=== PATIENT | male | born 1980 | race Caucasian/White ===

== ENCOUNTER 2019-05-03 21:11 | Emergency (ER) | END 2019-05-04 02:45 | disposition left against medical advice (07) | LOC: EDBD → ER 21:11 | DX: Z53.21 Procedure and treatment not carried out due to patient leaving prior to being seen by health care provider (principal) ==

== ENCOUNTER 2020-05-25 14:28 | Inpatient (IN) | payer SELFPAY ==
[2020-05-25] MEDS ORDERED: ACETAMINOPHEN 325 MG TABLET PO ONE (14:32)
[2020-05-25] MEDS ORDERED: VANCOMYCIN HCL INJ 1000 MG VIAL IV ONE ×2 (14:32→19:15)
[2020-05-25] MEDS ORDERED: CEFEPIME INJ 1 GM VIAL IM ONE (14:32)
[2020-05-25] MEDS ORDERED: FENTANYL CITRATE INJ/PF 100 MCG/2 ML AMPUL IV ONE (14:33)
[2020-05-25] MEDS ORDERED: NORMAL SALINE 1000 ML 1,000 ML IV ONE (14:33)
--- NOTE | 2020-05-25 14:39 | ER Document Report ---
ED General - General Stated Complaint: KNEE PAIN/POSSIBLE INFECTION Time Seen by Provider: 05/25/20 14:30 Notes: 3-year-old male, active user of heroin injection drug use up to a gram and a half a day presents with left knee pain for 2 days. Initially told EMS in front of his girlfriend that he poked his knee with a piece of wood but now is saying that he did inject drugs there admits about 2 days ago had progressive swelling inability to move his knee fever and chills. Lactic was 5 in the field heart rate 133 without a fever. Pain is severe worse when moving. EMS outlined the area and states that is actually gone up his thighs since they outlined it less than an hour ago - Related Data Allergies/Adverse Reactions: No Known Allergies Allergy (Unverified 05/03/19 22:03) Past Medical History - General Information source: Patient - Social History Smoking Status: Unknown if Ever Smoked Drug Abuse: Heroin Family History: None Review of Systems - Review of Systems Notes: REVIEW OF SYSTEMS GEN: Fever chills ENT: Denies sore throat, nasal discharge, ear pain EYES: Denies blurry vision, eye pain, discharge CV: Denies chest pain, palpitations, edema RESP: Denies cough, shortness of breath, wheezing GI: Denies abdominal pain, nausea, vomiting, diarrhea MSK: Pain SKIN: Denies rash, skin lesions LYMPH: Denies swollen glands/lymph nodes NEURO: Denies headache, focal weakness or numbness, dizziness PSYCH: Denies depression, suicidal or homicidal ideation PHYSICAL EXAMINATION General: No acute distress, well-nourished Head: Atraumatic, normocephalic ENT: Mouth normal, oropharynx moist, no exudates or tonsillar enlargement Eyes: Conjunctiva normal, pupils equal, lids normal Neck: No JVD, supple, no guarding CVS: Normal rate, regular rhythm, no murmurs Resp: No resp distress, equal and normal breath sounds bilaterally GI: Nondistended, soft, no tenderness to palpation, no rebound or guarding Ext: Brawny edema from the inner thigh all the way to the calf on the left crossing the knee joint with obvious knee effusion multiloculated abscess with pus draining, pain on axial loading and almost no range of motion of the left knee. Redness is gone outside of a sharpie jazmyn which was placed less than 1 hour ago by the EMS providers. ext Back: No CVA or midline TTP Skin: No rash, warm Lymphatic: No lymphadeopathy noted Neuro: Awake, alert. Face symmetric. GCS 15. Physical Exam - Vital signs Vitals: Temp 98.6 F 05/25/20 14:32 Course - Re-evaluation Re-evalutation: 05/25/20 14:54 Necrotizing fasciitis versus septic joint versus both Septic Immediate fluids antibiotics ordered. Personally started double IVs given ter rible access, using ultrasound. Discussed with Dr. Waldrop at [facility] [place] on arrival of the patient with my concern for necrotizing fasciitis and the need for urgent operative debridement Also discussed with Dr. Camacho will be here in about an hour and a half to see a different patient and agreed to evaluate this patient but states that is going to be a general surgery case and he can be called from intraoperative if there is any need to I&D the joint 05/25/20 15:45 3:[address] shows gas in the gluteus area. On exam when I rolled the patient he states has been injecting intramuscular in his buttocks. There is no tenderness in area of gas. I think this is probably spurious from injection rather than spreading necrotizing fasciitis. Do not see gas down low. He has been gotten his antibiotics. His lactic is elevated. Awaiting surgical consultation by Dr. Waldrop. 05/25/20 16:15 Dr. Waldrop was at the bedside. We discussed the reading of the CT which shows gas in the gluteus but on exam the patient does not have infection in that side and admits to shooting directly to the muscles of this is probably just air without infection. He does however have elevated white count hyponatremia and symptoms and signs concerning for neck fashion He has a DVT in that side as well in talking to radiology which could be chronic. I have added a CPK because there may be some medial compartment myositis. Clinically no compartment syndrome. Positive joint effusion. - Vital Signs Vital signs: Temp Pulse Resp BP Pulse Ox 98.6 F 32 H 142/81 H 97 05/25/20 14:32 05/25/20 16:01 05/25/20 16:01 05/25/20 16:01 - Laboratory Result Diagrams: 05/25/20 14:53 05/25/20 14:53 Laboratory results interpreted by me: 05/25/20 05/25/20 05/25/20 14:53 14:53 14:53 WBC 18.8 H RBC 5.69 H MCV 76 L MCH 25.8 L RDW 16.0 H Seg Neuts % (Manual) 88 H Lymphocytes % (Manual) 7 L Abs Neuts (Manual) 16.5 H VBG HCO3 Sodium 132.7 L Chloride 86 L Carbon Dioxide 36 H Glucose 183 H Lactic Acid 3.2 H Total Bilirubin 3.0 H Direct Bilirubin 2.2 H Alkaline Phosphatase 302 H 05/25/20 15:03 WBC RBC MCV MCH RDW Seg Neuts % (Manual) Lymphocytes % (Manual) Abs Neuts (Manual) VBG HCO3 32.4 H Sodium Chloride Carbon Dioxide Glucose Lactic Acid Total Bilirubin Direct Bilirubin Alkaline Phosphatase - Diagnostic Test Radiology reviewed: Image reviewed, Reports reviewed - EKG Interpretation by Me EKG shows normal: Sinus rhythm Rate: Tachycardia Rhythm: NSR When compared to previous EKG there are: Previous EKG unavailable - No ST or T wave changes Intervals normal Procedures - Additional Procedures IV insertion Notes: 05/25/20 15:16 Ultrasound-guided IV x2 1. Right deep brachial vein 20-gauge sterile prep dynamic ultrasound guidance good/good flush anchored in place 1. Left deep brachial vein 18-gauge sterile prep dynamic ultrasound guidance good/good flush anchored in place Critical Care Note - Critical Care Note Total time excluding time spent on procedures (mins): 40 Comments: The above patient is critically ill. Not including procedures, but including direct re-evaluations, speaking with patient and/or consultants, interpreting results, and documenting, I spent the total amount of minute listed listed above on critical care time Discharge - Discharge Clinical Impression: Necrotizing fasciitis DVT (deep venous thrombosis) Qualifiers: DVT location: lower extremity Affected thrombotic vein of extremity: femoral Chronicity: chronic Laterality: left Qualified Code(s): I82.512 - Chronic embolism and thrombosis of left femoral vein Condition: Critical Disposition: ADMITTED INPATIENT Admitting Provider: Surgicalist Unit Admitted: [facility]
[2020-05-25] MEDS ORDERED: CEFEPIME 2 GM/D5W RTU 2 GM/50 ML RTUPB IV ONE (15:00)
[2020-05-25] MEDS ORDERED: HYDROMORPHONE HCL INJ/PF 2 MG/ML AMPULE IV ONE ×2 (15:13→15:48)
[2020-05-25 15:26] LABS: HEMATOCRIT 43.3 % (37.9-51.0); HEMOGLOBIN 14.7 g/dL (13.5-17.0); MEAN CORPUSCULAR HEMOGLOBIN 25.8 pg (27.0-33.4); MEAN CORPUSCULAR HGB CONC 33.9 g/dL (32.0-36.0); MEAN CORPUSCULAR VOLUME 76 fl (80-97); PLATELET COUNT 252 10^3/uL (150-450); RED BLOOD COUNT 5.69 10^6/uL (4.35-5.55); WHITE BLOOD COUNT 18.8 10^3/uL (4.0-10.5)
[2020-05-25 15:29] LABS: VENOUS BLOOD BASE EXCESS 5.6 mmol/L; VENOUS BLOOD HCO3 32.4 mmol/L (20-32); VENOUS BLOOD PCO2 56.7 mmHg (35-63); VENOUS BLOOD PH 7.38 (7.30-7.42)
[2020-05-25 15:32] LABS: INTERNATIONAL RATION (INR) 1.13; PROTHROMBIN TIME 14.7 SEC (11.4-15.4)
[2020-05-25 15:44] LABS: ALBUMIN 3.7 g/dL (3.5-5.0); ALKALINE PHOSPHATASE 302 U/L (38-126); ANION GAP 11 (5-19); ASPARTATE AMINO TRANSFERASE 34 U/L (17-59); BILIRUBIN,DIRECT 2.2 mg/dL (0.0-0.4); BLOOD UREA NITROGEN 12 mg/dL (7-20); CALCIUM 9.9 mg/dL (8.4-10.2); CARBON DIOXIDE 36 mmol/L (22-30); CHLORIDE 86 mmol/L (98-107); GLUCOSE 183 mg/dL (75-110); POTASSIUM 3.8 mmol/L (3.6-5.0); TOTAL PROTEIN 7.6 g/dL (6.3-8.2)
[2020-05-25 15:57] LABS: ABSOLUTE LYMPHOCYTES# (MANUAL) 1.3 10^3/uL (0.5-4.7); ABSOLUTE MONOCYTES # (MANUAL) 0.9 10^3/uL (0.1-1.4); BASOPHILS % (MANUAL) 0 % (0-2); EOSINOPHILS % (MANUAL) 0 % (0-6); LYMPHOCYTES % (MANUAL) 7 % (13-45); MONOCYTES % (MANUAL) 5 % (3-13); SEGMENTED NEUTROPHILS % (MAN) 88 % (42-78); TOTAL CELLS COUNTED 100
[2020-05-25 15:59] LABS: ANISOCYTOSIS 1+; PLATELET COMMENT ADEQUATE
--- NOTE | 2020-05-25 16:00 | RADIOLOGY REPORT (SQ) ---
EXAM DESCRIPTION: KNEE LEFT 2 VIEWS IMAGES COMPLETED DATE/TIME: 05/25/2020 2:38 pm REASON FOR STUDY: septic knee. COMPARISON: None. NUMBER OF VIEWS: Two views TECHNIQUE: AP and lateral radiographic images acquired of the left knee. LIMITATIONS: None. FINDINGS: MINERALIZATION: Normal. BONES: No acute fracture or dislocation. No worrisome bone lesions. JOINT: Small joint effusion. SOFT TISSUES: No soft tissue swelling. No radio-opaque foreign body. OTHER: No other significant finding. IMPRESSION: Small knee joint effusion. No acute fracture or destructive bone lesion. TECHNICAL DOCUMENTATION: JOB ID: [id number] [email or web address]- All Rights Reserved Reading location - IP/workstation name: [id number]
--- NOTE | 2020-05-25 16:18 | RADIOLOGY REPORT (SQ) ---
EXAM DESCRIPTION: CT LEFT LOWER EXTREMITY WITH IMAGES COMPLETED DATE/TIME: 05/25/2020 2:48 pm REASON FOR STUDY: inecr TECHNIQUE: CT scan of the left leg including the knee from the hip through the knee joint performed without IV contrast. Images reviewed with soft tissue and bone windows. Reconstructed coronal and s agittal MPR images reviewed. All images stored on PACS. CONTRAST TYPE AND DOSE: 79 mL Omnipaque 350 RENAL FUNCTION: None required. The patient is less than 50 years old. LIMITATIONS: None. FINDINGS: Bones: There is no fracture, lytic or blastic bone lesion. Normal knee joint alignment. Normal femoroacetabular alignment. Mild degenerative change at the femoroacetabular joint. Soft tissues: Subcutaneous gas at the left outer hip within the subcutaneous fat. No foreign body. No definite skin laceration is identified. Subcutaneous edema involving the distal leg and knee. I nflammatory change surrounds the medial compartment muscles. No fluid within the medial compartment. Skin thickening overlying the knee. Small knee joint effusion. Prominent left inguinal lymph node s measuring up to 1.5 x 1.4 cm. No free fluid in the pelvis. Vasculature: There is DVT in the distal left femoral vein from the adductor hiatus to the popliteal v ein. Focal DVT is also noted in the proximal greater saphenous vein at the bifurcation with the femoral ve in, with short segment extending into the common femoral vein. Other: None. IMPRESSION: 1. Subcutaneous edema and skin thickening involving the distal upper leg and knee, consistent with ce llulitis and subcutaneous edema. No focal drainable abscess. 2. Inflammatory change involving the medial compartment muscles suggestive of myositis. 3. Small knee joint effusion. 4. Focal DVT in the proximal common femoral vein extending into the greater saphenous vein and in the distal femoral vein. 5. Subcutaneous gas overlying the left hip region with no surrounding inflammatory change or foreign body. This may represent an injection site. COMMENT: Findings discussed with Dr. tasneem segal 05/25/2020 at 1608 hours Eastern time. TECHNICAL DOCUMENTATION: JOB ID: [id number] 2010 [employer]- All Rights Reserved COMPARISON: None. Left knee radiograph two views, same date Reading location - IP/workstation name: [email or web address]
[2020-05-25] MEDS: RINGERS SOLUTION,LACTATED 1,000 ML IV PRN (16:21)
[2020-05-25] MEDS ORDERED: DIPH/PERTUSS(ACELL)/TETANUS VAC/PF 0.5 ML SYR (>=10YO) IM ONE (16:35)
[2020-05-25] MEDS ORDERED: PROPOFOL INJ 200 MG/20 ML VIAL IV ONE (16:42)
[2020-05-25] MEDS ORDERED: MIDAZOLAM 2 MG/2 ML INJ ONE (16:42)
[2020-05-25] MEDS ORDERED: LIDOCAINE 2% INJ-PF (20 MG/ML) 10 ML AMPUL ONE (16:42)
[2020-05-25] MEDS ORDERED: ONDANSETRON HCL INJ/PF 4 MG/2 ML SDV ONE (16:42)
[2020-05-25] MEDS ORDERED: FENTANYL CITRATE INJ/PF 100 MCG/2 ML AMPUL ONE (16:42)
[2020-05-25] MEDS ORDERED: LIDOCAINE 1% INJ-PF (10 MG/ML) 30 ML SDV ONE (16:57)
--- NOTE | 2020-05-25 17:12 | PDOC H&P ---
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 The patient states he has been trying to inject heroin into the left lower extremity saphenous vein for the past 4 to 5 days she has been experiencing the above symptoms which have become worse today and prompted him to come to the emergency room. Social History Smoking Status: Unknown if Ever Smoked Family History Family History: None Parental Family History Reviewed: No Children Family History Reviewed: No Sibling(s) Family History Reviewed.: No Medication/Allergy Home Medications: No Home Medications 05/25/20 Allergies/Adverse Reactions: No Known Allergies Allergy (Unverified 05/03/19 22:03) Physical Exam Vital Signs: Temp Pulse Resp BP Pulse Ox 98.6 F 32 H 142/81 H 97 05/25/20 14:32 05/25/20 16:01 05/25/20 16:01 05/25/20 16:01 Intake & Output 05/24/20 05/25/20 05/26/20 06:59 06:59 06:59 Intake Total 1000 Balance 1000 Weight 175 kg General appearance: PRESENT: disheveled, mild distress, thin Head exam: PRESENT: atraumatic, normocephalic Eye exam: PRESENT: EOMI Mouth exam: PRESENT: dry mucosa, neck supple Teeth exam: PRESENT: poor dentation Neck exam: PRESENT: full ROM Respiratory exam: PRESENT: clear to auscultation selam Cardiovascular exam: PRESENT: RRR GI/Abdominal exam: PRESENT: soft Rectal exam: PRESENT: deferred Extremities exam: PRESENT: full ROM, other - Decreased range of motion left lower extremity; left lower extremity = present diffuse erythema, edema, areas of cutaneous abscesses tenderness on palpation located mainly on the left knee and distal thigh as well as medial thigh; palpable dorsalis pedis and posterior tibialis pulses Neurological exam: PRESENT: other - Left lower extremity = maintained sensation, maintained range of motion left toes, markedly decreased range of motion left knee and hip Results Laboratory Results: 05/25/20 14:53 05/25/20 14:53 05/25/20 05/25/20 05/25/20 14:53 14:53 14:53 WBC 18.8 H RBC 5.69 H Hgb 14.7 Hct 43.3 MCV 76 L MCH 25.8 L MCHC 33.9 RDW 16.0 H Plt Count 252 Seg Neutrophils % Not Reportable VBG pH VBG pCO2 VBG HCO3 VBG Base Excess Sodium 132.7 L Potassium 3.8 Chloride 86 L Carbon Dioxide 36 H Anion Gap 11 BUN 12 Creatinine 0.77 Est GFR ( Amer) > 60 Glucose 183 H Lactic Acid 3.2 H Calcium 9.9 Total Bilirubin 3.0 H AST 34 Alkaline Phosphatase 302 H Total Protein 7.6 Albumin 3.7 05/25/20 15:03 WBC RBC Hgb Hct MCV MCH MCHC RDW Plt Count Seg Neutrophils % VBG pH 7.38 VBG pCO2 56.7 VBG HCO3 32.4 H VBG Base Excess 5.6 Sodium Potassium Chloride Carbon Dioxide Anion Gap BUN Creatinine Est GFR ( Amer) Glucose Lactic Acid Calcium Total Bilirubin AST Alkaline Phosphatase Total Protein Albumin Impressions: Knee X-Ray 05/25/20 14:34 IMPRESSION: Small knee joint effusion. No acute fracture or destructive bone lesion. Lower Extremity CT 05/25/20 14:39 IMPRESSION: 1. Subcutaneous edema and skin thickening involving the distal upper leg and knee, consistent with cellulitis and subcutaneous edema. No focal drainable abscess. 2. Inflammatory change involving the medial compartment muscles suggestive of myositis. 3. Small knee joint effusion. 4. Focal DVT in the proximal common femoral vein extending into the greater saphenous vein and in the distal femoral vein. 5. Subcutaneous gas overlying the left hip region with no surrounding inflammatory change or foreign body. This may represent an injection site. Assessment & Plan - Diagnosis (1) IV drug abuse Is this a current diagnosis for this admission?: Yes (2) DVT (deep venous thrombosis) Qualifiers: DVT location: lower extremity Affected thrombotic vein of extremity: femoral Chronicity: chronic Laterality: left Qualified Code(s): I82.512 - Chronic embolism and thrombosis of left femoral vein Is this a current diagnosis for this admission?: Yes (3) Necrotizing fasciitis Is this a current diagnosis for this admission?: Yes - Time Anticipated Discharge Disposition: Home with Home Health Anticipated Discharge Timeframe: When ready - Plan Summary Plan Summary: Assessment: History of IV drug abuse (heroin) Patient gives a history of attempted heroin injection in the left upper extremity during the past weeks Erythema, edema, pain, swelling, decreased range of motion of the left knee CT scan of the left lower extremity demonstrates diffuse cellulitis of the left knee without joint involvement, with involvement of the medial aspect of the thigh muscles Acute DVT of the left superficial and common femoral vein Plan: IV fluids N.p.o. IV antibiotics (vancomycin and Maxipime) Tetanus toxoid IM 1 dose Incision and debridement of the left lower extremity thigh and knee cellulitis/abscess area: Procedure, risks, benefits, complications, including the possibility of loss of tissue, bleeding, multiple procedures, loss of extremity have been discussed with the patient, he understands all the above, his questions were answered to his satisfaction, and he decides to proceed
[2020-05-25] MEDS ORDERED: ONDANSETRON HCL INJ/PF 4 MG/2 ML SDV IV PRN ×2 (18:04→19:02)
[2020-05-25] MEDS ORDERED: FENTANYL CITRATE INJ/PF 100 MCG/2 ML AMPUL IV PRN ×3 (18:04)
[2020-05-25] MEDS ORDERED: DIPHENHYDRAMINE HCL 50 MG/ML VIAL IV PRN (18:04)
[2020-05-25] MEDS ORDERED: MEPERIDINE HCL/PF INJ 25 MG/1 ML DISP.SYRIN IV PRN (18:04)
[2020-05-25] MEDS ORDERED: PROMETHAZINE HCL INJ 25 MG/1 ML VIAL IV PRN ×2 (18:04)
--- NOTE | 2020-05-25 18:47 | Operative Report ---
Operative Report DATE OF SURGERY: 05/25/20 PREOPERATIVE DIAGNOSIS: Left thigh myositis, left knee cellulitis POSTOPERATIVE DIAGNOSIS: Left knee anterior subcutaneous abscess OPERATION: Left thigh incision and drainage; left anterior knee incision and drainage SURGEON: EBER SHAH ANESTHESIA: Spinal TISSUE REMOVED OR ALTERED: Purulent fluid from left anterior knee subcutaneous tissue COMPLICATIONS: None ESTIMATED BLOOD LOSS: 20 mL INTRAOPERATIVE FINDINGS: Normal appearing left medial thigh muscle compartment; subcutaneous abscess left anterior knee PROCEDURE: The procedure was done in the operating room, the patient was placed in supine position following spinal anesthesia induced by anesthesiologist, the left lower extremity was prepped and draped in a sterile fashion. A stockinette was applied over the foot. Attention was given to the left thigh first and a longitudinal incision was made at the transition between the middle third and the lobar third of the thigh along the median line. This was done with Bovie, the subcutaneous fat was divided with Bovie, the incision was deepened down to the muscle fascia which was opened. Cultures for aerobic, anaerobic, and Gram stain were obtained. The underlying muscle was found to be viable with good bleeding from skin, fat, and the muscle fascia. This was controlled with Bovie. The area was irrigated with about 2 L of normal saline via jet lavage. The left anterior knee was then approached in a cruciate incision followed by subcutaneous insertion of a hemostat which caused drainage of a small amount of pus. This was sent for aerobic anaerobic culture and Gram stain. The skin flaps were elevated with Bovie and the area was then again irrigated with normal saline via jet lavage with about 2 L of normal saline. After this, hemostasis of both wounds was obtained with Bovie, each wound was packed with Kerlix roll soaked in 50% solution Betadine, followed by 4 x 4's, ABDs, Kerlix roll, and Bruce bandage. The patient tolerated the procedure well and transferred to the recovery room in satisfactory conditions.
[2020-05-25] MEDS ORDERED: NORMAL SALINE 1000 ML 1,000 ML IV PRN (19:13)
[2020-05-25] MEDS ORDERED: KETOROLAC TROMETHAMINE INJ/PF 30 MG/1 ML SDV IV PRN (20:07)
[2020-05-25] MEDS: FAMOTIDINE INJ/PF 20 MG/2 ML SDV IV SCH ×2 (20:57→21:30)
[2020-05-25] MEDS: DOCUSATE SODIUM 100 MG/10 ML UDC PO SCH (20:57)
--- NOTE | 2020-05-25 21:08 | PDOC CONSULTATION ---
Consultation Consult Date: 05/25/20 Attending physician:: EBER SHAH Provider Consulted: AIDE ARTIS Consult reason:: Heroin withdrawal, pain control History of Present Illness Admission Date/PCP: 05/25/20 15:25 History of Present Illness: AIDE KHAN is a 39 year old male with history of IV heroin abuse who was admitted by the surgical service for a left thigh cellulitis with possible myonecrosis and a left lower extremity DVT. Our service was consulted to help manage his pain as well as to prevent him on withdrawal. His last use was about an hour before he came to the ER. He says that he uses about 1.5 g of heroin a day, and has done so at that level for at least the last 3 years. He says his habit because some about $175 a day. He is not currently experiencing any withdrawal symptoms. He denies any other chronic medical conditions and takes n o medications at home. Past Medical History Medical History: Other - Patient denies Past Surgical History Past Surgical History: Reports: None Social History Information Source: Patient Smoking Status: Current Every Day Smoker Frequency of Alcohol Use: Occasional Hx Recreational Drug Use: Yes Drugs: Heroin - Advance Directive Resuscitation Status: Full Code Family History Family History: None, COPD, Hypertension Parental Family History Reviewed: Yes Children Family History Reviewed: NA Sibling(s) Family History Reviewed.: Yes Medication/Allergy Home Medications: No Home Medications 05/25/20 Allergies/Adverse Reactions: No Known Allergies Allergy (Unverified 05/03/19 22:03) Review of Systems All systems: reviewed and no additional remarkable complaints except as stated - All systems were reviewed and were negative except as noted in the HPI Physical Exam Vital Signs: Temp Pulse Resp BP Pulse Ox 97.9 F 110 H 20 122/52 L 94 05/25/20 19:51 05/25/20 19:51 05/25/20 19:51 05/25/20 19:51 05/25/20 19:51 Intake & Output 05/24/20 05/25/20 05/26/20 06:59 06:59 06:59 Intake Total 2700 Output Total 50 Balance 2650 Weight 175 kg General appearance: PRESENT: no acute distress, cooperative, disheveled. ABSENT: obese - Unless he is for some reason extraordinarily dense, this patient does not weigh 175 kg Head exam: PRESENT: atraumatic, normocephalic Eye exam: PRESENT: EOMI, PERRLA. ABSENT: conjunctival injection, nystagmus, scleral icterus Ear exam: PRESENT: normal external ear exam Mouth exam: PRESENT: moist, neck supple Throat exam: ABSENT: post pharyngeal erythema Neck exam: PRESENT: full ROM. ABSENT: carotid bruit, JVD, lymphadenopathy, meningismus, tenderness, thyromegaly Respiratory exam: PRESENT: clear to auscultation selam, symmetrical, unlabored. ABSENT: accessory muscle use, chest wall tenderness, crackles, prolonged expiratory phas, rhonchi, tachypnea, wheezes Cardiovascular exam: PRESENT: RRR, +S1, +S2 Pulses: PRESENT: normal carotid pulses Vascular exam: PRESENT: normal capillary refill GI/Abdominal exam: PRESENT: normal bowel sounds, soft. ABSENT: distended, guarding, rebound, tenderness Extremities exam: PRESENT: other - The left lower extremity is covered in a heavy Bruce bandage from the upper thigh down to the toes. ABSENT: clubbing, pedal edema Neurological exam: PRESENT: alert, awake, oriented to person, oriented to place, oriented to time, oriented to situation, CN II-XII grossly intact. ABSENT: motor sensory deficit Psychiatric exam: PRESENT: appropriate affect, normal mood Skin exam: PRESENT: dry, warm Results Laboratory Results: 05/25/20 14:53 05/25/20 14:53 05/25/20 05/25/20 05/25/20 14:53 14:53 14:53 WBC 18.8 H RBC 5.69 H Hgb 14.7 Hct 43.3 MCV 76 L MCH 25.8 L MCHC 33.9 RDW 16.0 H Plt Count 252 Seg Neutrophils % Not Reportable VBG pH VBG pCO2 VBG HCO3 VBG Base Excess Sodium 132.7 L Potassium 3.8 Chloride 86 L Carbon Dioxide 36 H Anion Gap 11 BUN 12 Creatinine 0.77 Est GFR ( Amer) > 60 Glucose 183 H Lactic Acid 3.2 H Calcium 9.9 Total Bilirubin 3.0 H AST 34 Alkaline Phosphatase 302 H Total Protein 7.6 Albumin 3.7 05/25/20 15:03 WBC RBC Hgb Hct MCV MCH MCHC RDW Plt Count Seg Neutrophils % VBG pH 7.38 VBG pCO2 56.7 VBG HCO3 32.4 H VBG Base Excess 5.6 Sodium Potassium Chloride Carbon Dioxide Anion Gap BUN Creatinine Est GFR ( Amer) Glucose Lactic Acid Calcium Total Bilirubin AST Alkaline Phosphatase Total Protein Albumin 05/25/20 14:53 Creatine Kinase 36 L Impressions: Knee X-Ray 05/25/20 14:34 IMPRESSION: Small knee joint effusion. No acute fracture or destructive bone lesion. Lower Extremity CT 05/25/20 14:39 IMPRESSION: 1. Subcutaneous edema and skin thickening involving the distal upper leg and knee, consistent with cellulitis and subcutaneous edema. No focal drainable abscess. 2. Inflammatory change involving the medial compartment muscles suggestive of myositis. 3. Small knee joint effusion. 4. Focal DVT in the proximal common femoral vein extending into the greater saphenous vein and in the distal femoral vein. 5. Subcutaneous gas overlying the left hip region with no surrounding inflammatory change or foreign body. This may represent an injection site. Assessment and Plan - Diagnosis (1) Cellulitis of left thigh Is this a current diagnosis for this admission?: Yes (2) Abscess of left thigh Is this a current diagnosis for this admission?: Yes (3) Heroin addiction Is this a current diagnosis for this admission?: Yes (4) DVT (deep venous thrombosis) Qualifiers: DVT location: lower extremity Affected thrombotic vein of extremity: femoral Chronicity: chronic Laterality: left Qualified Code(s): I82.512 - Chronic embolism and thrombosis of left femoral vein Is this a current diagnosis for this admission?: Yes (5) IV drug abuse Is this a current diagnosis for this admission?: Yes - Plan Summary Summary: He is already been to the OR with Dr. Shah, who is managing his cellulitis and abscess. There has been some discussion about reevaluating the wound to see if it needs further debridement tomorrow. Therefore, anticoagulation for his DVT is on hold. When he is anticoagulated, he will have to be started on warfarin and bridged with Lovenox because he has no insurance. For his heroin addiction, I have advised him that we will not be able to relieve every bit of discomfort, but we will try to make it tolerable. He has not had any withdrawal now. I will start him on some methadone while he is here. We will reassess him later to see if he needs any additional methadone to prevent withdrawal symptoms. I have also started some IV Toradol. When he gets out of the PACU, we will see if he needs any further medication for pain control. He has some orders down there that they can use in the PACU, and I did not want to start any additional medication at this time to avoid any potential complications until he gets to the floor. - Time Time Spent with patient: 35 or more minutes Anticipated Discharge Disposition: Home, Self Care Anticipated Discharge Timeframe: Unknown
[2020-05-25] MEDS ORDERED: CEFEPIME 1 GM/D5W RTU 2 GM/100 ML RTUPB IV ONE (21:41)
[2020-05-25] MEDS ORDERED: METHADONE HCL 10 MG TABLET PO SCH (22:00)
[2020-05-25] MEDS ORDERED: CEFEPIME 2 GM/D5W RTU 2 GM/50 ML RTUPB IV SCH (22:00)
[2020-05-25] MEDS: CEFEPIME IV SCH (22:56)
[2020-05-25] MEDS: [UNRECOGNIZED DRUG - OTHER] IV SCH (22:56)
[2020-05-26] MEDS ORDERED: OXYCODONE-ACETAMINOPHEN 5-325 MG TABLET PO PRN ×5 (03:46→18:55)
[2020-05-26] MEDS ORDERED: CEFEPIME HCL 1.5 GM in DEXTROSE 5%-WATER 50 ML IV SCH (06:00)
[2020-05-26] MEDS: [UNRECOGNIZED DRUG - OTHER] IV SCH (06:07)
[2020-05-26] MEDS: CEFEPIME IV SCH (06:07)
--- NOTE | 2020-05-26 09:05 | PDOC PROGRESS REPORT ---
Subjective Date:: 05/26/20 Subjective:: 39-year-old male with a history of IV drug abuse. He has a severe soft tissue i nfection of the left lower extremity. He continues to report pain in his left leg. He denies any chest pain, shortness of breath, headache, dizziness, orthostasis. Reason For Visit: NECROTIZING FASCIITIS Physical Exam Vital Signs: Temp Pulse Resp BP Pulse Ox 98.7 F 103 H 17 143/57 H 92 05/26/20 07:43 05/26/20 07:43 05/26/20 07:43 05/26/20 07:43 05/26/20 07:43 Intake & Output 05/25/20 05/26/20 05/27/20 06:59 06:59 06:59 Intake Total 2700 Output Total 400 Balance 2300 Weight 175 kg General appearance: PRESENT: no acute distress, disheveled Head exam: PRESENT: atraumatic, normocephalic Eye exam: PRESENT: EOMI, PERRLA. ABSENT: scleral icterus Mouth exam: PRESENT: moist, neck supple Neck exam: ABSENT: meningismus, tenderness, thyromegaly, tracheal deviation Respiratory exam: PRESENT: unlabored. ABSENT: tachypnea, wheezes Cardiovascular exam: ABSENT: tachycardia GI/Abdominal exam: PRESENT: soft. ABSENT: tenderness Rectal exam: PRESENT: deferred Extremities exam: PRESENT: other - Erythema and edema of the left leg extending from below the knee, up to the mid thigh. There are pustules present on the skin of the medial aspect of the left knee. There is necrotic skin and tissue present in and around the knee wound. Neurological exam: PRESENT: alert, awake, oriented to person, oriented to place, oriented to time, oriented to situation, CN II-XII grossly intact Psychiatric exam: PRESENT: anxious. ABSENT: agitated Focused psych exam: ABSENT: delusional Skin exam: PRESENT: erythema - Left knee, mottled - Left knee. ABSENT: cyanosis Results Laboratory Results: 05/25/20 14:53 05/25/20 14:53 05/25/20 05/25/20 05/25/20 14:53 14:53 14:53 WBC 18.8 H RBC 5.69 H Hgb 14.7 Hct 43.3 MCV 76 L MCH 25.8 L MCHC 33.9 RDW 16.0 H Plt Count 252 Seg Neutrophils % Not Reportable VBG pH VBG pCO2 VBG HCO3 VBG Base Excess Sodium 132.7 L Potassium 3.8 Chloride 86 L Carbon Dioxide 36 H Anion Gap 11 BUN 12 Creatinine 0.77 Est GFR ( Amer) > 60 Glucose 183 H Lactic Acid 3.2 H Calcium 9.9 Total Bilirubin 3.0 H AST 34 Alkaline Phosphatase 302 H Total Protein 7.6 Albumin 3.7 05/25/20 05/25/20 05/25/20 15:03 20:45 23:46 WBC RBC Hgb Hct MCV MCH MCHC RDW Plt Count Seg Neutrophils % VBG pH 7.38 VBG pCO2 56.7 VBG HCO3 32.4 H VBG Base Excess 5.6 Sodium Potassium Chloride Carbon Dioxide Anion Gap BUN Creatinine Est GFR ( Amer) Glucose Lactic Acid 1.7 1.8 Calcium Total Bilirubin AST Alkaline Phosphatase Total Protein Albumin 05/25/20 14:53 Blood Blood Culture (PCR) - Final Staphylococcus Aureus 05/25/20 14:53 Creatine Kinase 36 L Impressions: Knee X-Ray 05/25/20 14:34 IMPRESSION: Small knee joint effusion. No acute fracture or destructive bone lesion. Lower Extremity CT 05/25/20 14:39 IMPRESSION: 1. Subcutaneous edema and skin thickening involving the distal upper leg and knee, consistent with cellulitis and subcutaneous edema. No focal drainable abscess. 2. Inflammatory change involving the medial compartment muscles suggestive of myositis. 3. Small knee joint effusion. 4. Focal DVT in the proximal common femoral vein extending into the greater saphenous vein and in the distal femoral vein. 5. Subcutaneous gas overlying the left hip region with no surrounding inflammatory change or foreign body. This may represent an injection site. Assessment & Plan - Diagnosis (1) Necrotizing soft tissue infection Is this a current diagnosis for this admission?: Yes (2) IV drug abuse Is this a current diagnosis for this admission?: Yes - Time Anticipated Discharge Disposition: Home with Home Health Anticipated Discharge Timeframe: unknown - Plan Summary Plan Summary: 39-year-old male with a necrotizing soft tissue infection of the left knee. He continues to have necrotic tissue, evidence of purulence, erythema, and edema of the skin of the knee. The patient ate breakfast this morning. I have recommended n.p.o. now. He will require further debridement of his leg today. I believe the leg is still threatened. With aggressive surgical debridement, s alvage of the leg may be possible. If the infectious process remains out of control, he may lose his leg. I have discussed this at length with the patient. He agrees with the treatment plan. Risks/benefits discussed, informed consent obtained, and all questions answered.
[2020-05-26] MEDS: FAMOTIDINE INJ/PF 20 MG/2 ML SDV IV SCH ×2 (09:55→22:57)
[2020-05-26] MEDS: DOCUSATE SODIUM 100 MG/10 ML UDC PO SCH ×2 (09:55→17:59)
[2020-05-26] MEDS: CEFEPIME HCL 1.5 GM in DEXTROSE 5%-WATER 50 ML IV SCH ×2 (09:57→18:19)
[2020-05-26] MEDS ORDERED: CLONIDINE HCL 0.1 MG TABLET PO PRN (12:46)
--- NOTE | 2020-05-26 12:51 | PDOC PROGRESS REPORT ---
Subjective Date:: 05/26/20 Subjective:: The patient is a 39 year old male with a past medical history significant for IVDU and tobacco dependence with continuous use who is admitted to the surgicalist service for necrotizing soft tissue infection of the left knee. Hospitalist service was consulted for pain management and prevention of opiate withdrawal. Patient was seen on morning rounds. He is found resting in bed, comfortably, on room air. He was sleeping soundly but woke after calling his name a few times and gently shaking his shoulder. He is alert and oriented x4 but quickly falls back to sleep. Prior to falling back to sleep, he is agreeable to me utilizing the ultrasound machine to attempt to find IV access. Unfortunately, I was unable to find a good vein as he has had numerous IV and venipuncture attempts. The patient denied chest pain, dyspnea, abd pain, and nausea. Otherwise, he does not answer further questions and waves me away. Nursing reports that Dr. Jolly has been made aware of lost IV access. Plans to take patient to the OR again this afternoon. Reason For Visit: NECROTIZING FASCIITIS Physical Exam Vital Signs: Temp Pulse Resp BP Pulse Ox 98.7 F 103 H 17 143/57 H 92 05/26/20 10:00 05/26/20 07:43 05/26/20 07:43 05/26/20 07:43 05/26/20 07:43 Intake & Output 05/25/20 05/26/20 05/27/20 06:59 06:59 06:59 Intake Total 2700 Output Total 400 Balance 2300 Weight 175 kg General appearance: PRESENT: no acute distress, disheveled, well-developed, well-nourished Head exam: PRESENT: atraumatic, normocephalic Eye exam: PRESENT: conjunctiva pink, EOMI, PERRLA. ABSENT: scleral icterus Mouth exam: PRESENT: moist, tongue midline Teeth exam: PRESENT: poor dentation Respiratory exam: PRESENT: clear to auscultation selam, symmetrical, unlabored, other - room air. ABSENT: rales, rhonchi, wheezes Cardiovascular exam: PRESENT: RRR, +S1, +S2. ABSENT: diastolic murmur, rubs, systolic murmur Vascular exam: PRESENT: normal capillary refill Extremities exam: PRESENT: tenderness - Left knee. ABSENT: calf tenderness, clu bbing, full ROM - Left knee, pedal edema Neurological exam: PRESENT: alert, awake, oriented to person, oriented to place, oriented to time, oriented to situation, CN II-XII grossly intact, other - drowsy. ABSENT: motor sensory deficit Psychiatric exam: PRESENT: appropriate affect, normal mood. ABSENT: homicidal ideation, suicidal ideation Skin exam: PRESENT: dry, erythema, warm, other - NIRMAL wrap to Lt knee. Erythema and edema to medial thigh and circumfrincially around calf. Purulent drainage noted. Numerous track lowe to all extremities.. ABSENT: cyanosis, rash Results Laboratory Results: 05/25/20 14:53 05/25/20 14:53 05/25/20 05/25/20 05/25/20 14:53 14:53 14:53 WBC 18.8 H RBC 5.69 H Hgb 14.7 Hct 43.3 MCV 76 L MCH 25.8 L MCHC 33.9 RDW 16.0 H Plt Count 252 Seg Neutrophils % Not Reportable VBG pH VBG pCO2 VBG HCO3 VBG Base Excess Sodium 132.7 L Potassium 3.8 Chloride 86 L Carbon Dioxide 36 H Anion Gap 11 BUN 12 Creatinine 0.77 Est GFR ( Amer) > 60 Glucose 183 H Lactic Acid 3.2 H Calcium 9.9 Total Bilirubin 3.0 H AST 34 Alkaline Phosphatase 302 H Total Protein 7.6 Albumin 3.7 05/25/20 05/25/20 05/25/20 15:03 20:45 23:46 WBC RBC Hgb Hct MCV MCH MCHC RDW Plt Count Seg Neutrophils % VBG pH 7.38 VBG pCO2 56.7 VBG HCO3 32.4 H VBG Base Excess 5.6 Sodium Potassium Chloride Carbon Dioxide Anion Gap BUN Creatinine Est GFR ( Amer) Glucose Lactic Acid 1.7 1.8 Calcium Total Bilirubin AST Alkaline Phosphatase Total Protein Albumin 05/25/20 14:53 Blood Blood Culture (PCR) - Final Staphylococcus Aureus 05/25/20 14:53 Creatine Kinase 36 L Impressions: Knee X-Ray 05/25/20 14:34 IMPRESSION: Small knee joint effusion. No acute fracture or destructive bone lesion. Lower Extremity CT 05/25/20 14:39 IMPRESSION: 1. Subcutaneous edema and skin thickening involving the distal upper leg and knee, consistent with cellulitis and subcutaneous edema. No focal drainable abscess. 2. Inflammatory change involving the medial compartment muscles suggestive of myositis. 3. Small knee joint effusion. 4. Focal DVT in the proximal common femoral vein extending into the greater saphenous vein and in the distal femoral vein. 5. Subcutaneous gas overlying the left hip region with no surrounding inflammatory change or foreign body. This may represent an injection site. Assessment and Plan - Diagnosis (1) Bacteremia Is this a current diagnosis for this admission?: Yes Plan: Blood culture (1 set) positive for staph aureus; likely MRSA. Will repeat blood cultures in AM; ~24 after starting antibiotic therapy. Continue Cefepime q8h. Start Vancomycin. Although patient w/ acute necrotic soft tissue wound, he is high risk for endocarditis; will obtain echocardiogram. (2) Abscess of left thigh Is this a current diagnosis for this admission?: Yes Plan: Wound culture pending. Primary management per surgical service. Currently receiving cefepime. (3) Cellulitis of left thigh Is this a current diagnosis for this admission?: Yes Plan: As above. (4) Necrotizing soft tissue infection Is this a current diagnosis for this admission?: Yes Plan: As above. 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 Holding anticoagulation at this time secondary to further surgical procedures planned this afternoon. We will discuss with surgical service option for heparin drip. (6) Heroin addiction Is this a current diagnosis for this admission?: Yes Plan: Patient reportedly uses 1.5 g heroin daily x3 years. Currently receiving methadone 30 mg p.o. nightly. (7) IV drug abuse Is this a current diagnosis for this admission?: Yes (8) Hypertension Is this a current diagnosis for this admission?: Yes Plan: Blood pressures are noted to be elevated. Not on home antihypertensives. Provide adequate pain control. Monitor for opiate withdrawal symptoms. Oral clonidine as needed. - Time Time Spent with patient: 35 or more minutes Medications reviewed and adjusted accordingly: Yes Anticipated Discharge Disposition: Home, Self Care Anticipated Discharge Timeframe: 4-6 weeks
[2020-05-26] MEDS ORDERED: VANCOMYCIN HCL 0 MG in DEXTROSE 5%-WATER 250 ML IV NR (13:00)
[2020-05-26] MEDS ORDERED: HYDROMORPHONE HCL INJ/PF 2 MG/ML AMPULE ONE (14:23)
[2020-05-26] MEDS ORDERED: MIDAZOLAM 2 MG/2 ML INJ ONE (14:24)
[2020-05-26] MEDS ORDERED: PROPOFOL INJ 200 MG/20 ML VIAL IV ONE (14:24)
[2020-05-26] MEDS ORDERED: ONDANSETRON HCL INJ/PF 4 MG/2 ML SDV ONE (14:24)
[2020-05-26] MEDS ORDERED: FENTANYL CITRATE INJ/PF 100 MCG/2 ML AMPUL ONE (14:24)
[2020-05-26] MEDS ORDERED: BUPIVACAINE HCL 0.25 % INJ/PF (2.5 MG/1 ML) 30 ML VIAL ONE (14:29)
[2020-05-26] MEDS ORDERED: ONDANSETRON HCL INJ/PF 4 MG/2 ML SDV IV PRN (16:08)
[2020-05-26] MEDS ORDERED: FENTANYL CITRATE INJ/PF 100 MCG/2 ML AMPUL IV PRN ×3 (16:08)
[2020-05-26] MEDS ORDERED: DIPHENHYDRAMINE HCL 50 MG/ML VIAL IV PRN (16:08)
[2020-05-26] MEDS ORDERED: PROMETHAZINE HCL INJ 25 MG/1 ML VIAL IV PRN (16:08)
[2020-05-26] MEDS ORDERED: MEPERIDINE HCL/PF INJ 25 MG/1 ML DISP.SYRIN IV PRN (16:08)
[2020-05-26] MEDS ORDERED: MORPHINE SULFATE 10 MG/ML INJ IV PRN (16:08)
--- NOTE | 2020-05-26 16:53 | Operative Report ---
Nonrecallable Operative Report DATE OF SURGERY: 05/26/20 PREOPERATIVE DIAGNOSIS: Necrotizing soft tissue infection of the left lower extremity POSTOPERATIVE DIAGNOSIS: Same as above OPERATION: Sharp, excisional debridement of necrotizing soft tissue infection of the skin and fatty soft tissue of the left lower extremity, down to the fascia. Debridement area is 33 cm x 13 cm. SURGEON: NYDIA GRAVES ANESTHESIA: GA TISSUE REMOVED OR ALTERED: Sharp, excisional debridement of skin and fatty soft tissue of the left lower extremity (33 x 13 cm) COMPLICATIONS: Significant necrotizing soft tissue infection requiring wide debridement. ESTIMATED BLOOD LOSS: 50 cc PROCEDURE: Drains/implants: Kerlix soaked in Betadine. Procedure in detail: After informed consent was obtained, the patient was brought to the operating room and laid in the supine position. The area of the lower extremity was prepped and draped in a normal sterile fashion. There was purulent material emanating from the wound at the knee, as well as above the knee. Finger dissection was performed at the incisions. There was separation of the soft tissue from the fascia proximally, distally, laterally, and medially. This is highly suggestive of a necrotizing soft tissue infection. Secondary to this, sharp excisional debridement was undertaken. A large amount of skin and fatty soft tissue was removed from the anterior, medial, and lateral leg. All nonviable/necrotic/infected tissue was sharply and excisionally debrided. The total area measured 33 x 13 cm. Once this was completed, hemostasis was achieved using electrocautery. The wound was packed with a Kerlix soaked in Betadine. A dressing was placed, and the procedure was con cluded. All sponge, instrument, and needle counts were correct x2. Condition: Fair.
[2020-05-26] MEDS ORDERED: GLUCAGON,HUMAN RECOMB 1 MG INJ SUBCUT PRN (16:54)
[2020-05-26] MEDS ORDERED: DEXTROSE 40% GEL 15 GM TUBE PO PRN ×2 (16:54)
[2020-05-26] MEDS ORDERED: DEXTROSE 50%-WATER 25 GM/50 ML DISP.SYRIN IV PRN ×2 (16:54)
[2020-05-26] MEDS: VANCOMYCIN HCL 1,250 MG in DEXTROSE 5%-WATER 250 ML IV SCH (18:19)
[2020-05-26] MEDS: RINGERS SOLUTION,LACTATED 1,000 ML IV PRN (18:25)
[2020-05-26 19:08] LABS: HEMATOCRIT 35.3 % (37.9-51.0); MEAN CORPUSCULAR HEMOGLOBIN 25.7 pg (27.0-33.4); MEAN CORPUSCULAR HGB CONC 34.3 g/dL (32.0-36.0); MEAN CORPUSCULAR VOLUME 75 fl (80-97); PLATELET COUNT 193 10^3/uL (150-450); RED CELL DISTRIBUTION WIDTH 15.9 % (11.5-14.0); WHITE BLOOD COUNT 22.5 10^3/uL (4.0-10.5)
[2020-05-26 19:15] LABS: HEMOGLOBIN 12.1 g/dL (13.5-17.0)
[2020-05-26 19:22] LABS: ABSOLUTE LYMPHOCYTES# (MANUAL) 1.1 10^3/uL (0.5-4.7); ABSOLUTE MONOCYTES # (MANUAL) 1.6 10^3/uL (0.1-1.4); BAND NEUTROPHILS % (MANUAL) 4 % (3-5); BASOPHILS % (MANUAL) 0 % (0-2); EOSINOPHILS % (MANUAL) 0 % (0-6); LYMPHOCYTES % (MANUAL) 5 % (13-45); MONOCYTES % (MANUAL) 7 % (3-13); SEGMENTED NEUTROPHILS % (MAN) 84 % (42-78); TOTAL CELLS COUNTED 100
[2020-05-26 19:24] LABS: ANISOCYTOSIS SLIGHT; OVALOCYTES SLIGHT; PLATELET COMMENT ADEQUATE
[2020-05-26 19:29] LABS: ANION GAP 7 (5-19); BLOOD UREA NITROGEN 19 mg/dL (7-20); CALCIUM 8.7 mg/dL (8.4-10.2); CARBON DIOXIDE 30 mmol/L (22-30); CHLORIDE 94 mmol/L (98-107); CREATINE KINASE 23 U/L (55-170); GLUCOSE 218 mg/dL (75-110); POTASSIUM 3.6 mmol/L (3.6-5.0)
[2020-05-26] MEDS: METHADONE HCL 10 MG TABLET PO SCH (22:56)
[2020-05-27] MEDS: CEFEPIME HCL 1.5 GM in DEXTROSE 5%-WATER 50 ML IV SCH ×3 (02:46→17:23)
[2020-05-27] MEDS: VANCOMYCIN HCL 1,250 MG in DEXTROSE 5%-WATER 250 ML IV SCH ×3 (03:35→18:17)
[2020-05-27] MEDS ORDERED: MORPHINE SULFATE 10 MG/ML INJ ONE (09:31)
--- NOTE | 2020-05-27 09:31 | EKG REPORT ---
SEVERITY:- OTHERWISE NORMAL ECG - SINUS TACHYCARDIA : Confirmed by: Nghia Delgado MD 27-May-2020 09:30:28
[2020-05-27] MEDS: FAMOTIDINE INJ/PF 20 MG/2 ML SDV IV SCH ×2 (09:34→21:52)
[2020-05-27] MEDS: DOCUSATE SODIUM 100 MG/10 ML UDC PO SCH ×3 (09:36→17:25)
[2020-05-27] MEDS ORDERED: MORPHINE SULFATE 10 MG/ML INJ IV ONE (10:30)
[2020-05-27] MEDS: MORPHINE SULFATE 10 MG/ML INJ IV PRN ×2 (12:34→19:00)
--- NOTE | 2020-05-27 12:38 | PDOC PROGRESS REPORT ---
Subjective Date:: 05/27/20 Subjective:: The patient is a 39 year old male with a past medical history significant for IVDU and tobacco dependence with continuous use who is admitted to the surgicalist service for necrotizing soft tissue infection of the left knee. Hospitalist service was consulted for pain management and prevention of opiate withdrawal. Patient was seen on morning rounds with Dr. Brewer during dressing change/wound check. He is found resting in bed, comfortably, on supplemental oxygen by [place]. He is not on home O2. He reports continued Left knee pain; states he received morphine overnight (none documented). Discussed need to adjust methadone slowly and to provide prn analgesics. Discussed importance of communicating w/ staff regarding symptoms and not using illicit medications while in the hospital. Reviewed positive blood culture results and plan to eval for endocarditis. All questions answered. The patient denied chest pain, dyspnea, abd pain, and nausea. Good appetite. Discussed w/ nursing. Only one IV (obtained by surgery using US). Unable to draw labs; CBC this morning was obtained by finger stick. Reason For Visit: NECROTIZING FASCIITIS Physical Exam Vital Signs: Temp Pulse Resp BP Pulse Ox 98.2 F 112 H 18 119/57 L 93 05/27/20 08:40 05/27/20 08:19 05/27/20 08:19 05/27/20 08:19 05/27/20 08:19 Intake & Output 05/26/20 05/27/20 05/28/20 06:59 06:59 06:59 Intake Total 3700 1622 Output Total 400 1400 Balance 3300 222 Weight 175 kg 98.7 kg General appearance: PRESENT: no acute distress, cooperative, disheveled, well- developed, well-nourished - overweight Head exam: PRESENT: atraumatic, normocephalic Eye exam: PRESENT: conjunctiva pink, EOMI, PERRLA. ABSENT: scleral icterus Mouth exam: PRESENT: moist, tongue midline Teeth exam: PRESENT: poor dentation Respiratory exam: PRESENT: clear to auscultation selam, symmetrical, unlabored, other - supplemental oxygen by [place]. ABSENT: rales, rhonchi, wheezes Cardiovascular exam: PRESENT: RRR. ABSENT: diastolic murmur, rubs, systolic murmur Pulses: PRESENT: normal dorsalis pedis pul Vascular exam: PRESENT: normal capillary refill GI/Abdominal exam: PRESENT: normal bowel sounds, soft. ABSENT: distended, guarding, mass, organolmegaly, rebound, tenderness Rectal exam: PRESENT: deferred Extremities exam: PRESENT: tenderness - LLE, +2 edema - tight/nonpitting LLE begining mid thigh and extending distal to toes.. ABSENT: calf tenderness, clubbing, full ROM - left knee, pedal edema Neurological exam: PRESENT: alert, awake, oriented to person, oriented to place, oriented to time, oriented to situation, CN II-XII grossly intact. ABSENT: motor sensory deficit Psychiatric exam: PRESENT: anxious, appropriate affect, normal mood. ABSENT: homicidal ideation, suicidal ideation Skin exam: PRESENT: dry, warm, other - large post surgical wound to LLE w/ wet to dry dressing; see surgical progress notes for details. ABSENT: cyanosis, rash Results Laboratory Results: 05/27/20 06:17 05/27/20 06:17 05/26/20 05/26/20 05/26/20 18:57 18:57 20:15 WBC 22.5 H RBC 4.70 Hgb 12.1 L D Hct 35.3 L MCV 75 L MCH 25.7 L MCHC 34.3 RDW 15.9 H Plt Count 193 Seg Neutrophils % Not Reportable Sodium 131.2 L Potassium 3.6 Chloride 94 L Carbon Dioxide 30 Anion Gap 7 BUN 19 Creatinine 0.77 Est GFR ( Amer) > 60 Est GFR (Non-Af Amer) Glucose 218 H Lactic Acid 2.0 Calcium 8.7 05/27/20 05/27/20 06:17 06:17 WBC Cancelled RBC Cancelled Hgb Cancelled Hct Cancelled MCV Cancelled MCH Cancelled MCHC Cancelled RDW Cancelled Plt Count Cancelled Seg Neutrophils % Cancelled Sodium Cancelled Potassium Cancelled Chloride Cancelled Carbon Dioxide Cancelled Anion Gap Cancelled BUN Cancelled Creatinine Cancelled Est GFR ( Amer) Cancelled Est GFR (Non-Af Amer) Cancelled Glucose Cancelled Lactic Acid Calcium Cancelled 05/26/20 16:11 Leg - Left Gram Stain - Final 05/25/20 18:05 Knee - Left Gram Stain - Final 05/25/20 18:05 Knee - Left Wound Culture - Final Mrsa (Meth Resis Staph Aureus) No Anaerobic Organisms 05/25/20 18:05 Thigh - Left Gram Stain - Final 05/25/20 18:05 Thigh - Left Wound Culture - Final Mrsa (Meth Resis Staph Aureus) No Anaerobic Organisms 05/25/20 20:45 Blood Blood Culture (PCR) - Final Staphylococcus Aureus 05/25/20 14:53 Blood Blood Culture (PCR) - Final Staphylococcus Aureus 05/25/20 14:53 Blood Blood Culture - Final Mrsa (Meth Resis Staph Aureus) 05/25/20 05/26/20 14:53 18:57 Creatine Kinase 36 L 23 L Impressions: Knee X-Ray 05/25/20 14:34 IMPRESSION: Small knee joint effusion. No acute fracture or destructive bone lesion. Lower Extremity CT 05/25/20 14:39 IMPRESSION: 1. Subcutaneous edema and skin thickening involving the distal upper leg and knee, consistent with cellulitis and subcutaneous edema. No focal drainable abscess. 2. Inflammatory change involving the medial compartment muscles suggestive of myositis. 3. Small knee joint effusion. 4. Focal DVT in the proximal common femoral vein extending into the greater saphenous vein and in the distal femoral vein. 5. Subcutaneous gas overlying the left hip region with no surrounding inflammatory change or foreign body. This may represent an injection site. Assessment and Plan - Diagnosis (1) Bacteremia Is this a current diagnosis for this admission?: Yes Plan: Blood culture (1 set) positive for staph aureus; likely MRSA. Repeat blood cultures pending. Continue Cefepime q8h. Continue Vancomycin. Although patient w/ acute necrotic soft tissue wound, he is high risk for endocarditis; will obtain echocardiogram. Unfortunately, the patient has very poor peripheral veins; have been unable to obtain labs through venipuncture. Did require the IV start by surgeon with ultrasound guidance; now positional. We will ask radiology to place PICC. Discussed with patient that once his blood cultures are clear, the PICC line will need to be removed and PIV obtain x48 to 72 hours for additional cultures to demonstrate clearance of MRSA prior to placement of new PICC. Patient is agreeable. Low threshold for infectious disease consultation. (2) Abscess of left thigh Is this a current diagnosis for this admission?: Yes Plan: Wound culture shows MRSA. Primary management per surgical service. Currently receiving cefepime and vancomycin. (3) Cellulitis of left thigh Is this a current diagnosis for this admission?: Yes Plan: As above. (4) Necrotizing soft tissue infection Is this a current diagnosis for this admission?: Yes Plan: As above. 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 Discussed with Dr. Guerra. I have recommended heparin drip in anticipation of potential need for further surgical procedures.. Dr. Guerra stated that he would like to review his CT imaging prior to start. PT ordered. (6) Heroin addiction Is this a current diagnosis for this admission?: Yes Plan: Patient reportedly uses 1.5 g heroin daily x3 years. Currently receiving methadone 40 mg p.o. nightly. Discussed with the [facility]; they typically start at 10 mg daily and increase by 5 mg every other day, even for patients with high dose usage such as Mr. Hebert. Review of literature states that 40 mg is the max initial dosing and that there should be an observation period for 3 to 4 days prior to increase to ensure once steady state is reached patient does not experience respiratory depression. As he is also receiving as needed Percocet and morphine, will hold on any further dose adjustments at this time. Clonidine as needed. (7) IV drug abuse Is this a current diagnosis for this admission?: Yes Plan: As above. (8) Hypertension Is this a current diagnosis for this admission?: Yes Plan: Improved blood pressures today. Not on home antihypertensives. Provide adequate pain control. Monitor for opiate withdrawal symptoms. Oral clonidine as needed. - Time Time Spent with patient: 35 or more minutes Medications reviewed and adjusted accordingly: Yes Anticipated Discharge Disposition: Home, Self Care Anticipated Discharge Timeframe: 4-6 weeks
--- NOTE | 2020-05-27 13:59 | PDOC PROGRESS REPORT ---
Subjective Date:: 05/27/20 Reason For Visit: NECROTIZING FASCIITIS Patient following IV narcotics. No fever overnight. Patient growing MRSA Physical Exam Vital Signs: Temp Pulse Resp BP Pulse Ox 98.2 F 112 H 18 119/57 L 93 05/27/20 08:40 05/27/20 08:19 05/27/20 08:19 05/27/20 08:19 05/27/20 08:19 Intake & Output 05/26/20 05/27/20 05/28/20 06:59 06:59 06:59 Intake Total 3700 1622 250 Output Total 400 1400 Balance 3300 222 250 Weight 175 kg 98.7 kg General appearance: PRESENT: mild distress Musculoskeletal exam: PRESENT: other - Left lower extremity dressing removed. Persisting edema and erythema over the anterior proximal thigh; exposed operative field clean, without foul smell or pus. Cauterized areas without bleeding. Careful inspection of underlying flaps revealed no residual pus: Results Laboratory Results: 05/27/20 06:17 05/27/20 06:17 05/26/20 05/26/20 05/26/20 18:57 18:57 20:15 WBC 22.5 H RBC 4.70 Hgb 12.1 L D Hct 35.3 L MCV 75 L MCH 25.7 L MCHC 34.3 RDW 15.9 H Plt Count 193 Seg Neutrophils % Not Reportable Sodium 131.2 L Potassium 3.6 Chloride 94 L Carbon Dioxide 30 Anion Gap 7 BUN 19 Creatinine 0.77 Est GFR ( Amer) > 60 Est GFR (Non-Af Amer) Glucose 218 H Lactic Acid 2.0 Calcium 8.7 05/27/20 05/27/20 06:17 06:17 WBC Cancelled RBC Cancelled Hgb Cancelled Hct Cancelled MCV Cancelled MCH Cancelled MCHC Cancelled RDW Cancelled Plt Count Cancelled Seg Neutrophils % Cancelled Sodium Cancelled Potassium Cancelled Chloride Cancelled Carbon Dioxide Cancelled Anion Gap Cancelled BUN Cancelled Creatinine Cancelled Est GFR ( Amer) Cancelled Est GFR (Non-Af Amer) Cancelled Glucose Cancelled Lactic Acid Calcium Cancelled 05/26/20 16:11 Leg - Left Gram Stain - Final 05/25/20 18:05 Knee - Left Gram Stain - Final 05/25/20 18:05 Knee - Left Wound Culture - Final Mrsa (Meth Resis Staph Aureus) No Anaerobic Organisms 05/25/20 18:05 Thigh - Left Gram Stain - Final 05/25/20 18:05 Thigh - Left Wound Culture - Final Mrsa (Meth Resis Staph Aureus) No Anaerobic Organisms 05/25/20 20:45 Blood Blood Culture (PCR) - Final Staphylococcus Aureus 05/25/20 14:53 Blood Blood Culture (PCR) - Final Staphylococcus Aureus 05/25/20 14:53 Blood Blood Culture - Final Mrsa (Meth Resis Staph Aureus) 05/25/20 05/26/20 14:53 18:57 Creatine Kinase 36 L 23 L Impressions: Knee X-Ray 05/25/20 14:34 IMPRESSION: Small knee joint effusion. No acute fracture or destructive bone lesion. Lower Extremity CT 05/25/20 14:39 IMPRESSION: 1. Subcutaneous edema and skin thickening involving the distal upper leg and knee, consistent with cellulitis and subcutaneous edema. No focal drainable abscess. 2. Inflammatory change involving the medial compartment muscles suggestive of myositis. 3. Small knee joint effusion. 4. Focal DVT in the proximal common femoral vein extending into the greater saphenous vein and in the distal femoral vein. 5. Subcutaneous gas overlying the left hip region with no surrounding inflammatory change or foreign body. This may represent an injection site. Assessment & Plan - Diagnosis (1) Abscess of left thigh Is this a current diagnosis for this admission?: Yes Plan: Impression: Stable left leg after wide soft tissue debridement by Dr. Jolly 1 day ago; persisting erythema and edema proximal thigh anteriorly, and normalized edema below the knee. No indication for further debridement today. Patient has acute venous thrombosis in the left saphenofemoral junction, as well as the femoral vein at the hiatus sending to the popliteal vein. Recommendations: 1. Treat severe soft tissue infection with MRSA intravenous antibiotics as the hospitalist team is doing. No indication for further debridement today 2. Given condition of left lower extremity, and acute thrombus in the above areas, suggest heparin anticoagulation. That way if patient requires additional debridement, IV anticoagulation can be readily suspended. This was discussed with hospitalist service 3. Patient can have a diet today. Would suspend physical therapy left lower extremity until patient's edema better controlled. (2) DVT (deep venous thrombosis) Qualifiers: DVT location: lower extremity Affected thrombotic vein of extremity: femoral Chronicity: chronic Laterality: left Qualified Code(s): I82.512 - Chronic embolism and thrombosis of left femoral vein (3) IV drug abuse Is this a current diagnosis for this admission?: Yes (4) Necrotizing soft tissue infection Is this a current diagnosis for this admission?: Yes - Time Anticipated Discharge Disposition: Home, Self Care Anticipated Discharge Timeframe: within 72 hours
[2020-05-27] MEDS: OXYCODONE-ACETAMINOPHEN 5-325 MG TABLET PO PRN ×3 (14:11→22:16)
--- NOTE | 2020-05-27 14:24 | XCELERA REPORT ---
[address] [address] Transthoracic Echocardiogram Report Name: AIDE KHAN Age: 39 yrs Gender: Male : 1980 Patient Status: Inpatient Patient Location: [address] [place], [place] [address] Study Date: 05/27/2020 10:27 AM History: Bacteremia IVDU Height: 71 in Weight: 175 lb BSA: 2.0 m2 Procedure: A complete two-dimensional transthoracic echocardiogram was performed (2D, M-mode, spectral and color flow Doppler). The study was technically adequate with some images being suboptimal in quality. Reason For Study: bacteremia, IVDU Ordering Physician: MANDY CARBAJAL Performed By: Juliane Palacios Interpretation Summary No convincing evidence for infective endocarditis.Consider MITZI if cinically indicated. Left ventricular systolic function is normal. The Ejection Fraction estimate is 55-60% The right ventricle is normal in size and function. There is a trace amount of mitral regurgitation There is no aortic valve stenosis There is a trace or physiologic amount of tricuspid regurgitation There is no pericardial effusion. No convincing evidence for infective endocarditis.Consider MITZI if cinically indicated. MMode/2D Measurements & Calculations RVDd: 3.9 cm LVIDd: 4.6 cm FS: 40.9 % Ao root diam: 2.5 cm IVSd: 0.90 cm LVIDs: 2.7 cm EDV(Teich): 95.0 ml Ao root area: 4.7 cm2 LVPWd: 0.90 cm ESV(Teich): 26.7 ml LA dimension: 3.2 cm EF(Teich): 71.9 % LVOT diam: 1.8 cm LVOT area: 2.5 cm2 Doppler Measurements & Calculations MV E max taye: MV P1/2t max taye: Ao V2 max: LV V1 max P.7 cm/sec 87.0 cm/sec 177.6 cm/sec 5.8 mmHg MV A max taye: MV P1/2t: 93.7 msec Ao max PG: LV V1 max: 74.0 cm/sec MVA(P1/2t): 2.3 cm2 12.6 mmHg 120.8 cm/sec MV E/A: 1.2 MV dec slope: LEEANN(V,D): 1.7 cm2 271.9 cm/sec2 MV dec time: 0.31 sec PA V2 max: TR max taye: MV P1/2t-pr_phl: 154.4 cm/sec 302.7 cm/sec 93.7 msec PA max P.5 mmHgTR max P.6 mmHg Left Ventricle The left ventricle is normal in size. There is normal left ventricular wall thickness. Left ventricular systolic function is normal. The Ejection Fraction estimate is 55-60%. Doppler measurements suggest normal left ventricular diastolic function. No regional wall motion abnormalities noted. Right Ventricle The right ventricle is normal in size and function. Atria The right atrium is normal. The left atrial size is normal. The interatrial septum is intact with no evidence for an atrial septal defect. There is no Doppler evidence for an interatrial shunt. Mitral Valve The mitral valve is grossly normal. There is no vegetation seen on the mitral valve. There is no evidence of mitral valve prolapse. There is no mitral valve stenosis. There is a trace amount of mitral regurgitation. Aortic Valve The aortic valve is trileaflet. The aortic valve opens well. The aortic valve is normal in structure and function. There is no aortic valvular vegetation. There is no aortic valve stenosis. No aortic regurgitation is present. Tricuspid Valve The tricuspid valve is normal in structure and function. There is no tricuspid valve vegetation. There is no tricuspid valve prolapse. There is a trace or physiologic amount of tricuspid regurgitation. Tricuspid regurgitation jet envelope not well defined to measure RV systolic pressure accurately. Pulmonic Valve The pulmonic valve is not well visualized. There is no vegetation on the pulmonic valve. There is no pulmonic valvular stenosis. There is a trace amount of pulmonic regurgitation. Great Vessels The aortic root is normal size. The inferior vena cava appeared normal and decreased > 50% with respiration (RAP 5-10 mmHg). Effusions There is no pericardial effusion. : MANDY CARBAJAL Anil
[2020-05-27 15:04] LABS: HEMATOCRIT 32.1 % (37.9-51.0); HEMOGLOBIN 10.9 g/dL (13.5-17.0); MEAN CORPUSCULAR HEMOGLOBIN 25.9 pg (27.0-33.4); MEAN CORPUSCULAR HGB CONC 34.1 g/dL (32.0-36.0); MEAN CORPUSCULAR VOLUME 76 fl (80-97); PLATELET COUNT 210 10^3/uL (150-450); RED BLOOD COUNT 4.23 10^6/uL (4.35-5.55); RED CELL DISTRIBUTION WIDTH 16.1 % (11.5-14.0); WHITE BLOOD COUNT 19.5 10^3/uL (4.0-10.5)
--- NOTE | 2020-05-27 15:07 | RADIOLOGY REPORT (SQ) ---
EXAM DESCRIPTION: PICC INSERTION IMAGES COMPLETED DATE/TIME: 05/27/2020 1:39 pm REASON FOR STUDY: loss of PIV; unable to obtain labs; need for abx COMPARISON: None. FLUOROSCOPY TIME: 33 seconds 2 images saved to PACS. TECHNIQUE: Fluoroscopic and ultrasound guided PICC placement. LIMITATIONS: None. PROCEDURE: After written consent and assessment were obtained, the patient was brought into the fluo roscopy room and placed supine on the table. Ultrasound evaluation of potential access sites were per formed. After successfully identifying a patent left basilic vein, the left arm was prepped and drape d in a sterile fashion along with the ultrasound probe. The entry site was anesthetized with 1% lidoc luis antonio. A 21 gauge 7 cm needle was advanced through the skin and into the basilic vein under live ultra sound guidance. An ultrasound image was saved to PACS confirming access site. A .018 guide wire was then inserted through the needle and into the venous system. The needle was then removed and an 11 b lade scalpel was used to make a 1cm skin incision. A 5 fr peel-away sheath was advanced over the wir e and into the venous system. A measurement was then made using the existing wire and live fluoroscop ic guidance. The wire was then removed and trimmed. The PICC was advanced through the peel-away sheat h and into the venous system. The peel-away sheath was removed and the catheter was adhered to the pa tients arm with a stat lock. The catheter was then aspirated and flushed and a sterile bandage was pl aced over the access site. A fluoroscopic spot image was saved to PACS confirming the catheter tip w ithin the superior vena cava. IMPRESSION: SUCCESSFUL PLACEMENT OF A 5 FR DUAL LUMEN 47 CM PICC IN THE LEFT BASILIC VEIN. COMMENT: Patient medication list reviewed: Yes- Quality ID# 130:Eligible professional attests to doc umenting in the medical record they obtained, updated, or reviewed the patient's current medications. . Quality ID 145: Final reports for procedures using fluoroscopy that document radiation exposure khushboo tino, or exposure time and number of fluorographic images (if radiation exposure indices are not avail able) Quality ID #76: The patient was prepped and draped using maximum sterile barrier technique including cap, mask, sterile gown, sterile gloves, a large sterile sheet, hand hygiene, and 2% Chlorhexidine fo r cutaneous antisepsis. When ultrasound is used, sterile ultrasound techniques are followed requiring sterile gel and sterile probes. TECHNICAL DOCUMENTATION: JOB ID: [id number] 2010 [employer]- All Rights Reserved rev-11/12 Reading location - IP/workstation name: [email or web address]
[2020-05-27 15:09] LABS: APPEARANCE,URINE CLOUDY; BILIRUBIN,URINE NEGATIVE (NEGATIVE); COLOR,URINE AMBER; GLUCOSE, URINE NEGATIVE (NEGATIVE); KETONES,URINE NEGATIVE (NEGATIVE); LEUKOCYTE ESTERASE,URINE NEGATIVE (NEGATIVE); NITRITE,URINE NEGATIVE (NEGATIVE); PROTEIN,URINE NEGATIVE (NEGATIVE); UROBILINOGEN,URINE NEGATIVE mg/dL (<2.0)
[2020-05-27 15:10] LABS: PROTHROMBIN TIME 14.4 SEC (11.4-15.4)
[2020-05-27 15:12] LABS: PARTIAL THROMBOPLASTIN TIME 33.2 SEC (23.5-35.8)
[2020-05-27 15:26] LABS: ANION GAP 8 (5-19); BLOOD UREA NITROGEN 16 mg/dL (7-20); CARBON DIOXIDE 33 mmol/L (22-30); CHLORIDE 89 mmol/L (98-107); GLUCOSE 178 mg/dL (75-110)
[2020-05-27 15:32] LABS: ABSOLUTE LYMPHOCYTES# (MANUAL) 1.8 10^3/uL (0.5-4.7); ANISOCYTOSIS 1+; BAND NEUTROPHILS % (MANUAL) 2 % (3-5); BASOPHILS % (MANUAL) 0 % (0-2); EOSINOPHILS % (MANUAL) 1 % (0-6); LYMPHOCYTES % (MANUAL) 8 % (13-45); METAMYELOCYTES % (MANUAL) 1 % (0-1); MONOCYTES % (MANUAL) 5 % (3-13); SEGMENTED NEUTROPHILS % (MAN) 82 % (42-78); TOTAL CELLS COUNTED 100
[2020-05-27 15:33] LABS: HYPOCHROMASIA 1+; PLATELET COMMENT ADEQUATE
[2020-05-27 15:55] LABS: POTASSIUM 2.5 mmol/L (3.6-5.0)
[2020-05-27] MEDS ORDERED: POTASSIUM CHLORIDE 10 MEQ TABLET.ER PO ONE (16:24)
[2020-05-27] MEDS: POTASSI CL 20 MEQ/50 ML RIDER 20 MEQ/50 ML RTUPB IV SCH ×2 (17:23→19:01)
[2020-05-27] MEDS: NORMAL SALINE 1000 ML 1,000 ML IV PRN (17:34)
[2020-05-27 18:24] LABS: VANCOMYCIN,TROUGH 15.5 ug/mL (5.0-20.0)
[2020-05-27] MEDS: HEPARIN SOD (PORCINE) 1,000 UNIT/ML 10 ML VIAL IV ONE ×2 (19:46→20:17)
[2020-05-27] MEDS: HEPARIN SODIUM,PORCINE/D5W 25,000 UNIT/250 ML RTUINJ IV PRN (20:15)
[2020-05-27] MEDS ORDERED: HEPARIN SOD (PORCINE) 1,000 UNIT/ML 10 ML VIAL IV ONE (20:15)
[2020-05-27] MEDS: METHADONE HCL 10 MG TABLET PO SCH (21:52)
[2020-05-28] MEDS: CEFEPIME HCL 1.5 GM in DEXTROSE 5%-WATER 50 ML IV SCH ×3 (02:42→17:56)
[2020-05-28] MEDS: VANCOMYCIN HCL 1,250 MG in DEXTROSE 5%-WATER 250 ML IV SCH ×3 (03:43→17:55)
[2020-05-28] MEDS: MORPHINE SULFATE 10 MG/ML INJ IV PRN ×3 (03:53→18:36)
[2020-05-28 04:05] LABS: HEMATOCRIT 34.7 % (37.9-51.0); HEMOGLOBIN 11.6 g/dL (13.5-17.0); MEAN CORPUSCULAR HEMOGLOBIN 25.5 pg (27.0-33.4); MEAN CORPUSCULAR HGB CONC 33.4 g/dL (32.0-36.0); MEAN CORPUSCULAR VOLUME 76 fl (80-97); PLATELET COUNT 225 10^3/uL (150-450); RED BLOOD COUNT 4.55 10^6/uL (4.35-5.55); RED CELL DISTRIBUTION WIDTH 16.2 % (11.5-14.0); WHITE BLOOD COUNT 19.5 10^3/uL (4.0-10.5)
[2020-05-28 04:39] LABS: ABSOLUTE MONOCYTES # (MANUAL) 0.4 10^3/uL (0.1-1.4); BAND NEUTROPHILS % (MANUAL) 2 % (3-5); BASOPHILS % (MANUAL) 0 % (0-2); EOSINOPHILS % (MANUAL) 3 % (0-6); LYMPHOCYTES % (MANUAL) 5 % (13-45); MONOCYTES % (MANUAL) 2 % (3-13); SEGMENTED NEUTROPHILS % (MAN) 88 % (42-78); TOTAL CELLS COUNTED 100
[2020-05-28 04:41] LABS: ANISOCYTOSIS SLIGHT; HYPOCHROMASIA SLIGHT; TOXIC GRANULATION SLIGHT
[2020-05-28 04:42] LABS: PLATELET COMMENT ADEQUATE
[2020-05-28] MEDS: HEPARIN SOD (PORCINE) 1,000 UNIT/ML 10 ML VIAL IV PRN ×3 (06:20→20:00)
[2020-05-28] MEDS ORDERED: DIAZEPAM INJ 10 MG/2 ML DISP.SYRIN IV ONE (06:38)
--- NOTE | 2020-05-28 07:42 | PDOC PROGRESS REPORT ---
Subjective Date:: 05/28/20 Subjective:: c/o pain Reason For Visit: NECROTIZING FASCIITIS Physical Exam Vital Signs: Temp Pulse Resp BP Pulse Ox 98.6 F 88 19 117/56 L 98 05/28/20 02:17 05/28/20 02:17 05/28/20 02:17 05/28/20 02:17 05/28/20 02:17 Intake & Output 05/27/20 05/28/20 05/29/20 06:59 06:59 06:59 Intake Total 1622 1948 Output Total 1400 Balance 222 1948 Weight 98.7 kg 86.1 kg General appearance: PRESENT: mild distress Head exam: PRESENT: normocephalic Eye exam: PRESENT: EOMI Ear exam: PRESENT: normal external ear exam Mouth exam: PRESENT: moist Teeth exam: PRESENT: poor dentation Neck exam: PRESENT: full ROM Respiratory exam: PRESENT: clear to auscultation selam Cardiovascular exam: PRESENT: RRR Pulses: PRESENT: +1 pedal pulses bilateral Breast: PRESENT: Normal GI/Abdominal exam: PRESENT: soft Rectal exam: PRESENT: deferred Extremities exam: PRESENT: other - left leg wound dressing changed wound clean with multiple cautery broussard, but no evidence of undrained pus leg markedly swollen below knee, howver warm at foot distal pulses intact Neurological exam: PRESENT: alert Skin exam: PRESENT: warm Results Laboratory Results: 05/28/20 03:53 05/27/20 14:25 05/27/20 05/27/20 05/27/20 14:15 14:25 14:25 WBC 19.5 H RBC 4.23 L Hgb 10.9 L Hct 32.1 L MCV 76 L MCH 25.9 L MCHC 34.1 RDW 16.1 H Plt Count 210 Seg Neutrophils % Not Reportable Sodium 130.1 L Potassium 2.5 L* D Chloride 89 L Carbon Dioxide 33 H Anion Gap 8 BUN 16 Creatinine 0.87 Est GFR ( Amer) > 60 Glucose 178 H Calcium 8.0 L Urine Color IRASEMA Urine Appearance CLOUDY Urine pH 6.0 Ur Specific [place] 1.010 Urine Protein NEGATIVE Urine Glucose (UA) NEGATIVE Urine Ketones NEGATIVE Urine Blood NEGATIVE Urine Nitrite NEGATIVE Ur Leukocyte Esterase NEGATIVE Urine WBC (Auto) 2 Urine RBC (Auto) 0 05/28/20 03:53 WBC 19.5 H RBC 4.55 Hgb 11.6 L Hct 34.7 L MCV 76 L MCH 25.5 L MCHC 33.4 RDW 16.2 H Plt Count 225 Seg Neutrophils % Not Reportable Sodium Potassium Chloride Carbon Dioxide Anion Gap BUN Creatinine Est GFR ( Amer) Glucose Calcium Urine Color Urine Appearance Urine pH Ur Specific [place] Urine Protein Urine Glucose (UA) Urine Ketones Urine Blood Urine Nitrite Ur Leukocyte Esterase Urine WBC (Auto) Urine RBC (Auto) 05/25/20 20:45 Blood Blood Culture (PCR) - Final Staphylococcus Aureus 05/26/20 16:11 Leg - Left Gram Stain - Final 05/25/20 18:05 Knee - Left Gram Stain - Final 05/25/20 18:05 Knee - Left Wound Culture - Final Mrsa (Meth Resis Staph Aureus) No Anaerobic Organisms 05/25/20 18:05 Thigh - Left Gram Stain - Final 05/25/20 18:05 Thigh - Left Wound Culture - Final Mrsa (Meth Resis Staph Aureus) No Anaerobic Organisms 05/25/20 14:53 Blood Blood Culture (PCR) - Final Staphylococcus Aureus 05/25/20 14:53 Blood Blood Culture - Final Mrsa (Meth Resis Staph Aureus) 05/25/20 05/26/20 14:53 18:57 Creatine Kinase 36 L 23 L Impressions: Knee X-Ray 05/25/20 14:34 IMPRESSION: Small knee joint effusion. No acute fracture or destructive bone lesion. Lower Extremity CT 05/25/20 14:39 IMPRESSION: 1. Subcutaneous edema and skin thickening involving the distal upper leg and knee, consistent with cellulitis and subcutaneous edema. No focal drainable abscess. 2. Inflammatory change involving the medial compartment muscles suggestive of myositis. 3. Small knee joint effusion. 4. Focal DVT in the proximal common femoral vein extending into the greater saphenous vein and in the distal femoral vein. 5. Subcutaneous gas overlying the left hip region with no surrounding inflammatory change or foreign body. This may represent an injection site. PICC Line Insertion 05/27/20 00:00 IMPRESSION: SUCCESSFUL PLACEMENT OF A 5 FR DUAL LUMEN 47 CM PICC IN THE LEFT BASILIC VEIN. Assessment & Plan - Time Anticipated Discharge Disposition: Home, Self Care Anticipated Discharge Timeframe: unl - Plan Summary Plan Summary: will cont with daily wet to dry dressing changes pt has been started on heparin drip pt will work iwthpt today
[2020-05-28] MEDS: FAMOTIDINE INJ/PF 20 MG/2 ML SDV IV SCH ×2 (09:03→21:46)
[2020-05-28] MEDS: OXYCODONE-ACETAMINOPHEN 5-325 MG TABLET PO PRN ×3 (09:03→17:55)
[2020-05-28] MEDS: DOCUSATE SODIUM 100 MG/10 ML UDC PO SCH ×2 (09:03→18:36)
[2020-05-28] MEDS: HEPARIN SODIUM,PORCINE/D5W 25,000 UNIT/250 ML RTUINJ IV PRN ×4 (09:09→20:00)
[2020-05-28] MEDS: NORMAL SALINE 1000 ML 1,000 ML IV PRN (09:09)
[2020-05-28 09:38] LABS: ANION GAP 5 (5-19); BLOOD UREA NITROGEN 13 mg/dL (7-20); CALCIUM 8.2 mg/dL (8.4-10.2); CARBON DIOXIDE 35 mmol/L (22-30); CHLORIDE 95 mmol/L (98-107); GLUCOSE 188 mg/dL (75-110)
[2020-05-28 09:50] LABS: POTASSIUM 2.8 mmol/L (3.6-5.0)
[2020-05-28] MEDS ORDERED: CLONIDINE HCL 0.1 MG TABLET PO PRN (11:18)
[2020-05-28] MEDS: POTASSI CL 20 MEQ/50 ML RIDER 20 MEQ/50 ML RTUPB IV SCH ×2 (11:20→13:05)
[2020-05-28] MEDS ORDERED: POTASSIUM CHLORIDE 10 MEQ TABLET.ER PO ONE (11:30)
--- NOTE | 2020-05-28 13:30 | PDOC PROGRESS REPORT ---
Subjective Date:: 05/28/20 Subjective:: The patient is a 39 year old male with a past medical history significant for IVDU and tobacco dependence with continuous use who is admitted to the surgicalist service for necrotizing soft tissue infection of the left knee. Hospitalist service was consulted for pain management and prevention of opiate withdrawal. Patient was seen on morning rounds. He is found resting in bed, comfortably, on supplemental oxygen by [place]. He is not on home O2. He reports continued LLE pain; states that he has been trying to increase his mobility (nursing confirms range of motion exercises). Patient's primary complaints today are generalized anxiety, sensation of skin crawling, and occasional itching that he relates to opiate withdrawal. He is understanding though and I discussed that we are going to have to increase his methadone slowly in order to ensure that he does not have an accidental overdose as it does take several hours to days to reach peak steady states. We discussed option of clonidine; he states that he has used this with some success in the past and is agreeable to trial p.o. clonidine as needed mild opiate withdrawal symptoms. Reviewed ongoing concern regarding the patient's extremity; large wound with MRSA infection and extensive DVT. Reassurance was provided that we are doing all possible to salvage the leg and it is not futile at this time; he was warned that he does remain at risk but that we will do everything we can to prevent amputation from happening. Patient expresses understanding and appreciation for discussion; he is quite anxious and became tearful during the conversation. He did, again, states his intention to "stay clean." Following discharge, we will plan to make arrangements for the patient to continue with the [facility]. The patient denied chest pain, dyspnea, abd pain, and nausea. Good appetite. Discussed w/ nursing. Reason For Visit: NECROTIZING FASCIITIS Physical Exam Vital Signs: Temp Pulse Resp BP Pulse Ox 98.1 F 95 16 102/55 L 96 05/28/20 08:45 05/28/20 08:45 05/28/20 08:45 05/28/20 08:45 05/28/20 08:45 Intake & Output 05/27/20 05/28/20 05/29/20 06:59 06:59 06:59 Intake Total 1622 1948 1096 Output Total 1400 Balance 222 1948 1096 Weight 98.7 kg 86.1 kg General appearance: PRESENT: no acute distress, cooperative, disheveled, well- developed, well-nourished Head exam: PRESENT: atraumatic, normocephalic Eye exam: PRESENT: conjunctiva pink, EOMI, PERRLA. ABSENT: scleral icterus Mouth exam: PRESENT: moist, tongue midline Teeth exam: PRESENT: poor dentation Respiratory exam: PRESENT: clear to auscultation selam, symmetrical, unlabored, other - Supplemental oxygen by nasal cannula. ABSENT: rales, rhonchi, wheezes Cardiovascular exam: PRESENT: RRR. ABSENT: diastolic murmur, rubs, systolic murmur Pulses: PRESENT: +2 pedal pulses bilateral - Excellent capillary refill left lower extremity Vascular exam: PRESENT: normal capillary refill Extremities exam: PRESENT: pedal edema - +1 left foot, tenderness - Left lower extremity, +1 edema - Left lower extremity; Bruce wrap in place. ABSENT: calf tenderness, clubbing, full ROM - Left lower extremity Neurological exam: PRESENT: alert, awake, oriented to person, oriented to place, oriented to time, oriented to situation, CN II-XII grossly intact. ABSENT: motor sensory deficit Psychiatric exam: PRESENT: anxious, appropriate affect, normal mood. ABSENT: homicidal ideation, suicidal ideation Skin exam: PRESENT: dry, erythema - Slight decrease to the medial thigh today, warm, other. ABSENT: cyanosis, intact - arge post surgical wound to LLE w/ wet to dry dressing; see surgical progress notes for details., rash Results Laboratory Results: 05/28/20 03:53 05/28/20 08:40 05/27/20 05/27/20 05/27/20 14:15 14:25 14:25 WBC 19.5 H RBC 4.23 L Hgb 10.9 L Hct 32.1 L MCV 76 L MCH 25.9 L MCHC 34.1 RDW 16.1 H Plt Count 210 Seg Neutrophils % Not Reportable Sodium 130.1 L Potassium 2.5 L* D Chloride 89 L Carbon Dioxide 33 H Anion Gap 8 BUN 16 Creatinine 0.87 Est GFR ( Amer) > 60 Glucose 178 H Calcium 8.0 L Urine Color IRASEMA Urine Appearance CLOUDY Urine pH 6.0 Ur Specific [place] 1.010 Urine Protein NEGATIVE Urine Glucose (UA) NEGATIVE Urine Ketones NEGATIVE Urine Blood NEGATIVE Urine Nitrite NEGATIVE Ur Leukocyte Esterase NEGATIVE Urine WBC (Auto) 2 Urine RBC (Auto) 0 05/28/20 05/28/20 03:53 08:40 WBC 19.5 H RBC 4.55 Hgb 11.6 L Hct 34.7 L MCV 76 L MCH 25.5 L MCHC 33.4 RDW 16.2 H Plt Count 225 Seg Neutrophils % Not Reportable Sodium 134.9 L Potassium 2.8 L* Chloride 95 L Carbon Dioxide 35 H Anion Gap 5 BUN 13 Creatinine 0.90 Est GFR ( Amer) > 60 Glucose 188 H Calcium 8.2 L Urine Color Urine Appearance Urine pH Ur Specific [place] Urine Protein Urine Glucose (UA) Urine Ketones Urine Blood Urine Nitrite Ur Leukocyte Esterase Urine WBC (Auto) Urine RBC (Auto) 05/26/20 16:11 Leg - Left Gram Stain - Final 05/26/20 16:11 Leg - Left Wound Culture - Final Mrsa (Meth Resis Staph Aureus) No Anaerobic Organisms 05/25/20 20:45 Blood Blood Culture (PCR) - Final Staphylococcus Aureus 05/25/20 20:45 Blood Blood Culture - Final Mrsa (Meth Resis Staph Aureus) 05/25/20 05/26/20 14:53 18:57 Creatine Kinase 36 L 23 L Impressions: Knee X-Ray 05/25/20 14:34 IMPRESSION: Small knee joint effusion. No acute fracture or destructive bone lesion. Lower Extremity CT 05/25/20 14:39 IMPRESSION: 1. Subcutaneous edema and skin thickening involving the distal upper leg and knee, consistent with cellulitis and subcutaneous edema. No focal drainable abscess. 2. Inflammatory change involving the medial compartment muscles suggestive of myositis. 3. Small knee joint effusion. 4. Focal DVT in the proximal common femoral vein extending into the greater saphenous vein and in the distal femoral vein. 5. Subcutaneous gas overlying the left hip region with no surrounding inflammatory change or foreign body. This may represent an injection site. PICC Line Insertion 05/27/20 00:00 IMPRESSION: SUCCESSFUL PLACEMENT OF A 5 FR DUAL LUMEN 47 CM PICC IN THE LEFT BASILIC VEIN. Assessment and Plan - Diagnosis (1) Bacteremia Is this a current diagnosis for this admission?: Yes Plan: Blood culture (05/25/2020; both sets) MRSA Blood culture (05/26/2020; both sets) MRSA Blood culture (05/27/2020) pending; obtained 48 hours following start of vancomycin. Wound cultures positive for MRSA. Echocardiogram is fortunately negative for vegetation and as the patient has a clear alternate source for his bacteremia I do not feel that further work-up is indicated unless he develops a murmur or signs of embolic disease. Continue Cefepime q8h. Continue Vancomycin. Unfortunately, the patient has very poor peripheral veins; have been unable to obtain labs through venipuncture. Did require the IV start by surgeon with ultrasound guidance; however, only lasted ~20 hrs. W Now w/ PICC (placed while blood cultures were positive). Once his blood cultures are clear, the PICC line will need to be removed and PIV obtain x48 to 72 hours for additional cultures to demonstrate clearance of MRSA prior to placement of new PICC. Patient is agreeable. Low threshold for infectious disease consultation. (2) Abscess of left thigh Is this a current diagnosis for this admission?: Yes Plan: Impression: Stable left leg after wide soft tissue debridement by Dr. Jolly 1 day ago; persisting erythema and edema proximal thigh anteriorly, and normalized edema below the knee. No indication for further debridement today. Patient has acute venous thrombosis in the left saphenofemoral junction, as well as the femoral vein at the hiatus sending to the popliteal vein. Recommendations: 1. Treat severe soft tissue infection with MRSA intravenous antibiotics as the hospitalist team is doing. No indication for further debridement today 2. Given condition of left lower extremity, and acute thrombus in the above areas, suggest heparin anticoagulation. That way if patient requires additional debridement, IV anticoagulation can be readily suspended. This was discussed with hospitalist service 3. Patient can have a diet today. Would suspend physical therapy left lower extremity until patient's edema better controlled. (3) Cellulitis of left thigh Is this a current diagnosis for this admission?: Yes Plan: As above. (4) Necrotizing soft tissue infection Is this a current diagnosis for this admission?: Yes Plan: As above. 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 Heparin gtt PT ordered. (6) Heroin addiction Is this a current diagnosis for this admission?: Yes Plan: Patient reportedly uses 1.5 g heroin daily x3 years. Currently receiving methadone 40 mg p.o. nightly. Discussed with the [facility]; they typically start at 10 mg daily and increase by 5 mg every other day, even for patients with high dose usage such as Mr. Hebert. Review of literature states that 40 mg is the max initial dosing and that there should be an observation period for 3 to 4 days prior to increase to ensure once steady state is reached patient does not experience respiratory depression. As he is also receiving as needed Percocet and morphine, will hold on any further dose adjustments at this time. Clonidine as needed. (7) IV drug abuse Is this a current diagnosis for this admission?: Yes Plan: As above. (8) Hypertension Is this a current diagnosis for this admission?: Yes Plan: Improved blood pressures today. Not on home antihypertensives. Provide adequate pain control. Monitor for opiate withdrawal symptoms. Oral clonidine as needed. - Time Time Spent with patient: 35 or more minutes Medications reviewed and adjusted accordingly: Yes Anticipated Discharge Disposition: Home, Self Care Anticipated Discharge Timeframe: ~4 weeks
[2020-05-28] MEDS: METHADONE HCL 10 MG TABLET PO SCH (21:46)
[2020-05-29] MEDS: OXYCODONE-ACETAMINOPHEN 5-325 MG TABLET PO PRN ×4 (01:38→20:30)
[2020-05-29] MEDS: NORMAL SALINE 1000 ML 1,000 ML IV PRN ×2 (01:39→17:07)
[2020-05-29] MEDS: MORPHINE SULFATE 10 MG/ML INJ IV PRN ×5 (01:39→22:33)
[2020-05-29] MEDS: CEFEPIME HCL 1.5 GM in DEXTROSE 5%-WATER 50 ML IV SCH ×2 (01:41→09:07)
[2020-05-29] MEDS: VANCOMYCIN HCL 1,250 MG in DEXTROSE 5%-WATER 250 ML IV SCH ×3 (01:42→17:05)
[2020-05-29 02:40] LABS: APPEARANCE,URINE CLOUDY; BILIRUBIN,URINE NEGATIVE (NEGATIVE); COLOR,URINE YELLOW; GLUCOSE, URINE NEGATIVE (NEGATIVE); KETONES,URINE NEGATIVE (NEGATIVE); LEUKOCYTE ESTERASE,URINE NEGATIVE (NEGATIVE); NITRITE,URINE NEGATIVE (NEGATIVE); PROTEIN,URINE NEGATIVE (NEGATIVE); URINE SPECIFIC GRAVITY 1.009
[2020-05-29] MEDS: HEPARIN SODIUM,PORCINE/D5W 25,000 UNIT/250 ML RTUINJ IV PRN ×3 (04:57→22:36)
[2020-05-29 06:10] LABS: ANION GAP 7 (5-19); BLOOD UREA NITROGEN 10 mg/dL (7-20); CALCIUM 7.8 mg/dL (8.4-10.2); CARBON DIOXIDE 31 mmol/L (22-30); CHLORIDE 97 mmol/L (98-107); GLUCOSE 106 mg/dL (75-110)
[2020-05-29 06:30] LABS: POTASSIUM 2.9 mmol/L (3.6-5.0)
[2020-05-29] MEDS: FAMOTIDINE INJ/PF 20 MG/2 ML SDV IV SCH ×2 (09:06→22:33)
[2020-05-29] MEDS: DOCUSATE SODIUM 100 MG/10 ML UDC PO SCH ×2 (09:06→17:05)
[2020-05-29] MEDS ORDERED: KETOROLAC TROMETHAMINE INJ/PF 30 MG/1 ML SDV IV ONE (10:24)
[2020-05-29] MEDS: POTASSIUM CHLORIDE 20 MEQ/50 ML RTU IV SCH ×3 (11:17→20:31)
[2020-05-29 12:23] LABS: HEMATOCRIT 30.8 % (37.9-51.0); MEAN CORPUSCULAR HEMOGLOBIN 24.9 pg (27.0-33.4); MEAN CORPUSCULAR HGB CONC 32.4 g/dL (32.0-36.0); MEAN CORPUSCULAR VOLUME 77 fl (80-97); PLATELET COUNT 292 10^3/uL (150-450); RED BLOOD COUNT 4.02 10^6/uL (4.35-5.55); RED CELL DISTRIBUTION WIDTH 16.9 % (11.5-14.0); WHITE BLOOD COUNT 26.1 10^3/uL (4.0-10.5)
--- NOTE | 2020-05-29 12:40 | PDOC PROGRESS REPORT ---
Subjective Date:: 05/29/20 Reason For Visit: NECROTIZING FASCIITIS Physical Exam Vital Signs: Temp Pulse Resp BP Pulse Ox 98.4 F 94 17 132/64 H 97 05/29/20 08:36 05/29/20 08:36 05/29/20 08:36 05/29/20 08:36 05/29/20 08:36 Intake & Output 05/28/20 05/29/20 05/30/20 06:59 06:59 06:59 Intake Total 1947 4606 Output Total 800 Balance 1947 3806 Weight 86.1 kg 87.3 kg Results Laboratory Results: 05/29/20 05:05 05/29/20 05/29/20 05/29/20 02:17 05:05 05:05 Sodium 134.9 L Potassium 2.9 L* Chloride 97 L Carbon Dioxide 31 H Anion Gap 7 BUN 10 Creatinine 0.81 Est GFR ( Amer) > 60 Glucose 106 Calcium 7.8 L Magnesium 2.0 Urine Color YELLOW Urine Appearance CLOUDY Urine pH 5.0 Ur Specific [place] 1.009 Urine Protein NEGATIVE Urine Glucose (UA) NEGATIVE Urine Ketones NEGATIVE Urine Blood NEGATIVE Urine Nitrite NEGATIVE Ur Leukocyte Esterase NEGATIVE Urine WBC (Auto) 2 Urine RBC (Auto) 0 05/27/20 17:33 Blood Blood Culture (PCR) - Final Staphylococcus Aureus 05/27/20 14:25 Blood Blood Culture (PCR) - Final Staphylococcus Aureus 05/26/20 16:11 Leg - Left Gram Stain - Final 05/26/20 16:11 Leg - Left Wound Culture - Final Mrsa (Meth Resis Staph Aureus) No Anaerobic Organisms 05/25/20 20:45 Blood Blood Culture (PCR) - Final Staphylococcus Aureus 05/25/20 20:45 Blood Blood Culture - Final Mrsa (Meth Resis Staph Aureus) 05/25/20 05/26/20 14:53 18:57 Creatine Kinase 36 L 23 L Impressions: Knee X-Ray 05/25/20 14:34 IMPRESSION: Small knee joint effusion. No acute fracture or destructive bone lesion. Lower Extremity CT 05/25/20 14:39 IMPRESSION: 1. Subcutaneous edema and skin thickening involving the distal upper leg and knee, consistent with cellulitis and subcutaneous edema. No focal drainable abscess. 2. Inflammatory change involving the medial compartment muscles suggestive of myositis. 3. Small knee joint effusion. 4. Focal DVT in the proximal common femoral vein extending into the greater saphenous vein and in the distal femoral vein. 5. Subcutaneous gas overlying the left hip region with no surrounding inflammatory change or foreign body. This may represent an injection site. PICC Line Insertion 05/27/20 00:00 IMPRESSION: SUCCESSFUL PLACEMENT OF A 5 FR DUAL LUMEN 47 CM PICC IN THE LEFT BASILIC VEIN. Assessment & Plan - Diagnosis (1) Necrotizing soft tissue infection Is this a current diagnosis for this admission?: Yes (2) IV drug abuse Is this a current diagnosis for this admission?: Yes - Time Anticipated Discharge Disposition: Home with Home Health Anticipated Discharge Timeframe: unknown - Plan Summary Plan Summary: 39-year-old male status post debridement for necrotizing soft tissue infection of the left lower extremity. The debrided portion of the wound appears healthy. The fascia and muscle are without signs of purulence. There is however worsening mottling and purulence at the superior aspect of the wound. I have recommended reexploration of the wound tomorrow in the OR. The patient may require further debridement on the superior aspect. The patient is in agreement with this. Risks/benefits discussed, informed consent obtained, and all questions answered. Hold heparin 2 hours prior to OR. N.p.o. after midnight. Continue antibiotics.
[2020-05-29 12:46] LABS: ABSOLUTE LYMPHOCYTES# (MANUAL) 2.6 10^3/uL (0.5-4.7); BAND NEUTROPHILS % (MANUAL) 6 % (3-5); BASOPHILS % (MANUAL) 0 % (0-2); EOSINOPHILS % (MANUAL) 0 % (0-6); LYMPHOCYTES % (MANUAL) 10 % (13-45); METAMYELOCYTES % (MANUAL) 2 % (0-1); MONOCYTES % (MANUAL) 4 % (3-13); SEGMENTED NEUTROPHILS % (MAN) 78 % (42-78); TOTAL CELLS COUNTED 100
[2020-05-29 12:48] LABS: PLATELET CLUMPS PRESENT; PLATELET COMMENT ADEQUATE; RBC MORPHOLOGY COMMENT NORMO-CYTIC/CHROMIC
--- NOTE | 2020-05-29 13:42 | PDOC PROGRESS REPORT ---
Subjective Date:: 05/29/20 Subjective:: The patient is a 39 year old male with a past medical history significant for IVDU and tobacco dependence with continuous use who is admitted to the surgicalist service for necrotizing soft tissue infection of the left knee. Hospitalist service was consulted for pain management and prevention of opiate withdrawal. Patient was seen on morning rounds. He is found resting in bed, comfortably, on supplemental oxygen by [place]. He is not on home O2. He reports continued LLE pain; states it is no worse than yesterday, however, does continue to consistently be rated a 4 or a 5 on the pain scale. He was able to do some bedside exercises with physical therapy yesterday. He does have increased range of motion of his knee and ankle today with decreased edema. Discussed his echocardiogram results and plan for managing bacteremia. Discussed current pain management and opiate dependence management. The patient denied chest pain, dyspnea, abd pain, and nausea. Good appetite. No other questions or concerns at this time. No concerns per nursing. Reason For Visit: NECROTIZING FASCIITIS Physical Exam Vital Signs: Temp Pulse Resp BP Pulse Ox 98.4 F 94 17 132/64 H 97 05/29/20 08:36 05/29/20 08:36 05/29/20 08:36 05/29/20 08:36 05/29/20 08:36 Intake & Output 05/28/20 05/29/20 05/30/20 06:59 06:59 06:59 Intake Total 1948 4606 268 Output Total 800 Balance 1948 3806 268 Weight 86.1 kg 87.3 kg General appearance: PRESENT: no acute distress, cooperative, well-developed, well-nourished Head exam: PRESENT: atraumatic, normocephalic Eye exam: PRESENT: conjunctiva pink, EOMI, PERRLA. ABSENT: scleral icterus Mouth exam: PRESENT: moist, tongue midline Teeth exam: PRESENT: poor dentation Respiratory exam: PRESENT: clear to auscultation selam, symmetrical, unlabored, other - Supplemental oxygen by nasal cannula. ABSENT: rales, rhonchi, wheezes Cardiovascular exam: PRESENT: RRR. ABSENT: diastolic murmur, rubs, systolic murmur Pulses: PRESENT: normal dorsalis pedis pul Vascular exam: PRESENT: normal capillary refill Extremities exam: PRESENT: pedal edema - Swollen left foot, tenderness, +1 edema - Left lower extremity; Bruce wrap in place. ABSENT: calf tenderness, clubbing, full ROM Neurological exam: PRESENT: alert, awake, oriented to person, oriented to place, oriented to time, oriented to situation, CN II-XII grossly intact. ABSENT: motor sensory deficit Psychiatric exam: PRESENT: appropriate affect, normal mood. ABSENT: homicidal ideation, suicidal ideation Skin exam: PRESENT: dry, erythema - Anterior and medial proximal thigh., warm, other - large post surgical wound to LLE w/ wet to dry dressing; see surgical progress notes for details. ABSENT: cyanosis, intact, rash Results Laboratory Results: 05/29/20 11:10 05/29/20 05:05 05/29/20 05/29/20 05/29/20 02:17 05:05 05:05 WBC RBC Hgb Hct MCV MCH MCHC RDW Plt Count Seg Neutrophils % Sodium 134.9 L Potassium 2.9 L* Chloride 97 L Carbon Dioxide 31 H Anion Gap 7 BUN 10 Creatinine 0.81 Est GFR ( Amer) > 60 Glucose 106 Calcium 7.8 L Magnesium 2.0 Urine Color YELLOW Urine Appearance CLOUDY Urine pH 5.0 Ur Specific [place] 1.009 Urine Protein NEGATIVE Urine Glucose (UA) NEGATIVE Urine Ketones NEGATIVE Urine Blood NEGATIVE Urine Nitrite NEGATIVE Ur Leukocyte Esterase NEGATIVE Urine WBC (Auto) 2 Urine RBC (Auto) 0 05/29/20 11:10 WBC 26.1 H RBC 4.02 L Hgb 10.0 L Hct 30.8 L MCV 77 L MCH 24.9 L MCHC 32.4 RDW 16.9 H Plt Count 292 Seg Neutrophils % Not Reportable Sodium Potassium Chloride Carbon Dioxide Anion Gap BUN Creatinine Est GFR ( Amer) Glucose Calcium Magnesium Urine Color Urine Appearance Urine pH Ur Specific [place] Urine Protein Urine Glucose (UA) Urine Ketones Urine Blood Urine Nitrite Ur Leukocyte Esterase Urine WBC (Auto) Urine RBC (Auto) 05/27/20 14:25 Blood Blood Culture (PCR) - Final Staphylococcus Aureus 05/27/20 17:33 Blood Blood Culture (PCR) - Final Staphylococcus Aureus 05/26/20 16:11 Leg - Left Gram Stain - Final 05/26/20 16:11 Leg - Left Wound Culture - Final Mrsa (Meth Resis Staph Aureus) No Anaerobic Organisms 05/25/20 20:45 Blood Blood Culture (PCR) - Final Staphylococcus Aureus 05/25/20 20:45 Blood Blood Culture - Final Mrsa (Meth Resis Staph Aureus) 05/25/20 05/26/20 14:53 18:57 Creatine Kinase 36 L 23 L Impressions: Knee X-Ray 05/25/20 14:34 IMPRESSION: Small knee joint effusion. No acute fracture or destructive bone lesion. Lower Extremity CT 05/25/20 14:39 IMPRESSION: 1. Subcutaneous edema and skin thickening involving the distal upper leg and knee, consistent with cellulitis and subcutaneous edema. No focal drainable abscess. 2. Inflammatory change involving the medial compartment muscles suggestive of myositis. 3. Small knee joint effusion. 4. Focal DVT in the proximal common femoral vein extending into the greater saphenous vein and in the distal femoral vein. 5. Subcutaneous gas overlying the left hip region with no surrounding inflammatory change or foreign body. This may represent an injection site. PICC Line Insertion 05/27/20 00:00 IMPRESSION: SUCCESSFUL PLACEMENT OF A 5 FR DUAL LUMEN 47 CM PICC IN THE LEFT BASILIC VEIN. Assessment and Plan - Diagnosis (1) Bacteremia Is this a current diagnosis for this admission?: Yes Plan: Blood culture (05/25/2020; both sets) MRSA Blood culture (05/26/2020; both sets) MRSA Blood culture (05/27/2020) MRSA; obtained 48 hours following start of vancomycin. Blood culture (06-16) pending; obtained 4 days following start of vancomycin Wound cultures positive for MRSA. Echocardiogram is fortunately negative for vegetation and as the patient has a clear alternate source for his bacteremia I do not feel that further work-up is indicated unless he develops a murmur or signs of embolic disease. Continue Cefepime q8h. Continue Vancomycin. Unfortunately, the patient has very poor peripheral veins; have been unable to obtain labs through venipuncture. Did require the IV start by surgeon with ultrasound guidance; however, only lasted ~20 hrs. W Now w/ PICC (placed while blood cultures were positive). Once his blood cultures are clear, the PICC line will need to be removed and PIV obtain x48 to 72 hours for additional cultures to demonstrate clearance of MRSA prior to placement of new PICC. Patient is agreeable. We will consult infectious disease. (2) Abscess of left thigh Is this a current diagnosis for this admission?: Yes Plan: Impression: Stable left leg after wide soft tissue debridement by Dr. Jolly 1 day ago; persisting erythema and edema proximal thigh anteriorly, and normalized edema below the knee. No indication for further debridement today. Patient has acute venous thrombosis in the left saphenofemoral junction, as well as the femoral vein at the hiatus sending to the popliteal vein. Recommendations: 1. Treat severe soft tissue infection with MRSA intravenous antibiotics as the hospitalist team is doing. No indication for further debridement today 2. Given condition of left lower extremity, and acute thrombus in the above areas, suggest heparin anticoagulation. That way if patient requires additional debridement, IV anticoagulation can be readily suspended. This was discussed with hospitalist service 3. Patient can have a diet today. Would suspend physical therapy left lower extremity until patient's edema better controlled. (3) Cellulitis of left thigh Is this a current diagnosis for this admission?: Yes Plan: As above. (4) Necrotizing soft tissue infection Is this a current diagnosis for this admission?: Yes Plan: As above. 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 Heparin gtt PT ordered. (6) Heroin addiction Is this a current diagnosis for this admission?: Yes Plan: Patient reportedly uses 1.5 g heroin daily x3 years. Tolerated methadone 40 mg p.o. nightly x4 days. Continues to have some evidence of opiate withdrawal and uncontrolled pain. Increase methadone to 50 mg nightly. As he is also receiving as needed Percocet and morphine, will hold on any further dose adjustments at this time. Clonidine as needed. - Discussed with the [facility]; they typically start at 10 mg daily and increase by 5 mg every other day, even for patients with high dose usage such as Mr. Hebert. Review of literature states that 40 mg is the max initial dosing and that there should be an observation period for 3 to 4 days prior to increase to ensure once steady state is reached patient does not experience respiratory depression. (7) IV drug abuse Is this a current diagnosis for this admission?: Yes Plan: As above. (8) Hypertension Is this a current diagnosis for this admission?: Yes Plan: Improved blood pressures today. Not on home antihypertensives. Provide adequate pain control. Monitor for opiate withdrawal symptoms. Oral clonidine as needed. (9) Hypokalemia Is this a current diagnosis for this admission?: Yes Plan: Potassium 2.9, magnesium 2.0 Additional IV and oral replacement today. Follow-up chemistries. - Time Time Spent with patient: 35 or more minutes Medications reviewed and adjusted accordingly: Yes Anticipated Discharge Disposition: Home, Self Care Anticipated Discharge Timeframe: TBD
[2020-05-29] MEDS ORDERED: METHADONE HCL 10 MG TABLET PO SCH (22:00)
[2020-05-30] MEDS: VANCOMYCIN HCL 1,250 MG in DEXTROSE 5%-WATER 250 ML IV SCH ×3 (02:50→18:00)
[2020-05-30] MEDS: MORPHINE SULFATE 10 MG/ML INJ IV PRN ×4 (03:10→21:30)
[2020-05-30] MEDS: OXYCODONE-ACETAMINOPHEN 5-325 MG TABLET PO PRN ×3 (03:11→14:51)
[2020-05-30] MEDS: NORMAL SALINE 1000 ML 1,000 ML IV PRN (05:18)
[2020-05-30 06:05] LABS: HEMATOCRIT 28.3 % (37.9-51.0); HEMOGLOBIN 9.4 g/dL (13.5-17.0); MEAN CORPUSCULAR HEMOGLOBIN 25.4 pg (27.0-33.4); MEAN CORPUSCULAR HGB CONC 33.3 g/dL (32.0-36.0); MEAN CORPUSCULAR VOLUME 76 fl (80-97); PLATELET COUNT 300 10^3/uL (150-450); RED BLOOD COUNT 3.71 10^6/uL (4.35-5.55); RED CELL DISTRIBUTION WIDTH 16.9 % (11.5-14.0)
[2020-05-30 06:48] LABS: BLOOD UREA NITROGEN 9 mg/dL (7-20); CALCIUM 7.7 mg/dL (8.4-10.2); CARBON DIOXIDE 32 mmol/L (22-30); CHLORIDE 99 mmol/L (98-107); GLUCOSE 102 mg/dL (75-110)
[2020-05-30 06:50] LABS: POTASSIUM 2.8 mmol/L (3.6-5.0)
[2020-05-30 06:54] LABS: ANION GAP 3 (5-19)
[2020-05-30] MEDS ORDERED: LIDOCAINE 2% INJ (20 MG/ML) 20 ML MDV ONE (06:54)
[2020-05-30] MEDS ORDERED: KETAMINE HCL INJ 500 MG/10 ML VIAL ONE (06:55)
[2020-05-30] MEDS ORDERED: FENTANYL CITRATE INJ/PF 100 MCG/2 ML AMPUL ONE (06:55)
[2020-05-30] MEDS ORDERED: MIDAZOLAM 2 MG/2 ML INJ ONE (06:55)
[2020-05-30] MEDS ORDERED: DEXMEDETOMIDINE INJ 80 MCG/20 ML VIAL IV ONE (06:56)
[2020-05-30] MEDS ORDERED: PROPOFOL INJ 200 MG/20 ML VIAL IV ONE (06:56)
[2020-05-30] MEDS ORDERED: LIDOCAINE 1% INJ-PF (10 MG/ML) 30 ML SDV ONE (07:03)
[2020-05-30] MEDS ORDERED: BUPIVACAINE HCL 0.25 % INJ/PF (2.5 MG/1 ML) 30 ML VIAL ONE (07:03)
[2020-05-30 07:05] LABS: ABSOLUTE LYMPHOCYTES# (MANUAL) 1.3 10^3/uL (0.5-4.7); ABSOLUTE MONOCYTES # (MANUAL) 2.5 10^3/uL (0.1-1.4); BAND NEUTROPHILS % (MANUAL) 1 % (3-5); BASOPHILS % (MANUAL) 0 % (0-2); EOSINOPHILS % (MANUAL) 0 % (0-6); LYMPHOCYTES % (MANUAL) 5 % (13-45); METAMYELOCYTES % (MANUAL) 2 % (0-1); MONOCYTES % (MANUAL) 10 % (3-13); SEGMENTED NEUTROPHILS % (MAN) 82 % (42-78); TOTAL CELLS COUNTED 100
[2020-05-30 07:06] LABS: TOXIC GRANULATION 1+
[2020-05-30 07:07] LABS: ANISOCYTOSIS 1+; HYPOCHROMASIA SLIGHT; PLATELET COMMENT ADEQUATE; POLYCHROMASIA SLIGHT; SCHISTOCYTES SLIGHT
--- NOTE | 2020-05-30 07:22 | PDOC PROGRESS REPORT ---
Subjective Date:: 05/30/20 Reason For Visit: NECROTIZING FASCIITIS Physical Exam Vital Signs: Temp Pulse Resp BP Pulse Ox 99.7 F 100 16 116/56 L 92 05/30/20 03:40 05/30/20 03:40 05/30/20 03:40 05/30/20 03:40 05/30/20 03:40 Intake & Output 05/29/20 05/30/20 05/31/20 06:59 06:59 06:59 Intake Total 4606 4032 Output Total 800 1600 Balance 3806 2432 Weight 87.3 kg 90.7 kg Results Laboratory Results: 05/30/20 05:15 05/30/20 05:10 05/29/20 05/29/20 05/30/20 05:05 11:10 05:10 WBC 26.1 H 25.0 H RBC 4.02 L 3.71 L Hgb 10.0 L 9.4 L Hct 30.8 L 28.3 L MCV 77 L 76 L MCH 24.9 L 25.4 L MCHC 32.4 33.3 RDW 16.9 H 16.9 H Plt Count 292 300 Seg Neutrophils % Not Reportable Not Reportable Sodium Potassium Chloride Carbon Dioxide Anion Gap BUN Creatinine Est GFR ( Amer) Glucose Calcium Magnesium 2.0 05/30/20 05/30/20 05:10 05:15 WBC Cancelled RBC Cancelled Hgb Cancelled Hct Cancelled MCV Cancelled MCH Cancelled MCHC Cancelled RDW Cancelled Plt Count Cancelled Seg Neutrophils % Sodium 133.9 L Potassium 2.8 L* Chloride 99 Carbon Dioxide 32 H Anion Gap 3 L BUN 9 Creatinine 0.88 Est GFR ( Amer) > 60 Glucose 102 Calcium 7.7 L Magnesium 05/27/20 14:25 Blood Blood Culture (PCR) - Final Staphylococcus Aureus 05/27/20 17:33 Blood Blood Culture (PCR) - Final Staphylococcus Aureus 05/25/20 05/26/20 14:53 18:57 Creatine Kinase 36 L 23 L Impressions: Knee X-Ray 05/25/20 14:34 IMPRESSION: Small knee joint effusion. No acute fracture or destructive bone lesion. Lower Extremity CT 05/25/20 14:39 IMPRESSION: 1. Subcutaneous edema and skin thickening involving the distal upper leg and knee, consistent with cellulitis and subcutaneous edema. No focal drainable abscess. 2. Inflammatory change involving the medial compartment muscles suggestive of myositis. 3. Small knee joint effusion. 4. Focal DVT in the proximal common femoral vein extending into the greater saphenous vein and in the distal femoral vein. 5. Subcutaneous gas overlying the left hip region with no surrounding inflammatory change or foreign body. This may represent an injection site. PICC Line Insertion 05/27/20 00:00 IMPRESSION: SUCCESSFUL PLACEMENT OF A 5 FR DUAL LUMEN 47 CM PICC IN THE LEFT BASILIC VEIN. Assessment & Plan - Diagnosis (1) Necrotizing soft tissue infection Is this a current diagnosis for this admission?: Yes (2) IV drug abuse Is this a current diagnosis for this admission?: Yes - Time Anticipated Discharge Disposition: Home with Home Health Anticipated Discharge Timeframe: unknown - Plan Summary Plan Summary: 39-year-old male status post debridement for necrotizing soft tissue infection of the left lower extremity. The debrided portion of the wound appears healthy. The fascia and muscle are without signs of purulence. There is however worsening mottling and purulence at the superior aspect of the wound. I have recommended reexploration of the wound today in the OR. The patient may require further debridement on the superior aspect. The patient is in agreement with this. Risks/benefits discussed, informed consent obtained, and all questions answered.
--- NOTE | 2020-05-30 07:49 | Progress Note ---
Provider Note Provider Note: [facility] ID Telephone Advice Consultation Chart reviewed, patient not seen. This is a 39-year-old man with active IVDU who was admitted due to left leg pain, swelling, decreased ROM after trying to inject heroin. He was evaluated in the ED due to suspicion of left septic knee. He had leukocytosis of 18k. X ray showed a small knee effusion. He had a CT scan of the leg that demonstrated cellulitis, myositis, DVT of proximal common femoral, greater saphenous and distal femoral veins. There was subcutaneous gas in the left hip. Patient was evaluated by surgery on 05/25 and taken to the OR. He was found with ne crotizing fasciitis, he had I&D. The extent of the wound was 33 x 13 cm. Blood cultures on 05/25 and 05/27 positive for MRSA. Cultures on 05/29 in process. Wound culture isolated MRSA as well on 05/25 and 05/26. TTE on 05/27 was negative for endocarditis. He has been on vancomycin, currently receiving 3740 mg. Vancomycin trough 15.5. ID consulted for recommendations. Allergies: No Known Allergies (Unverified 05/03/19 22:03) Medications: No Home Medications 05/25/20 Vital Signs: Temp Pulse Resp BP Pulse Ox 99.7 F 100 16 116/56 L 92 05/30/20 03:40 05/30/20 03:40 05/30/20 03:40 05/30/20 03:40 05/30/20 03:40 Intake & Output 05/29/20 05/30/20 05/31/20 06:59 06:59 06:59 Intake Total 4606 4032 Output Total 800 1600 Balance 3806 2432 Weight 87.3 kg 90.7 kg Weight/Height Weight 90.7 kg Height 5 ft 11 in Laboratories: 05/30/20 05:15 05/30/20 05:10 MCV Cancelled 05/30/20 05:15 MCH Cancelled 05/30/20 05:15 MCHC Cancelled 05/30/20 05:15 RDW Cancelled 05/30/20 05:15 Seg Neutrophils % Not Reportable 05/30/20 05:10 VBG pH 7.38 (7.30-7.42) 05/25/20 15:03 VBG pCO2 56.7 mmHg (35-63) 05/25/20 15:03 VBG HCO3 32.4 mmol/L (20-32) H 05/25/20 15:03 VBG Base Excess 5.6 mmol/L 05/25/20 15:03 Chloride 99 mmol/L (98-107) 05/30/20 05:10 Carbon Dioxide 32 mmol/L (22-30) H 05/30/20 05:10 Anion Gap 3 (5-19) L 05/30/20 05:10 Est GFR ( Amer) > 60 (>60) 05/30/20 05:10 Est GFR (Non-Af Amer) Cancelled 05/27/20 06:17 Glucose 102 mg/dL (75-110) 05/30/20 05:10 Lactic Acid 2.0 mmol/L (0.7-2.1) 05/26/20 20:15 Calcium 7.7 mg/dL (8.4-10.2) L 05/30/20 05:10 Magnesium 2.0 mg/dL (1.6-2.3) 05/29/20 05:05 Total Bilirubin 3.0 mg/dL (0.2-1.3) H 05/25/20 14:53 AST 34 U/L (17-59) 05/25/20 14:53 Alkaline Phosphatase 302 U/L (38-126) H 05/25/20 14:53 Total Protein 7.6 g/dL (6.3-8.2) 05/25/20 14:53 Albumin 3.7 g/dL (3.5-5.0) 05/25/20 14:53 Urine Color YELLOW 05/29/20 02:17 Urine Appearance CLOUDY 05/29/20 02:17 Urine pH 5.0 (5.0-9.0) 05/29/20 02:17 Ur Specific [place] 1.009 05/29/20 02:17 Urine Protein NEGATIVE mg/dL (NEGATIVE) 05/29/20 02:17 Urine Glucose (UA) NEGATIVE mg/dL (NEGATIVE) 05/29/20 02:17 Urine Ketones NEGATIVE mg/dL (NEGATIVE) 05/29/20 02:17 Urine Blood NEGATIVE (NEGATIVE) 05/29/20 02:17 Urine Nitrite NEGATIVE (NEGATIVE) 05/29/20 02:17 Ur Leukocyte Esterase NEGATIVE (NEGATIVE) 05/29/20 02:17 Urine WBC (Auto) 2 /HPF 05/29/20 02:17 Urine RBC (Auto) 0 /HPF 05/29/20 02:17 05/27/20 14:25 Blood Blood Culture (PCR) - Final Staphylococcus Aureus 05/27/20 17:33 Blood Blood Culture (PCR) - Final Staphylococcus Aureus 05/25/20 05/26/20 14:53 18:57 Creatine Kinase 36 L 23 L Microbiology: Blood cultures: 05/25 MRSA 05/27 MRSA Wound Culture: 05/25 MRSA 05/26 MRSA Radiology: Knee X-Ray 05/25/20 14:34 IMPRESSION: Small knee joint effusion. No acute fracture or destructive bone lesion. Lower Extremity CT 05/25/20 14:39 IMPRESSION: 1. Subcutaneous edema and skin thickening involving the distal upper leg and knee, consistent with cellulitis and subcutaneous edema. No focal drainable abscess. 2. Inflammatory change involving the medial compartment muscles suggestive of myositis. 3. Small knee joint effusion. 4. Focal DVT in the proximal common femoral vein extending into the greater saphenous vein and in the distal femoral vein. 5. Subcutaneous gas overlying the left hip region with no surrounding inflammatory change or foreign body. This may represent an injection site. PICC Line Insertion 05/27/20 00:00 IMPRESSION: SUCCESSFUL PLACEMENT OF A 5 FR DUAL LUMEN 47 CM PICC IN THE LEFT BASILIC VEIN. Assessment and Recomemndations: Patient evaluated for MRSA bacteremia in the setting of left leg necrotizing fasciitis and active IVDU. He has been taken to surgery for debridement for source control. This is all MRSA. Blood cultures still positive on 05/27 probably due to the extent of the infection. A TTE was negative for valvular vegetations, but I consider this patient high risk for endocarditis. Will recommend a MITZI to rule this out. Surgery as needed for source control, continue vancomycin to keep a trough of 15-20. The benefit of clindamycin for toxin inhibition is for 72 hrs, already day 4. Duration of therapy will depend on MITZI but he will need at least 4 weeks of antibiotic therapy. He has a septic thrombosis on the left leg. If MITZI is positive, then he will need 6 weeks of therapy. While on vancomycin, he will need weekly labs to monitor GFR and vanc trough. If he requires >4g of vancomycin a day to keep a trough >15, he would then be safer on daptomycin 8mg/kg daily (monitoring CK which may be elevated at baseline due to myositis and fasciitis). Fanny Roque MD [facility] ID [phone]
[2020-05-30] MEDS ORDERED: HYDROMORPHONE HCL INJ/PF 2 MG/ML AMPULE ONE (07:58)
[2020-05-30] MEDS ORDERED: PROMETHAZINE HCL INJ 25 MG/1 ML VIAL IV PRN (08:23)
[2020-05-30] MEDS ORDERED: DIPHENHYDRAMINE HCL 50 MG/ML VIAL IV PRN (08:23)
[2020-05-30] MEDS ORDERED: ONDANSETRON HCL INJ/PF 4 MG/2 ML SDV IV PRN (08:23)
[2020-05-30] MEDS ORDERED: FENTANYL CITRATE INJ/PF 100 MCG/2 ML AMPUL IV PRN ×3 (08:23)
[2020-05-30] MEDS ORDERED: MEPERIDINE HCL/PF INJ 25 MG/1 ML DISP.SYRIN IV PRN (08:23)
[2020-05-30] MEDS ORDERED: MORPHINE SULFATE 10 MG/ML INJ IV PRN (08:23)
--- NOTE | 2020-05-30 08:26 | Operative Report ---
Nonrecallable Operative Report DATE OF SURGERY: 05/30/20 PREOPERATIVE DIAGNOSIS: Necrotizing soft tissue infection of the left lower extremity POSTOPERATIVE DIAGNOSIS: Same as above OPERATION: Sharp, excisional debridement of necrotizing soft tissue infection (skin and fatty tissue) of the left lower extremity (25 x 13 cm). SURGEON: NYDIA GRAVES ANESTHESIA: GA TISSUE REMOVED OR ALTERED: Skin and fatty soft tissue, necrotic (25 x 13 cm) COMPLICATIONS: Continued worsening of soft tissue infection, requiring further debridement. ESTIMATED BLOOD LOSS: 20 cc PROCEDURE: Drains/implants: Kerlix soaked in Betadine. Procedure in detail: After informed consent was obtained, the patient was brought to the operating room and laid in the supine position. The area of the left lower extremity was prepped and draped in a normal sterile fashion. The skin on the proximal aspect of the wound was mottled and necrotic in appearance. This skin was opened, revealing purulent material beneath. This necrotic/nonviable skin was excised, up to the level of the groin. The excised tissue measured 25 x 13 cm. The excision was taken down to the level of the fascia. The fascia was left intact. The wound was then cleaned. The wound was packed with 4 x 4 soaked Kerlix. A dressing was then placed, and the procedure was concluded. All sponge, instrument, and needle counts were correct x2. Condition: Fair.
[2020-05-30] MEDS: HEPARIN SODIUM,PORCINE/D5W 25,000 UNIT/250 ML RTUINJ IV PRN ×2 (09:11→13:20)
[2020-05-30] MEDS: FAMOTIDINE INJ/PF 20 MG/2 ML SDV IV SCH ×2 (10:06→21:31)
[2020-05-30] MEDS: DOCUSATE SODIUM 100 MG/10 ML UDC PO SCH ×2 (10:06→18:01)
[2020-05-30] MEDS: POTASSI CL 20 MEQ/50 ML RIDER 20 MEQ/50 ML RTUPB IV SCH ×2 (10:08→12:16)
--- NOTE | 2020-05-30 14:33 | PDOC PROGRESS REPORT ---
Subjective Date:: 05/30/20 Subjective:: The patient is a 39 year old male with a past medical history significant for IVDU and tobacco dependence with continuous use who is admitted to the surgicalist service for necrotizing soft tissue infection of the left knee. Hospitalist service was consulted for pain management and prevention of opiate withdrawal. Patient was seen on morning rounds following additional operative I&D today. He is found resting in bed, comfortably, on supplemental oxygen by MA. He is not on home O2. He was sleeping, but woke easily. He reports continued LLE pain; worse than yesterday. Requests to have pain medication increased. Denies all other symptoms; specifically chest pain, dyspnea, abd pain, and nausea. Good appetite. No other questions or concerns at this time. Nursing reports low grade temperature this morning. Reason For Visit: NECROTIZING FASCIITIS Physical Exam Vital Signs: Temp Pulse Resp BP Pulse Ox 99.5 F 102 H 22 H 130/63 H 93 05/30/20 13:00 05/30/20 13:00 05/30/20 13:00 05/30/20 13:00 05/30/20 13:00 Intake & Output 05/29/20 05/30/20 05/31/20 06:59 06:59 06:59 Intake Total 4606 4525 904 Output Total 800 1600 10 Balance 3806 2925 894 Weight 87.3 kg 90.7 kg General appearance: PRESENT: no acute distress, cooperative, well-developed, well-nourished Head exam: PRESENT: atraumatic, normocephalic Eye exam: PRESENT: conjunctiva pink, EOMI, PERRLA. ABSENT: scleral icterus Mouth exam: PRESENT: moist, tongue midline Teeth exam: PRESENT: poor dentation Respiratory exam: PRESENT: clear to auscultation selam, symmetrical, unlabored, other - Supplemental oxygen by nasal cannula. ABSENT: rales, rhonchi, wheezes Cardiovascular exam: PRESENT: RRR. ABSENT: diastolic murmur, rubs, systolic murmur Pulses: PRESENT: normal dorsalis pedis pul Vascular exam: PRESENT: normal capillary refill Extremities exam: PRESENT: tenderness - LLE. ABSENT: calf tenderness, clubbing, full ROM, pedal edema Neurological exam: PRESENT: alert, awake, oriented to person, oriented to place, oriented to time, oriented to situation, CN II-XII grossly intact. ABSENT: motor sensory deficit Psychiatric exam: PRESENT: anxious, appropriate affect, normal mood. ABSENT: homicidal ideation, suicidal ideation Skin exam: PRESENT: dry, warm. ABSENT: cyanosis, intact - large post surgical wound to anterior and medial proximal thigh extending from groin to distal of the knee - wet to dry dressing w/ murtaza wrap in place, rash Results Laboratory Results: 05/30/20 05:15 05/30/20 05:10 05/30/20 05/30/20 05/30/20 05:10 05:10 05:15 WBC 25.0 H Cancelled RBC 3.71 L Cancelled Hgb 9.4 L Cancelled Hct 28.3 L Cancelled MCV 76 L Cancelled MCH 25.4 L Cancelled MCHC 33.3 Cancelled RDW 16.9 H Cancelled Plt Count 300 Cancelled Seg Neutrophils % Not Reportable Sodium 133.9 L Potassium 2.8 L* Chloride 99 Carbon Dioxide 32 H Anion Gap 3 L BUN 9 Creatinine 0.88 Est GFR ( Amer) > 60 Glucose 102 Calcium 7.7 L 05/27/20 14:25 Blood Blood Culture (PCR) - Final Staphylococcus Aureus 05/27/20 14:25 Blood Blood Culture - Final Mrsa (Meth Resis Staph Aureus) 05/27/20 17:33 Blood Blood Culture (PCR) - Final Staphylococcus Aureus 05/27/20 17:33 Blood Blood Culture - Final Mrsa (Meth Resis Staph Aureus) 05/25/20 05/26/20 14:53 18:57 Creatine Kinase 36 L 23 L Impressions: Knee X-Ray 05/25/20 14:34 IMPRESSION: Small knee joint effusion. No acute fracture or destructive bone lesion. Lower Extremity CT 05/25/20 14:39 IMPRESSION: 1. Subcutaneous edema and skin thickening involving the distal upper leg and knee, consistent with cellulitis and subcutaneous edema. No focal drainable abscess. 2. Inflammatory change involving the medial compartment muscles suggestive of myositis. 3. Small knee joint effusion. 4. Focal DVT in the proximal common femoral vein extending into the greater saphenous vein and in the distal femoral vein. 5. Subcutaneous gas overlying the left hip region with no surrounding inflammatory change or foreign body. This may represent an injection site. PICC Line Insertion 05/27/20 00:00 IMPRESSION: SUCCESSFUL PLACEMENT OF A 5 FR DUAL LUMEN 47 CM PICC IN THE LEFT BASILIC VEIN. Assessment and Plan - Diagnosis (1) Bacteremia Is this a current diagnosis for this admission?: Yes Plan: Blood culture (05/25/2020; both sets) MRSA Blood culture (05/26/2020; both sets) MRSA Blood culture (05/27/2020) MRSA; obtained 48 hours following start of vancomycin. Blood culture (05/29) negative at 24 hours; obtained 4 days following start of vancomycin Wound cultures positive for MRSA. Echocardiogram is negative for vegetation MITZI once patient's surgical condition has stabilized. Cefepime x3 days Continue Vancomycin; minimum 4 weeks from clear blood cultures. May need 6 weeks pending MITZI results. Infectious disease; have reviewed recommendations. (2) Abscess of left thigh Is this a current diagnosis for this admission?: Yes Plan: Plan per surgery. (3) Cellulitis of left thigh Is this a current diagnosis for this admission?: Yes Plan: As above. (4) Necrotizing soft tissue infection Is this a current diagnosis for this admission?: Yes Plan: As above. 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 Heparin gtt PT ordered. (6) Heroin addiction Is this a current diagnosis for this admission?: Yes Plan: Patient reportedly uses 1.5 g heroin daily x3 years. Continue methadone to 50 mg nightly. As he is also receiving as needed Percocet and morphine, will hold on any further dose adjustments at this time. Clonidine as needed. - Discussed with the [facility]; they typically start at 10 mg daily and increase by 5 mg every other day, even for patients with high dose usage such as Mr. Hebert. Review of literature states that 40 mg is the max initial dosing and that there should be an observation period for 3 to 4 days prior to increase to ensure once steady state is reached patient does not experience respiratory depression. (7) IV drug abuse Is this a current diagnosis for this admission?: Yes Plan: As above. (8) Hypertension Is this a current diagnosis for this admission?: Yes Plan: Improved blood pressures today. Not on home antihypertensives. Provide adequate pain control. Monitor for opiate withdrawal symptoms. Oral clonidine as needed. (9) Hypokalemia Is this a current diagnosis for this admission?: Yes Plan: Potassium 2.9-> 2.8 Magnesium 2.0 Additional IV and oral replacement today. Follow-up chemistries. - Time Time Spent with patient: 25-34 minutes Medications reviewed and adjusted accordingly: Yes Anticipated Discharge Disposition: Home, Self Care Anticipated Discharge Timeframe: TBD
[2020-05-30] MEDS ORDERED: NALOXONE HCL INJ/PF 0.4 MG/1 ML SDV IV PRN (14:49)
[2020-05-30] MEDS ORDERED: POTASSIUM CHLORIDE 10 MEQ TABLET.ER PO ONE (15:00)
[2020-05-30] MEDS ORDERED: POTASSI CL 20 MEQ/50 ML RIDER 20 MEQ/50 ML RTUPB IV ONE (15:00)
[2020-05-30] MEDS: METHADONE HCL 10 MG TABLET PO SCH (21:30)
[2020-05-31] MEDS: OXYCODONE-ACETAMINOPHEN 5-325 MG TABLET PO PRN ×5 (00:13→18:00)
[2020-05-31] MEDS: VANCOMYCIN HCL 1,250 MG in DEXTROSE 5%-WATER 250 ML IV SCH (01:45)
[2020-05-31] MEDS: MORPHINE SULFATE 10 MG/ML INJ IV PRN ×4 (01:45→20:00)
[2020-05-31] MEDS: HEPARIN SODIUM,PORCINE/D5W 25,000 UNIT/250 ML RTUINJ IV PRN ×3 (01:51→15:22)
[2020-05-31] MEDS: METHADONE HCL 10 MG TABLET PO SCH ×3 (06:01→21:58)
[2020-05-31 06:15] LABS: ANION GAP 7 (5-19); BLOOD UREA NITROGEN 10 mg/dL (7-20); CALCIUM 8.1 mg/dL (8.4-10.2); CARBON DIOXIDE 24 mmol/L (22-30); CHLORIDE 104 mmol/L (98-107); GLUCOSE 143 mg/dL (75-110); POTASSIUM 4.6 mmol/L (3.6-5.0)
[2020-05-31 07:23] LABS: APPEARANCE,URINE SLIGHTLY-CLOUDY; BILIRUBIN,URINE NEGATIVE (NEGATIVE); COLOR,URINE YELLOW; GLUCOSE, URINE NEGATIVE (NEGATIVE); KETONES,URINE NEGATIVE (NEGATIVE); LEUKOCYTE ESTERASE,URINE NEGATIVE (NEGATIVE); NITRITE,URINE NEGATIVE (NEGATIVE); PROTEIN,URINE NEGATIVE (NEGATIVE); URINE SPECIFIC GRAVITY 1.005
[2020-05-31 08:13] LABS: HEMATOCRIT 27.6 % (37.9-51.0); HEMOGLOBIN 9.1 g/dL (13.5-17.0); MEAN CORPUSCULAR HEMOGLOBIN 25.3 pg (27.0-33.4); MEAN CORPUSCULAR HGB CONC 32.9 g/dL (32.0-36.0); MEAN CORPUSCULAR VOLUME 77 fl (80-97); PLATELET COUNT 361 10^3/uL (150-450); RED BLOOD COUNT 3.58 10^6/uL (4.35-5.55); RED CELL DISTRIBUTION WIDTH 16.9 % (11.5-14.0); WHITE BLOOD COUNT 26.3 10^3/uL (4.0-10.5)
[2020-05-31 08:49] LABS: ABSOLUTE LYMPHOCYTES# (MANUAL) 5.8 10^3/uL (0.5-4.7); ABSOLUTE MONOCYTES # (MANUAL) 0.8 10^3/uL (0.1-1.4); BAND NEUTROPHILS % (MANUAL) 3 % (3-5); BASOPHILS % (MANUAL) 0 % (0-2); EOSINOPHILS % (MANUAL) 0 % (0-6); LYMPHOCYTES % (MANUAL) 18 % (13-45); MONOCYTES % (MANUAL) 3 % (3-13); SEGMENTED NEUTROPHILS % (MAN) 72 % (42-78); TOTAL CELLS COUNTED 100
[2020-05-31 08:50] LABS: ANISOCYTOSIS 1+; PLATELET CLUMPS PRESENT; PLATELET COMMENT ADEQUATE
[2020-05-31 08:51] LABS: HYPOCHROMASIA 1+; POLYCHROMASIA SLIGHT
[2020-05-31 08:52] LABS: OVALOCYTES SLIGHT; POIKILOCYTOSIS SLIGHT; TARGET CELLS SLIGHT
[2020-05-31] MEDS: DOCUSATE SODIUM 100 MG/10 ML UDC PO SCH ×2 (09:49→17:58)
[2020-05-31] MEDS: FAMOTIDINE INJ/PF 20 MG/2 ML SDV IV SCH ×2 (09:49→21:59)
[2020-05-31] MEDS: VANCOMYCIN HCL 1,000 MG in DEXTROSE 5%-WATER 250 ML IV SCH ×3 (13:25→23:43)
--- NOTE | 2020-05-31 15:39 | PDOC PROGRESS REPORT ---
Subjective Date:: 05/31/20 Subjective:: The patient is a 39 year old male with a past medical history significant for IVDU and tobacco dependence with continuous use who is admitted to the surgicalist service for necrotizing soft tissue infection of the left knee. Hospitalist service was consulted for pain management and prevention of opiate withdrawal. Patient was seen on morning rounds. He is found resting in bed on supplemental oxygen by OR. He is not on home O2. He has just has his dressing changed and was increased pain; reports pain was improved overnight with new medication regiment. Denies chest pain, dyspnea, orthopnea, cough,abd pain, and nausea. Good appetite. No other questions or concerns at this time. No concerns per nursing; reports that the patient appears comfortable when observed discretely. Reason For Visit: NECROTIZING FASCIITIS Physical Exam Vital Signs: Temp Pulse Resp BP Pulse Ox 99.5 F 93 22 H 122/66 94 05/31/20 11:15 05/31/20 11:15 05/31/20 11:15 05/31/20 11:15 05/31/20 11:15 Intake & Output 05/30/20 05/31/20 06/01/20 06:59 06:59 06:59 Intake Total 4525 3424 325 Output Total 1600 790 Balance 2925 2634 325 Weight 90.7 kg 90.8 kg 90.8 kg General appearance: PRESENT: no acute distress, well-developed, well-nourished - Overweight Head exam: PRESENT: atraumatic, normocephalic Eye exam: PRESENT: conjunctiva pink, EOMI, PERRLA. ABSENT: scleral icterus Mouth exam: PRESENT: moist, tongue midline Teeth exam: PRESENT: poor dentation Respiratory exam: PRESENT: clear to auscultation selam, symmetrical, unlabored, other - Supplemental oxygen by nasal cannula. ABSENT: rales, rhonchi, wheezes Cardiovascular exam: PRESENT: RRR. ABSENT: diastolic murmur, rubs, systolic murmur Pulses: PRESENT: normal dorsalis pedis pul Vascular exam: PRESENT: normal capillary refill Extremities exam: PRESENT: tenderness. ABSENT: calf tenderness, clubbing, full ROM, pedal edema, +1 edema Musculoskeletal exam: ABSENT: ambulatory Neurological exam: PRESENT: alert, awake, oriented to person, oriented to place, oriented to time, oriented to situation, CN II-XII grossly intact. ABSENT: motor sensory deficit Psychiatric exam: PRESENT: appropriate affect, normal mood. ABSENT: homicidal ideation, suicidal ideation Skin exam: PRESENT: dry, warm, other - large post surgical wound to anterior and medial proximal thigh extending from groin to distal of the knee - wet to dry dressing w/ murtaza wrap in place. ABSENT: cyanosis, intact, rash Results Laboratory Results: 05/31/20 07:45 05/31/20 05:38 05/31/20 05/31/20 05/31/20 05:38 07:05 07:45 WBC 26.3 H RBC 3.58 L Hgb 9.1 L Hct 27.6 L MCV 77 L MCH 25.3 L MCHC 32.9 RDW 16.9 H Plt Count 361 Seg Neutrophils % Not Reportable Sodium 135.4 L Potassium 4.6 Chloride 104 Carbon Dioxide 24 Anion Gap 7 BUN 10 Creatinine 0.88 Est GFR ( Amer) > 60 Glucose 143 H Calcium 8.1 L Urine Color YELLOW Urine Appearance SLIGHTLY-CLOUDY Urine pH 6.0 Ur Specific [place] 1.005 Urine Protein NEGATIVE Urine Glucose (UA) NEGATIVE Urine Ketones NEGATIVE Urine Blood NEGATIVE Urine Nitrite NEGATIVE Ur Leukocyte Esterase NEGATIVE Urine WBC (Auto) 0 Urine RBC (Auto) 0 05/25/20 05/26/20 14:53 18:57 Creatine Kinase 36 L 23 L Impressions: Knee X-Ray 05/25/20 14:34 IMPRESSION: Small knee joint effusion. No acute fracture or destructive bone lesion. Lower Extremity CT 05/25/20 14:39 IMPRESSION: 1. Subcutaneous edema and skin thickening involving the distal upper leg and knee, consistent with cellulitis and subcutaneous edema. No focal drainable abscess. 2. Inflammatory change involving the medial compartment muscles suggestive of myositis. 3. Small knee joint effusion. 4. Focal DVT in the proximal common femoral vein extending into the greater saphenous vein and in the distal femoral vein. 5. Subcutaneous gas overlying the left hip region with no surrounding inflammatory change or foreign body. This may represent an injection site. PICC Line Insertion 05/27/20 00:00 IMPRESSION: SUCCESSFUL PLACEMENT OF A 5 FR DUAL LUMEN 47 CM PICC IN THE LEFT BASILIC VEIN. Assessment and Plan - Diagnosis (1) Bacteremia Is this a current diagnosis for this admission?: Yes Plan: Blood culture (05/25/2020; both sets) MRSA Blood culture (05/26/2020; both sets) MRSA Blood culture (05/27/2020) MRSA; obtained 48 hours following start of vancomycin. Blood culture (05/29) negative at 48 hours; obtained 4 days following start of vancomycin Wound cultures positive for MRSA. Echocardiogram is negative for vegetation MITZI once patient's surgical condition has stabilized. Cefepime x3 days Continue Vancomycin; minimum 4 weeks from clear blood cultures. May need 6 weeks pending MITZI results. Infectious disease; have reviewed recommendations. (2) Abscess of left thigh Is this a current diagnosis for this admission?: Yes Plan: Plan per surgery. (3) Cellulitis of left thigh Is this a current diagnosis for this admission?: Yes Plan: As above. (4) Necrotizing soft tissue infection Is this a current diagnosis for this admission?: Yes Plan: As above. 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 Heparin gtt PT ordered. (6) Heroin addiction Is this a current diagnosis for this admission?: Yes Plan: Patient reportedly uses 1.5 g heroin daily x3 years. Continue methadone to 50 mg nightly. As he is also receiving as needed Percocet and morphine, will hold on any further dose adjustments at this time. Clonidine as needed. - Discussed with the [facility]; they typically start at 10 mg daily and increase by 5 mg every other day, even for patients with high dose usage such as Mr. Hebert. Review of literature states that 40 mg is the max initial dosing and that there should be an observation period for 3 to 4 days prior to increase to ensure once steady state is reached patient does not experience respiratory depression. (7) IV drug abuse Is this a current diagnosis for this admission?: Yes Plan: As above. (8) Hypertension Is this a current diagnosis for this admission?: Yes Plan: Improved blood pressures today. Not on home antihypertensives. Provide adequate pain control. Monitor for opiate withdrawal symptoms. Oral clonidine as needed. (9) Hypokalemia Is this a current diagnosis for this admission?: Yes Plan: Replete. Potassium 2.9-> 2.8-> 4.6 Magnesium 2.0 Follow-up chemistries. - Time Time Spent with patient: 35 or more minutes Medications reviewed and adjusted accordingly: Yes Anticipated Discharge Disposition: Home, Self Care Anticipated Discharge Timeframe: TBD
--- NOTE | 2020-05-31 18:11 | PDOC PROGRESS REPORT ---
Subjective Date:: 05/31/20 Subjective:: Pains along the operative site on the left leg Reason For Visit: NECROTIZING FASCIITIS Physical Exam Vital Signs: Temp Pulse Resp BP Pulse Ox 98.6 F 90 22 H 122/60 89 L 05/31/20 15:12 05/31/20 15:12 05/31/20 15:12 05/31/20 15:12 05/31/20 15:12 Intake & Output 05/30/20 05/31/20 06/01/20 06:59 06:59 06:59 Intake Total 4525 3424 575 Output Total 1600 790 Balance 2925 3444 575 Weight 90.7 kg 90.8 kg 90.8 kg Exam: Dressing was removed with the nurses. The wound and muscle look viable. No further necrotic tissue noted other than the superficial areas around the knee. No evidence of abscess. Results Laboratory Results: 05/31/20 07:45 05/31/20 05:38 05/31/20 05/31/20 05/31/20 05:38 07:05 07:45 WBC 26.3 H RBC 3.58 L Hgb 9.1 L Hct 27.6 L MCV 77 L MCH 25.3 L MCHC 32.9 RDW 16.9 H Plt Count 361 Seg Neutrophils % Not Reportable Sodium 135.4 L Potassium 4.6 Chloride 104 Carbon Dioxide 24 Anion Gap 7 BUN 10 Creatinine 0.88 Est GFR ( Amer) > 60 Glucose 143 H Calcium 8.1 L Urine Color YELLOW Urine Appearance SLIGHTLY-CLOUDY Urine pH 6.0 Ur Specific Chambers 1.005 Urine Protein NEGATIVE Urine Glucose (UA) NEGATIVE Urine Ketones NEGATIVE Urine Blood NEGATIVE Urine Nitrite NEGATIVE Ur Leukocyte Esterase NEGATIVE Urine WBC (Auto) 0 Urine RBC (Auto) 0 05/25/20 05/26/20 14:53 18:57 Creatine Kinase 36 L 23 L Impressions: Knee X-Ray 05/25/20 14:34 IMPRESSION: Small knee joint effusion. No acute fracture or destructive bone lesion. Lower Extremity CT 05/25/20 14:39 IMPRESSION: 1. Subcutaneous edema and skin thickening involving the distal upper leg and knee, consistent with cellulitis and subcutaneous edema. No focal drainable abscess. 2. Inflammatory change involving the medial compartment muscles suggestive of myositis. 3. Small knee joint effusion. 4. Focal DVT in the proximal common femoral vein extending into the greater saphenous vein and in the distal femoral vein. 5. Subcutaneous gas overlying the left hip region with no surrounding inflammatory change or foreign body. This may represent an injection site. PICC Line Insertion 05/27/20 00:00 IMPRESSION: SUCCESSFUL PLACEMENT OF A 5 FR DUAL LUMEN 47 CM PICC IN THE LEFT BASILIC VEIN. Assessment & Plan - Diagnosis (1) IV drug abuse Is this a current diagnosis for this admission?: Yes (2) Necrotizing soft tissue infection Is this a current diagnosis for this admission?: Yes - Time Anticipated Discharge Disposition: Home with Home Health Anticipated Discharge Timeframe: 1 week Critical Time spent with patient: 15-24 minutes - Inpatient Certification Medical Necessity: Need for Pain Control, Need for IV Antibiotics - Plan Summary Plan Summary: 39-year-old male who injected himself through the saphenous vein and developed necrotizing soft tissue necrosis. Postop day 1 post debridement of skin and s ubcu from below the knee to the left groin. Dressings were removed today and the skin edges and muscle appeared to be viable. No obvious abscess noted. Wound was redressed over a layer of Xeroform gauze and applied wet-to-dry dressings. His white count still elevated. Plans: Continue IV antibiotics Continue continue wet-to-dry dressings over the next 48 hours. Will likely need split-thickness skin graft.
[2020-06-01] MEDS: MORPHINE SULFATE 10 MG/ML INJ IV PRN ×2 (00:22→04:29)
[2020-06-01] MEDS: HEPARIN SODIUM,PORCINE/D5W 25,000 UNIT/250 ML RTUINJ IV PRN ×3 (02:32→19:11)
[2020-06-01] MEDS: VANCOMYCIN HCL 1,000 MG in DEXTROSE 5%-WATER 250 ML IV SCH ×3 (06:07→18:32)
[2020-06-01] MEDS: METHADONE HCL 10 MG TABLET PO SCH ×3 (06:07→21:39)
[2020-06-01 07:37] LABS: HEMOGLOBIN 8.8 g/dL (13.5-17.0); MEAN CORPUSCULAR HEMOGLOBIN 25.7 pg (27.0-33.4); MEAN CORPUSCULAR HGB CONC 33.8 g/dL (32.0-36.0); MEAN CORPUSCULAR VOLUME 76 fl (80-97); PLATELET COUNT 391 10^3/uL (150-450); RED BLOOD COUNT 3.42 10^6/uL (4.35-5.55); RED CELL DISTRIBUTION WIDTH 16.9 % (11.5-14.0)
[2020-06-01] MEDS: HEPARIN SOD (PORCINE) 1,000 UNIT/ML 10 ML VIAL IV PRN ×2 (07:55→19:10)
[2020-06-01 08:19] LABS: WHITE BLOOD COUNT 30.4 10^3/uL (4.0-10.5)
[2020-06-01 08:21] LABS: ABSOLUTE LYMPHOCYTES# (MANUAL) 2.4 10^3/uL (0.5-4.7); ABSOLUTE MONOCYTES # (MANUAL) 0.3 10^3/uL (0.1-1.4); BAND NEUTROPHILS % (MANUAL) 3 % (3-5); BASOPHILS % (MANUAL) 1 % (0-2); EOSINOPHILS % (MANUAL) 1 % (0-6); LYMPHOCYTES % (MANUAL) 8 % (13-45); MONOCYTES % (MANUAL) 1 % (3-13); SEGMENTED NEUTROPHILS % (MAN) 86 % (42-78); TOTAL CELLS COUNTED 100
[2020-06-01 08:22] LABS: ANISOCYTOSIS 1+; HYPOCHROMASIA SLIGHT; PLATELET COMMENT ADEQUATE; PLATELET LARGE PRESENT; POLYCHROMASIA SLIGHT
[2020-06-01] MEDS ORDERED: MORPHINE SULFATE 10 MG/ML INJ IV PRN (08:34)
[2020-06-01] MEDS: FAMOTIDINE INJ/PF 20 MG/2 ML SDV IV SCH ×2 (09:29→21:40)
[2020-06-01] MEDS: DOCUSATE SODIUM 100 MG/10 ML UDC PO SCH ×2 (09:30→17:24)
[2020-06-01] MEDS ORDERED: ALBUTEROL SULFATE 0.083% NEB 2.5 MG/3 ML AMPUL NEB PRN (10:04)
[2020-06-01] MEDS ORDERED: HYDROMORPHONE HCL INJ/PF 2 MG/ML AMPULE ONE (10:10)
[2020-06-01] MEDS ORDERED: HYDROMORPHONE HCL INJ/PF 2 MG/ML AMPULE IV PRN (10:57)
--- NOTE | 2020-06-01 10:58 | RADIOLOGY REPORT (SQ) ---
EXAM DESCRIPTION: CHEST SINGLE VIEW IMAGES COMPLETED DATE/TIME: 06/01/2020 10:31 am REASON FOR STUDY: hypoxia COMPARISON: None. EXAM PARAMETERS: NUMBER OF VIEWS: One view. TECHNIQUE: Single frontal radiographic view of the chest acquired. RADIATION DOSE: NA LIMITATIONS: Positioning. FINDINGS: LUNGS AND PLEURA: Bilateral segmental airspace disease with relative sparing of the right lower lobe. Small bilateral effusions. MEDIASTINUM AND HILAR STRUCTURES: No masses. Contour normal. HEART AND VASCULAR STRUCTURES: Heart normal in size. Normal vasculature. BONES: No acute findings. HARDWARE: None in the chest. OTHER: Left-sided PICC line overlying SVC. IMPRESSION: Bilateral pneumonia. TECHNICAL DOCUMENTATION: JOB ID: [id number] [employer]- All Rights Reserved Reading location - IP/workstation name: [email or web address]
[2020-06-01] MEDS ORDERED: HYDROMORPHONE HCL INJ/PF 2 MG/ML AMPULE IV ONE (11:00)
--- NOTE | 2020-06-01 12:27 | PDOC PROGRESS REPORT ---
Subjective Date:: 06/01/20 Subjective:: Planes of pain in the left leg refuses dressing changes this morning Reason For Visit: NECROTIZING FASCIITIS Physical Exam Vital Signs: Temp Pulse Resp BP Pulse Ox 99.3 F 94 20 118/51 L 91 L 06/01/20 00:42 06/01/20 00:42 06/01/20 00:42 06/01/20 00:42 06/01/20 00:42 Intake & Output 05/31/20 06/01/20 06/02/20 06:59 06:59 06:59 Intake Total 3424 2035 Output Total 790 900 Balance 2634 1135 Weight 90.8 kg 90.8 kg General appearance: PRESENT: mild distress Head exam: PRESENT: normocephalic Eye exam: PRESENT: EOMI Ear exam: PRESENT: normal external ear exam Mouth exam: PRESENT: moist Teeth exam: PRESENT: poor dentation Neck exam: PRESENT: full ROM Respiratory exam: PRESENT: clear to auscultation selam Cardiovascular exam: PRESENT: RRR Pulses: PRESENT: normal radial pulses, normal femoral pulses, +2 pedal pulses bilateral Vascular exam: PRESENT: normal capillary refill Breast: PRESENT: Normal GI/Abdominal exam: PRESENT: soft Rectal exam: PRESENT: deferred Extremities exam: PRESENT: other - Left lower extremity dressings is intact. He has an Bruce wrap from his ankle to his groin. There is some bleeding noted around the upper portion of the dressing however it is not draining. Neurological exam: PRESENT: alert, awake, oriented to person, oriented to place Psychiatric exam: PRESENT: anxious Skin exam: PRESENT: dry Results Laboratory Results: 06/01/20 06:40 05/31/20 05:38 06/01/20 06:40 WBC 30.4 H* RBC 3.42 L Hgb 8.8 L Hct 26.0 L MCV 76 L MCH 25.7 L MCHC 33.8 RDW 16.9 H Plt Count 391 Seg Neutrophils % Not Reportable 05/25/20 05/26/20 14:53 18:57 Creatine Kinase 36 L 23 L Impressions: Knee X-Ray 05/25/20 14:34 IMPRESSION: Small knee joint effusion. No acute fracture or destructive bone lesion. Lower Extremity CT 05/25/20 14:39 IMPRESSION: 1. Subcutaneous edema and skin thickening involving the distal upper leg and knee, consistent with cellulitis and subcutaneous edema. No focal drainable abscess. 2. Inflammatory change involving the medial compartment muscles suggestive of myositis. 3. Small knee joint effusion. 4. Focal DVT in the proximal common femoral vein extending into the greater sa phenous vein and in the distal femoral vein. 5. Subcutaneous gas overlying the left hip region with no surrounding inflammatory change or foreign body. This may represent an injection site. PICC Line Insertion 05/27/20 00:00 IMPRESSION: SUCCESSFUL PLACEMENT OF A 5 FR DUAL LUMEN 47 CM PICC IN THE LEFT BASILIC VEIN. Chest X-Ray 06/01/20 00:00 IMPRESSION: Bilateral pneumonia. Assessment & Plan - Diagnosis (1) Abscess of left thigh Is this a current diagnosis for this admission?: Yes (2) Necrotizing fasciitis Is this a current diagnosis for this admission?: Yes - Time Anticipated Discharge Disposition: Home, Self Care Anticipated Discharge Timeframe: unk - Plan Summary Plan Summary: Necrotizing infection left lower extremity. Status post recent excisional debridement. Patient underwent a dressing change by the nurses this morning and refuses one at this time there is some blood staining at the upper portion of the Bruce wrap which extends from his ankle to his groin the Telfa pad underneath the Bruce wrap is saturated with blood. The nurses stated that there is no evidence of any new purulence however there is some mild bleeding from the upper portion of the incision. The patient again refuses dressing changes this morning. We will try again later on in the afternoon.
[2020-06-01] MEDS: OXYCODONE-ACETAMINOPHEN 5-325 MG TABLET PO SCH ×3 (13:03→21:39)
[2020-06-01 13:22] LABS: ANION GAP 6 (5-19); BLOOD UREA NITROGEN 6 mg/dL (7-20); CALCIUM 7.7 mg/dL (8.4-10.2); CARBON DIOXIDE 31 mmol/L (22-30); CHLORIDE 92 mmol/L (98-107); GLUCOSE 210 mg/dL (75-110); POTASSIUM 3.1 mmol/L (3.6-5.0)
[2020-06-01] MEDS: LEVOFLOXACIN 750 MG/D5W RTU 750 MG/150 ML RTUPB IV SCH (15:07)
--- NOTE | 2020-06-01 16:18 | PDOC PROGRESS REPORT ---
Subjective Date:: 06/01/20 Subjective:: The patient is a 39 year old male with a past medical history significant for IVDU and tobacco dependence with continuous use who is admitted to the surgicalist service for necrotizing soft tissue infection of the left knee. Hospitalist service was consulted for pain management and prevention of opiate withdrawal. Patient was seen on morning rounds. He is found resting in bed on supplemental oxygen by NC at 4.5 lpm. He is not on home O2. He is noted to be tachypnic. Reports pleurtic chest pain (especially to his posterior chest wall) w/ deep inspiration and cough. Now has a productive cough. States that his pain is uncontrolled, begins crying and states, "I just can't do this anymore." Patient is advised that additional adjustments to his pain medications have been made (patient, unfortunately, did not receive oral analgesic medications overnight). Denies fever, palpitations, abd pain, nausea and vomiting. Tmax 100.4/24 hrs No other questions or concerns at this time. Discussed plan of care w/ nursing. Reason For Visit: NECROTIZING FASCIITIS Physical Exam Vital Signs: Temp Pulse Resp BP Pulse Ox 100.4 F 94 18 127/65 H 94 06/01/20 10:00 06/01/20 10:06 06/01/20 10:06 06/01/20 08:53 06/01/20 10:06 Intake & Output 05/31/20 06/01/20 06/02/20 06:59 06:59 06:59 Intake Total 3424 2035 620 Output Total 790 900 300 Balance 2634 1135 320 Weight 90.8 kg 90.8 kg General appearance: PRESENT: no acute distress, cooperative - Pleasant/appreciated, well-developed, well-nourished - overweight, other - D iaphoretic, acutely ill-appearing Head exam: PRESENT: atraumatic, normocephalic Eye exam: PRESENT: conjunctiva pink, EOMI, PERRLA. ABSENT: scleral icterus Mouth exam: PRESENT: moist, tongue midline Respiratory exam: PRESENT: chest wall tenderness, rhonchi - Throughout, symmetrical, tachypnea, other - Supplemental oxygen by nasal cannula. ABSENT: rales, wheezes Cardiovascular exam: PRESENT: RRR, tachycardia. ABSENT: diastolic murmur, rubs, systolic murmur Pulses: PRESENT: normal dorsalis pedis pul Vascular exam: PRESENT: normal capillary refill GI/Abdominal exam: PRESENT: normal bowel sounds, soft. ABSENT: distended, guarding, mass, organolmegaly, rebound, tenderness Rectal exam: PRESENT: deferred Extremities exam: PRESENT: full ROM, tenderness - Left lower extremity, +1 edema - LLE. ABSENT: calf tenderness, clubbing, pedal edema Neurological exam: PRESENT: alert, awake, oriented to person, oriented to place, oriented to time, oriented to situation, CN II-XII grossly intact. ABSENT: motor sensory deficit Psychiatric exam: PRESENT: appropriate affect, normal mood. ABSENT: homicidal ideation, suicidal ideation Skin exam: PRESENT: dry, warm, other - Large post surgical wound to anterior and medial proximal thigh extending from groin to distal of the knee - wet to dry dressing w/ murtaza wrap in place; fresh bleeding noted bandage at area of proximal thigh. ABSENT: cyanosis, intact, rash Results Laboratory Results: 06/01/20 06:40 06/01/20 12:41 06/01/20 06/01/20 06/01/20 06:40 12:41 12:41 WBC 30.4 H* RBC 3.42 L Hgb 8.8 L Hct 26.0 L MCV 76 L MCH 25.7 L MCHC 33.8 RDW 16.9 H Plt Count 391 Seg Neutrophils % Not Reportable Sodium 128.7 L Potassium 3.1 L Chloride 92 L Carbon Dioxide 31 H Anion Gap 6 BUN 6 L Creatinine 0.78 Est GFR ( Amer) > 60 Glucose 210 H Lactic Acid 0.8 Calcium 7.7 L Blood Type Antibody Screen 06/01/20 14:23 WBC RBC Hgb Hct MCV MCH MCHC RDW Plt Count Seg Neutrophils % Sodium Potassium Chloride Carbon Dioxide Anion Gap BUN Creatinine Est GFR ( Amer) Glucose Lactic Acid Calcium Blood Type O POSITIVE Antibody Screen NEGATIVE 05/25/20 05/26/20 14:53 18:57 Creatine Kinase 36 L 23 L Impressions: Knee X-Ray 05/25/20 14:34 IMPRESSION: Small knee joint effusion. No acute fracture or destructive bone lesion. Lower Extremity CT 05/25/20 14:39 IMPRESSION: 1. Subcutaneous edema and skin thickening involving the distal upper leg and knee, consistent with cellulitis and subcutaneous edema. No focal drainable abscess. 2. Inflammatory change involving the medial compartment muscles suggestive of myositis. 3. Small knee joint effusion. 4. Focal DVT in the proximal common femoral vein extending into the greater saphenous vein and in the distal femoral vein. 5. Subcutaneous gas overlying the left hip region with no surrounding inflammatory change or foreign body. This may represent an injection site. PICC Line Insertion 05/27/20 00:00 IMPRESSION: SUCCESSFUL PLACEMENT OF A 5 FR DUAL LUMEN 47 CM PICC IN THE LEFT BASILIC VEIN. Chest X-Ray 06/01/20 00:00 IMPRESSION: Bilateral pneumonia. Assessment and Plan - Diagnosis (1) Bacteremia Is this a current diagnosis for this admission?: Yes Plan: Blood culture (05/25/2020; both sets) MRSA Blood culture (05/26/2020; both sets) MRSA Blood culture (05/27/2020) MRSA; obtained 48 hours following start of vancomycin. Blood culture (05/29/2020) negative at 72 hours; obtained 4 days following start of vancomycin Blood culture (06/01/2020) pending Wound cultures positive for MRSA. Echocardiogram is negative for vegetation MITZI once patient's surgical condition has stabilized. Continue Vancomycin; minimum 4 weeks from clear blood cultures. May need 6 wee ks pending MITZI results. Continue Cefepime and start Levaquin due to development of pneumonia; HAP vs Septic emboli. CTA chest pending. Infectious disease; have reviewed recommendations. (2) Multifocal pneumonia Is this a current diagnosis for this admission?: Yes Plan: Patient's fever and WBCs are again trending up. Increased oxygen needs; now on 4.5 L/min. Patient is not home O2 dependent. Scattered rhonchi on exam and pleuritic chest pain reported. CXR shows multifocal pneumonia. MRSA vs HAP vs Septic emboli. CTA chest pending. COVID negative x2. Repeat blood culture pending. Sputum culture ordered. Patient is provided supplemental oxygen as needed maintain saturations greater than 89%. Patient continues on Vancomycin and Cefepime. Start Levaquin. Deescalate pending CTA and Culture results. Scheduled and as needed nebulizer treatments. He is placed on Robitussin as needed. Pulmonary toilet is encouraged with incentive spirometer, flutter valve, early ambulation. (3) Acute pain of extremity Is this a current diagnosis for this admission?: Yes Plan: r/t necrotizing soft tissue infection with multiple surgical debridements superimposed on acute DVT to the same extremity. The patient likely has low pain tolerance/high opiate tolerance related to his longstanding, significant, heroin use. He is currently receiving: Methadone 30 mg TID scheduled Oxycodone 15 mg q4 scheduled with Dilaudid 1mg q4 prn. Narcan once prn; notify provider if required. (4) Abscess of left thigh Is this a current diagnosis for this admission?: Yes Plan: Plan per surgery. (5) Cellulitis of left thigh Is this a current diagnosis for this admission?: Yes Plan: As above. (6) Necrotizing soft tissue infection Is this a current diagnosis for this admission?: Yes Plan: As above. (7) DVT (deep venous thrombosis) Qualifiers: DVT location: lower extremity Affected thrombotic vein of extremity: femoral Chronicity: chronic Laterality: left Qualified Code(s): I82.512 - Chronic embolism and thrombosis of left femoral vein Is this a current diagnosis for this admission?: Yes Plan: CT lower extremity shows focal DVT to the proximal common femoral vein extending into the greater saphenous vein and in the distal femoral vein. Heparin gtt PT ordered. (8) Heroin addiction Is this a current diagnosis for this admission?: Yes Plan: Patient reportedly uses 1.5 g heroin daily x3 years. Continue scheduled methadone TID Clonidine as needed. Remaining management as above. - Discussed with the [facility]; they typically start at 10 mg daily and increase by 5 mg every other day, even for patients with high dose usage such as Mr. Hebert. Review of literature states that 40 mg is the max initial dosing and that there should be an observation period for 3 to 4 days prior to increase to ensure once steady state is reached patient does not experience respiratory depression. (9) IV drug abuse Is this a current diagnosis for this admission?: Yes Plan: As above. (10) Hypertension Is this a current diagnosis for this admission?: Yes Plan: Improved blood pressures today. Not on home antihypertensives. Provide adequate pain control. Monitor for opiate withdrawal symptoms. Oral clonidine as needed. (11) Hypokalemia Is this a current diagnosis for this admission?: Yes Plan: Potassium 2.9-> 2.8-> 4.6-> 3.1 Magnesium 2.0 Oral replacement. Follow-up chemistries. - Time Time Spent with patient: 35 or more minutes Medications reviewed and adjusted accordingly: Yes Anticipated Discharge Disposition: Home, Self Care Anticipated Discharge Timeframe: TBD
[2020-06-01] MEDS: ASCORBIC ACID 500 MG TABLET PO SCH (17:25)
--- NOTE | 2020-06-01 17:46 | RADIOLOGY REPORT (SQ) ---
EXAM DESCRIPTION: CTA CHEST IMAGES COMPLETED DATE/TIME: 06/01/2020 5:01 pm REASON FOR STUDY: bacteremia, hypoxia COMPARISON: None. TECHNIQUE: CT scan of the chest performed using helical scanning technique with dynamic intravenous contrast injection. Images reviewed with lung, soft tissue and bone windows. Reconstructed coronal and sagittal MPR images reviewed. Additional 3 dimensional post-processing performed to develop Maximal Intensity Projection images (TN P). All images stored on PACS. All CT scanners at this facility use dose modulation, iterative reconstruction, and/or weight based d osing when appropriate to reduce radiation dose to as low as reasonably achievable (ALARA). [facility]: Dose Right [facility]: CareDose [facility]: Dose Right [facility]: Teradose 4D [facility]: [place] CONTRAST TYPE AND DOSE: contrast/concentration: Isovue 350.00 mmol/ml; Total Contrast Delivered: 65. 0 ml; Total Saline Delivered: 80.0 ml RENAL FUNCTION: GFR > 60. RADIATION DOSE: CT Rad equipment meets quality standard of care and radiation dose reduction techniq ues were employed. CTDIvol: 9.9 - 17.9 mGy. DLP: 643 mGy-cm. . LIMITATIONS: None. FINDINGS: LUNGS AND PLEURA: Small bilateral pleural effusions. Extensive bilateral airspace disease with cavitation noted in the right upper lobe. Several coalescing nodules. Patent central airways. AORTA AND GREAT VESSELS: No aneurysm. No dissection. HEART: No pericardial effusion. PULMONARY ARTERIES: No emboli visualized in the main pulmonary arteries or the segmental branches. HILAR AND MEDIASTINAL STRUCTURES: 2.5 cm right hilar node. HARDWARE: None in the chest. UPPER ABDOMEN: No significant findings. Limited exam. THYROID AND OTHER SOFT TISSUES: No masses. No adenopathy. BONES: No acute or significant finding. 3D MIPS: Confirm above findings. OTHER: Left-sided central line tip SVC. IMPRESSION: Extensive bilateral pneumonia with coalescing nodules and solitary cavitary lesion in th e right upper lobe suspicious for septic emboli. No intravascular pulmonary emboli. COMMENT: Quality ID # [id number]: Final reports with documentation of one or more dose reduction techniques (e.g., Automated exposure control, adjustment of the mA and/or kV according to patient size, use of iterative reconstruction technique) TECHNICAL DOCUMENTATION: JOB ID: [id number] [employer]- All Rights Reserved Reading location - IP/workstation name: [email or web address]
[2020-06-01 18:24] LABS: ALBUMIN 2.3 g/dL (3.5-5.0); ALKALINE PHOSPHATASE 509 U/L (38-126); ASPARTATE AMINO TRANSFERASE 20 U/L (17-59); BILIRUBIN,DIRECT 0.4 mg/dL (0.0-0.4); BILIRUBIN,TOTAL 0.9 mg/dL (0.2-1.3); BLOOD UREA NITROGEN 7 mg/dL (7-20); CALCIUM 7.7 mg/dL (8.4-10.2); CARBON DIOXIDE 31 mmol/L (22-30); GLUCOSE 80 mg/dL (75-110); POTASSIUM 3.6 mmol/L (3.6-5.0); TOTAL PROTEIN 6.2 g/dL (6.3-8.2)
[2020-06-01 18:29] LABS: CHLORIDE 94 mmol/L (98-107)
[2020-06-01 18:30] LABS: VANCOMYCIN,TROUGH 21.7 ug/mL (5.0-20.0)
[2020-06-01 18:34] LABS: ANION GAP 5 (5-19)
--- NOTE | 2020-06-01 18:50 | EKG REPORT ---
SEVERITY:- BORDERLINE ECG - SINUS RHYTHM BORDERLINE T ABNORMALITIES, DIFFUSE LEADS : Confirmed by: Nghia Delgado MD 01-Jun-2020 18:50:30
[2020-06-01] MEDS: HYDROMORPHONE HCL INJ/PF 2 MG/ML AMPULE IV PRN ×2 (19:19→23:24)
[2020-06-01] MEDS: GUAIFENESIN 600 MG TABLET.SA PO SCH (21:40)
[2020-06-01] MEDS: CEFEPIME HCL 2 GM in DEXTROSE 5%-WATER 50 ML IV SCH (21:40)
[2020-06-01] MEDS ORDERED: CEFEPIME 2 GM/D5W RTU 2 GM/50 ML RTUPB IV SCH (22:00)
[2020-06-02] MEDS: VANCOMYCIN HCL 1,000 MG in DEXTROSE 5%-WATER 250 ML IV SCH ×3 (00:23→13:13)
[2020-06-02] MEDS: OXYCODONE-ACETAMINOPHEN 5-325 MG TABLET PO SCH ×6 (02:06→22:31)
[2020-06-02] MEDS: HYDROMORPHONE HCL INJ/PF 2 MG/ML AMPULE IV PRN ×5 (04:14→20:37)
--- NOTE | 2020-06-02 05:20 | PDOC PROGRESS REPORT ---
Subjective Date:: 06/02/20 Subjective:: c/o pain Reason For Visit: NECROTIZING FASCIITIS Physical Exam Vital Signs: Temp Pulse Resp BP Pulse Ox 99.1 F 86 16 100/54 L 92 06/01/20 23:17 06/01/20 23:17 06/01/20 23:17 06/01/20 23:17 06/01/20 23:17 Intake & Output 05/31/20 06/01/20 06/02/20 06:59 06:59 06:59 Intake Total 3424 2035 4257 Output Total 028 814 1227 Balance 2634 1135 1317 Weight 90.8 kg 90.8 kg General appearance: PRESENT: mild distress Head exam: PRESENT: normocephalic Eye exam: PRESENT: EOMI Mouth exam: PRESENT: moist Teeth exam: PRESENT: poor dentation Neck exam: PRESENT: full ROM Respiratory exam: PRESENT: clear to auscultation selam Cardiovascular exam: PRESENT: RRR Pulses: PRESENT: +2 pedal pulses bilateral Breast: PRESENT: Normal GI/Abdominal exam: PRESENT: soft Rectal exam: PRESENT: deferred Extremities exam: PRESENT: full ROM, other - left leg wound clean, no areas of further purulence Musculoskeletal exam: PRESENT: full ROM Neurological exam: PRESENT: alert, awake, oriented to person, oriented to place Psychiatric exam: PRESENT: appropriate affect Skin exam: PRESENT: dry Results Laboratory Results: 06/01/20 06:40 06/01/20 17:49 06/01/20 06/01/20 06/01/20 06:40 12:41 12:41 WBC 30.4 H* RBC 3.42 L Hgb 8.8 L Hct 26.0 L MCV 76 L MCH 25.7 L MCHC 33.8 RDW 16.9 H Plt Count 391 Seg Neutrophils % Not Reportable Sodium 128.7 L Potassium 3.1 L Chloride 92 L Carbon Dioxide 31 H Anion Gap 6 BUN 6 L Creatinine 0.78 Est GFR ( Amer) > 60 Glucose 210 H Lactic Acid 0.8 Calcium 7.7 L Total Bilirubin AST Alkaline Phosphatase Total Protein Albumin Blood Type Antibody Screen 06/01/20 06/01/20 14:23 17:49 WBC RBC Hgb Hct MCV MCH MCHC RDW Plt Count Seg Neutrophils % Sodium 129.5 L Potassium 3.6 Chloride 94 L Carbon Dioxide 31 H Anion Gap 5 BUN 7 Creatinine 0.80 Est GFR ( Amer) > 60 Glucose 80 Lactic Acid Calcium 7.7 L Total Bilirubin 0.9 AST 20 Alkaline Phosphatase 509 H Total Protein 6.2 L Albumin 2.3 L Blood Type O POSITIVE Antibody Screen NEGATIVE 05/25/20 05/26/20 14:53 18:57 Creatine Kinase 36 L 23 L Impressions: Knee X-Ray 05/25/20 14:34 IMPRESSION: Small knee joint effusion. No acute fracture or destructive bone lesion. Lower Extremity CT 05/25/20 14:39 IMPRESSION: 1. Subcutaneous edema and skin thickening involving the distal upper leg and knee, consistent with cellulitis and subcutaneous edema. No focal drainable abscess. 2. Inflammatory change involving the medial compartment muscles suggestive of myositis. 3. Small knee joint effusion. 4. Focal DVT in the proximal common femoral vein extending into the greater saphenous vein and in the distal femoral vein. 5. Subcutaneous gas overlying the left hip region with no surrounding inflammatory change or foreign body. This may represent an injection site. PICC Line Insertion 05/27/20 00:00 IMPRESSION: SUCCESSFUL PLACEMENT OF A 5 FR DUAL LUMEN 47 CM PICC IN THE LEFT BASILIC VEIN. Chest X-Ray 06/01/20 00:00 IMPRESSION: Bilateral pneumonia. Chest/Abdomen CTA 06/01/20 00:00 IMPRESSION: Extensive bilateral pneumonia with coalescing nodules and solitary cavitary lesion in the right upper lobe suspicious for septic emboli. No intravascular pulmonary emboli. Assessment & Plan - Diagnosis (1) Abscess of left thigh Is this a current diagnosis for this admission?: Yes (2) Necrotizing fasciitis Is this a current diagnosis for this admission?: Yes - Time Anticipated Discharge Disposition: Home, Self Care Anticipated Discharge Timeframe: unk - Plan Summary Plan Summary: s/p severe necrotizng infection left lower ext now undergoing dressing changes wound clean no need for further debridement at this time will cont with wet to dry dressing changes.
[2020-06-02] MEDS: METHADONE HCL 10 MG TABLET PO SCH ×3 (05:24→22:32)
[2020-06-02] MEDS: HEPARIN SODIUM,PORCINE/D5W 25,000 UNIT/250 ML RTUINJ IV PRN ×2 (05:26→20:37)
[2020-06-02 07:19] LABS: HEMATOCRIT 21.4 % (37.9-51.0); MEAN CORPUSCULAR HEMOGLOBIN 25.5 pg (27.0-33.4); MEAN CORPUSCULAR HGB CONC 33.3 g/dL (32.0-36.0); MEAN CORPUSCULAR VOLUME 77 fl (80-97); PLATELET COUNT 395 10^3/uL (150-450); RED BLOOD COUNT 2.79 10^6/uL (4.35-5.55); RED CELL DISTRIBUTION WIDTH 16.6 % (11.5-14.0); WHITE BLOOD COUNT 25.8 10^3/uL (4.0-10.5)
[2020-06-02 07:23] LABS: ALBUMIN 2.2 g/dL (3.5-5.0); ALKALINE PHOSPHATASE 408 U/L (38-126); ANION GAP 6 (5-19); ASPARTATE AMINO TRANSFERASE 18 U/L (17-59); BILIRUBIN,DIRECT 0.4 mg/dL (0.0-0.4); BILIRUBIN,TOTAL 0.7 mg/dL (0.2-1.3); BLOOD UREA NITROGEN 9 mg/dL (7-20); CALCIUM 7.8 mg/dL (8.4-10.2); CARBON DIOXIDE 30 mmol/L (22-30); CHLORIDE 96 mmol/L (98-107); GLUCOSE 125 mg/dL (75-110); POTASSIUM 3.4 mmol/L (3.6-5.0)
[2020-06-02] MEDS ORDERED: POTASSIUM CHLORIDE 10 MEQ TABLET.ER PO ONE ×2 (07:46→09:57)
[2020-06-02 07:47] LABS: ABSOLUTE LYMPHOCYTES# (MANUAL) 2.6 10^3/uL (0.5-4.7); BAND NEUTROPHILS % (MANUAL) 2 % (3-5); BASOPHILS % (MANUAL) 0 % (0-2); EOSINOPHILS % (MANUAL) 0 % (0-6); LYMPHOCYTES % (MANUAL) 9 % (13-45); MONOCYTES % (MANUAL) 4 % (3-13); SEGMENTED NEUTROPHILS % (MAN) 84 % (42-78); TOTAL CELLS COUNTED 100
[2020-06-02 07:48] LABS: ANISOCYTOSIS 1+; HYPOCHROMASIA SLIGHT; PLATELET COMMENT ADEQUATE
[2020-06-02 08:10] LABS: HEMOGLOBIN 7.1 g/dL (13.5-17.0)
[2020-06-02] MEDS: GUAIFENESIN 600 MG TABLET.SA PO SCH ×2 (09:13→22:33)
[2020-06-02] MEDS: CHOLECALCIFEROL (D3) 1,000 UNIT (25 MCG) TABLET PO SCH (09:13)
[2020-06-02] MEDS: FAMOTIDINE INJ/PF 20 MG/2 ML SDV IV SCH ×2 (09:13→22:32)
[2020-06-02] MEDS: ZINC SULFATE 220 MG CAPSULE PO SCH (09:13)
[2020-06-02] MEDS: CEFEPIME HCL 2 GM in DEXTROSE 5%-WATER 50 ML IV SCH ×2 (09:14→22:32)
[2020-06-02] MEDS: ASCORBIC ACID 500 MG TABLET PO SCH ×2 (09:14→18:10)
[2020-06-02] MEDS: DOCUSATE SODIUM 100 MG/10 ML UDC PO SCH ×2 (09:14→17:51)
[2020-06-02] MEDS: LEVOFLOXACIN 750 MG/D5W RTU 750 MG/150 ML RTUPB IV SCH (11:47)
[2020-06-02] MEDS ORDERED: NORMAL SALINE 250 ML IV PRN ×2 (12:38)
[2020-06-02] MEDS ORDERED: FUROSEMIDE INJ/PF 20 MG/2 ML SDV IV PRN (12:38)
--- NOTE | 2020-06-02 13:33 | PDOC PROGRESS REPORT ---
Subjective Date:: 06/02/20 Subjective:: The patient is a 39 year old male with a past medical history significant for IVDU and tobacco dependence with continuous use who is admitted to the surgicalist service for necrotizing soft tissue infection of the left knee. Hospitalist service was consulted for pain management and prevention of opiate withdrawal. Patient was seen on morning rounds. He is found resting in bed on supplemental oxygen by NC at 3 lpm. He is not on home O2. He reports continued pain, though admits he is feeling better today; expresses appreciation for his new nurses for "giving me my meds without judging me." He states that his back pain is slightly improved, though he does continue to feel short of breath and continues to have a productive cough. He is encouraged to continue wound care/dressing changes despite his pain to prevent worsening infection. Denies fever, palpitations, abd pain, nausea and vomiting. Tmax 100.4/48 hrs No other questions or concerns at this time. Discussed plan of care w/ nursing. Reason For Visit: NECROTIZING FASCIITIS Physical Exam Vital Signs: Temp Pulse Resp BP Pulse Ox 98.6 F 90 19 103/56 L 90 L 06/02/20 11:11 06/02/20 11:11 06/02/20 11:11 06/02/20 11:11 06/02/20 11:11 Intake & Output 06/01/20 06/02/20 06/03/20 06:59 06:59 06:59 Intake Total 2035 2834 606 Output Total 900 1900 350 Balance 1135 934 256 Weight 90.8 kg 92.9 kg General appearance: PRESENT: no acute distress, cooperative, well-developed, well-nourished - overweight Head exam: PRESENT: atraumatic, normocephalic Eye exam: PRESENT: conjunctiva pink, EOMI, PERRLA. ABSENT: scleral icterus Mouth exam: PRESENT: moist, tongue midline Teeth exam: PRESENT: poor dentation Respiratory exam: PRESENT: rhonchi - bilateral, symmetrical, unlabored, other - supplemental oxygen via NC. ABSENT: rales, wheezes Cardiovascular exam: PRESENT: RRR, +S1, +S2. ABSENT: diastolic murmur, rubs, systolic murmur Pulses: PRESENT: normal dorsalis pedis pul Vascular exam: PRESENT: normal capillary refill GI/Abdominal exam: PRESENT: normal bowel sounds, soft. ABSENT: distended, guarding, mass, organolmegaly, rebound, tenderness Rectal exam: PRESENT: deferred Extremities exam: PRESENT: tenderness - LLE, +1 edema - LLE. ABSENT: calf tenderness, clubbing, full ROM, pedal edema Neurological exam: PRESENT: alert, awake, oriented to person, oriented to place, oriented to time, oriented to situation, CN II-XII grossly intact, other - drow sy. ABSENT: motor sensory deficit Psychiatric exam: PRESENT: appropriate affect, normal mood. ABSENT: homicidal ideation, suicidal ideation Skin exam: PRESENT: dry, warm, other - Large post surgical wound to anterior and medial proximal thigh extending from groin to distal of the knee - wet to dry dressing w/ murtaza wrap in place. ABSENT: cyanosis, intact, rash Results Laboratory Results: 06/02/20 06:35 06/02/20 06:35 06/01/20 06/01/20 06/01/20 12:41 12:41 14:23 WBC RBC Hgb Hct MCV MCH MCHC RDW Plt Count Seg Neutrophils % Sodium 128.7 L Potassium 3.1 L Chloride 92 L Carbon Dioxide 31 H Anion Gap 6 BUN 6 L Creatinine 0.78 Est GFR ( Amer) > 60 Glucose 210 H Lactic Acid 0.8 Calcium 7.7 L Total Bilirubin AST Alkaline Phosphatase Total Protein Albumin Blood Type O POSITIVE Antibody Screen NEGATIVE 06/01/20 06/02/20 06/02/20 17:49 06:35 06:35 WBC 25.8 H RBC 2.79 L Hgb 7.1 L Hct 21.4 L MCV 77 L MCH 25.5 L MCHC 33.3 RDW 16.6 H Plt Count 395 Seg Neutrophils % Not Reportable Sodium 129.5 L 132.0 L Potassium 3.6 3.4 L Chloride 94 L 96 L Carbon Dioxide 31 H 30 Anion Gap 5 6 BUN 7 9 Creatinine 0.80 0.83 Est GFR ( Amer) > 60 > 60 Glucose 80 125 H Lactic Acid Calcium 7.7 L 7.8 L Total Bilirubin 0.9 0.7 AST 20 18 Alkaline Phosphatase 509 H 408 H Total Protein 6.2 L 6.0 L Albumin 2.3 L 2.2 L Blood Type Antibody Screen 05/25/20 05/26/20 14:53 18:57 Creatine Kinase 36 L 23 L Impressions: Knee X-Ray 05/25/20 14:34 IMPRESSION: Small knee joint effusion. No acute fracture or destructive bone lesion. Lower Extremity CT 05/25/20 14:39 IMPRESSION: 1. Subcutaneous edema and skin thickening involving the distal upper leg and knee, consistent with cellulitis and subcutaneous edema. No focal drainable abscess. 2. Inflammatory change involving the medial compartment muscles suggestive of myositis. 3. Small knee joint effusion. 4. Focal DVT in the proximal common femoral vein extending into the greater saphenous vein and in the distal femoral vein. 5. Subcutaneous gas overlying the left hip region with no surrounding inflammatory change or foreign body. This may represent an injection site. PICC Line Insertion 05/27/20 00:00 IMPRESSION: SUCCESSFUL PLACEMENT OF A 5 FR DUAL LUMEN 47 CM PICC IN THE LEFT BASILIC VEIN. Chest X-Ray 06/01/20 00:00 IMPRESSION: Bilateral pneumonia. Chest/Abdomen CTA 06/01/20 00:00 IMPRESSION: Extensive bilateral pneumonia with coalescing nodules and solitary cavitary lesion in the right upper lobe suspicious for septic emboli. No intravascular pulmonary emboli. Assessment and Plan - Diagnosis (1) Bacteremia Is this a current diagnosis for this admission?: Yes Plan: Blood culture (05/25/2020; both sets) MRSA Blood culture (05/26/2020; both sets) MRSA Blood culture (05/27/2020) MRSA; obtained 48 hours following start of vancomycin. Blood culture (05/29/2020) negative at days; obtained 4 days following start of vancomycin Blood culture (06/01/2020) pending Wound cultures positive for MRSA. Echocardiogram is negative for vegetation MITZI pending. Continue Vancomycin; minimum 4 weeks from clear blood cultures. May need 6 weeks pending MITZI results. Continue Cefepime and start Levaquin due to development of pneumonia; HAP vs Septic emboli. CTA chest pending. Infectious disease; have reviewed recommendations. (2) Multifocal pneumonia Is this a current diagnosis for this admission?: Yes Plan: Pneumonia with septic emboli; high suspicion for endocarditis. CXR shows multifocal pneumonia. CTA revealed bilateral pneumonia with a RUL cavitary lesion with evidence of septic emboli. COVID negative x2. Repeat blood culture pending. Sputum culture ordered. Nursing reminded please collect a sputum sample as soon as possible. Patient is provided supplemental oxygen as needed maintain saturations greater than 89%. Patient continues on Vancomycin and Cefepime. Start Levaquin. Deescalate most recent blood and sputum culture results. Scheduled and as needed nebulizer treatments. He is placed on Robitussin as needed. Pulmonary toilet is encouraged with incentive spirometer, flutter valve, early ambulation. (3) Acute pain of extremity Is this a current diagnosis for this admission?: Yes Plan: Improved pain control today. R/t necrotizing soft tissue infection with multiple surgical debridements superimposed on acute DVT to the same extremity. The patient likely has low pain tolerance/high opiate tolerance related to his longstanding, significant, heroin use. He is currently receiving: Methadone 30 mg TID scheduled Oxycodone 15 mg q4 scheduled with Dilaudid 0.5 mg q4 prn. Narcan once prn; notify provider if required. (4) Abscess of left thigh Is this a current diagnosis for this admission?: Yes Plan: Plan per surgery. (5) Cellulitis of left thigh Is this a current diagnosis for this admission?: Yes Plan: As above. (6) Necrotizing soft tissue infection Is this a current diagnosis for this admission?: Yes Plan: As above. (7) DVT (deep venous thrombosis) Qualifiers: DVT location: lower extremity Affected thrombotic vein of extremity: femoral Chronicity: chronic Laterality: left Qualified Code(s): I82.512 - Chronic embolism and thrombosis of left femoral vein Is this a current diagnosis for this admission?: Yes Plan: CT lower extremity shows focal DVT to the proximal common femoral vein extending into the greater saphenous vein and in the distal femoral vein. Heparin gtt PT ordered. (8) Heroin addiction Is this a current diagnosis for this admission?: Yes Plan: Patient reportedly uses 1.5 g heroin daily x3 years. Patient again states his intent to go to the [facility] following discharge. Continue scheduled methadone TID Clonidine as needed. Remaining management as above. - Discussed with the [facility]; they typically start at 10 mg daily and increase by 5 mg every other day, even for patients with high dose usage such as Mr. Hebert. Review of literature states that 40 mg is the max initial dosing and that there should be an observation period for 3 to 4 days prior to increase to ensure once steady state is reached patient does not experience respiratory depression. (9) IV drug abuse Is this a current diagnosis for this admission?: Yes Plan: As above. (10) Hypertension Is this a current diagnosis for this admission?: Yes Plan: Improved blood pressures today. Not on home antihypertensives. Provide adequate pain control. Monitor for opiate withdrawal symptoms. Oral clonidine as needed. (11) Hypokalemia Is this a current diagnosis for this admission?: Yes Plan: Oral replacement. Follow-up chemistries. (12) Acute blood loss anemia Is this a current diagnosis for this admission?: Yes Plan: Hgb 14-> 11.6-> 7.1 Initially r/t hemodilution after receiving IV fluids for sepsis resuscitation. Now with acute blood loss anemia following multiple surgical procedures with ongoing active bleeding from his wound. Transfuse 2 units PRBC today. Follow-up CBC. - Time Time Spent with patient: 35 or more minutes Medications reviewed and adjusted accordingly: Yes Anticipated Discharge Disposition: Home, Self Care Anticipated Discharge Timeframe: TBD
[2020-06-02] MEDS: VANCOMYCIN HCL 1,250 MG in DEXTROSE 5%-WATER 250 ML IV SCH ×2 (15:06→22:33)
[2020-06-03] MEDS: HYDROMORPHONE HCL INJ/PF 2 MG/ML AMPULE IV PRN ×5 (00:43→22:02)
[2020-06-03] MEDS: OXYCODONE-ACETAMINOPHEN 5-325 MG TABLET PO SCH ×6 (02:35→21:53)
[2020-06-03] MEDS: VANCOMYCIN HCL 1,250 MG in DEXTROSE 5%-WATER 250 ML IV SCH ×3 (06:00→21:54)
[2020-06-03] MEDS: METHADONE HCL 10 MG TABLET PO SCH ×3 (06:01→21:53)
[2020-06-03 06:36] LABS: BLOOD UREA NITROGEN 8 mg/dL (7-20); CALCIUM 8.4 mg/dL (8.4-10.2); GLUCOSE 123 mg/dL (75-110); POTASSIUM 3.8 mmol/L (3.6-5.0)
[2020-06-03 06:42] LABS: CARBON DIOXIDE 33 mmol/L (22-30); CHLORIDE 100 mmol/L (98-107)
[2020-06-03 06:52] LABS: HEMATOCRIT 27.3 % (37.9-51.0); MEAN CORPUSCULAR HGB CONC 33.6 g/dL (32.0-36.0); MEAN CORPUSCULAR VOLUME 77 fl (80-97); PLATELET COUNT 437 10^3/uL (150-450); RED BLOOD COUNT 3.54 10^6/uL (4.35-5.55); RED CELL DISTRIBUTION WIDTH 16.6 % (11.5-14.0); WHITE BLOOD COUNT 22.1 10^3/uL (4.0-10.5)
[2020-06-03 06:53] LABS: ANION GAP 4 (5-19)
[2020-06-03 07:37] LABS: HEMOGLOBIN 9.2 g/dL (13.5-17.0)
[2020-06-03] MEDS: HEPARIN SOD (PORCINE) 1,000 UNIT/ML 10 ML VIAL IV PRN ×2 (08:21→17:05)
[2020-06-03 08:34] LABS: APPEARANCE,URINE CLEAR; BILIRUBIN,URINE NEGATIVE (NEGATIVE); COLOR,URINE YELLOW; GLUCOSE, URINE NEGATIVE (NEGATIVE); KETONES,URINE NEGATIVE (NEGATIVE); LEUKOCYTE ESTERASE,URINE NEGATIVE (NEGATIVE); NITRITE,URINE NEGATIVE (NEGATIVE); PROTEIN,URINE NEGATIVE (NEGATIVE); URINE SPECIFIC GRAVITY 1.005
--- NOTE | 2020-06-03 09:41 | PDOC PROGRESS REPORT ---
Subjective Date:: 06/03/20 Reason For Visit: NECROTIZING FASCIITIS Receiving intravenous heparin, intravenous antibiotics. Patient got up in time with physical therapy. Physical Exam Vital Signs: Temp Pulse Resp BP Pulse Ox 98.1 F 78 18 106/61 96 06/03/20 07:51 06/03/20 07:51 06/03/20 07:51 06/03/20 07:51 06/03/20 07:51 Intake & Output 06/02/20 06/03/20 06/04/20 06:59 06:59 06:59 Intake Total 2834 2341 250 Output Total 1900 1725 Balance 934 616 250 Weight 92.9 kg 90.6 kg General appearance: PRESENT: other - Continues on nonnarcotic pain medication. Musculoskeletal exam: PRESENT: other - Left leg moved. Edema diminished compared to last week. Open wound explored in its entirety. Visible granulation tissue. Cautery sites around the knee and leg dry. Bleeding, foul smell. Minimal serous drainage. Dressings reapplied. Limited range of motion of knee; better range of motion left Results Laboratory Results: 06/03/20 06:05 06/03/20 06:05 06/01/20 06/03/20 06/03/20 14:23 06:05 06:05 WBC 22.1 H RBC 3.54 L Hgb 9.2 L D Hct 27.3 L MCV 77 L MCH 26.0 L MCHC 33.6 RDW 16.6 H Plt Count 437 Sodium 137.0 Potassium 3.8 Chloride 100 Carbon Dioxide 33 H Anion Gap 4 L BUN 8 Creatinine 0.89 Est GFR ( Amer) > 60 Glucose 123 H Calcium 8.4 Urine Color Urine Appearance Urine pH Ur Specific [place] Urine Protein Urine Glucose (UA) Urine Ketones Urine Blood Urine Nitrite Ur Leukocyte Esterase Urine WBC (Auto) Urine RBC (Auto) Blood Type O POSITIVE Antibody Screen NEGATIVE 06/03/20 07:55 WBC RBC Hgb Hct MCV MCH MCHC RDW Plt Count Sodium Potassium Chloride Carbon Dioxide Anion Gap BUN Creatinine Est GFR ( Amer) Glucose Calcium Urine Color YELLOW Urine Appearance CLEAR Urine pH 7.0 Ur Specific [place] 1.005 Urine Protein NEGATIVE Urine Glucose (UA) NEGATIVE Urine Ketones NEGATIVE Urine Blood NEGATIVE Urine Nitrite NEGATIVE Ur Leukocyte Esterase NEGATIVE Urine WBC (Auto) 0 Urine RBC (Auto) 0 Blood Type Antibody Screen 05/29/20 08:10 Blood Blood Culture - Final NO GROWTH IN 5 DAYS 05/29/20 08:30 Blood Blood Culture - Final NO GROWTH IN 5 DAYS 05/25/20 05/26/20 14:53 18:57 Creatine Kinase 36 L 23 L Impressions: Knee X-Ray 05/25/20 14:34 IMPRESSION: Small knee joint effusion. No acute fracture or destructive bone lesion. Lower Extremity CT 05/25/20 14:39 IMPRESSION: 1. Subcutaneous edema and skin thickening involving the distal upper leg and k nee, consistent with cellulitis and subcutaneous edema. No focal drainable abscess. 2. Inflammatory change involving the medial compartment muscles suggestive of myositis. 3. Small knee joint effusion. 4. Focal DVT in the proximal common femoral vein extending into the greater saphenous vein and in the distal femoral vein. 5. Subcutaneous gas overlying the left hip region with no surrounding infl ammatory change or foreign body. This may represent an injection site. PICC Line Insertion 05/27/20 00:00 IMPRESSION: SUCCESSFUL PLACEMENT OF A 5 FR DUAL LUMEN 47 CM PICC IN THE LEFT BASILIC VEIN. Chest X-Ray 06/01/20 00:00 IMPRESSION: Bilateral pneumonia. Chest/Abdomen CTA 06/01/20 00:00 IMPRESSION: Extensive bilateral pneumonia with coalescing nodules and solitary cavitary lesion in the right upper lobe suspicious for septic emboli. No intravascular pulmonary emboli. Assessment & Plan - Diagnosis (1) Abscess of left thigh Is this a current diagnosis for this admission?: Yes Plan: Impression: Table left lower extremity wound status post wide debridement for deep soft tissue infection, with exposed muscle, and fascia. Negligible granulation tissue. Recommendations: 1. Continue local wound care, IV antibiotics, IV heparin 2. We will ensure physical therapy works with patient; we will also obtain nutritional therapy consultation. 3. Once bed granulating, patient may be a candidate for skin grafting, likely weeks away. (2) DVT (deep venous thrombosis) Qualifiers: DVT location: lower extremity Affected thrombotic vein of extremity: femoral Chronicity: chronic Laterality: left Qualified Code(s): I82.512 - Chronic embolism and thrombosis of left femoral vein Is this a current diagnosis for this admission?: Yes (3) IV drug abuse Is this a current diagnosis for this admission?: Yes (4) Necrotizing soft tissue infection Is this a current diagnosis for this admission?: Yes (5) Pulmonary emboli Is this a current diagnosis for this admission?: Yes - Time Anticipated Discharge Disposition: Long-Term Facility Anticipated Discharge Timeframe: Determined
[2020-06-03] MEDS: CEFEPIME HCL 2 GM in DEXTROSE 5%-WATER 50 ML IV SCH ×2 (09:47→22:42)
[2020-06-03] MEDS: CHOLECALCIFEROL (D3) 1,000 UNIT (25 MCG) TABLET PO SCH (09:49)
[2020-06-03] MEDS: GUAIFENESIN 600 MG TABLET.SA PO SCH ×2 (09:49→21:53)
[2020-06-03] MEDS: FAMOTIDINE INJ/PF 20 MG/2 ML SDV IV SCH ×2 (09:49→21:53)
[2020-06-03] MEDS: DOCUSATE SODIUM 100 MG/10 ML UDC PO SCH ×2 (09:50→17:08)
[2020-06-03] MEDS: ASCORBIC ACID 500 MG TABLET PO SCH ×2 (09:50→17:06)
[2020-06-03] MEDS: ZINC SULFATE 220 MG CAPSULE PO SCH (09:50)
[2020-06-03] MEDS: LEVOFLOXACIN 750 MG/D5W RTU 750 MG/150 ML RTUPB IV SCH (11:58)
[2020-06-03] MEDS: HEPARIN SODIUM,PORCINE/D5W 25,000 UNIT/250 ML RTUINJ IV PRN (12:05)
[2020-06-03 13:24] LABS: PATH REVIEW PATHOLOGIST REVIEWED
--- NOTE | 2020-06-03 15:26 | PDOC PROGRESS REPORT ---
Subjective Date:: 06/03/20 Subjective:: No adverse events overnight. No new complaints. Patient stable and is current level of oxygen support. Pain control is adequate. He is able to rest comfortably. Reason For Visit: NECROTIZING FASCIITIS Physical Exam Vital Signs: Temp Pulse Resp BP Pulse Ox 97.9 F 94 18 103/64 98 06/03/20 11:20 06/03/20 14:00 06/03/20 11:20 06/03/20 11:20 06/03/20 11:20 Intake & Output 06/02/20 06/03/20 06/04/20 06:59 06:59 06:59 Intake Total 2834 2341 1219 Output Total 1900 1725 600 Balance 934 616 619 Weight 92.9 kg 90.6 kg General appearance: PRESENT: no acute distress, cooperative, well-developed, well-nourished - overweight Respiratory exam: PRESENT: rhonchi - bilateral, symmetrical, unlabored, other - supplemental oxygen via NC. ABSENT: rales, wheezes Cardiovascular exam: PRESENT: RRR, +S1, +S2. ABSENT: diastolic murmur, rubs, systolic murmur Pulses: PRESENT: normal dorsalis pedis pul Vascular exam: PRESENT: normal capillary refill GI/Abdominal exam: PRESENT: normal bowel sounds, soft. ABSENT: distended, guarding, mass, organolmegaly, rebound, tenderness Extremities exam: PRESENT: tenderness - LLE, +1 edema - LLE. ABSENT: calf tenderness, clubbing, full ROM, pedal edema Neurological exam: PRESENT: alert, awake, oriented to person, oriented to place, oriented to time, oriented to situation Psychiatric exam: PRESENT: appropriate affect, normal mood. Skin exam: PRESENT: dry, warm, other - Large post surgical wound to anterior and medial proximal thigh extending from groin to distal of the knee - wet to dry dressing w/ murtaza wrap in place. Results Laboratory Results: 06/03/20 06:05 06/03/20 06:05 06/01/20 06/03/20 06/03/20 14:23 06:05 06:05 WBC 22.1 H RBC 3.54 L Hgb 9.2 L D Hct 27.3 L MCV 77 L MCH 26.0 L MCHC 33.6 RDW 16.6 H Plt Count 437 Sodium 137.0 Potassium 3.8 Chloride 100 Carbon Dioxide 33 H Anion Gap 4 L BUN 8 Creatinine 0.89 Est GFR ( Amer) > 60 Glucose 123 H Calcium 8.4 Urine Color Urine Appearance Urine pH Ur Specific [place] Urine Protein Urine Glucose (UA) Urine Ketones Urine Blood Urine Nitrite Ur Leukocyte Esterase Urine WBC (Auto) Urine RBC (Auto) Blood Type O POSITIVE Antibody Screen NEGATIVE 06/03/20 07:55 WBC RBC Hgb Hct MCV MCH MCHC RDW Plt Count Sodium Potassium Chloride Carbon Dioxide Anion Gap BUN Creatinine Est GFR ( Amer) Glucose Calcium Urine Color YELLOW Urine Appearance CLEAR Urine pH 7.0 Ur Specific [place] 1.005 Urine Protein NEGATIVE Urine Glucose (UA) NEGATIVE Urine Ketones NEGATIVE Urine Blood NEGATIVE Urine Nitrite NEGATIVE Ur Leukocyte Esterase NEGATIVE Urine WBC (Auto) 0 Urine RBC (Auto) 0 Blood Type Antibody Screen 05/29/20 08:10 Blood Blood Culture - Final NO GROWTH IN 5 DAYS 05/29/20 08:30 Blood Blood Culture - Final NO GROWTH IN 5 DAYS 05/25/20 05/26/20 14:53 18:57 Creatine Kinase 36 L 23 L Impressions: Knee X-Ray 05/25/20 14:34 IMPRESSION: Small knee joint effusion. No acute fracture or destructive bone lesion. Lower Extremity CT 05/25/20 14:39 IMPRESSION: 1. Subcutaneous edema and skin thickening involving the distal upper leg and knee, consistent with cellulitis and subcutaneous edema. No focal drainable abscess. 2. Inflammatory change involving the medial compartment muscles suggestive of myositis. 3. Small knee joint effusion. 4. Focal DVT in the proximal common femoral vein extending into the greater saphenous vein and in the distal femoral vein. 5. Subcutaneous gas overlying the left hip region with no surrounding inflammatory change or foreign body. This may represent an injection site. PICC Line Insertion 05/27/20 00:00 IMPRESSION: SUCCESSFUL PLACEMENT OF A 5 FR DUAL LUMEN 47 CM PICC IN THE LEFT BASILIC VEIN. Chest X-Ray 06/01/20 00:00 IMPRESSION: Bilateral pneumonia. Chest/Abdomen CTA 06/01/20 00:00 IMPRESSION: Extensive bilateral pneumonia with coalescing nodules and solitary cavitary lesion in the right upper lobe suspicious for septic emboli. No intravascular pulmonary emboli. Assessment and Plan - Diagnosis (1) Cellulitis of left thigh Is this a current diagnosis for this admission?: Yes (2) Abscess of left thigh Is this a current diagnosis for this admission?: Yes (3) Heroin addiction Is this a current diagnosis for this admission?: Yes (4) DVT (deep venous thrombosis) Qualifiers: DVT location: lower extremity Affected thrombotic vein of extremity: femoral Chronicity: chronic Laterality: left Qualified Code(s): I82.512 - Chronic embolism and thrombosis of left femoral vein Is this a current diagnosis for this admission?: Yes (5) IV drug abuse Is this a current diagnosis for this admission?: Yes (6) Bacteremia Is this a current diagnosis for this admission?: Yes (7) Multifocal pneumonia Is this a current diagnosis for this admission?: Yes (8) Necrotizing soft tissue infection Is this a current diagnosis for this admission?: Yes - Plan Summary Summary: He has MRSA bacteremia sensitive to vancomycin. MITZI is pending. Surgery continues to reevaluate the wound, hopefully no more debridements will be nece ssary but we will continue to monitor any new developments in this regard. No withdrawal symptoms, pain is adequately controlled. Currently stable on 5 L per nasal cannula, currently receiving treatment for a pneumonia, possibly due to a septic embolus. Continue heparin drip for left lower extremity DVT. Once we are sure he is not going to have any more surgical procedures we can work on transitioning him to an oral anticoagulant. - Time Time Spent with patient: 15-24 minutes Anticipated Discharge Disposition: Unknown Anticipated Discharge Timeframe: Unknown
[2020-06-03 16:13] LABS: VANCOMYCIN,TROUGH 14.7 ug/mL (5.0-20.0)
[2020-06-04] MEDS: OXYCODONE-ACETAMINOPHEN 5-325 MG TABLET PO SCH ×6 (01:26→22:08)
[2020-06-04] MEDS: HYDROMORPHONE HCL INJ/PF 2 MG/ML AMPULE IV PRN ×5 (03:19→22:40)
[2020-06-04] MEDS: HEPARIN SODIUM,PORCINE/D5W 25,000 UNIT/250 ML RTUINJ IV PRN ×2 (03:39→18:29)
[2020-06-04] MEDS: VANCOMYCIN HCL 1,250 MG in DEXTROSE 5%-WATER 250 ML IV SCH ×3 (05:24→22:09)
[2020-06-04] MEDS: METHADONE HCL 10 MG TABLET PO SCH ×3 (05:24→22:08)
[2020-06-04] MEDS: HEPARIN SOD (PORCINE) 1,000 UNIT/ML 10 ML VIAL IV PRN (08:20)
[2020-06-04] MEDS: DOCUSATE SODIUM 100 MG/10 ML UDC PO SCH ×2 (09:30→17:01)
[2020-06-04] MEDS: CEFEPIME HCL 2 GM in DEXTROSE 5%-WATER 50 ML IV SCH ×2 (09:36→22:10)
[2020-06-04] MEDS: ASCORBIC ACID 500 MG TABLET PO SCH ×2 (09:44→18:21)
[2020-06-04] MEDS: ZINC SULFATE 220 MG CAPSULE PO SCH (09:44)
[2020-06-04] MEDS: CHOLECALCIFEROL (D3) 1,000 UNIT (25 MCG) TABLET PO SCH (09:44)
[2020-06-04] MEDS: GUAIFENESIN 600 MG TABLET.SA PO SCH ×2 (09:44→22:08)
[2020-06-04] MEDS: FAMOTIDINE INJ/PF 20 MG/2 ML SDV IV SCH ×2 (09:45→22:09)
[2020-06-04] MEDS: LEVOFLOXACIN 750 MG/D5W RTU 750 MG/150 ML RTUPB IV SCH (11:29)
[2020-06-04] MEDS ORDERED: PROPOFOL INJ 200 MG/20 ML VIAL IV ONE (11:58)
[2020-06-04] MEDS ORDERED: MIDAZOLAM 2 MG/2 ML INJ ONE (11:58)
--- NOTE | 2020-06-04 17:11 | PDOC PROGRESS REPORT ---
Subjective Date:: 06/04/20 Subjective:: No adverse events overnight. No new complaints. Patient stable and is current level of oxygen support. Pain control is adequate. He is able to rest comfortably. MITZI is scheduled for today. Reason For Visit: NECROTIZING FASCIITIS Physical Exam Vital Signs: Temp Pulse Resp BP Pulse Ox 98.9 F 86 20 105/63 96 06/04/20 14:53 06/04/20 14:53 06/04/20 14:53 06/04/20 14:53 06/04/20 14:53 Intake & Output 06/03/20 06/04/20 06/05/20 06:59 06:59 06:59 Intake Total 2341 3261 579 Output Total 1725 3425 Balance 616 -164 579 Weight 90.6 kg 90.6 kg 90.6 kg General appearance: PRESENT: no acute distress, cooperative, well-developed, well-nourished - overweight Respiratory exam: PRESENT: rhonchi - bilateral, symmetrical, unlabored, other - supplemental oxygen via NC. ABSENT: rales, wheezes Cardiovascular exam: PRESENT: RRR, +S1, +S2. ABSENT: diastolic murmur, rubs, systolic murmur Pulses: PRESENT: normal dorsalis pedis pul Vascular exam: PRESENT: normal capillary refill GI/Abdominal exam: PRESENT: normal bowel sounds, soft. ABSENT: distended, guarding, mass, organolmegaly, rebound, tenderness Extremities exam: PRESENT: tenderness - LLE, +1 edema - LLE. ABSENT: calf tenderness, clubbing, full ROM, pedal edema Neurological exam: PRESENT: alert, awake, oriented to person, oriented to place, oriented to time, oriented to situation Psychiatric exam: PRESENT: appropriate affect, normal mood. Skin exam: PRESENT: dry, warm, other - Large post surgical wound to anterior and medial proximal thigh extending from groin to distal of the knee - wet to dry dressing w/ murtaza wrap in place. Results Laboratory Results: 06/03/20 06:05 06/03/20 06:05 05/25/20 05/26/20 14:53 18:57 Creatine Kinase 36 L 23 L Impressions: Knee X-Ray 05/25/20 14:34 IMPRESSION: Small knee joint effusion. No acute fracture or destructive bone lesion. Lower Extremity CT 11/28/20 14:39 IMPRESSION: 1. Subcutaneous edema and skin thickening involving the distal upper leg and knee, consistent with cellulitis and subcutaneous edema. No focal drainable abscess. 2. Inflammatory change involving the medial compartment muscles suggestive of myositis. 3. Small knee joint effusion. 4. Focal DVT in the proximal common femoral vein extending into the greater saphenous vein and in the distal femoral vein. 5. Subcutaneous gas overlying the left hip region with no surrounding inflammatory change or foreign body. This may represent an injection site. PICC Line Insertion 05/27/20 00:00 IMPRESSION: SUCCESSFUL PLACEMENT OF A 5 FR DUAL LUMEN 47 CM PICC IN THE LEFT BASILIC VEIN. Chest X-Ray 06/01/20 00:00 IMPRESSION: Bilateral pneumonia. Chest/Abdomen CTA 06/01/20 00:00 IMPRESSION: Extensive bilateral pneumonia with coalescing nodules and solitary cavitary lesion in the right upper lobe suspicious for septic emboli. No intravascular pulmonary emboli. Assessment and Plan - Diagnosis (1) Cellulitis of left thigh Is this a current diagnosis for this admission?: Yes (2) Abscess of left thigh Is this a current diagnosis for this admission?: Yes (3) Heroin addiction Is this a current diagnosis for this admission?: Yes (4) DVT (deep venous thrombosis) Qualifiers: DVT location: lower extremity Affected thrombotic vein of extremity: femoral Chronicity: chronic Laterality: left Qualified Code(s): I82.512 - Chronic embolism and thrombosis of left femoral vein Is this a current diagnosis for this admission?: Yes (5) IV drug abuse Is this a current diagnosis for this admission?: Yes (6) Bacteremia Is this a current diagnosis for this admission?: Yes (7) Multifocal pneumonia Is this a current diagnosis for this admission?: Yes (8) Necrotizing soft tissue infection Is this a current diagnosis for this admission?: Yes - Plan Summary Summary: He has MRSA bacteremia sensitive to vancomycin. MITZI has been done, official read is pending. Surgery continues to reevaluate the wound, hopefully no more debridements will be necessary but we will continue to monitor any new developments in this regard. No withdrawal symptoms, pain is adequately controlled. Currently stable on 5 L per nasal cannula, currently receiving treatment for a pneumonia, possibly due to a septic embolus. Continue heparin drip for left lower extremity DVT. Once we are sure he is not going to have any more surgical procedures we can work on transitioning him to an oral antic oagulant. Hopefully this can be done tomorrow. - Time Time Spent with patient: 15-24 minutes Anticipated Discharge Disposition: Unknown Anticipated Discharge Timeframe: Unknown
--- NOTE | 2020-06-04 17:31 | XCELERA REPORT ---
Study ID: [id number] [address] [address] Transesophageal Echocardiogram Report Name: AIDE KHAN Age: 39 yrs Gender: Male : 1980 Patient Status: Inpatient Patient Location: [address] [place] [address] Study Date: 06/04/2020 02:02 PM History: IVDU Bacteremia Reason For Study: mrsa bacteremia, pna w/ septic emboli Ordering Physician: MANDY CARBAJAL Performed By: Padmini Jo Interpretation Summary Unable to change transducer angle due to probe malfunction( probe recalibrated during study-did not resolve the issues. Only limited views obtained. In available views no evidence of IE ( vegetation).. Can consider reepeating study if clinically indicated once probe malfunction has been resolved( with vendor). Left ventricular systolic function is normal. Ejection Fraction = >55%. The right ventricle is normal in size and function. There is trace mitral regurgitation. No hemodynamically significant valvular aortic stenosis. There is trace tricuspid regurgitation. There is no pericardial effusion. Unable to change transducer angle due to probe malfunction( probe recalibrated during study-did not resolve the issue). Only limited views obtained. In available views no evidence of IE ( vegetation).. Procedure A complete two-dimensional transesophageal echocardiogram was performed (2D, spectral and color flow Doppler). Informed consent for Transesophageal Echocardiogram, and use of a contrast agent as needed, was obtained prior to the procedure. The patient was brought to the OR4 in a fasting state. An intravenous line was placed. A topical anesthetic agent was used for oropharangeal anesthesia. A bite block was inserted. IV conscious sedation was administered using per Anesthesia team. The patient's vital signs, including blood pressure, heart rate, pulse oximetry and cardiac rhythm were monitored thoughout the procedure. The transesophageal probe was passed without difficulty. The usual views were obtained; basal, mid-esophageal, transgastric and aortic views. The patient tolerated the procedure well without evidence of orophangeal or esophageal trauma. Subsequent to all the images being obtained the probe was removed with out trauma. Left Ventricle The left ventricle is normal in size. There is no thrombus. There is normal left ventricular wall thickness. Left ventricular systolic function is normal. Ejection Fraction = >55%. The left ventricular wall motion is normal. Right Ventricle The right ventricle is normal in size and function. Atria The interatrial septum is intact with no evidence for an atrial septal defect. The left atrial size is normal. Right atrial size is normal. Mitral Valve The mitral valve is grossly normal. There is no vegetation seen on the mitral valve. There is no mitral valve stenosis. There is trace mitral regurgitation. Tricuspid Valve The tricuspid valve is not well visualized, but is grossly normal. There is no tricuspid valve vegetation. There is no tricuspid stenosis. There is trace tricuspid regurgitation. Aortic Valve The aortic valve is trileaflet. The aortic valve is normal in structure and function. The aortic valve opens well. There is no aortic valvular vegetation. No hemodynamically significant valvular aortic stenosis. No aortic regurgitation is present. Pulmonic Valve The pulmonic valve is not well visualized. Pericardium There is no pericardial effusion. Small left pleural effusion. : MANDY CARBAJAL Anil
--- NOTE | 2020-06-04 23:37 | PDOC PROGRESS REPORT ---
Subjective Date:: 06/04/20 Subjective:: Still complaining of some pains along the left leg operative site Reason For Visit: NECROTIZING FASCIITIS Physical Exam Vital Signs: Temp Pulse Resp BP Pulse Ox 99.1 F 93 19 103/52 L 92 06/04/20 17:17 06/04/20 19:00 06/04/20 17:17 06/04/20 17:17 06/04/20 17:17 Intake & Output 06/03/20 06/04/20 06/05/20 06:59 06:59 06:59 Intake Total 2341 3261 1317 Output Total 1725 3425 275 Balance 616 -164 1042 Weight 90.6 kg 90.6 kg 90.6 kg Exam: Temp is 99.1. Blood pressure and heart rate are stable. Dressings were removed and the wound looks clean with starting granulation tissue around the knee area. There is mild swelling along the left calf area with minimal tenderness along the greater saphenous site. Gypsum Roofer apparently talked with the patient about increasing protein intake to improve wound healing. Had MITZI today and no apparent valvular vegetations His white count is slightly down to around 22,000 Results Laboratory Results: 06/03/20 06:05 06/03/20 06:05 05/25/20 05/26/20 14:53 18:57 Creatine Kinase 36 L 23 L Impressions: Knee X-Ray 05/25/20 14:34 IMPRESSION: Small knee joint effusion. No acute fracture or destructive bone lesion. Lower Extremity CT 05/25/20 14:39 IMPRESSION: 1. Subcutaneous edema and skin thickening involving the distal upper leg and knee, consistent with cellulitis and subcutaneous edema. No focal drainable abscess. 2. Inflammatory change involving the medial compartment muscles suggestive of myositis. 3. Small knee joint effusion. 4. Focal DVT in the proximal common femoral vein extending into the greater saphenous vein and in the distal femoral vein. 5. Subcutaneous gas overlying the left hip region with no surrounding inflammatory change or foreign body. This may represent an injection site. PICC Line Insertion 05/27/20 00:00 IMPRESSION: SUCCESSFUL PLACEMENT OF A 5 FR DUAL LUMEN 47 CM PICC IN THE LEFT BASILIC VEIN. Chest X-Ray 06/01/20 00:00 IMPRESSION: Bilateral pneumonia. Chest/Abdomen CTA 06/01/20 00:00 IMPRESSION: Extensive bilateral pneumonia with coalescing nodules and solitary cavitary lesion in the right upper lobe suspicious for septic emboli. No intravascular pulmonary emboli. Assessment & Plan - Diagnosis (1) IV drug abuse Is this a current diagnosis for this admission?: Yes (2) Necrotizing soft tissue infection Is this a current diagnosis for this admission?: Yes - Time Anticipated Discharge Disposition: Home with Home Health Anticipated Discharge Timeframe: 1 week - Inpatient Certification Medical Necessity: Need for IV Antibiotics, Need for Surgery - Plan Summary Plan Summary: 47-year-old male post debridement of left lower leg for necrotizing soft tissue infection. Postop day #5. He has septic emboli likely causing the white count elevation rather than from the leg wound. No evidence of abscess from the leg wound and the wound itself looks clean with starting granulation tissue around the knee area MITZI today showed no definite evidence of valvular vegetation Recommendations: Improve nutrition. Gypsum Roofer was consulted and talk with the patient about adding protein to his diet for better wound healing Continue wet-to-dry dressings every 12 hours. We will eventually need a split-thickness skin graft when there is better granulation tissue. Continue IV antibiotics
[2020-06-05] MEDS: OXYCODONE-ACETAMINOPHEN 5-325 MG TABLET PO SCH ×6 (02:33→22:12)
[2020-06-05] MEDS: HYDROMORPHONE HCL INJ/PF 2 MG/ML AMPULE IV PRN ×5 (02:37→20:39)
[2020-06-05] MEDS: VANCOMYCIN HCL 1,250 MG in DEXTROSE 5%-WATER 250 ML IV SCH ×4 (05:49→22:11)
[2020-06-05] MEDS: METHADONE HCL 10 MG TABLET PO SCH ×3 (05:53→22:12)
[2020-06-05] MEDS: HEPARIN SODIUM,PORCINE/D5W 25,000 UNIT/250 ML RTUINJ IV PRN (06:01)
--- NOTE | 2020-06-05 08:28 | PDOC PROGRESS REPORT ---
Subjective Date:: 06/05/20 Subjective:: C/O LEFT LEG PAIN Reason For Visit: NECROTIZING FASCIITIS Physical Exam Vital Signs: Temp Pulse Resp BP Pulse Ox 98.5 F 80 19 104/49 L 94 06/04/20 23:04 06/05/20 02:00 06/04/20 23:04 06/04/20 23:04 06/04/20 23:04 Intake & Output 06/04/20 06/05/20 06/06/20 06:59 06:59 06:59 Intake Total 3261 1817 Output Total 3425 775 Balance -164 1042 Weight 90.6 kg 93.4 kg General appearance: PRESENT: mild distress Head exam: PRESENT: normocephalic Eye exam: PRESENT: EOMI Ear exam: PRESENT: normal external ear exam Mouth exam: PRESENT: moist Teeth exam: PRESENT: poor dentation Neck exam: PRESENT: full ROM Respiratory exam: PRESENT: clear to auscultation selam Cardiovascular exam: PRESENT: RRR Pulses: PRESENT: normal radial pulses, normal femoral pulses Vascular exam: PRESENT: normal capillary refill Breast: PRESENT: Normal GI/Abdominal exam: PRESENT: soft Rectal exam: PRESENT: deferred Extremities exam: PRESENT: other - LEFT LEG WOUND CLEAN, PALE, NO UNDRAINED HONG Musculoskeletal exam: PRESENT: full ROM Neurological exam: PRESENT: alert, awake, oriented to person, oriented to place Psychiatric exam: PRESENT: appropriate affect Skin exam: PRESENT: dry Results Laboratory Results: 06/03/20 06:05 06/03/20 06:05 05/25/20 05/26/20 14:53 18:57 Creatine Kinase 36 L 23 L Impressions: Knee X-Ray 05/25/20 14:34 IMPRESSION: Small knee joint effusion. No acute fracture or destructive bone lesion. Lower Extremity CT 05/25/20 14:39 IMPRESSION: 1. Subcutaneous edema and skin thickening involving the distal upper leg and knee, consistent with cellulitis and subcutaneous edema. No focal drainable abscess. 2. Inflammatory change involving the medial compartment muscles suggestive of myositis. 3. Small knee joint effusion. 4. Focal DVT in the proximal common femoral vein extending into the greater saphenous vein and in the distal femoral vein. 5. Subcutaneous gas overlying the left hip region with no surrounding inflammatory change or foreign body. This may represent an injection site. PICC Line Insertion 05/27/20 00:00 IMPRESSION: SUCCESSFUL PLACEMENT OF A 5 FR DUAL LUMEN 47 CM PICC IN THE LEFT BASILIC VEIN. Chest X-Ray 06/01/20 00:00 IMPRESSION: Bilateral pneumonia. Chest/Abdomen CTA 06/01/20 00:00 IMPRESSION: Extensive bilateral pneumonia with coalescing nodules and solitary cavitary lesion in the right upper lobe suspicious for septic emboli. No intr avascular pulmonary emboli. Assessment & Plan - Diagnosis (1) Abscess of left thigh Is this a current diagnosis for this admission?: Yes (2) Necrotizing fasciitis Is this a current diagnosis for this admission?: Yes - Time Anticipated Discharge Disposition: Home, Self Care Anticipated Discharge Timeframe: UNK - Plan Summary Plan Summary: NECROTIZING FASCITIS LEFT LEG S/O WIDE DEBRIDMENT NOW ITH 30-40 %SKIN LOSS ON MEDIAL/ANTERIOR ASPECT ABOVE AND BELOW KNEE, INCLUDIIG KNEE PLAN CONT IV ABX CONT DRESSING CHANGES WILL NEED PT TO KEEP KNEE MOBILE WILL NEED STSG
[2020-06-05] MEDS: GUAIFENESIN 600 MG TABLET.SA PO SCH ×2 (09:03→22:12)
[2020-06-05] MEDS: CHOLECALCIFEROL (D3) 1,000 UNIT (25 MCG) TABLET PO SCH (09:03)
[2020-06-05] MEDS: FAMOTIDINE INJ/PF 20 MG/2 ML SDV IV SCH ×2 (09:03→22:12)
[2020-06-05] MEDS: ASCORBIC ACID 500 MG TABLET PO SCH ×2 (09:03→17:07)
[2020-06-05] MEDS: ZINC SULFATE 220 MG CAPSULE PO SCH (09:03)
[2020-06-05] MEDS: DOCUSATE SODIUM 100 MG/10 ML UDC PO SCH ×2 (09:04→17:05)
[2020-06-05] MEDS: CEFEPIME HCL 2 GM in DEXTROSE 5%-WATER 50 ML IV SCH ×2 (09:07→22:11)
[2020-06-05 10:28] LABS: APPEARANCE,URINE CLEAR; BILIRUBIN,URINE NEGATIVE (NEGATIVE); COLOR,URINE LIGHT YELLOW; GLUCOSE, URINE NEGATIVE (NEGATIVE); KETONES,URINE NEGATIVE (NEGATIVE); LEUKOCYTE ESTERASE,URINE NEGATIVE (NEGATIVE); NITRITE,URINE NEGATIVE (NEGATIVE); PROTEIN,URINE NEGATIVE (NEGATIVE); URINE SPECIFIC GRAVITY 1.003; UROBILINOGEN,URINE NEGATIVE mg/dL (<2.0)
[2020-06-05 10:29] LABS: ADD MANUAL MICROSCOPIC YES
[2020-06-05] MEDS: LEVOFLOXACIN 750 MG/D5W RTU 750 MG/150 ML RTUPB IV SCH (12:42)
[2020-06-05 14:30] LABS: HEMATOCRIT 24.4 % (37.9-51.0); HEMOGLOBIN 8.3 g/dL (13.5-17.0); MEAN CORPUSCULAR HEMOGLOBIN 26.8 pg (27.0-33.4); MEAN CORPUSCULAR HGB CONC 34.2 g/dL (32.0-36.0); MEAN CORPUSCULAR VOLUME 78 fl (80-97); PLATELET COUNT 549 10^3/uL (150-450); RED BLOOD COUNT 3.11 10^6/uL (4.35-5.55); RED CELL DISTRIBUTION WIDTH 16.3 % (11.5-14.0); WHITE BLOOD COUNT 13.3 10^3/uL (4.0-10.5)
[2020-06-05 14:58] LABS: VANCOMYCIN,TROUGH 19.3 ug/mL (5.0-20.0)
[2020-06-05 15:55] LABS: INTERNATIONAL RATION (INR) 1.28; PROTHROMBIN TIME 16.2 SEC (11.4-15.4)
--- NOTE | 2020-06-05 16:55 | PDOC PROGRESS REPORT ---
Subjective Date:: 06/05/20 Subjective:: No adverse events overnight. No new complaints. Patient stable on 3 L, oxygen requirement is coming down. Pain control is adequate. He had his cast were caught vaping in the room last night. MITZI was negative for vegetation. Reason For Visit: NECROTIZING FASCIITIS Physical Exam Vital Signs: Temp Pulse Resp BP Pulse Ox 98.5 F 79 18 121/69 96 06/05/20 08:40 06/05/20 14:00 06/05/20 07:40 06/05/20 07:40 06/05/20 07:40 Intake & Output 06/04/20 06/05/20 06/06/20 06:59 06:59 06:59 Intake Total 3261 1817 1147 Output Total 3425 775 675 Balance -164 1042 472 Weight 90.6 kg 93.4 kg General appearance: PRESENT: no acute distress, cooperative, well-developed, well-nourished - overweight Respiratory exam: PRESENT: rhonchi - bilateral, symmetrical, unlabored, other - supplemental oxygen via NC. ABSENT: rales, wheezes Cardiovascular exam: PRESENT: RRR, +S1, +S2. ABSENT: diastolic murmur, rubs, systolic murmur Pulses: PRESENT: normal dorsalis pedis pul Vascular exam: PRESENT: normal capillary refill GI/Abdominal exam: PRESENT: normal bowel sounds, soft. ABSENT: distended, guarding, mass, organolmegaly, rebound, tenderness Extremities exam: PRESENT: tenderness - LLE, +1 edema - LLE. ABSENT: calf tenderness, clubbing, full ROM, pedal edema Neurological exam: PRESENT: alert, awake, oriented to person, oriented to place, oriented to time, oriented to situation Psychiatric exam: PRESENT: appropriate affect, normal mood. Skin exam: PRESENT: dry, warm, other - Large post surgical wound to anterior and medial proximal thigh extending from groin to distal of the knee - wet to dry dressing w/ murtaza wrap in place. Results Laboratory Results: 06/05/20 14:00 06/03/20 06:05 06/05/20 06/05/20 09:28 14:00 WBC 13.3 H RBC 3.11 L Hgb 8.3 L Hct 24.4 L MCV 78 L MCH 26.8 L MCHC 34.2 RDW 16.3 H Plt Count 549 H Urine Color LIGHT YELLOW Urine Appearance CLEAR Urine pH 6.0 Ur Specific [place] 1.003 Urine Protein NEGATIVE Urine Glucose (UA) NEGATIVE Urine Ketones NEGATIVE Urine Blood NEGATIVE Urine Nitrite NEGATIVE Ur Leukocyte Esterase NEGATIVE Ur Squamous Epith Cells FEW 05/25/20 05/26/20 14:53 18:57 Creatine Kinase 36 L 23 L Impressions: Knee X-Ray 05/25/20 14:34 IMPRESSION: Small knee joint effusion. No acute fracture or destructive bone lesion. Lower Extremity CT 05/25/20 14:39 IMPRESSION: 1. Subcutaneous edema and skin thickening involving the distal upper leg and knee, consistent with cellulitis and subcutaneous edema. No focal drainable abscess. 2. Inflammatory change involving the medial compartment muscles suggestive of myositis. 3. Small knee joint effusion. 4. Focal DVT in the proximal common femoral vein extending into the greater saphenous vein and in the distal femoral vein. 5. Subcutaneous gas overlying the left hip region with no surrounding inflammatory change or foreign body. This may represent an injection site. PICC Line Insertion 05/27/20 00:00 IMPRESSION: SUCCESSFUL PLACEMENT OF A 5 FR DUAL LUMEN 47 CM PICC IN THE LEFT BASILIC VEIN. Chest X-Ray 06/01/20 00:00 IMPRESSION: Bilateral pneumonia. Chest/Abdomen CTA 06/01/20 00:00 IMPRESSION: Extensive bilateral pneumonia with coalescing nodules and solitary cavitary lesion in the right upper lobe suspicious for septic emboli. No intravascular pulmonary emboli. Assessment and Plan - Diagnosis (1) Cellulitis of left thigh Is this a current diagnosis for this admission?: Yes (2) Abscess of left thigh Is this a current diagnosis for this admission?: Yes (3) Heroin addiction Is this a current diagnosis for this admission?: Yes (4) DVT (deep venous thrombosis) Qualifiers: DVT location: lower extremity Affected thrombotic vein of extremity: femoral Chronicity: chronic Laterality: left Qualified Code(s): I82.512 - Chronic embolism and thrombosis of left femoral vein Is this a current diagnosis for this admission?: Yes (5) IV drug abuse Is this a current diagnosis for this admission?: Yes (6) Bacteremia Is this a current diagnosis for this admission?: Yes (7) Multifocal pneumonia Is this a current diagnosis for this admission?: Yes (8) Necrotizing soft tissue infection Is this a current diagnosis for this admission?: Yes - Plan Summary Summary: He has MRSA bacteremia sensitive to vancomycin. MITZI was negative for valvular vegetation. It looks at this point as if he is not going to need any further debridements. He is going to eventually need a split thickness skin graft. We stopped his heparin drip today we will plan to start Coumadin with Lovenox bridging. One of the blood cultures turn positive, I am hoping that is a contaminant. - Time Time Spent with patient: 15-24 minutes Anticipated Discharge Disposition: Unknown Anticipated Discharge Timeframe: Unknown
[2020-06-05] MEDS: WARFARIN SODIUM 5 MG TABLET PO SCH (22:12)
[2020-06-05] MEDS: ENOXAPARIN SODIUM INJ 100 MG/1 ML DISP.SYRIN SUBCUT SCH (22:13)
[2020-06-06] MEDS: OXYCODONE-ACETAMINOPHEN 5-325 MG TABLET PO SCH ×6 (02:32→21:35)
[2020-06-06] MEDS: HYDROMORPHONE HCL INJ/PF 2 MG/ML AMPULE IV PRN ×5 (02:32→22:58)
[2020-06-06] MEDS: METHADONE HCL 10 MG TABLET PO SCH ×3 (05:27→21:37)
[2020-06-06] MEDS: VANCOMYCIN HCL 1,250 MG in DEXTROSE 5%-WATER 250 ML IV SCH ×3 (05:28→21:39)
[2020-06-06] MEDS: DOCUSATE SODIUM 100 MG/10 ML UDC PO SCH ×2 (09:05→17:33)
[2020-06-06] MEDS: GUAIFENESIN 600 MG TABLET.SA PO SCH ×2 (09:07→21:38)
[2020-06-06] MEDS: CHOLECALCIFEROL (D3) 1,000 UNIT (25 MCG) TABLET PO SCH (09:07)
[2020-06-06] MEDS: CEFEPIME HCL 2 GM in DEXTROSE 5%-WATER 50 ML IV SCH ×2 (09:07→21:39)
[2020-06-06] MEDS: ASCORBIC ACID 500 MG TABLET PO SCH ×2 (09:07→17:37)
[2020-06-06] MEDS: ZINC SULFATE 220 MG CAPSULE PO SCH (09:08)
[2020-06-06] MEDS: ENOXAPARIN SODIUM INJ 100 MG/1 ML DISP.SYRIN SUBCUT SCH ×2 (09:09→21:39)
[2020-06-06] MEDS: FAMOTIDINE INJ/PF 20 MG/2 ML SDV IV SCH ×2 (09:13→21:39)
[2020-06-06 11:30] LABS: INTERNATIONAL RATION (INR) 1.32; PROTHROMBIN TIME 16.6 SEC (11.4-15.4)
[2020-06-06] MEDS: LEVOFLOXACIN 750 MG/D5W RTU 750 MG/150 ML RTUPB IV SCH (12:29)
--- NOTE | 2020-06-06 16:58 | PDOC PROGRESS REPORT ---
Subjective Date:: 06/06/20 Subjective:: No adverse events overnight. No new complaints. Patient on 3-4 L, oxygen requi rement is stable. With the oxygen on his saturations are in the upper 90s. Pain is adequately controlled. Reason For Visit: NECROTIZING FASCIITIS Physical Exam Vital Signs: Temp Pulse Resp BP Pulse Ox 97.4 F 77 20 98/59 L 98 06/06/20 12:23 06/06/20 14:00 06/06/20 12:23 06/06/20 12:23 06/06/20 12:23 Intake & Output 06/05/20 06/06/20 06/07/20 06:59 06:59 06:59 Intake Total 1817 2091 1163 Output Total 775 2350 1250 Balance 1042 -259 -87 Weight 93.4 kg 90.6 kg General appearance: PRESENT: no acute distress, cooperative, well-developed, well-nourished - overweight Respiratory exam: PRESENT: rhonchi - bilateral, symmetrical, unlabored, other - supplemental oxygen via NC. ABSENT: rales, wheezes Cardiovascular exam: PRESENT: RRR, +S1, +S2. ABSENT: diastolic murmur, rubs, systolic murmur Pulses: PRESENT: normal dorsalis pedis pul Vascular exam: PRESENT: normal capillary refill GI/Abdominal exam: PRESENT: normal bowel sounds, soft. ABSENT: distended, guarding, mass, organolmegaly, rebound, tenderness Extremities exam: PRESENT: tenderness - LLE, +1 edema - LLE. ABSENT: calf ten derness, clubbing, full ROM, pedal edema Neurological exam: PRESENT: alert, awake, oriented to person, oriented to place, oriented to time, oriented to situation Psychiatric exam: PRESENT: appropriate affect, normal mood. Skin exam: PRESENT: dry, warm, other - Large post surgical wound to anterior and medial proximal thigh extending from groin to distal of the knee - wet to dry dressing w/ murtaza wrap in place. Results Laboratory Results: 06/05/20 14:00 06/03/20 06:05 06/01/20 14:23 Blood Blood Culture - Final NO GROWTH IN 5 DAYS 06/01/20 17:49 Blood Blood Culture - Final Enterococcus Avium 05/25/20 05/26/20 14:53 18:57 Creatine Kinase 36 L 23 L Impressions: Knee X-Ray 05/25/20 14:34 IMPRESSION: Small knee joint effusion. No acute fracture or destructive bone lesion. Lower Extremity CT 05/25/20 14:39 IMPRESSION: 1. Subcutaneous edema and skin thickening involving the distal upper leg and knee, consistent with cellulitis and subcutaneous edema. No focal drainable abscess. 2. Inflammatory change involving the medial compartment muscles suggestive of myositis. 3. Small knee joint effusion. 4. Focal DVT in the proximal common femoral vein extending into the greater saphenous vein and in the distal femoral vein. 5. Subcutaneous gas overlying the left hip region with no surrounding inflammatory change or foreign body. This may represent an injection site. PICC Line Insertion 05/27/20 00:00 IMPRESSION: SUCCESSFUL PLACEMENT OF A 5 FR DUAL LUMEN 47 CM PICC IN THE LEFT BASILIC VEIN. Chest X-Ray 06/01/20 00:00 IMPRESSION: Bilateral pneumonia. Chest/Abdomen CTA 06/01/20 00:00 IMPRESSION: Extensive bilateral pneumonia with coalescing nodules and solitary cavitary lesion in the right upper lobe suspicious for septic emboli. No intravascular pulmonary emboli. Assessment and Plan - Diagnosis (1) Cellulitis of left thigh Is this a current diagnosis for this admission?: Yes (2) Abscess of left thigh Is this a current diagnosis for this admission?: Yes (3) Heroin addiction Is this a current diagnosis for this admission?: Yes (4) DVT (deep venous thrombosis) Qualifiers: DVT location: lower extremity Affected thrombotic vein of extremity: femoral Chronicity: chronic Laterality: left Qualified Code(s): I82.512 - Chronic embolism and thrombosis of left femoral vein Is this a current diagnosis for this admission?: Yes (5) IV drug abuse Is this a current diagnosis for this admission?: Yes (6) Bacteremia Is this a current diagnosis for this admission?: Yes (7) Multifocal pneumonia Is this a current diagnosis for this admission?: Yes (8) Necrotizing soft tissue infection Is this a current diagnosis for this admission?: Yes - Plan Summary Summary: He has MRSA bacteremia sensitive to vancomycin. MITZI was negative for valvular vegetation. We have put him on Lovenox, taken him off heparin drip, and started Coumadin. He will likely need a split-thickness skin graft at some point. One of his blood cultures turned positive with a strain of Enterococcus. I am a little suspicious that perhaps he is obtaining drugs to inject whenever his girlfriend comes to see him in, this is possibly how he got this organism show up in his blood. It is pansensitive and should respond to vancomycin. We are de-escalating his pain medication. - Time Time Spent with patient: 15-24 minutes Anticipated Discharge Disposition: Unknown Anticipated Discharge Timeframe: Unknown
--- NOTE | 2020-06-06 19:14 | PDOC PROGRESS REPORT ---
Subjective Date:: 06/06/20 Subjective:: Pains along the left leg operative site Reason For Visit: NECROTIZING FASCIITIS Physical Exam Vital Signs: Temp Pulse Resp BP Pulse Ox 97.4 F 77 20 98/59 L 98 06/06/20 12:23 06/06/20 14:00 06/06/20 12:23 06/06/20 12:23 06/06/20 12:23 Intake & Output 06/05/20 06/06/20 06/07/20 06:59 06:59 06:59 Intake Total 1817 2091 1163 Output Total 775 2350 1250 Balance 1042 -259 -87 Weight 93.4 kg 90.6 kg Exam: Dressing was changed. The wound looks better with more granulation tissue but not enough to sustain as split-thickness skin graft. He is eating better Results Laboratory Results: 06/05/20 14:00 06/03/20 06:05 06/01/20 14:23 Blood Blood Culture - Final NO GROWTH IN 5 DAYS 06/01/20 17:49 Blood Blood Culture - Final Enterococcus Avium 05/25/20 05/26/20 14:53 18:57 Creatine Kinase 36 L 23 L Impressions: Knee X-Ray 05/25/20 14:34 IMPRESSION: Small knee joint effusion. No acute fracture or destructive bone lesion. Lower Extremity CT 05/25/20 14:39 IMPRESSION: 1. Subcutaneous edema and skin thickening involving the distal upper leg and knee, consistent with cellulitis and subcutaneous edema. No focal drainable abscess. 2. Inflammatory change involving the medial compartment muscles suggestive of myositis. 3. Small knee joint effusion. 4. Focal DVT in the proximal common femoral vein extending into the greater saphenous vein and in the distal femoral vein. 5. Subcutaneous gas overlying the left hip region with no surrounding i nflammatory change or foreign body. This may represent an injection site. PICC Line Insertion 05/27/20 00:00 IMPRESSION: SUCCESSFUL PLACEMENT OF A 5 FR DUAL LUMEN 47 CM PICC IN THE LEFT BASILIC VEIN. Chest X-Ray 06/01/20 00:00 IMPRESSION: Bilateral pneumonia. Chest/Abdomen CTA 06/01/20 00:00 IMPRESSION: Extensive bilateral pneumonia with coalescing nodules and solitary cavitary lesion in the right upper lobe suspicious for septic emboli. No intravascular pulmonary emboli. Assessment & Plan - Diagnosis (1) IV drug abuse Is this a current diagnosis for this admission?: Yes (2) Necrotizing soft tissue infection Is this a current diagnosis for this admission?: Yes - Time Anticipated Discharge Disposition: Home with Home Health Anticipated Discharge Timeframe: 1 to 2 wee - Inpatient Certification Medical Necessity: Need for IV Antibiotics, Risk of Complication if Not Cared For in Hospital - Plan Summary Plan Summary: 39-year-old male 7 days post debridement of necrotizing skin and soft tissue and some fascia on the left leg. His white count is trending down. He is eating better and they are starting to have some granulation tissue along the left leg operative site but not enough to be able to accept a skin graft. Recommendations: Continue with wet-to-dry dressings to left leg wound. Continue IV antibiotics Continue improve nutritional status. We will need split-thickness skin graft of the left leg next week.
[2020-06-06] MEDS ORDERED: METHADONE HCL 10 MG TABLET ONE (21:23)
[2020-06-06] MEDS: WARFARIN SODIUM 5 MG TABLET PO SCH (21:38)
[2020-06-07] MEDS: OXYCODONE-ACETAMINOPHEN 5-325 MG TABLET PO SCH ×6 (02:55→21:22)
[2020-06-07] MEDS: METHADONE HCL 10 MG TABLET PO SCH ×3 (05:12→21:21)
[2020-06-07] MEDS: VANCOMYCIN HCL 1,250 MG in DEXTROSE 5%-WATER 250 ML IV SCH ×3 (05:13→21:21)
[2020-06-07] MEDS: HYDROMORPHONE HCL INJ/PF 2 MG/ML AMPULE IV PRN ×4 (06:25→20:19)
[2020-06-07 07:31] LABS: HEMATOCRIT 24.2 % (37.9-51.0); MEAN CORPUSCULAR HGB CONC 32.8 g/dL (32.0-36.0); MEAN CORPUSCULAR VOLUME 79 fl (80-97); PLATELET COUNT 584 10^3/uL (150-450); RED BLOOD COUNT 3.04 10^6/uL (4.35-5.55); RED CELL DISTRIBUTION WIDTH 16.3 % (11.5-14.0); WHITE BLOOD COUNT 10.7 10^3/uL (4.0-10.5)
[2020-06-07 07:33] LABS: PROTHROMBIN TIME 18.3 SEC (11.4-15.4)
[2020-06-07 07:40] LABS: HEMOGLOBIN 7.9 g/dL (13.5-17.0)
[2020-06-07] MEDS: DOCUSATE SODIUM 100 MG/10 ML UDC PO SCH ×2 (09:31→17:32)
[2020-06-07] MEDS: ENOXAPARIN SODIUM INJ 100 MG/1 ML DISP.SYRIN SUBCUT SCH ×2 (09:31→21:21)
[2020-06-07] MEDS: ASCORBIC ACID 500 MG TABLET PO SCH ×2 (09:32→17:34)
[2020-06-07] MEDS: CHOLECALCIFEROL (D3) 1,000 UNIT (25 MCG) TABLET PO SCH (09:32)
[2020-06-07] MEDS: ZINC SULFATE 220 MG CAPSULE PO SCH (09:32)
[2020-06-07] MEDS: GUAIFENESIN 600 MG TABLET.SA PO SCH ×2 (09:32→21:22)
[2020-06-07] MEDS: FAMOTIDINE INJ/PF 20 MG/2 ML SDV IV SCH ×2 (09:33→21:21)
[2020-06-07] MEDS: CEFEPIME HCL 2 GM in DEXTROSE 5%-WATER 50 ML IV SCH ×2 (09:34→21:20)
[2020-06-07 09:45] LABS: ABSOLUTE RETICS # 0.058 10^6/uL (0.028-0.122); RETICULOCYTE COUNT (AUTO) 1.93 % (0.66-2.85)
[2020-06-07 10:21] LABS: IRON(TIBC) 14.1 ug/dL (49-181)
[2020-06-07 11:38] LABS: FOLATE 6.76 ng/mL (>2.76)
[2020-06-07] MEDS: LEVOFLOXACIN 750 MG/D5W RTU 750 MG/150 ML RTUPB IV SCH (13:18)
[2020-06-07 15:07] LABS: VANCOMYCIN,TROUGH 18.9 ug/mL (5.0-20.0)
--- NOTE | 2020-06-07 16:18 | PDOC PROGRESS REPORT ---
Subjective Date:: 06/07/20 Subjective:: No adverse events overnight. Pain is well controlled. Oxygen has been weaned t o room air. He was downgraded to telemetry today. Reason For Visit: NECROTIZING FASCIITIS Physical Exam Vital Signs: Temp Pulse Resp BP Pulse Ox 98.6 F 88 18 110/58 L 96 06/07/20 15:12 06/07/20 15:12 06/07/20 15:12 06/07/20 15:12 06/07/20 15:12 Intake & Output 06/06/20 06/07/20 06/08/20 06:59 06:59 06:59 Intake Total 2091 2143 970 Output Total 2350 1950 Balance -259 193 970 Weight 90.6 kg 82.8 kg General appearance: PRESENT: no acute distress, cooperative, well-developed, well-nourished - overweight Respiratory exam: PRESENT: Clear to auscultation bilaterally, symmetrical, unlabored. ABSENT: rales, wheezes Cardiovascular exam: PRESENT: RRR, +S1, +S2. ABSENT: diastolic murmur, rubs, systolic murmur Pulses: PRESENT: normal dorsalis pedis pul Vascular exam: PRESENT: normal capillary refill GI/Abdominal exam: PRESENT: normal bowel sounds, soft. ABSENT: distended, guarding, mass, organolmegaly, rebound, tenderness Extremities exam: PRESENT: tenderness - LLE. ABSENT: calf tenderness, clubbing, full ROM, pedal edema Neurological exam: PRESENT: alert, awake, oriented to person, oriented to place, oriented to time, oriented to situation Psychiatric exam: PRESENT: appropriate affect, normal mood. Skin exam: PRESENT: dry, warm, other - Large post surgical wound to anterior and medial proximal thigh extending from groin to distal of the knee - wet to dry dressing w/ murtaza wrap in place. Results Laboratory Results: 06/07/20 05:50 06/03/20 06:05 06/07/20 06/07/20 06/07/20 05:10 05:50 05:50 WBC Cancelled 10.7 H RBC Cancelled 3.04 L Hgb Cancelled 7.9 L Hct Cancelled 24.2 L MCV Cancelled 79 L MCH Cancelled 26.0 L MCHC Cancelled 32.8 RDW Cancelled 16.3 H Plt Count Cancelled 584 H Retic Count (auto) 1.93 Iron TIBC % Saturation Ferritin Vitamin B12 Folate 06/07/20 05:50 WBC RBC Hgb Hct MCV MCH MCHC RDW Plt Count Retic Count (auto) Iron 14.1 L TIBC 253 % Saturation 6 Ferritin 153.00 Vitamin B12 553.0 Folate 6.76 06/01/20 14:23 Blood Blood Culture - Final NO GROWTH IN 5 DAYS 05/25/20 05/26/20 14:53 18:57 Creatine Kinase 36 L 23 L Impressions: Knee X-Ray 05/25/20 14:34 IMPRESSION: Small knee joint effusion. No acute fracture or destructive bone lesion. Lower Extremity CT 05/25/20 14:39 IMPRESSION: 1. Subcutaneous edema and skin thickening involving the distal upper leg and knee, consistent with cellulitis and subcutaneous edema. No focal drainable abscess. 2. Inflammatory change involving the medial compartment muscles suggestive of myositis. 3. Small knee joint effusion. 4. Focal DVT in the proximal common femoral vein extending into the greater saphenous vein and in the distal femoral vein. 5. Subcutaneous gas overlying the left hip region with no surrounding in flammatory change or foreign body. This may represent an injection site. PICC Line Insertion 05/27/20 00:00 IMPRESSION: SUCCESSFUL PLACEMENT OF A 5 FR DUAL LUMEN 47 CM PICC IN THE LEFT BASILIC VEIN. Chest X-Ray 06/01/20 00:00 IMPRESSION: Bilateral pneumonia. Chest/Abdomen CTA 06/01/20 00:00 IMPRESSION: Extensive bilateral pneumonia with coalescing nodules and solitary cavitary lesion in the right upper lobe suspicious for septic emboli. No intravascular pulmonary emboli. Assessment and Plan - Diagnosis (1) Cellulitis of left thigh Is this a current diagnosis for this admission?: Yes (2) Abscess of left thigh Is this a current diagnosis for this admission?: Yes (3) Heroin addiction Is this a current diagnosis for this admission?: Yes (4) DVT (deep venous thrombosis) Qualifiers: DVT location: lower extremity Affected thrombotic vein of extremity: femoral Chronicity: chronic Laterality: left Qualified Code(s): I82.512 - Chronic embolism and thrombosis of left femoral vein Is this a current diagnosis for this admission?: Yes (5) IV drug abuse Is this a current diagnosis for this admission?: Yes (6) Bacteremia Is this a current diagnosis for this admission?: Yes (7) Multifocal pneumonia Is this a current diagnosis for this admission?: Yes (8) Necrotizing soft tissue infection Is this a current diagnosis for this admission?: Yes - Plan Summary Summary: He has MRSA bacteremia sensitive to vancomycin. MITZI was negative for valvular vegetation. We have put him on Lovenox, taken him off heparin drip, and started Coumadin. He will likely need a split-thickness skin graft at some point. One of his blood cultures turned positive with a strain of Enterococcus. I am a little suspicious that perhaps he is obtaining drugs to inject whenever his girlfriend comes to see him in, this is possibly how he got this organism show up in his blood. Plan to repeat blood cultures tomorrow. It is pansensitive and should respond to vancomycin. We are de-escalating his pain medication. - Time Time Spent with patient: 15-24 minutes Anticipated Discharge Disposition: Unknown Anticipated Discharge Timeframe: Unknown
[2020-06-07] MEDS: FERROUS SULFATE 325 MG TABLET PO SCH (17:35)
[2020-06-07 19:35] LABS: APPEARANCE,URINE SLIGHTLY-CLOUDY; BILIRUBIN,URINE NEGATIVE (NEGATIVE); COLOR,URINE YELLOW; GLUCOSE, URINE NEGATIVE (NEGATIVE); KETONES,URINE NEGATIVE (NEGATIVE); LEUKOCYTE ESTERASE,URINE NEGATIVE (NEGATIVE); NITRITE,URINE NEGATIVE (NEGATIVE); PROTEIN,URINE NEGATIVE (NEGATIVE); URINE SPECIFIC GRAVITY 1.016; UROBILINOGEN,URINE NEGATIVE mg/dL (<2.0)
--- NOTE | 2020-06-07 21:05 | PDOC PROGRESS REPORT ---
Subjective Date:: 06/07/20 Subjective:: Still with pains along the left leg operative site. He is eating better Reason For Visit: NECROTIZING FASCIITIS Physical Exam Vital Signs: Temp Pulse Resp BP Pulse Ox 98.6 F 88 18 110/58 L 96 06/07/20 20:30 06/07/20 15:12 06/07/20 15:12 06/07/20 15:12 06/07/20 15:12 Intake & Output 06/06/20 06/07/20 06/08/20 06:59 06:59 06:59 Intake Total 2091 2143 1450 Output Total 2350 1950 400 Balance -013 791 2309 Weight 90.6 kg 82.8 kg Exam: Dressings removed from the left leg wound and there appears to have more granulation tissue but not ready as a bed for skin graft Results Laboratory Results: 06/07/20 05:50 06/03/20 06:05 06/07/20 06/07/20 06/07/20 05:10 05:50 05:50 WBC Cancelled 10.7 H RBC Cancelled 3.04 L Hgb Cancelled 7.9 L Hct Cancelled 24.2 L MCV Cancelled 79 L MCH Cancelled 26.0 L MCHC Cancelled 32.8 RDW Cancelled 16.3 H Plt Count Cancelled 584 H Retic Count (auto) 1.93 Iron TIBC % Saturation Ferritin Vitamin B12 Folate Urine Color Urine Appearance Urine pH Ur Specific [place] Urine Protein Urine Glucose (UA) Urine Ketones Urine Blood Urine Nitrite Ur Leukocyte Esterase Urine WBC (Auto) Urine RBC (Auto) 06/07/20 06/07/20 05:50 19:14 WBC RBC Hgb Hct MCV MCH MCHC RDW Plt Count Retic Count (auto) Iron 14.1 L TIBC 253 % Saturation 6 Ferritin 153.00 Vitamin B12 553.0 Folate 6.76 Urine Color YELLOW Urine Appearance SLIGHTLY-CLOUDY Urine pH 6.0 Ur Specific [place] 1.016 Urine Protein NEGATIVE Urine Glucose (UA) NEGATIVE Urine Ketones NEGATIVE Urine Blood NEGATIVE Urine Nitrite NEGATIVE Ur Leukocyte Esterase NEGATIVE Urine WBC (Auto) 1 Urine RBC (Auto) 0 05/25/20 05/26/20 14:53 18:57 Creatine Kinase 36 L 23 L Impressions: Knee X-Ray 05/25/20 14:34 IMPRESSION: Small knee joint effusion. No acute fracture or destructive bone lesion. Lower Extremity CT 05/25/20 14:39 IMPRESSION: 1. Subcutaneous edema and skin thickening involving the distal upper leg and knee, consistent with cellulitis and subcutaneous edema. No focal drainable abscess. 2. Inflammatory change involving the medial compartment muscles suggestive of myositis. 3. Small knee joint effusion. 4. Focal DVT in the proximal common femoral vein extending into the greater saphenous vein and in the distal femoral vein. 5. Subcutaneous gas overlying the left hip region with no surrounding inflammatory change or foreign body. This may represent an injection site. PICC Line Insertion 05/27/20 00:00 IMPRESSION: SUCCESSFUL PLACEMENT OF A 5 FR DUAL LUMEN 47 CM PICC IN THE LEFT BASILIC VEIN. Chest X-Ray 06/01/20 00:00 IMPRESSION: Bilateral pneumonia. Chest/Abdomen CTA 06/01/20 00:00 IMPRESSION: Extensive bilateral pneumonia with coalescing nodules and solitary cavitary lesion in the right upper lobe suspicious for septic emboli. No intravascular pulmonary emboli. Assessment & Plan - Diagnosis (1) IV drug abuse Is this a current diagnosis for this admission?: Yes (2) Necrotizing soft tissue infection Is this a current diagnosis for this admission?: Yes - Time Anticipated Discharge Disposition: Home with Home Health Anticipated Discharge Timeframe: 1 week - Inpatient Certification Medical Necessity: Need for IV Antibiotics, Need for Surgery - Plan Summary Plan Summary: POD #9 post debridement of left leg necrotizing soft tissue infection measuring 27 cm x 13 cm. Dressings were remove and there appears to have better granulation tissue. His white count is down to 10.9 but his hemoglobin is down to 7.9. His iron levels are low and being given supplement next Plans: continue with wet-to-dry dressings every 12 hours to left leg wound. Continue IV antibiotics Hopefully with good nutrition the wound will be ready for split-thickness skin graft next week.
[2020-06-07] MEDS: WARFARIN SODIUM 5 MG TABLET PO SCH (21:23)
[2020-06-08] MEDS: OXYCODONE-ACETAMINOPHEN 5-325 MG TABLET PO SCH ×6 (01:23→23:42)
[2020-06-08] MEDS: HYDROMORPHONE HCL INJ/PF 2 MG/ML AMPULE IV PRN ×2 (05:19→14:27)
[2020-06-08] MEDS: METHADONE HCL 10 MG TABLET PO SCH ×3 (05:20→23:09)
[2020-06-08] MEDS: VANCOMYCIN HCL 1,250 MG in DEXTROSE 5%-WATER 250 ML IV SCH ×3 (05:20→23:19)
[2020-06-08 05:43] LABS: HEMATOCRIT 25.2 % (37.9-51.0); HEMOGLOBIN 8.5 g/dL (13.5-17.0); MEAN CORPUSCULAR HEMOGLOBIN 26.4 pg (27.0-33.4); MEAN CORPUSCULAR HGB CONC 33.7 g/dL (32.0-36.0); MEAN CORPUSCULAR VOLUME 78 fl (80-97); PLATELET COUNT 600 10^3/uL (150-450); RED BLOOD COUNT 3.22 10^6/uL (4.35-5.55); RED CELL DISTRIBUTION WIDTH 16.4 % (11.5-14.0); WHITE BLOOD COUNT 9.6 10^3/uL (4.0-10.5)
[2020-06-08 06:08] LABS: INTERNATIONAL RATION (INR) 1.71; PROTHROMBIN TIME 20.2 SEC (11.4-15.4)
[2020-06-08] MEDS: CHOLECALCIFEROL (D3) 1,000 UNIT (25 MCG) TABLET PO SCH (10:22)
[2020-06-08] MEDS: DOCUSATE SODIUM 100 MG/10 ML UDC PO SCH ×2 (10:23→17:21)
[2020-06-08] MEDS: GUAIFENESIN 600 MG TABLET.SA PO SCH ×2 (10:23→23:11)
[2020-06-08] MEDS: FERROUS SULFATE 325 MG TABLET PO SCH ×2 (10:23→18:02)
[2020-06-08] MEDS: ASCORBIC ACID 500 MG TABLET PO SCH ×2 (10:23→18:02)
[2020-06-08] MEDS: ENOXAPARIN SODIUM INJ 100 MG/1 ML DISP.SYRIN SUBCUT SCH ×2 (10:24→23:43)
[2020-06-08] MEDS: FAMOTIDINE INJ/PF 20 MG/2 ML SDV IV SCH ×2 (10:24→23:40)
[2020-06-08] MEDS: ZINC SULFATE 220 MG CAPSULE PO SCH (10:24)
[2020-06-08] MEDS: CEFEPIME HCL 2 GM in DEXTROSE 5%-WATER 50 ML IV SCH (10:25)
[2020-06-08] MEDS ORDERED: NORMAL SALINE 10 ML SDV (AFTER EACH USE) IV PRN (13:30)
--- NOTE | 2020-06-08 16:15 | PDOC PROGRESS REPORT ---
Subjective Date:: 06/08/20 Reason For Visit: NECROTIZING FASCIITIS Patient getting up with assistance, limited ambulation. Physical Exam Vital Signs: Temp Pulse Resp BP Pulse Ox 98.4 F 78 19 110/64 93 06/08/20 12:26 06/08/20 12:26 06/08/20 12:26 06/08/20 14:01 06/08/20 12:26 Intake & Output 06/07/20 06/08/20 06/09/20 06:59 06:59 06:59 Intake Total 2143 2550 356 Output Total 1950 2049 1050 Balance 193 500 -694 Weight 82.8 kg 82.8 kg General appearance: PRESENT: mild distress Musculoskeletal exam: PRESENT: other - Left lower extremity dressing removed. Edema continues to resolve. Open wound clean, granulating in areas. Cautery related eschar persist around the knee. Some nonviable fat in the region of the groin. Overall no foul smell. Minimal serous drainage Results Laboratory Results: 06/08/20 05:15 06/03/20 06:05 06/07/20 06/08/20 19:14 05:15 WBC 9.6 RBC 3.22 L Hgb 8.5 L Hct 25.2 L MCV 78 L MCH 26.4 L MCHC 33.7 RDW 16.4 H Plt Count 600 H Urine Color YELLOW Urine Appearance SLIGHTLY-CLOUDY Urine pH 6.0 Ur Specific [place] 1.016 Urine Protein NEGATIVE Urine Glucose (UA) NEGATIVE Urine Ketones NEGATIVE Urine Blood NEGATIVE Urine Nitrite NEGATIVE Ur Leukocyte Esterase NEGATIVE Urine WBC (Auto) 1 Urine RBC (Auto) 0 05/25/20 05/26/20 14:53 18:57 Creatine Kinase 36 L 23 L Impressions: Knee X-Ray 05/25/20 14:34 IMPRESSION: Small knee joint effusion. No acute fracture or destructive bone lesion. Lower Extremity CT 05/25/20 14:39 IMPRESSION: 1. Subcutaneous edema and skin thickening involving the distal upper leg and knee, consistent with cellulitis and subcutaneous edema. No focal drainable abscess. 2. Inflammatory change involving the medial compartment muscles suggestive of myositis. 3. Small knee joint effusion. 4. Focal DVT in the proximal common femoral vein extending into the greater saphenous vein and in the distal femoral vein. 5. Subcutaneous gas overlying the left hip region with no surrounding inflammatory change or foreign body. This may represent an injection site. PICC Line Insertion 05/27/20 00:00 IMPRESSION: SUCCESSFUL PLACEMENT OF A 5 FR DUAL LUMEN 47 CM PICC IN THE LEFT BASILIC VEIN. Chest X-Ray 06/01/20 00:00 IMPRESSION: Bilateral pneumonia. Chest/Abdomen CTA 06/01/20 00:00 IMPRESSION: Extensive bilateral pneumonia with coalescing nodules and solitary cavitary lesion in the right upper lobe suspicious for septic emboli. No intravascular pulmonary emboli. Assessment & Plan - Diagnosis (1) Abscess of left thigh Is this a current diagnosis for this admission?: Yes Plan: Impression: Left lower extremity making progress with open wound beginning to granulate in areas. Some eschar and fibrinous debris will require debridement in the future. Plan: 1. Continue local wound care, intravenous vancomycin; may discontinue Rocephin 2. We would like for him to get up and ambulate more get the leg flexing and extending. I emphasized this with the patient. 3. I emphasized the patient that this leg would not be ready for skin grafting for another 6 to 8 weeks (2) DVT (deep venous thrombosis) Qualifiers: DVT location: lower extremity Affected thrombotic vein of extremity: femoral Chronicity: chronic Laterality: left Qualified Code(s): I82.512 - Chronic embolism and thrombosis of left femoral vein Is this a current diagnosis for this admission?: Yes (3) IV drug abuse Is this a current diagnosis for this admission?: Yes (4) Necrotizing soft tissue infection Is this a current diagnosis for this admission?: Yes (5) Pulmonary emboli Is this a current diagnosis for this admission?: Yes - Time Anticipated Discharge Disposition: Home, Self Care Anticipated Discharge Timeframe: within 48 hours
--- NOTE | 2020-06-08 16:15 | PDOC PROGRESS REPORT ---
Subjective Date:: 06/08/20 Subjective:: No adverse events overnight. Pain is well controlled. Oxygen has been weaned t o room air. Tolerating his dressing changes relatively well. Reason For Visit: NECROTIZING FASCIITIS Physical Exam Vital Signs: Temp Pulse Resp BP Pulse Ox 98.4 F 78 19 110/64 93 06/08/20 12:26 06/08/20 12:26 06/08/20 12:26 06/08/20 14:01 06/08/20 12:26 Intake & Output 06/07/20 06/08/20 06/09/20 06:59 06:59 06:59 Intake Total 2143 2550 356 Output Total 1950 2049 1050 Balance 193 500 -694 Weight 82.8 kg 82.8 kg General appearance: PRESENT: no acute distress, cooperative, well-developed, well-nourished - overweight Respiratory exam: PRESENT: Clear to auscultation bilaterally, symmetrical, unlabored. ABSENT: rales, wheezes Cardiovascular exam: PRESENT: RRR, +S1, +S2. ABSENT: diastolic murmur, rubs, systolic murmur Pulses: PRESENT: normal dorsalis pedis pul Vascular exam: PRESENT: normal capillary refill GI/Abdominal exam: PRESENT: normal bowel sounds, soft. ABSENT: distended, guarding, mass, organolmegaly, rebound, tenderness Extremities exam: PRESENT: tenderness - LLE. ABSENT: calf tenderness, clubbing, full ROM, pedal edema Neurological exam: PRESENT: alert, awake, oriented to person, oriented to place, oriented to time, oriented to situation Psychiatric exam: PRESENT: appropriate affect, normal mood. Skin exam: PRESENT: dry, warm, other - Large post surgical wound to anterior and medial proximal thigh extending from groin to distal of the knee -some granulation tissue and scabbing along with some serous drainage. Results Laboratory Results: 06/08/20 05:15 06/03/20 06:05 06/07/20 06/08/20 19:14 05:15 WBC 9.6 RBC 3.22 L Hgb 8.5 L Hct 25.2 L MCV 78 L MCH 26.4 L MCHC 33.7 RDW 16.4 H Plt Count 600 H Urine Color YELLOW Urine Appearance SLIGHTLY-CLOUDY Urine pH 6.0 Ur Specific [place] 1.016 Urine Protein NEGATIVE Urine Glucose (UA) NEGATIVE Urine Ketones NEGATIVE Urine Blood NEGATIVE Urine Nitrite NEGATIVE Ur Leukocyte Esterase NEGATIVE Urine WBC (Auto) 1 Urine RBC (Auto) 0 05/25/20 05/26/20 14:53 18:57 Creatine Kinase 36 L 23 L Impressions: Knee X-Ray 05/25/20 14:34 IMPRESSION: Small knee joint effusion. No acute fracture or destructive bone lesion. Lower Extremity CT 05/25/20 14:39 IMPRESSION: 1. Subcutaneous edema and skin thickening involving the distal upper leg and knee, consistent with cellulitis and subcutaneous edema. No focal drainable abscess. 2. Inflammatory change involving the medial compartment muscles suggestive of myositis. 3. Small knee joint effusion. 4. Focal DVT in the proximal common femoral vein extending into the greater saphenous vein and in the distal femoral vein. 5. Subcutaneous gas overlying the left hip region with no surrounding inflammatory change or foreign body. This may represent an injection site. PICC Line Insertion 05/27/20 00:00 IMPRESSION: SUCCESSFUL PLACEMENT OF A 5 FR DUAL LUMEN 47 CM PICC IN THE LEFT BASILIC VEIN. Chest X-Ray 06/01/20 00:00 IMPRESSION: Bilateral pneumonia. Chest/Abdomen CTA 06/01/20 00:00 IMPRESSION: Extensive bilateral pneumonia with coalescing nodules and solitary cavitary lesion in the right upper lobe suspicious for septic emboli. No intravascular pulmonary emboli. Assessment and Plan - Diagnosis (1) Cellulitis of left thigh Is this a current diagnosis for this admission?: Yes (2) Abscess of left thigh Is this a current diagnosis for this admission?: Yes (3) Heroin addiction Is this a current diagnosis for this admission?: Yes (4) DVT (deep venous thrombosis) Qualifiers: Qualified Code(s): I82.512 - Chronic embolism and thrombosis of left femoral vein Is this a current diagnosis for this admission?: Yes (5) IV drug abuse Is this a current diagnosis for this admission?: Yes (6) Bacteremia Is this a current diagnosis for this admission?: Yes (7) Multifocal pneumonia Is this a current diagnosis for this admission?: Yes (8) Necrotizing soft tissue infection Is this a current diagnosis for this admission?: Yes - Plan Summary Summary: He has MRSA bacteremia sensitive to vancomycin. MITZI was negative for valvular vegetation. We have put him on Lovenox, taken him off heparin drip, and started Coumadin. He will likely need a split-thickness skin graft at some point. One of his blood cultures turned positive with a strain of Enterococcus. I am a little suspicious that perhaps he is obtaining drugs to inject whenever his girlfriend comes to see him in, this is possibly how he got this organism show up in his blood. It is pansensitive and should respond to vancomycin. We are de-escalating his pain medication. Dispositioning may be a challenge. - Time Time Spent with patient: 15-24 minutes Anticipated Discharge Disposition: Unknown Anticipated Discharge Timeframe: Unknown
[2020-06-08] MEDS: WARFARIN SODIUM 5 MG TABLET PO SCH (23:14)
[2020-06-08] MEDS: NORMAL SALINE 10 ML SDV (SCHEDULED) IV SCH (23:15)
[2020-06-09] MEDS: HYDROMORPHONE HCL INJ/PF 2 MG/ML AMPULE IV PRN ×2 (01:06→11:41)
[2020-06-09] MEDS: OXYCODONE-ACETAMINOPHEN 5-325 MG TABLET PO SCH ×6 (02:51→17:45)
[2020-06-09] MEDS: METHADONE HCL 10 MG TABLET PO SCH ×3 (05:25→22:32)
[2020-06-09] MEDS: VANCOMYCIN HCL 1,250 MG in DEXTROSE 5%-WATER 250 ML IV SCH ×3 (05:25→22:32)
[2020-06-09] MEDS: FERROUS SULFATE 325 MG TABLET PO SCH ×2 (09:03→17:46)
[2020-06-09] MEDS: DOCUSATE SODIUM 100 MG/10 ML UDC PO SCH ×2 (09:03→17:47)
[2020-06-09] MEDS: FAMOTIDINE INJ/PF 20 MG/2 ML SDV IV SCH ×2 (09:04→22:31)
[2020-06-09] MEDS: CHOLECALCIFEROL (D3) 1,000 UNIT (25 MCG) TABLET PO SCH (09:04)
[2020-06-09] MEDS: GUAIFENESIN 600 MG TABLET.SA PO SCH ×2 (09:04→22:31)
[2020-06-09] MEDS: ASCORBIC ACID 500 MG TABLET PO SCH ×2 (09:04→17:45)
[2020-06-09] MEDS: ENOXAPARIN SODIUM INJ 100 MG/1 ML DISP.SYRIN SUBCUT SCH ×2 (09:05→22:31)
[2020-06-09] MEDS: NORMAL SALINE 10 ML SDV (SCHEDULED) IV SCH ×2 (09:05→22:32)
--- NOTE | 2020-06-09 09:38 | PDOC PROGRESS REPORT ---
Subjective Date:: 06/09/20 Reason For Visit: NECROTIZING FASCIITIS No significant changes overnight; got up to bedside commode yesterday. Physical Exam Vital Signs: Temp Pulse Resp BP Pulse Ox 97.4 F 66 16 98/54 L 99 06/09/20 08:03 06/09/20 07:46 06/09/20 07:46 06/09/20 07:46 06/09/20 07:46 Intake & Output 06/08/20 06/09/20 06/10/20 06:59 06:59 06:59 Intake Total 2550 1706 250 Output Total 2050 1800 Balance 500 -94 250 Weight 82.8 kg 82.8 kg Extremities exam: PRESENT: other - Incremental improvement in range of motion of the left lower extremity; dressing changed; no significant alteration in appearance of wound bed; small areas of desiccation noted Musculoskeletal exam: PRESENT: other - Limited range of motion of ankle and knee Results Laboratory Results: 06/08/20 05:15 06/03/20 06:05 05/25/20 05/26/20 14:53 18:57 Creatine Kinase 36 L 23 L Impressions: Knee X-Ray 05/25/20 14:34 IMPRESSION: Small knee joint effusion. No acute fracture or destructive bone lesion. Lower Extremity CT 05/25/20 14:39 IMPRESSION: 1. Subcutaneous edema and skin thickening involving the distal upper leg and knee, consistent with cellulitis and subcutaneous edema. No focal drainable abscess. 2. Inflammatory change involving the medial compartment muscles suggestive of myositis. 3. Small knee joint effusion. 4. Focal DVT in the proximal common femoral vein extending into the greater saphenous vein and in the distal femoral vein. 5. Subcutaneous gas overlying the left hip region with no surrounding inflammatory change or foreign body. This may represent an injection site. PICC Line Insertion 05/27/20 00:00 IMPRESSION: SUCCESSFUL PLACEMENT OF A 5 FR DUAL LUMEN 47 CM PICC IN THE LEFT BASILIC VEIN. Chest X-Ray 06/01/20 00:00 IMPRESSION: Bilateral pneumonia. Chest/Abdomen CTA 06/01/20 00:00 IMPRESSION: Extensive bilateral pneumonia with coalescing nodules and solitary cavitary lesion in the right upper lobe suspicious for septic emboli. No intravascular pulmonary emboli. Assessment & Plan - Diagnosis (1) Abscess of left thigh Is this a current diagnosis for this admission?: Yes Plan: Impression: Patient is 2 weeks status post extensive skin and soft tissue debridement left leg, with infection coming under nice control, wound stabiliz ing beginning to granulate; patient care complicated by DVT, PE on pharmacologic anticoagulation; now with superimposed Enterococcus bacteremia remains on IV vancomycin and cefepime Plan: 1. Discussed management with the hospital service; we will transfer the patient over to hospitalist service 2. From a septic standpoint, left leg wound that were extensive, coming under control and unlikely source of ongoing bacteremia. Continue local wound care with dressing changes. Once entire wound bed granulated, in 6 to 8 weeks, patient may be considered for skin coverage although this will be very challenging in this high risk patient. 3. Ideally patient be managed on an outpatient basis once his INR is therapeutic on Coumadin. However, due to his at risk behavior due to drug abuse, and unstable social situation, outpatient management with home health care will be challenging. (2) DVT (deep venous thrombosis) Qualifiers: DVT location: lower extremity Affected thrombotic vein of extremity: femoral Chronicity: chronic Laterality: left Qualified Code(s): I82.512 - Chronic embolism and thrombosis of left femoral vein Is this a current diagnosis for this admission?: Yes (3) IV drug abuse Is this a current diagnosis for this admission?: Yes (4) Necrotizing soft tissue infection Is this a current diagnosis for this admission?: Yes (5) Pulmonary emboli Is this a current diagnosis for this admission?: Yes - Time Anticipated Discharge Disposition: Home, Self Care Anticipated Discharge Timeframe: within 72 hours
[2020-06-09 09:39] LABS: INTERNATIONAL RATION (INR) 2.02; PROTHROMBIN TIME 22.9 SEC (11.4-15.4)
[2020-06-09] MEDS: ZINC SULFATE 220 MG CAPSULE PO SCH (10:40)
--- NOTE | 2020-06-09 16:16 | PDOC PROGRESS REPORT ---
Subjective Date:: 06/09/20 Subjective:: No adverse events overnight. No new complaints. Vital signs been stable. Tole rating dressing changes twice a day. Reason For Visit: NECROTIZING FASCIITIS Physical Exam Vital Signs: Temp Pulse Resp BP Pulse Ox 97.4 F 89 20 101/64 95 06/09/20 15:50 06/09/20 15:50 06/09/20 15:50 06/09/20 15:50 06/09/20 15:50 Intake & Output 06/08/20 06/09/20 06/10/20 06:59 06:59 06:59 Intake Total 2550 1706 250 Output Total 2050 1800 Balance 500 -94 250 Weight 82.8 kg 82.8 kg General appearance: PRESENT: no acute distress, cooperative, well-developed, well-nourished - overweight Respiratory exam: PRESENT: Clear to auscultation bilaterally, symmetrical, unlabored. ABSENT: rales, wheezes Cardiovascular exam: PRESENT: RRR, +S1, +S2. ABSENT: diastolic murmur, rubs, systolic murmur Pulses: PRESENT: normal dorsalis pedis pul Vascular exam: PRESENT: normal capillary refill GI/Abdominal exam: PRESENT: normal bowel sounds, soft. ABSENT: distended, guarding, mass, organolmegaly, rebound, tenderness Extremities exam: PRESENT: tenderness - LLE. ABSENT: calf tenderness, clubbing, full ROM, pedal edema Neurological exam: PRESENT: alert, awake, oriented to person, oriented to place, oriented to time, oriented to situation Psychiatric exam: PRESENT: appropriate affect, normal mood. Skin exam: PRESENT: dry, warm, other - Large post surgical wound to anterior and medial proximal thigh extending from groin to distal of the knee -some granulation tissue and scabbing along with some serous drainage. Results Laboratory Results: 06/08/20 05:15 06/03/20 06:05 05/25/20 05/26/20 14:53 18:57 Creatine Kinase 36 L 23 L Impressions: Knee X-Ray 05/25/20 14:34 IMPRESSION: Small knee joint effusion. No acute fracture or destructive bone lesion. Lower Extremity CT 05/25/20 14:39 IMPRESSION: 1. Subcutaneous edema and skin thickening involving the distal upper leg and knee, consistent with cellulitis and subcutaneous edema. No focal drainable abscess. 2. Inflammatory change involving the medial compartment muscles suggestive of myositis. 3. Small knee joint effusion. 4. Focal DVT in the proximal common femoral vein extending into the greater saphenous vein and in the distal femoral vein. 5. Subcutaneous gas overlying the left hip region with no surrounding inflammatory change or foreign body. This may represent an injection site. PICC Line Insertion 05/27/20 00:00 IMPRESSION: SUCCESSFUL PLACEMENT OF A 5 FR DUAL LUMEN 47 CM PICC IN THE LEFT BASILIC VEIN. Chest X-Ray 06/01/20 00:00 IMPRESSION: Bilateral pneumonia. Chest/Abdomen CTA 06/01/20 00:00 IMPRESSION: Extensive bilateral pneumonia with coalescing nodules and solitary cavitary lesion in the right upper lobe suspicious for septic emboli. No intravascular pulmonary emboli. Assessment and Plan - Diagnosis (1) Cellulitis of left thigh Is this a current diagnosis for this admission?: Yes (2) Abscess of left thigh Is this a current diagnosis for this admission?: Yes (3) Heroin addiction Is this a current diagnosis for this admission?: Yes (4) DVT (deep venous thrombosis) Qualifiers: DVT location: lower extremity Affected thrombotic vein of extremity: femoral Chronicity: chronic Laterality: left Qualified Code(s): I82.512 - Chronic embolism and thrombosis of left femoral vein Is this a current diagnosis for this admission?: Yes (5) IV drug abuse Is this a current diagnosis for this admission?: Yes (6) Bacteremia Is this a current diagnosis for this admission?: Yes (7) Multifocal pneumonia Is this a current diagnosis for this admission?: Yes (8) Necrotizing soft tissue infection Is this a current diagnosis for this admission?: Yes - Plan Summary Summary: He has MRSA bacteremia sensitive to vancomycin. MITZI was negative for valvular vegetation. We have put him on Lovenox, taken him off heparin drip, and started Coumadin. He will likely need a split-thickness skin graft at some point. One of his blood cultures turned positive with a strain of Enterococcus. I am a little suspicious that perhaps he is obtaining drugs to inject whenever his girlfriend comes to see him in, this is possibly how he got this organism show up in his blood. It is pansensitive and should respond to vancomycin. We are de-escalating his pain medication. Dispositioning may be a challenge. He needs 1 more day of Coumadin and then his Lovenox can be discontinued. That will probably happen tomorrow morning. We are waiting for repeat blood cultures to see how long he is going to need antibiotics for the Enterococcus that showed up in his blood. I think it is impressive that he had been on antibiotics for so long for his MRSA bacteremia and then he turned positive for this Enterococcus. Possibly a contaminant, but we cannot treat Enterococcus as such. We should be able to switch him to ampicillin. He is completed 2 weeks of vancomycin for MRSA bacteremia. We cannot really treat his Enterococcus with oral antibiotics. So is going to need IV antibiotics for at least another week from this point. On top of that, his wound care at home is going to be a trouble. Dr. Guerra thinks he needs split-thickness skin graft in 6 to 8 weeks. He does not have any insurance so I do not know how were going to get wound care for him at home because I doubt as if he is going to pay [id number]. We will talk to case management about what our options are for this patient. - Time Time Spent with patient: 15-24 minutes Anticipated Discharge Disposition: Unknown Anticipated Discharge Timeframe: Unknown
[2020-06-09] MEDS: WARFARIN SODIUM 5 MG TABLET PO SCH (22:31)
[2020-06-10] MEDS: OXYCODONE-ACETAMINOPHEN 5-325 MG TABLET PO SCH ×7 (00:19→23:43)
[2020-06-10] MEDS: VANCOMYCIN HCL 1,250 MG in DEXTROSE 5%-WATER 250 ML IV SCH ×3 (05:51→23:43)
[2020-06-10] MEDS: METHADONE HCL 10 MG TABLET PO SCH ×3 (05:52→23:44)
[2020-06-10] MEDS: HYDROMORPHONE HCL INJ/PF 2 MG/ML AMPULE IV PRN ×2 (05:52→16:33)
[2020-06-10 08:11] LABS: HEMATOCRIT 24.4 % (37.9-51.0); HEMOGLOBIN 8.1 g/dL (13.5-17.0); MEAN CORPUSCULAR HEMOGLOBIN 26.2 pg (27.0-33.4); MEAN CORPUSCULAR HGB CONC 33.4 g/dL (32.0-36.0); MEAN CORPUSCULAR VOLUME 78 fl (80-97); PLATELET COUNT 525 10^3/uL (150-450); RED BLOOD COUNT 3.12 10^6/uL (4.35-5.55); RED CELL DISTRIBUTION WIDTH 16.2 % (11.5-14.0); WHITE BLOOD COUNT 9.2 10^3/uL (4.0-10.5)
[2020-06-10 08:19] LABS: INTERNATIONAL RATION (INR) 2.02; PROTHROMBIN TIME 22.9 SEC (11.4-15.4)
--- NOTE | 2020-06-10 08:21 | PDOC PROGRESS REPORT ---
Subjective Date:: 06/10/20 Reason For Visit: NECROTIZING FASCIITIS Physical Exam Vital Signs: Temp Pulse Resp BP Pulse Ox 98.1 F 71 20 115/59 L 93 06/10/20 00:00 06/10/20 00:00 06/10/20 00:00 06/10/20 00:00 06/10/20 00:00 Intake & Output 06/09/20 06/10/20 06/11/20 06:59 06:59 06:59 Intake Total 1706 1725 Output Total 1800 2500 Balance -94 -615 Weight 82.8 kg 82.6 kg Extremities exam: PRESENT: other - wound reported by nurse who has done dressing change clean, no areas of necrosis or drainage. Results Laboratory Results: 06/10/20 06:00 06/03/20 06:05 06/10/20 06:00 WBC 9.2 RBC 3.12 L Hgb 8.1 L Hct 24.4 L MCV 78 L MCH 26.2 L MCHC 33.4 RDW 16.2 H Plt Count 525 H 05/25/20 05/26/20 14:53 18:57 Creatine Kinase 36 L 23 L Impressions: Knee X-Ray 05/25/20 14:34 IMPRESSION: Small knee joint effusion. No acute fracture or destructive bone lesion. Lower Extremity CT 05/25/20 14:39 IMPRESSION: 1. Subcutaneous edema and skin thickening involving the distal upper leg and knee, consistent with cellulitis and subcutaneous edema. No focal drainable abscess. 2. Inflammatory change involving the medial compartment muscles suggestive of myositis. 3. Small knee joint effusion. 4. Focal DVT in the proximal common femoral vein extending into the greater saphenous vein and in the distal femoral vein. 5. Subcutaneous gas overlying the left hip region with no surrounding inflammatory change or foreign body. This may represent an injection site. PICC Line Insertion 05/27/20 00:00 IMPRESSION: SUCCESSFUL PLACEMENT OF A 5 FR DUAL LUMEN 47 CM PICC IN THE LEFT BASILIC VEIN. Chest X-Ray 06/01/20 00:00 IMPRESSION: Bilateral pneumonia. Chest/Abdomen CTA 06/01/20 00:00 IMPRESSION: Extensive bilateral pneumonia with coalescing nodules and solitary cavitary lesion in the right upper lobe suspicious for septic emboli. No intravascular pulmonary emboli. Assessment & Plan - Diagnosis (1) Abscess of left thigh Is this a current diagnosis for this admission?: Yes (2) Necrotizing fasciitis Is this a current diagnosis for this admission?: Yes - Time Anticipated Discharge Disposition: Home with Home Health Anticipated Discharge Timeframe: unk - Plan Summary Plan Summary: cont dressing changes discharge planning
[2020-06-10] MEDS: ENOXAPARIN SODIUM INJ 100 MG/1 ML DISP.SYRIN SUBCUT SCH (11:21)
[2020-06-10] MEDS: ASCORBIC ACID 500 MG TABLET PO SCH ×2 (11:22→17:24)
[2020-06-10] MEDS: FERROUS SULFATE 325 MG TABLET PO SCH ×2 (11:23→17:24)
[2020-06-10] MEDS: ZINC SULFATE 220 MG CAPSULE PO SCH (11:23)
[2020-06-10] MEDS: CHOLECALCIFEROL (D3) 1,000 UNIT (25 MCG) TABLET PO SCH (11:23)
[2020-06-10] MEDS: NORMAL SALINE 10 ML SDV (SCHEDULED) IV SCH ×2 (11:24→23:47)
[2020-06-10] MEDS: FAMOTIDINE INJ/PF 20 MG/2 ML SDV IV SCH (11:24)
[2020-06-10] MEDS: DOCUSATE SODIUM 100 MG/10 ML UDC PO SCH (11:24)
[2020-06-10] MEDS: GUAIFENESIN 600 MG TABLET.SA PO SCH ×2 (11:24→23:45)
--- NOTE | 2020-06-10 15:58 | PDOC PROGRESS REPORT ---
Subjective Date:: 06/10/20 Subjective:: No adverse events overnight. No new complaints. Vital signs been stable. Nicky rating dressing changes twice a day. INR is therapeutic and he has been on 5 days of Coumadin so we discontinued his Lovenox. No signs of withdrawal. Reason For Visit: NECROTIZING FASCIITIS Physical Exam Vital Signs: Temp Pulse Resp BP Pulse Ox 98.0 F 79 17 100/46 L 96 06/10/20 07:46 06/10/20 07:46 06/10/20 07:46 06/10/20 07:46 06/10/20 07:46 Intake & Output 06/09/20 06/10/20 06/11/20 06:59 06:59 06:59 Intake Total 1706 1885 760 Output Total 1800 2500 Balance -94 -615 760 Weight 82.8 kg 82.6 kg General appearance: PRESENT: no acute distress, cooperative, well-developed, well-nourished - overweight Respiratory exam: PRESENT: Clear to auscultation bilaterally, symmetrical, unlabored. ABSENT: rales, wheezes Cardiovascular exam: PRESENT: RRR, +S1, +S2. ABSENT: diastolic murmur, rubs, systolic murmur Pulses: PRESENT: normal dorsalis pedis pul Vascular exam: PRESENT: normal capillary refill GI/Abdominal exam: PRESENT: normal bowel sounds, soft. ABSENT: distended, guarding, mass, organolmegaly, rebound, tenderness Extremities exam: PRESENT: tenderness - LLE. ABSENT: calf tenderness, clubbing, full ROM, pedal edema Neurological exam: PRESENT: alert, awake, oriented to person, oriented to place, oriented to time, oriented to situation Psychiatric exam: PRESENT: appropriate affect, normal mood. Skin exam: PRESENT: dry, warm, other -large wound on left leg is covered in a heavy bandage Results Laboratory Results: 06/10/20 06:00 06/03/20 06:05 06/10/20 06:00 WBC 9.2 RBC 3.12 L Hgb 8.1 L Hct 24.4 L MCV 78 L MCH 26.2 L MCHC 33.4 RDW 16.2 H Plt Count 525 H 05/25/20 05/26/20 14:53 18:57 Creatine Kinase 36 L 23 L Impressions: Knee X-Ray 05/25/20 14:34 IMPRESSION: Small knee joint effusion. No acute fracture or destructive bone lesion. Lower Extremity CT 05/25/20 14:39 IMPRESSION: 1. Subcutaneous edema and skin thickening involving the distal upper leg and knee, consistent with cellulitis and subcutaneous edema. No focal drainable abscess. 2. Inflammatory change involving the medial compartment muscles suggestive of myositis. 3. Small knee joint effusion. 4. Focal DVT in the proximal common femoral vein extending into the greater saphenous vein and in the distal femoral vein. 5. Subcutaneous gas overlying the left hip region with no surrounding inflammatory change or foreign body. This may represent an injection site. PICC Line Insertion 05/27/20 00:00 IMPRESSION: SUCCESSFUL PLACEMENT OF A 5 FR DUAL LUMEN 47 CM PICC IN THE LEFT BASILIC VEIN. Chest X-Ray 06/01/20 00:00 IMPRESSION: Bilateral pneumonia. Chest/Abdomen CTA 06/01/20 00:00 IMPRESSION: Extensive bilateral pneumonia with coalescing nodules and solitary cavitary lesion in the right upper lobe suspicious for septic emboli. No intravascular pulmonary emboli. Assessment and Plan - Diagnosis (1) Cellulitis of left thigh Is this a current diagnosis for this admission?: Yes (2) Abscess of left thigh Is this a current diagnosis for this admission?: Yes (3) Heroin addiction Is this a current diagnosis for this admission?: Yes (4) DVT (deep venous thrombosis) Qualifiers: DVT location: lower extremity Affected thrombotic vein of extremity: femoral Chronicity: chronic Laterality: left Qualified Code(s): I82.512 - Chronic embolism and thrombosis of left femoral vein Is this a current diagnosis for this admission?: Yes (5) IV drug abuse Is this a current diagnosis for this admission?: Yes (6) Bacteremia Is this a current diagnosis for this admission?: Yes (7) Multifocal pneumonia Is this a current diagnosis for this admission?: Yes (8) Necrotizing soft tissue infection Is this a current diagnosis for this admission?: Yes - Plan Summary Summary: He has MRSA bacteremia sensitive to vancomycin, has completed 2 weeks of antibiotics. MITZI was negative for valvular vegetation. We discontinued his Lovenox and he continues on Coumadin. He will likely need a split-thickness skin graft at some point, in several weeks according to surgery. One of his blood cultures turned positive with a strain of Enterococcus. I am a little suspicious that perhaps he is obtaining drugs to inject whenever his girlfriend comes to see him in, this is possibly how he got this organism show up in his blood. It is pansensitive and should respond to vancomycin. We are de- escalating his pain medication. Dispositioning may be a challenge. He needs 1 more day of Coumadin and then his Lovenox can be discontinued. That will probably happen tomorrow morning. We are waiting for repeat blood cultures to see how long he is going to need antibiotics for the Enterococcus that showed up in his blood. I think it is impressive that he had been on antibiotics for so long for his MRSA bacteremia and then he turned positive for this Enterococcus. Possibly a contaminant, but we cannot treat Enterococcus as such. We should be able to switch him to ampicillin. He is completed 2 weeks of vancomycin for MRSA bacteremia. We cannot really treat his Enterococcus with oral antibiotics. So is going to need IV antibiotics for at least another week from this point. He is unable to get home health or residential placement, or LTAC placement for this large wound on his leg. Therefore, I think he is going to be here for quite some time until he gets his split-thickness skin graft. - Time Time Spent with patient: 15-24 minutes Anticipated Discharge Disposition: Unknown Anticipated Discharge Timeframe: Unknown
[2020-06-10] MEDS: DOCUSATE SODIUM 100 MG CAPSULE PO SCH (17:24)
[2020-06-10] MEDS: FAMOTIDINE 20 MG TABLET PO SCH (23:44)
[2020-06-10] MEDS: WARFARIN SODIUM 5 MG TABLET PO SCH (23:45)
[2020-06-11] MEDS: METHADONE HCL 10 MG TABLET PO SCH ×3 (06:29→22:41)
[2020-06-11] MEDS: OXYCODONE-ACETAMINOPHEN 5-325 MG TABLET PO SCH ×6 (06:30→22:40)
[2020-06-11] MEDS: VANCOMYCIN HCL 1,250 MG in DEXTROSE 5%-WATER 250 ML IV SCH ×3 (06:31→22:44)
[2020-06-11 08:41] LABS: INTERNATIONAL RATION (INR) 2.53; PROTHROMBIN TIME 27.2 SEC (11.4-15.4)
[2020-06-11] MEDS: HYDROMORPHONE HCL INJ/PF 2 MG/ML AMPULE IV PRN ×2 (09:21→16:33)
[2020-06-11] MEDS: ASCORBIC ACID 500 MG TABLET PO SCH ×2 (10:34→17:12)
[2020-06-11] MEDS: FAMOTIDINE 20 MG TABLET PO SCH ×2 (10:34→22:40)
[2020-06-11] MEDS: CHOLECALCIFEROL (D3) 1,000 UNIT (25 MCG) TABLET PO SCH (10:34)
[2020-06-11] MEDS: ZINC SULFATE 220 MG CAPSULE PO SCH (10:35)
[2020-06-11] MEDS: FERROUS SULFATE 325 MG TABLET PO SCH ×2 (10:35→17:12)
[2020-06-11] MEDS: GUAIFENESIN 600 MG TABLET.SA PO SCH ×2 (10:35→22:41)
[2020-06-11] MEDS: DOCUSATE SODIUM 100 MG CAPSULE PO SCH ×2 (10:37→17:13)
[2020-06-11] MEDS: NORMAL SALINE 10 ML SDV (SCHEDULED) IV SCH ×2 (10:38→23:09)
[2020-06-11 14:52] LABS: HEMATOCRIT 26.4 % (37.9-51.0); HEMOGLOBIN 8.8 g/dL (13.5-17.0); MEAN CORPUSCULAR HEMOGLOBIN 25.8 pg (27.0-33.4); MEAN CORPUSCULAR HGB CONC 33.5 g/dL (32.0-36.0); MEAN CORPUSCULAR VOLUME 77 fl (80-97); PLATELET COUNT 386 10^3/uL (150-450); RED BLOOD COUNT 3.42 10^6/uL (4.35-5.55); RED CELL DISTRIBUTION WIDTH 16.6 % (11.5-14.0)
--- NOTE | 2020-06-11 18:36 | PDOC PROGRESS REPORT ---
Subjective Date:: 06/11/20 Subjective:: No adverse events overnight. No new complaints. Vital signs been stable. Nicky rating dressing changes twice a day, has been trying to put them off occasionally. No signs of withdrawal. Reason For Visit: NECROTIZING FASCIITIS Physical Exam Vital Signs: Temp Pulse Resp BP Pulse Ox 97.8 F 67 18 100/53 L 96 06/11/20 11:52 06/11/20 11:52 06/11/20 11:52 06/11/20 11:52 06/11/20 11:52 Intake & Output 06/10/20 06/11/20 06/12/20 06:59 06:59 06:59 Intake Total 1885 1760 500 Output Total 2500 1800 600 Balance -615 -40 -100 Weight 82.6 kg 82.6 kg General appearance: PRESENT: no acute distress, cooperative, well-developed, well-nourished - overweight Respiratory exam: PRESENT: Clear to auscultation bilaterally, symmetrical, unlabored. ABSENT: rales, wheezes Cardiovascular exam: PRESENT: RRR, +S1, +S2. ABSENT: diastolic murmur, rubs, systolic murmur Pulses: PRESENT: normal dorsalis pedis pul Vascular exam: PRESENT: normal capillary refill GI/Abdominal exam: PRESENT: normal bowel sounds, soft. ABSENT: distended, guarding, mass, organolmegaly, rebound, tenderness Extremities exam: PRESENT: tenderness - LLE. ABSENT: calf tenderness, clubbing, full ROM, pedal edema Neurological exam: PRESENT: alert, awake, oriented to person, oriented to place, oriented to time, oriented to situation Psychiatric exam: PRESENT: appropriate affect, normal mood. Skin exam: PRESENT: dry, warm, other -large wound on left leg is covered in a heavy bandage Results Laboratory Results: 06/11/20 14:24 06/03/20 06:05 06/11/20 14:24 WBC 10.0 RBC 3.42 L Hgb 8.8 L Hct 26.4 L MCV 77 L MCH 25.8 L MCHC 33.5 RDW 16.6 H Plt Count 386 05/25/20 05/26/20 14:53 18:57 Creatine Kinase 36 L 23 L Impressions: Knee X-Ray 05/25/20 14:34 IMPRESSION: Small knee joint effusion. No acute fracture or destructive bone lesion. Lower Extremity CT 05/25/20 14:39 IMPRESSION: 1. Subcutaneous edema and skin thickening involving the distal upper leg and kne e, consistent with cellulitis and subcutaneous edema. No focal drainable abscess. 2. Inflammatory change involving the medial compartment muscles suggestive of myositis. 3. Small knee joint effusion. 4. Focal DVT in the proximal common femoral vein extending into the greater saphenous vein and in the distal femoral vein. 5. Subcutaneous gas overlying the left hip region with no surrounding inflam matory change or foreign body. This may represent an injection site. PICC Line Insertion 05/27/20 00:00 IMPRESSION: SUCCESSFUL PLACEMENT OF A 5 FR DUAL LUMEN 47 CM PICC IN THE LEFT BASILIC VEIN. Chest X-Ray 06/01/20 00:00 IMPRESSION: Bilateral pneumonia. Chest/Abdomen CTA 06/01/20 00:00 IMPRESSION: Extensive bilateral pneumonia with coalescing nodules and solitary cavitary lesion in the right upper lobe suspicious for septic emboli. No intravascular pulmonary emboli. Assessment and Plan - Diagnosis (1) Cellulitis of left thigh Is this a current diagnosis for this admission?: Yes (2) Abscess of left thigh Is this a current diagnosis for this admission?: Yes (3) Heroin addiction Is this a current diagnosis for this admission?: Yes (4) DVT (deep venous thrombosis) Qualifiers: DVT location: lower extremity Affected thrombotic vein of extremity: femoral Chronicity: chronic Laterality: left Qualified Code(s): I82.512 - Chronic embolism and thrombosis of left femoral vein Is this a current diagnosis for this admission?: Yes (5) IV drug abuse Is this a current diagnosis for this admission?: Yes (6) Bacteremia Is this a current diagnosis for this admission?: Yes (7) Multifocal pneumonia Is this a current diagnosis for this admission?: Yes (8) Necrotizing soft tissue infection Is this a current diagnosis for this admission?: Yes - Plan Summary Summary: He has MRSA bacteremia sensitive to vancomycin, has completed 2 weeks of antibi otics. MITZI was negative for valvular vegetation. We discontinued his Lovenox and he continues on Coumadin. He will likely need a split-thickness skin graft at some point, in several weeks according to surgery. One of his blood cultures turned positive with a strain of Enterococcus. I am a little suspicious that perhaps he is obtaining drugs to inject whenever his girlfriend comes to see him in, this is possibly how he got this organism show up in his blood. It is pansensitive and should respond to vancomycin. We are waiting for repeat blood cultures to see how long he is going to need antibiotics for the Enterococcus that showed up in his blood. I think it is impressive that he had been on antibiotics for so long for his MRSA bacteremia and then he turned positive for this Enterococcus. Possibly a contaminant, but we cannot treat Enterococcus as such. We should be able to switch him to ampicillin. He is completed 2 weeks of vancomycin for MRSA bacteremia. We cannot really treat his Enterococcus with oral antibiotics. So is going to need IV antibiotics for at least another week from this point. We should be able to continue to de-escalate his pain medication. He should be able to come off of IV pain medication altogether at this point. He is unable to get home health or shelter placement, or LTAC placement for this large wound on his leg. Therefore, I think he is going to be here for quite some time until he gets his split-thickness skin graft. - Time Time Spent with patient: 15-24 minutes Anticipated Discharge Disposition: Unknown Anticipated Discharge Timeframe: Unknown
[2020-06-11] MEDS: WARFARIN SODIUM 5 MG TABLET PO SCH (23:08)
[2020-06-12] MEDS: HYDROMORPHONE HCL INJ/PF 2 MG/ML AMPULE IV PRN ×2 (01:12→08:43)
[2020-06-12] MEDS: OXYCODONE-ACETAMINOPHEN 5-325 MG TABLET PO SCH ×6 (03:17→22:29)
[2020-06-12] MEDS: METHADONE HCL 10 MG TABLET PO SCH ×3 (06:19→22:30)
[2020-06-12] MEDS: VANCOMYCIN HCL 1,250 MG in DEXTROSE 5%-WATER 250 ML IV SCH ×2 (06:20→14:15)
[2020-06-12] MEDS: FERROUS SULFATE 325 MG TABLET PO SCH ×2 (08:43→17:48)
[2020-06-12 09:11] LABS: APPEARANCE,URINE CLEAR; BILIRUBIN,URINE NEGATIVE (NEGATIVE); COLOR,URINE YELLOW; GLUCOSE, URINE NEGATIVE (NEGATIVE); KETONES,URINE NEGATIVE (NEGATIVE); LEUKOCYTE ESTERASE,URINE NEGATIVE (NEGATIVE); NITRITE,URINE NEGATIVE (NEGATIVE); PROTEIN,URINE NEGATIVE (NEGATIVE); URINE SPECIFIC GRAVITY 1.006; UROBILINOGEN,URINE NEGATIVE mg/dL (<2.0)
[2020-06-12 09:11] LABS: HEMATOCRIT 24.7 % (37.9-51.0); HEMOGLOBIN 8.4 g/dL (13.5-17.0); MEAN CORPUSCULAR HEMOGLOBIN 26.5 pg (27.0-33.4); MEAN CORPUSCULAR VOLUME 78 fl (80-97); PLATELET COUNT 366 10^3/uL (150-450); RED BLOOD COUNT 3.17 10^6/uL (4.35-5.55); RED CELL DISTRIBUTION WIDTH 16.7 % (11.5-14.0); WHITE BLOOD COUNT 7.2 10^3/uL (4.0-10.5)
[2020-06-12 09:28] LABS: ALBUMIN 2.8 g/dL (3.5-5.0); ALKALINE PHOSPHATASE 251 U/L (38-126); ANION GAP 6 (5-19); ASPARTATE AMINO TRANSFERASE 27 U/L (17-59); BILIRUBIN,DIRECT 0.3 mg/dL (0.0-0.4); BILIRUBIN,TOTAL 0.5 mg/dL (0.2-1.3); BLOOD UREA NITROGEN 9 mg/dL (7-20); CALCIUM 9.4 mg/dL (8.4-10.2); CARBON DIOXIDE 32 mmol/L (22-30); CHLORIDE 98 mmol/L (98-107); GLUCOSE 137 mg/dL (75-110); POTASSIUM 3.6 mmol/L (3.6-5.0); TOTAL PROTEIN 7.9 g/dL (6.3-8.2)
[2020-06-12 10:00] LABS: INTERNATIONAL RATION (INR) 2.91; PROTHROMBIN TIME 30.3 SEC (11.4-15.4)
[2020-06-12 10:22] LABS: ABSOLUTE LYMPHOCYTES# (MANUAL) 1.4 10^3/uL (0.5-4.7); ABSOLUTE MONOCYTES # (MANUAL) 0.1 10^3/uL (0.1-1.4); ANISOCYTOSIS 1+; BASOPHILS % (MANUAL) 0 % (0-2); EOSINOPHILS % (MANUAL) 7 % (0-6); LYMPHOCYTES % (MANUAL) 20 % (13-45); MONOCYTES % (MANUAL) 2 % (3-13); PLATELET COMMENT ADEQUATE; SEGMENTED NEUTROPHILS % (MAN) 71 % (42-78); TOTAL CELLS COUNTED 100
[2020-06-12 10:23] LABS: POLYCHROMASIA 1+
[2020-06-12] MEDS: CHOLECALCIFEROL (D3) 1,000 UNIT (25 MCG) TABLET PO SCH (10:56)
[2020-06-12] MEDS: GUAIFENESIN 600 MG TABLET.SA PO SCH ×2 (10:56→22:30)
[2020-06-12] MEDS: ASCORBIC ACID 500 MG TABLET PO SCH ×2 (10:56→17:48)
[2020-06-12] MEDS: FAMOTIDINE 20 MG TABLET PO SCH ×2 (10:56→22:30)
[2020-06-12] MEDS: DOCUSATE SODIUM 100 MG CAPSULE PO SCH ×2 (10:56→17:49)
[2020-06-12] MEDS: NORMAL SALINE 10 ML SDV (SCHEDULED) IV SCH ×2 (10:59→23:08)
[2020-06-12] MEDS: ZINC SULFATE 220 MG CAPSULE PO SCH (10:59)
--- NOTE | 2020-06-12 11:09 | PDOC PROGRESS REPORT ---
Subjective Date:: 06/12/20 Subjective:: 39-year-old male admitted for necrotizing fasciitis. Surgery is following the p atient. Comfortably in the bed communicating well. Complains of occasional pains in the left leg. Reason For Visit: NECROTIZING FASCIITIS Physical Exam Vital Signs: Temp Pulse Resp BP Pulse Ox 97.9 F 84 20 102/56 L 98 06/12/20 01:14 06/12/20 01:14 06/12/20 01:14 06/12/20 01:14 06/12/20 01:14 Intake & Output 06/11/20 06/12/20 06/13/20 06:59 06:59 06:59 Intake Total 1760 1450 Output Total 1800 0 Balance -40 -600 Weight 82.6 kg 83.7 kg General appearance: PRESENT: no acute distress, cooperative, well-developed Head exam: PRESENT: atraumatic Eye exam: PRESENT: PERRLA Ear exam: PRESENT: normal external ear exam Mouth exam: PRESENT: neck supple Neck exam: ABSENT: carotid bruit, JVD, lymphadenopathy, thyromegaly Respiratory exam: PRESENT: decreased breath sounds Cardiovascular exam: PRESENT: RRR. ABSENT: diastolic murmur, rubs, systolic murmur GI/Abdominal exam: PRESENT: normal bowel sounds, soft. ABSENT: distended, guard ing, mass, organolmegaly, rebound, tenderness Rectal exam: PRESENT: deferred Extremities exam: PRESENT: other - Left upper leg is covered with heavy bandage. Neurological exam: PRESENT: alert, awake, oriented to person, oriented to place, oriented to time, oriented to situation, CN II-XII grossly intact. ABSENT: motor sensory deficit Psychiatric exam: PRESENT: appropriate affect, normal mood. ABSENT: homicidal ideation, suicidal ideation Results Laboratory Results: 06/12/20 08:33 06/12/20 08:33 06/11/20 06/12/20 06/12/20 14:24 08:33 08:33 WBC 10.0 7.2 RBC 3.42 L 3.17 L Hgb 8.8 L 8.4 L Hct 26.4 L 24.7 L MCV 77 L 78 L MCH 25.8 L 26.5 L MCHC 33.5 34.0 RDW 16.6 H 16.7 H Plt Count 386 366 Seg Neutrophils % Not Reportable Sodium 136.0 L Potassium 3.6 Chloride 98 Carbon Dioxide 32 H Anion Gap 6 BUN 9 Creatinine 0.75 Est GFR ( Amer) > 60 Glucose 137 H Calcium 9.4 Magnesium 1.8 Total Bilirubin 0.5 AST 27 Alkaline Phosphatase 251 H Total Protein 7.9 Albumin 2.8 L Urine Color Urine Appearance Urine pH Ur Specific [place] Urine Protein Urine Glucose (UA) Urine Ketones Urine Blood Urine Nitrite Ur Leukocyte Esterase Urine WBC (Auto) Urine RBC (Auto) 06/12/20 08:53 WBC RBC Hgb Hct MCV MCH MCHC RDW Plt Count Seg Neutrophils % Sodium Potassium Chloride Carbon Dioxide Anion Gap BUN Creatinine Est GFR ( Amer) Glucose Calcium Magnesium Total Bilirubin AST Alkaline Phosphatase Total Protein Albumin Urine Color YELLOW Urine Appearance CLEAR Urine pH 6.0 Ur Specific [place] 1.006 Urine Protein NEGATIVE Urine Glucose (UA) NEGATIVE Urine Ketones NEGATIVE Urine Blood NEGATIVE Urine Nitrite NEGATIVE Ur Leukocyte Esterase NEGATIVE Urine WBC (Auto) 0 Urine RBC (Auto) 0 05/25/20 05/26/20 14:53 18:57 Creatine Kinase 36 L 23 L Impressions: Knee X-Ray 05/25/20 14:34 IMPRESSION: Small knee joint effusion. No acute fracture or destructive bone lesion. Lower Extremity CT 05/25/20 14:39 IMPRESSION: 1. Subcutaneous edema and skin thickening involving the distal upper leg and knee, consistent with cellulitis and subcutaneous edema. No focal drainable abscess. 2. Inflammatory change involving the medial compartment muscles suggestive of myositis. 3. Small knee joint effusion. 4. Focal DVT in the proximal common femoral vein extending into the greater saphenous vein and in the distal femoral vein. 5. Subcutaneous gas overlying the left hip region with no surrounding inflammatory change or foreign body. This may represent an injection site. PICC Line Insertion 05/27/20 00:00 IMPRESSION: SUCCESSFUL PLACEMENT OF A 5 FR DUAL LUMEN 47 CM PICC IN THE LEFT BASILIC VEIN. Chest X-Ray 06/01/20 00:00 IMPRESSION: Bilateral pneumonia. Chest/Abdomen CTA 06/01/20 00:00 IMPRESSION: Extensive bilateral pneumonia with coalescing nodules and solitary cavitary lesion in the right upper lobe suspicious for septic emboli. No intravascular pulmonary emboli. Assessment and Plan - Diagnosis (1) Cellulitis of left thigh Is this a current diagnosis for this admission?: Yes Plan: As above. 06/12/2020-patient admitted with cellulitis of the left thigh surgical team is following the patient and patient is on IV vancomycin at this time. Transesophageal echocardiogram was done which was negative for V. tach. Comfortably in the bed communicating well. Afebrile. Blood cultures are negative. (2) Heroin addiction Is this a current diagnosis for this admission?: Yes Plan: Patient reportedly uses 1.5 g heroin daily x3 years. Patient again states his intent to go to the [facility] following discharge. Continue scheduled methadone TID Clonidine as needed. Remaining management as above. - Discussed with the [facility]; they typically start at 10 mg daily and increase by 5 mg every other day, even for patients with high dose usage such as Mr. Hebert. Review of literature states that 40 mg is the max initial dosing and that there should be an observation period for 3 to 4 days prior to increase to ensure once steady state is reached patient does not experience respiratory depression. (3) Bacteremia Is this a current diagnosis for this admission?: Yes Plan: Blood culture (05/25/2020; both sets) MRSA Blood culture (05/26/2020; both sets) MRSA Blood culture (05/27/2020) MRSA; obtained 48 hours following start of vancomycin. Blood culture (05/29/2020) negative at days; obtained 4 days following start of vancomycin Blood culture (06/01/2020) pending Wound cultures positive for MRSA. Echocardiogram is negative for vegetation MITZI pending. Continue Vancomycin; minimum 4 weeks from clear blood cultures. May need 6 weeks pending MITZI results. Continue Cefepime and start Levaquin due to development of pneumonia; HAP vs Septic emboli. CTA chest pending. Infectious disease; have reviewed recommendations. (4) Necrotizing fasciitis Is this a current diagnosis for this admission?: Yes Plan: He has MRSA bacteremia sensitive to vancomycin, has completed 2 weeks of antibiotics. MITZI was negative for valvular vegetation. We discontinued his Lovenox and he continues on Coumadin. He will likely need a split-thickness skin graft at some point, in several weeks according to surgery. One of his blood cultures turned positive with a strain of Enterococcus. I am a little suspicious that perhaps he is obtaining drugs to inject whenever his girlfriend comes to see him in, this is possibly how he got this organism show up in his blood. It is pansensitive and should respond to vancomycin. We are waiting for repeat blood cultures to see how long he is going to need antibiotics for the Enterococcus that showed up in his blood. I think it is impressive that he had been on antibiotics for so long for his MRSA bacteremia and then he turned positive for this Enterococcus. Possibly a contaminant, but we cannot treat Enterococcus as such. We should be able to switch him to ampicillin. He is completed 2 weeks of vancomycin for MRSA bacteremia. We cannot really treat his Enterococcus with oral antibiotics. So is going to need IV antibiotics for at least another week from this point. We should be able to continue to de-escalate his pain medication. He should be able to come off of IV pain medication altogether at this point. He is unable to get home health or senior care placement, or LTAC placement for this large wound on his leg. Therefore, I think he is going to be here for quite some time until he gets his split-thickness skin graft. 06/12/2020-patient denies any complaints of pain this morning. Left upper leg is covered with IV bandage. Receiving IV vancomycin. Surgical team also following the patient. (5) IV drug abuse Is this a current diagnosis for this admission?: Yes Plan: As above. (6) Multifocal pneumonia Is this a current diagnosis for this admission?: Yes Plan: Pneumonia with septic emboli; high suspicion for endocarditis. CXR shows multifocal pneumonia. CTA revealed bilateral pneumonia with a RUL cavitary lesion with evidence of septic emboli. COVID negative x2. Repeat blood culture pending. Sputum culture ordered. Nursing reminded please collect a sputum sample as soon as possible. Patient is provided supplemental oxygen as needed maintain saturations greater than 89%. Patient continues on Vancomycin and Cefepime. Start Levaquin. Deescalate most recent blood and sputum culture results. Scheduled and as needed nebulizer treatments. He is placed on Robitussin as needed. Pulmonary toilet is encouraged with incentive spirometer, flutter valve, early ambulation. - Plan Summary Summary: He has MRSA bacteremia sensitive to vancomycin, has completed 2 weeks of antibiotics. MITZI was negative for valvular vegetation. We discontinued his Lovenox and he continues on Coumadin. He will likely need a split-thickness skin graft at some point, in several weeks according to surgery. One of his blood cultures turned positive with a strain of Enterococcus. I am a little suspicious that perhaps he is obtaining drugs to inject whenever his girlfriend comes to see him in, this is possibly how he got this organism show up in his blood. It is pansensitive and should respond to vancomycin. We are waiting for repeat blood cultures to see how long he is going to need antibiotics for the Enterococcus that showed up in his blood. I think it is impressive that he had been on antibiotics for so long for his MRSA bacteremia and then he turned positive for this Enterococcus. Possibly a contaminant, but we cannot treat Enterococcus as such. We should be able to switch him to ampicillin. He is completed 2 weeks of vancomycin for MRSA bacteremia. We cannot really treat his Enterococcus with oral antibiotics. So is going to need IV antibiotics for at least another week from this point. We should be able to continue to de-escalate his pain medication. He should be able to come off of IV pain medication altogether at this point. He is unable to get home health or senior care placement, or LTAC placement for this large wound on his leg. Therefore, I think he is going to be here for quite some time until he gets his split-thickness skin graft. - Time Anticipated Discharge Disposition: [facility] Anticipated Discharge Timeframe: 1 week
[2020-06-12 15:00] LABS: VANCOMYCIN,TROUGH 21.9 ug/mL (5.0-20.0)
[2020-06-12] MEDS: VANCOMYCIN HCL 1,000 MG in DEXTROSE 5%-WATER 250 ML IV SCH (22:32)
[2020-06-12] MEDS: WARFARIN SODIUM 4 MG TABLET PO SCH (23:21)
[2020-06-13] MEDS: OXYCODONE-ACETAMINOPHEN 5-325 MG TABLET PO SCH ×6 (02:33→21:24)
[2020-06-13] MEDS: METHADONE HCL 10 MG TABLET PO SCH ×3 (06:34→21:23)
[2020-06-13] MEDS: VANCOMYCIN HCL 1,000 MG in DEXTROSE 5%-WATER 250 ML IV SCH (06:34)
[2020-06-13 07:25] LABS: INTERNATIONAL RATION (INR) 3.13
[2020-06-13] MEDS: ZINC SULFATE 220 MG CAPSULE PO SCH (09:18)
[2020-06-13] MEDS: CHOLECALCIFEROL (D3) 1,000 UNIT (25 MCG) TABLET PO SCH (09:19)
[2020-06-13] MEDS: ASCORBIC ACID 500 MG TABLET PO SCH ×2 (09:20→17:47)
[2020-06-13] MEDS: DOCUSATE SODIUM 100 MG CAPSULE PO SCH ×2 (09:20→17:44)
[2020-06-13] MEDS: GUAIFENESIN 600 MG TABLET.SA PO SCH ×2 (09:20→21:23)
[2020-06-13] MEDS: FAMOTIDINE 20 MG TABLET PO SCH ×2 (09:22→21:23)
[2020-06-13] MEDS: FERROUS SULFATE 325 MG TABLET PO SCH ×2 (09:22→17:47)
[2020-06-13] MEDS: NORMAL SALINE 10 ML SDV (SCHEDULED) IV SCH ×2 (10:20→21:24)
[2020-06-13] MEDS: HYDROMORPHONE HCL INJ/PF 2 MG/ML AMPULE IV PRN ×2 (11:44→21:30)
--- NOTE | 2020-06-13 12:02 | PDOC PROGRESS REPORT ---
Subjective Date:: 06/13/20 Subjective:: 39-year-old male admitted for necrotizing fasciitis. Surgery is following the p atient. Comfortably in the bed communicating well. Complains of occasional pains in the left leg. 06/13/2020-no acute events the last 24 hours. Comfortably in the bed communicating well. Denies any pains. Reason For Visit: NECROTIZING FASCIITIS Physical Exam Vital Signs: Temp Pulse Resp BP Pulse Ox 98.5 F 71 17 92/56 L 94 06/13/20 10:00 06/13/20 08:20 06/13/20 08:20 06/13/20 08:20 06/13/20 08:20 Intake & Output 06/12/20 06/13/20 06/14/20 06:59 06:59 06:59 Intake Total 1450 1548 250 Output Total 2050 1100 Balance -600 448 250 Weight 83.7 kg 77.8 kg General appearance: PRESENT: no acute distress, cooperative, well-developed Head exam: PRESENT: atraumatic Eye exam: PRESENT: PERRLA Mouth exam: PRESENT: moist, tongue midline Teeth exam: PRESENT: poor dentation Neck exam: ABSENT: carotid bruit, JVD, lymphadenopathy, thyromegaly Respiratory exam: PRESENT: clear to auscultation selam. ABSENT: rales, rhonchi, wheezes GI/Abdominal exam: PRESENT: normal bowel sounds, soft. ABSENT: distended, guarding, mass, organolmegaly, rebound, tenderness Rectal exam: PRESENT: deferred Extremities exam: PRESENT: other - Left leg covered with heavy bandage. Neurological exam: PRESENT: alert, awake, oriented to person, oriented to place, oriented to time, oriented to situation, CN II-XII grossly intact. ABSENT: motor sensory deficit Psychiatric exam: PRESENT: appropriate affect, normal mood. ABSENT: homicidal ideation, suicidal ideation Results Laboratory Results: 06/12/20 08:33 06/12/20 14:10 06/12/20 14:10 Creatinine 0.69 Est GFR ( Amer) > 60 05/25/20 05/26/20 14:53 18:57 Creatine Kinase 36 L 23 L Impressions: Knee X-Ray 05/25/20 14:34 IMPRESSION: Small knee joint effusion. No acute fracture or destructive bone lesion. Lower Extremity CT 05/25/20 14:39 IMPRESSION: 1. Subcutaneous edema and skin thickening involving the distal upper leg and knee, consistent with cellulitis and subcutaneous edema. No focal drainable abscess. 2. Inflammatory change involving the medial compartment muscles suggestive of myositis. 3. Small knee joint effusion. 4. Focal DVT in the proximal common femoral vein extending into the greater saphenous vein and in the distal femoral vein. 5. Subcutaneous gas overlying the left hip region with no surrounding inflammatory change or foreign body. This may represent an injection site. PICC Line Insertion 05/27/20 00:00 IMPRESSION: SUCCESSFUL PLACEMENT OF A 5 FR DUAL LUMEN 47 CM PICC IN THE LEFT BASILIC VEIN. Chest X-Ray 06/01/20 00:00 IMPRESSION: Bilateral pneumonia. Chest/Abdomen CTA 06/01/20 00:00 IMPRESSION: Extensive bilateral pneumonia with coalescing nodules and solitary cavitary lesion in the right upper lobe suspicious for septic emboli. No intravascular pulmonary emboli. Assessment and Plan - Diagnosis (1) Cellulitis of left thigh Is this a current diagnosis for this admission?: Yes Plan: As above. 06/12/2020-patient admitted with cellulitis of the left thigh surgical team is following the patient and patient is on IV vancomycin at this time. Transesophageal echocardiogram was done which was negative for endocarditis... Comfortably in the bed communicating well. Afebrile. Blood cultures are negative. 06/13/20-to continue IV vancomycin at this time. (2) Heroin addiction Is this a current diagnosis for this admission?: Yes Plan: Patient reportedly uses 1.5 g heroin daily x3 years. Patient again states his intent to go to the [facility] following discharge. Continue scheduled methadone TID Clonidine as needed. Remaining management as above. - Discussed with the [facility]; they typically start at 10 mg daily and increase by 5 mg every other day, even for patients with high dose usage such as Mr. Hebret. Review of literature states that 40 mg is the max initial dosing and that there should be an observation period for 3 to 4 days prior to increase to ensure once steady state is reached patient does not experience respiratory depression. (3) Bacteremia Is this a current diagnosis for this admission?: Yes Plan: Blood culture (05/25/2020; both sets) MRSA Blood culture (05/26/2020; both sets) MRSA Blood culture (05/27/2020) MRSA; obtained 48 hours following start of vancomycin. Blood culture (05/29/2020) negative at days; obtained 4 days following start of vancomycin Blood culture (06/01/2020) pending Wound cultures positive for MRSA. Echocardiogram is negative for vegetation MITZI pending. Continue Vancomycin; minimum 4 weeks from clear blood cultures. May need 6 weeks pending MITZI results. Continue Cefepime and start Levaquin due to development of pneumonia; HAP vs Septic emboli. CTA chest pending. Infectious disease; have reviewed recommendations. 06/13/20-to continue IV vancomycin at this time. Afebrile. Vital signs are stable. Vanco trough is 22 today to hold vancomycin at this time. (4) Necrotizing fasciitis Is this a current diagnosis for this admission?: Yes Plan: He has MRSA bacteremia sensitive to vancomycin, has completed 2 weeks of antibiotics. MITZI was negative for valvular vegetation. We discontinued his Lovenox and he continues on Coumadin. He will likely need a split-thickness skin graft at some point, in several weeks according to surgery. One of his blood cultures turned positive with a strain of Enterococcus. I am a little suspicious that perhaps he is obtaining drugs to inject whenever his girlfriend comes to see him in, this is possibly how he got this organism show up in his blood. It is pansensitive and should respond to vancomycin. We are waiting for repeat blood cultures to see how long he is going to need antibiotics for the Enterococcus that showed up in his blood. I think it is impressive that he had been on antibiotics for so long for his MRSA bacteremia and then he turned positive for this Enterococcus. Possibly a contaminant, but we cannot treat Enterococcus as such. We should be able to switch him to ampicillin. He is completed 2 weeks of vancomycin for MRSA bacteremia. We gerda ot really treat his Enterococcus with oral antibiotics. So is going to need IV antibiotics for at least another week from this point. We should be able to continue to de-escalate his pain medication. He should be able to come off of IV pain medication altogether at this point. He is unable to get home health or [place] [facility] placement, or LTAC placement for this large wound on his leg. Therefore, I think he is going to be here for quite some time until he gets his split-thickness skin graft. 06/12/2020-patient denies any complaints of pain this morning. Left upper leg is covered with IV bandage. Receiving IV vancomycin. Surgical team also following the patient. (5) IV drug abuse Is this a current diagnosis for this admission?: Yes Plan: As above. (6) Multifocal pneumonia Is this a current diagnosis for this admission?: Yes Plan: Pneumonia with septic emboli; high suspicion for endocarditis. CXR shows multifocal pneumonia. CTA revealed bilateral pneumonia with a RUL cavitary lesion with evidence of septic emboli. COVID negative x2. Repeat blood culture pending. Sputum culture ordered. Nursing reminded please collect a sputum sample as soon as possible. Patient is provided supplemental oxygen as needed maintain saturations greater than 89%. Patient continues on Vancomycin and Cefepime. Start Levaquin. Deescalate most recent blood and sputum culture results. Scheduled and as needed nebulizer treatments. He is placed on Robitussin as needed. Pulmonary toilet is encouraged with incentive spirometer, flutter valve, early ambulation. - Plan Summary Summary: He has MRSA bacteremia sensitive to vancomycin, has completed 2 weeks of antibiotics. MITZI was negative for valvular vegetation. We discontinued his Lovenox and he continues on Coumadin. He will likely need a split-thickness skin graft at some point, in several weeks according to surgery. One of his blood cultures turned positive with a strain of Enterococcus. I am a little suspicious that perhaps he is obtaining drugs to inject whenever his girlfriend comes to see him in, this is possibly how he got this organism show up in his blood. It is pansensitive and should respond to vancomycin. We are waiting for repeat blood cultures to see how long he is going to need antibiotics for the Enterococcus that showed up in his blood. I think it is impressive that he had been on antibiotics for so long for his MRSA bacteremia and then he turned positive for this Enterococcus. Possibly a contaminant, but we cannot treat Enterococcus as such. We should be able to switch him to ampicillin. He is completed 2 weeks of vancomycin for MRSA bacteremia. We cannot really treat his Enterococcus with oral antibiotics. So is going to need IV antibiotics for at least another week from this point. We should be able to continue to de-escalate his pain medication. He should be able to come off of IV pain medication altogether at this point. He is unable to get home health or [place] [facility] placement, or LTAC placement for this large wound on his leg. Therefore, I think he is going to be here for quite some time until he gets his split-thickness skin graft. - Time Anticipated Discharge Disposition: Home, Self Care Anticipated Discharge Timeframe: within 72 hours
--- NOTE | 2020-06-13 15:24 | Progress Note ---
Provider Note Provider Note: [facility] ID Telephone Advice Follow Chart reviewed, patient not seen. Update: Patient has been in the hospital since late April due to MRSA bacteremia with septic pulmonary emboli and necrotizing fasciitis in the setting of active IVDU. He was on vancomycin and cleared blood cultures on 05/29. A repeat blood cult ure on 06/01 from the PICC line grew Enterococcus avium which represents line colonization as peripheral blood (right antecubital) culture was negative on the same day and patient was on vancomycin. At some point during the admission vancomycin was stopped and there were plans to transition to ampicillin for Enterococcus. He has received only 2 weeks of vancomycin from negative blood cultures. TTE and MITZI were negative, but CT scan of the chest positive for septic pulmonary emboli. ID reconsulted for recommendations. HPI This is a 39-year-old man with active IVDU who was admitted due to left leg pain, swelling, decreased ROM after trying to inject heroin. He was evaluated in the ED due to suspicion of left septic knee. He had leukocytosis of 18k. X ray showed a small knee effusion. He had a CT scan of the leg that demonstrated cellulitis, myositis, DVT of proximal common femoral, greater saphenous and distal femoral veins. There was subcutaneous gas in the left hip. Patient was evaluated by surgery on 05/25 and taken to the OR. He was found with necrotizing fasciitis, he had I&D. The extent of the wound was 33 x 13 cm. Blood cultures on 05/25 and 05/27 positive for MRSA. Cultures on 05/29 in process. Wound culture isolated MRSA as well on 05/25 and 05/26. TTE on 05/27 was negative for endocarditis. He has been on vancomycin, currently receiving 3740 mg. Vancomycin trough 15.5. ID consulted for recommendations. Allergies: No Known Allergies (Unverified 05/03/19 22:03) Medications: No Home Medications 05/25/20 Vital Signs: Temp Pulse Resp BP Pulse Ox 98.5 F 71 17 92/56 L 94 06/13/20 10:00 06/13/20 08:20 06/13/20 08:20 06/13/20 08:20 06/13/20 08:20 Intake & Output 06/12/20 06/13/20 06/14/20 06:59 06:59 06:59 Intake Total 1450 1548 1420 Output Total 2050 1100 Balance -278 683 3421 Weight 83.7 kg 77.8 kg Weight/Height Weight 77.8 kg Height 5 ft 11 in Laboratories: 06/12/20 08:33 06/12/20 14:10 MCV 78 fl (80-97) L 06/12/20 08:33 MCH 26.5 pg (27.0-33.4) L 06/12/20 08:33 MCHC 34.0 g/dL (32.0-36.0) 06/12/20 08:33 RDW 16.7 % (11.5-14.0) H 06/12/20 08:33 Seg Neutrophils % Not Reportable 06/12/20 08:33 Retic Count (auto) 1.93 % (0.66-2.85) 06/07/20 05:50 VBG pH 7.38 (7.30-7.42) 05/25/20 15:03 VBG pCO2 56.7 mmHg (35-63) 05/25/20 15:03 VBG HCO3 32.4 mmol/L (20-32) H 05/25/20 15:03 VBG Base Excess 5.6 mmol/L 05/25/20 15:03 Chloride 98 mmol/L (98-107) 06/12/20 08:33 Carbon Dioxide 32 mmol/L (22-30) H 06/12/20 08:33 Anion Gap 6 (5-19) 06/12/20 08:33 Est GFR ( Amer) > 60 (>60) 06/12/20 14:10 Est GFR (Non-Af Amer) Cancelled 05/27/20 06:17 Glucose 137 mg/dL (75-110) H 06/12/20 08:33 Lactic Acid 0.8 mmol/L (0.7-2.1) 06/01/20 12:41 Calcium 9.4 mg/dL (8.4-10.2) 06/12/20 08:33 Magnesium 1.8 mg/dL (1.6-2.3) 06/12/20 08:33 Iron 14.1 ug/dL (49-181) L 06/07/20 05:50 TIBC 253 ug/dL (250-450) 06/07/20 05:50 % Saturation 6 % 06/07/20 05:50 Ferritin 153.00 ng/mL (17.9-464.0) 06/07/20 05:50 Total Bilirubin 0.5 mg/dL (0.2-1.3) 06/12/20 08:33 AST 27 U/L (17-59) 06/12/20 08:33 Alkaline Phosphatase 251 U/L (38-126) H 06/12/20 08:33 Total Protein 7.9 g/dL (6.3-8.2) 06/12/20 08:33 Albumin 2.8 g/dL (3.5-5.0) L 06/12/20 08:33 Vitamin B12 553.0 pg/mL (239-931) 06/07/20 05:50 Folate 6.76 ng/mL (>2.76) 06/07/20 05:50 Urine Color YELLOW 06/12/20 08:53 Urine Appearance CLEAR 06/12/20 08:53 Urine pH 6.0 (5.0-9.0) 06/12/20 08:53 Ur Specific [place] 1.006 06/12/20 08:53 Urine Protein NEGATIVE mg/dL (NEGATIVE) 06/12/20 08:53 Urine Glucose (UA) NEGATIVE mg/dL (NEGATIVE) 06/12/20 08:53 Urine Ketones NEGATIVE mg/dL (NEGATIVE) 06/12/20 08:53 Urine Blood NEGATIVE (NEGATIVE) 06/12/20 08:53 Urine Nitrite NEGATIVE (NEGATIVE) 06/12/20 08:53 Ur Leukocyte Esterase NEGATIVE (NEGATIVE) 06/12/20 08:53 Urine WBC (Auto) 0 /HPF 06/12/20 08:53 Urine RBC (Auto) 0 /HPF 06/12/20 08:53 Ur Squamous Epith Cells FEW /HPF 06/05/20 09:28 Blood Type O POSITIVE 06/01/20 14:23 Antibody Screen NEGATIVE 06/01/20 14:23 05/25/20 05/26/20 14:53 18:57 Creatine Kinase 36 L 23 L Microbiology: Blood cultures: 05/25 MRSA 05/27 MRSA 05/29 Negative 06/01 Enterococcus avium (line 1/2 sets) 06/08 Negative Wound Culture: 05/25 MRSA 05/26 MRSA Radiology: Knee X-Ray 05/25/20 14:34 IMPRESSION: Small knee joint effusion. No acute fracture or destructive bone lesion. Lower Extremity CT 05/25/20 14:39 IMPRESSION: 1. Subcutaneous edema and skin thickening involving the distal upper leg and knee, consistent with cellulitis and subcutaneous edema. No focal drainable abscess. 2. Inflammatory change involving the medial compartment muscles suggestive of myositis. 3. Small knee joint effusion. 4. Focal DVT in the proximal common femoral vein extending into the greater saphenous vein and in the distal femoral vein. 5. Subcutaneous gas overlying the left hip region with no surrounding inflammatory change or foreign body. This may represent an injection site. PICC Line Insertion 05/27/20 00:00 IMPRESSION: SUCCESSFUL PLACEMENT OF A 5 FR DUAL LUMEN 47 CM PICC IN THE LEFT BASILIC VEIN. Chest X-Ray 06/01/20 00:00 IMPRESSION: Bilateral pneumonia. Chest/Abdomen CTA 06/01/20 00:00 IMPRESSION: Extensive bilateral pneumonia with coalescing nodules and solitary cavitary lesion in the right upper lobe suspicious for septic emboli. No intravascular pulmonary emboli. Assessment and Recommendations: Patient evaluated for MRSA bacteremia with septic emboli in the setting of left leg necrotizing fasciitis and active IVDU. He has been taken to surgery for debridement for source control. Wound is healing well per notes. This is all MRSA. Blood cultures cleared from MRSA on 05/29. Positive blood culture for Enterococcus avium likely PICC line colonization as peripheral culture was negative. He was on vancomycin. TTE and MITZI were negative for vegetations. He did have septic thrombosis of the proximal common femoral vein, this increases the risk for septic emboli as well. Due to the severity of this infection and complicated MRSA bacteremia with septic thrombosis and emboli, should complete 6 weeks of vancomycin from negative blood cultures. EOT should be July 10, 2020. While on vancomycin, he will need weekly labs to monitor GFR and vanc trough. If he requires >4g of vancomycin a day to keep a trough >15, then daptomycin 8mg/kg daily (monitoring CK) would be indicated. Please call back if any questions. Fanny Roque MD [facility] ID [phone]
--- NOTE | 2020-06-13 19:03 | PDOC PROGRESS REPORT ---
Subjective Date:: 06/13/20 Subjective:: No new complaints. Reason For Visit: NECROTIZING FASCIITIS Physical Exam Vital Signs: Temp Pulse Resp BP Pulse Ox 98.5 F 71 17 92/56 L 94 06/13/20 10:00 06/13/20 08:20 06/13/20 08:20 06/13/20 08:20 06/13/20 08:20 Intake & Output 06/12/20 06/13/20 06/14/20 06:59 06:59 06:59 Intake Total 1450 1548 970 Output Total 2050 1100 1050 Balance -600 448 -80 Weight 83.7 kg 77.8 kg General appearance: PRESENT: no acute distress, cooperative Extremities exam: PRESENT: other - Large leg wound with scattered exudate but otherwise very clean with no evidence of residual infection no necrotic tissue. Results Laboratory Results: 06/12/20 08:33 06/12/20 14:10 05/25/20 05/26/20 14:53 18:57 Creatine Kinase 36 L 23 L Impressions: Knee X-Ray 05/25/20 14:34 IMPRESSION: Small knee joint effusion. No acute fracture or destructive bone lesion. Lower Extremity CT 05/25/20 14:39 IMPRESSION: 1. Subcutaneous edema and skin thickening involving the distal upper leg and knee, consistent with cellulitis and subcutaneous edema. No focal drainable abscess. 2. Inflammatory change involving the medial compartment muscles suggestive of myositis. 3. Small knee joint effusion. 4. Focal DVT in the proximal common femoral vein extending into the greater saphenous vein and in the distal femoral vein. 5. Subcutaneous gas overlying the left hip region with no surrounding inflammatory change or foreign body. This may represent an injection site. PICC Line Insertion 05/27/20 00:00 IMPRESSION: SUCCESSFUL PLACEMENT OF A 5 FR DUAL LUMEN 47 CM PICC IN THE LEFT BASILIC VEIN. Chest X-Ray 06/01/20 00:00 IMPRESSION: Bilateral pneumonia. Chest/Abdomen CTA 06/01/20 00:00 IMPRESSION: Extensive bilateral pneumonia with coalescing nodules and solitary cavitary lesion in the right upper lobe suspicious for septic emboli. No intravascular pulmonary emboli. Assessment & Plan - Diagnosis (1) Necrotizing soft tissue infection Is this a current diagnosis for this admission?: Yes Plan: Status post extensive debridement. Infection since under control however the wound is not clean enough for split-thickness skin graft. The current dressing changes with Xeroform gauze is allowing formation of fibrinous exudate and patient would benefit from changing to a normal saline dressing to try to clean up the wound with dressing changes. I do not think he needs 6 weeks for the wound to mature enough for split-thickness skin graft. If we can get the wound cleaned up in the next couple of weeks then he may be a candidate for skin graft at that time. Patient apparently could not be set up for home health due to lack of insurance. Keeping the patient in the hospital for 6weeks is not ideal. - Time Anticipated Discharge Disposition: Home, Self Care Anticipated Discharge Timeframe: 3 weeks
[2020-06-14 00:03] LABS: VANCOMYCIN,TROUGH 12.8 ug/mL (5.0-20.0)
[2020-06-14] MEDS: OXYCODONE-ACETAMINOPHEN 5-325 MG TABLET PO SCH ×6 (03:00→22:10)
[2020-06-14] MEDS: HYDROMORPHONE HCL INJ/PF 2 MG/ML AMPULE IV PRN ×4 (04:01→22:54)
[2020-06-14 06:01] LABS: INTERNATIONAL RATION (INR) 3.77; PROTHROMBIN TIME 36.9 SEC (11.4-15.4)
[2020-06-14] MEDS: METHADONE HCL 10 MG TABLET PO SCH ×3 (06:02→22:10)
[2020-06-14 06:07] LABS: HEMATOCRIT 27.2 % (37.9-51.0); MEAN CORPUSCULAR HEMOGLOBIN 25.5 pg (27.0-33.4); MEAN CORPUSCULAR HGB CONC 33.1 g/dL (32.0-36.0); MEAN CORPUSCULAR VOLUME 77 fl (80-97); PLATELET COUNT 381 10^3/uL (150-450); RED BLOOD COUNT 3.53 10^6/uL (4.35-5.55); RED CELL DISTRIBUTION WIDTH 16.6 % (11.5-14.0); WHITE BLOOD COUNT 7.3 10^3/uL (4.0-10.5)
--- NOTE | 2020-06-14 09:43 | PDOC PROGRESS REPORT ---
Subjective Date:: 06/14/20 Subjective:: 39-year-old male admitted for necrotizing fasciitis. Surgery is following the p atient. Comfortably in the bed communicating well. Complains of occasional pains in the left leg. 06/13/2020-no acute events the last 24 hours. Comfortably in the bed communicating well. Denies any pains. 06/14/2020 comfortably in the bed communicating well. Surgical team is following the patient. Continue IV Dilaudid, vancomycin is discontinued yesterday because of the high trough. Patient is afebrile. Blood pressure stable. Reason For Visit: NECROTIZING FASCIITIS Physical Exam Vital Signs: Temp Pulse Resp BP Pulse Ox 98.1 F 70 18 99/49 L 95 06/14/20 07:21 06/14/20 07:21 06/13/20 23:11 06/14/20 07:21 06/14/20 07:21 Intake & Output 06/13/20 06/14/20 06/15/20 06:59 06:59 06:59 Intake Total 1548 1490 Output Total 1100 1425 Balance 448 65 Weight 77.8 kg 81.8 kg General appearance: PRESENT: no acute distress, well-developed Head exam: PRESENT: atraumatic Eye exam: PRESENT: PERRLA Ear exam: PRESENT: normal external ear exam Mouth exam: PRESENT: neck supple Neck exam: ABSENT: carotid bruit, JVD, lymphadenopathy, thyromegaly Respiratory exam: PRESENT: decreased breath sounds Cardiovascular exam: PRESENT: RRR. ABSENT: diastolic murmur, rubs, systolic murmur Pulses: PRESENT: normal dorsalis pedis pul GI/Abdominal exam: PRESENT: normal bowel sounds, soft. ABSENT: distended, guarding, mass, organolmegaly, rebound, tenderness Rectal exam: PRESENT: deferred Extremities exam: PRESENT: other - Left leg covered heavy bandage. Neurological exam: PRESENT: alert, awake, oriented to person, oriented to place, oriented to time, oriented to situation, CN II-XII grossly intact. ABSENT: motor sensory deficit Psychiatric exam: PRESENT: appropriate affect, normal mood. ABSENT: homicidal ideation, suicidal ideation Results Laboratory Results: 06/14/20 04:55 06/13/20 23:15 06/13/20 06/14/20 23:15 04:55 WBC 7.3 RBC 3.53 L Hgb 9.0 L Hct 27.2 L MCV 77 L MCH 25.5 L MCHC 33.1 RDW 16.6 H Plt Count 381 Creatinine 0.73 Est GFR ( Amer) > 60 06/08/20 18:55 Blood Blood Culture - Final NO GROWTH IN 5 DAYS 06/08/20 18:50 Blood Blood Culture - Final NO GROWTH IN 5 DAYS 05/25/20 05/26/20 14:53 18:57 Creatine Kinase 36 L 23 L Impressions: Knee X-Ray 05/25/20 14:34 IMPRESSION: Small knee joint effusion. No acute fracture or destructive bone lesion. Lower Extremity CT 05/25/20 14:39 IMPRESSION: 1. Subcutaneous edema and skin thickening involving the distal upper leg and knee, consistent with cellulitis and subcutaneous edema. No focal drainable abscess. 2. Inflammatory change involving the medial compartment muscles suggestive of myositis. 3. Small knee joint effusion. 4. Focal DVT in the proximal common femoral vein extending into the greater saphenous vein and in the distal femoral vein. 5. Subcutaneous gas overlying the left hip region with no surrounding inflammatory change or foreign body. This may represent an injection site. PICC Line Insertion 05/27/20 00:00 IMPRESSION: SUCCESSFUL PLACEMENT OF A 5 FR DUAL LUMEN 47 CM PICC IN THE LEFT BASILIC VEIN. Chest X-Ray 06/01/20 00:00 IMPRESSION: Bilateral pneumonia. Chest/Abdomen CTA 06/01/20 00:00 IMPRESSION: Extensive bilateral pneumonia with coalescing nodules and solitary cavitary lesion in the right upper lobe suspicious for septic emboli. No intravascular pulmonary emboli. Assessment and Plan - Diagnosis (1) Cellulitis of left thigh Is this a current diagnosis for this admission?: Yes Plan: As above. 06/12/2020-patient admitted with cellulitis of the left thigh surgical team is following the patient and patient is on IV vancomycin at this time. Transesophageal echocardiogram was done which was negative for endocarditis... Comfortably in the bed communicating well. Afebrile. Blood cultures are negative. 06/13/20-to continue IV vancomycin at this time. 06/14/20-vancomycin is discontinued because of the high trough. Afebrile. Blood cultures are negative. Plan is to continue to closely monitor the left leg wound. As per the surgery wound is with scattered exudate but otherwise very clean with no evidence of residual infection or necrotic tissue. (2) Heroin addiction Is this a current diagnosis for this admission?: Yes Plan: Patient reportedly uses 1.5 g heroin daily x3 years. Patient again states his intent to go to the [facility] foll owing discharge. Continue scheduled methadone TID Clonidine as needed. Remaining management as above. - Discussed with the [facility]; they typically start at 10 mg daily and increase by 5 mg every other day, even for patients with high dose usage such as Mr. Hebert. Review of literature states that 40 mg is the max initial dosing and that there should be an observation period for 3 to 4 days prior to increase to ensure once steady state is reached patient does not experience respiratory depression. (3) Bacteremia Is this a current diagnosis for this admission?: Yes Plan: Blood culture (05/25/2020; both sets) MRSA Blood culture (05/26/2020; both sets) MRSA Blood culture (05/27/2020) MRSA; obtained 48 hours following start of vancomycin. Blood culture (05/29/2020) negative at days; obtained 4 days following start of vancomycin Blood culture (06/01/2020) pending Wound cultures positive for MRSA. Echocardiogram is negative for vegetation MITZI pending. Continue Vancomycin; minimum 4 weeks from clear blood cultures. May need 6 weeks pending MITZI results. Continue Cefepime and start Levaquin due to development of pneumonia; HAP vs Septic emboli. CTA chest pending. Infectious disease; have reviewed recommendations. 06/13/20-to continue IV vancomycin at this time. Afebrile. Vital signs are stable. Vanco trough is 22 today to hold vancomycin at this time. 06/14/2020-latest blood cultures are negative to hold off on antibiotics at this time. (4) Necrotizing fasciitis Is this a current diagnosis for this admission?: Yes Plan: He has MRSA bacteremia sensitive to vancomycin, has completed 2 weeks of antibiotics. MITZI was negative for valvular vegetation. We discontinued his Lovenox and he continues on Coumadin. He will likely need a split-thickness skin graft at some point, in several weeks according to surgery. One of his blood cultures turned positive with a strain of Enterococcus. I am a little suspicious that perhaps he is obtaining drugs to inject whenever his girlfriend comes to see him in, this is possibly how he got this organism show up in his blood. It is pansensitive and should respond to vancomycin. We are waiting for repeat blood cultures to see how long he is going to need antibiotics for the Enterococcus that showed up in his blood. I think it is impressive that he had been on antibiotics for so long for his MRSA bacteremia and then he turned positive for this Enterococcus. Possibly a contaminant, but we cannot treat Enterococcus as such. We should be able to switch him to amp icillin. He is completed 2 weeks of vancomycin for MRSA bacteremia. We cannot really treat his Enterococcus with oral antibiotics. So is going to need IV antibiotics for at least another week from this point. We should be able to continue to de-escalate his pain medication. He should be able to come off of IV pain medication altogether at this point. He is unable to get home health or mcc placement, or LTAC placement for this large wound on his leg. Therefore, I think he is going to be here for quite some time until he gets his split-thickness skin graft. 06/12/2020-patient denies any complaints of pain this morning. Left upper leg is covered with IV bandage. Receiving IV vancomycin. Surgical team also following the patient. 06/14/20-patient has a large left leg wound which is clean and no evidence of infection or necrotic tissue. (5) IV drug abuse Is this a current diagnosis for this admission?: Yes Plan: As above. (6) Multifocal pneumonia Is this a current diagnosis for this admission?: Yes Plan: Pneumonia with septic emboli; high suspicion for endocarditis. CXR shows multifocal pneumonia. CTA revealed bilateral pneumonia with a RUL cavitary lesion with evidence of septic emboli. COVID negative x2. Repeat blood culture pending. Sputum culture ordered. Nursing reminded please collect a sputum sample as soon as possible. Patient is provided supplemental oxygen as needed maintain saturations greater than 89%. Patient continues on Vancomycin and Cefepime. Start Levaquin. Deescalate most recent blood and sputum culture results. Scheduled and as needed nebulizer treatments. He is placed on Robitussin as needed. Pulmonary toilet is encouraged with incentive spirometer, flutter valve, early ambulation. - Plan Summary Summary: He has MRSA bacteremia sensitive to vancomycin, has completed 2 weeks of antibiotics. MITZI was negative for valvular vegetation. We discontinued his Lovenox and he continues on Coumadin. He will likely need a split-thickness skin graft at some point, in several weeks according to surgery. One of his blood cultures turned positive with a strain of Enterococcus. I am a little suspicious that perhaps he is obtaining drugs to inject whenever his girlfriend comes to see him in, this is possibly how he got this organism show up in his blood. It is pansensitive and should respond to vancomycin. We are waiting for repeat blood cultures to see how long he is going to need antibiotics for the Enterococcus that showed up in his blood. I think it is impressive that he had been on antibiotics for so long for his MRSA bacteremia and then he turned positive for this Enterococcus. Possibly a contaminant, but we cannot treat Enterococcus as such. We should be able to switch him to ampicillin. He is completed 2 weeks of vancomycin for MRSA bacteremia. We cannot really treat his Enterococcus with oral antibiotics. So is going to need IV antibiotics for at least another week from this point. We should be able to continue to de-escalate his pain medication. He should be able to come off of IV pain medication altogether at this point. He is unable to get home health or mcc placement, or LTAC placement for this large wound on his leg. Therefore, I think he is going to be here for quite some time until he gets his split-thickness skin graft. - Time Anticipated Discharge Disposition: Home, Self Care Anticipated Discharge Timeframe: 2 weeks
[2020-06-14] MEDS: CHOLECALCIFEROL (D3) 1,000 UNIT (25 MCG) TABLET PO SCH (10:06)
[2020-06-14] MEDS: ASCORBIC ACID 500 MG TABLET PO SCH ×2 (10:06→17:35)
[2020-06-14] MEDS: GUAIFENESIN 600 MG TABLET.SA PO SCH ×2 (10:07→22:11)
[2020-06-14] MEDS: DOCUSATE SODIUM 100 MG CAPSULE PO SCH ×2 (10:07→17:35)
[2020-06-14] MEDS: FERROUS SULFATE 325 MG TABLET PO SCH ×2 (10:07→17:35)
[2020-06-14] MEDS: FAMOTIDINE 20 MG TABLET PO SCH ×2 (10:07→22:11)
[2020-06-14] MEDS: NORMAL SALINE 10 ML SDV (SCHEDULED) IV SCH ×2 (10:08→22:12)
[2020-06-14] MEDS: ZINC SULFATE 220 MG CAPSULE PO SCH (11:15)
[2020-06-14 15:10] LABS: HEMATOCRIT 27.6 % (37.9-51.0); MEAN CORPUSCULAR HEMOGLOBIN 25.2 pg (27.0-33.4); MEAN CORPUSCULAR HGB CONC 32.6 g/dL (32.0-36.0); MEAN CORPUSCULAR VOLUME 77 fl (80-97); PLATELET COUNT 394 10^3/uL (150-450); RED BLOOD COUNT 3.57 10^6/uL (4.35-5.55); RED CELL DISTRIBUTION WIDTH 16.6 % (11.5-14.0); WHITE BLOOD COUNT 7.2 10^3/uL (4.0-10.5)
[2020-06-14] MEDS: VANCOMYCIN HCL 1,000 MG in DEXTROSE 5%-WATER 250 ML IV SCH ×2 (15:42→22:23)
--- NOTE | 2020-06-14 17:41 | PDOC PROGRESS REPORT ---
Subjective Date:: 06/14/20 Reason For Visit: NECROTIZING FASCIITIS Wound check at bedside Physical Exam Vital Signs: Temp Pulse Resp BP Pulse Ox 98.4 F 82 18 110/60 94 06/14/20 11:20 06/14/20 11:20 06/14/20 11:20 06/14/20 11:20 06/14/20 11:20 Intake & Output 06/13/20 06/14/20 06/15/20 06:59 06:59 06:59 Intake Total 1548 1490 670 Output Total 1100 1425 600 Balance 448 65 70 Weight 77.8 kg 81.8 kg General appearance: PRESENT: no acute distress Musculoskeletal exam: PRESENT: other - Dressing removed at bedside. Over 50% of the open wound bed granulating. Minimal fibrinous debris and eschar evolving inferior aspect of wound. No foul smell or drainage. Improved range of motion of left knee, however still extremely limited Results Laboratory Results: 06/14/20 14:03 06/13/20 23:15 06/13/20 06/14/20 06/14/20 23:15 04:55 14:03 WBC 7.3 7.2 RBC 3.53 L 3.57 L Hgb 9.0 L 9.0 L Hct 27.2 L 27.6 L MCV 77 L 77 L MCH 25.5 L 25.2 L MCHC 33.1 32.6 RDW 16.6 H 16.6 H Plt Count 381 394 Creatinine 0.73 Est GFR ( Amer) > 60 06/08/20 18:55 Blood Blood Culture - Final NO GROWTH IN 5 DAYS 06/08/20 18:50 Blood Blood Culture - Final NO GROWTH IN 5 DAYS 05/25/20 05/26/20 14:53 18:57 Creatine Kinase 36 L 23 L Impressions: Knee X-Ray 05/25/20 14:34 IMPRESSION: Small knee joint effusion. No acute fracture or destructive bone lesion. Lower Extremity CT 05/25/20 14:39 IMPRESSION: 1. Subcutaneous edema and skin thickening involving the distal upper leg and knee, consistent with cellulitis and subcutaneous edema. No focal drainable abscess. 2. Inflammatory change involving the medial compartment muscles suggestive of myositis. 3. Small knee joint effusion. 4. Focal DVT in the proximal common femoral vein extending into the greater saphenous vein and in the distal femoral vein. 5. Subcutaneous gas overlying the left hip region with no surrounding inflammatory change or foreign body. This may represent an injection site. PICC Line Insertion 05/27/20 00:00 IMPRESSION: SUCCESSFUL PLACEMENT OF A 5 FR DUAL LUMEN 47 CM PICC IN THE LEFT BASILIC VEIN. Chest X-Ray 06/01/20 00:00 IMPRESSION: Bilateral pneumonia. Chest/Abdomen CTA 06/01/20 00:00 IMPRESSION: Extensive bilateral pneumonia with coalescing nodules and solitary cavitary lesion in the right upper lobe suspicious for septic emboli. No intravascular pulmonary emboli. Assessment & Plan - Diagnosis (1) Abscess of left thigh Is this a current diagnosis for this admission?: Yes Plan: Impression: Nearly 3 weeks status post of vigorous debridement left lower extremity, with a large open wound granulating in secondary intention, with no indication for operative debridement. Plan: 1. We will get patient up out of bed and into shower. We will provide chlorhexidine scrub brushes to assist with residual debridement 2. We will continue to follow patient on a daily basis (2) DVT (deep venous thrombosis) Qualifiers: DVT location: lower extremity Affected thrombotic vein of extremity: femoral Chronicity: chronic Laterality: left Qualified Code(s): I82.512 - Chronic embolism and thrombosis of left femoral vein Is this a current diagnosis for this admission?: Yes (3) IV drug abuse Is this a current diagnosis for this admission?: Yes (4) Necrotizing soft tissue infection Is this a current diagnosis for this admission?: Yes (5) Pulmonary emboli Is this a current diagnosis for this admission?: Yes - Time Anticipated Discharge Disposition: Home, Self Care Anticipated Discharge Timeframe: within 48 hours
[2020-06-15] MEDS: OXYCODONE-ACETAMINOPHEN 5-325 MG TABLET PO SCH ×3 (01:17→10:17)
[2020-06-15] MEDS: METHADONE HCL 10 MG TABLET PO SCH ×3 (05:31→23:29)
[2020-06-15] MEDS: VANCOMYCIN HCL 1,000 MG in DEXTROSE 5%-WATER 250 ML IV SCH ×3 (05:31→23:27)
[2020-06-15] MEDS: HYDROMORPHONE HCL INJ/PF 2 MG/ML AMPULE IV PRN ×3 (05:32→23:35)
[2020-06-15 06:13] LABS: APPEARANCE,URINE SLIGHTLY-CLOUDY; BILIRUBIN,URINE NEGATIVE (NEGATIVE); COLOR,URINE YELLOW; GLUCOSE, URINE NEGATIVE (NEGATIVE); KETONES,URINE NEGATIVE (NEGATIVE); LEUKOCYTE ESTERASE,URINE NEGATIVE (NEGATIVE); NITRITE,URINE NEGATIVE (NEGATIVE); PROTEIN,URINE NEGATIVE (NEGATIVE); URINE SPECIFIC GRAVITY 1.021; UROBILINOGEN,URINE NEGATIVE mg/dL (<2.0)
[2020-06-15 06:28] LABS: INTERNATIONAL RATION (INR) 3.34; PROTHROMBIN TIME 33.6 SEC (11.4-15.4)
--- NOTE | 2020-06-15 09:34 | PDOC PROGRESS REPORT ---
Subjective Date:: 06/15/20 Reason For Visit: NECROTIZING FASCIITIS No events overnight Physical Exam Vital Signs: Temp Pulse Resp BP Pulse Ox 97.6 F 71 12 91/60 L 95 06/15/20 07:37 06/15/20 07:37 06/15/20 07:37 06/15/20 07:37 06/15/20 07:37 Intake & Output 06/14/20 06/15/20 06/16/20 06:59 06:59 06:59 Intake Total 1490 1580 Output Total 1425 900 Balance 65 680 Weight 81.8 kg 82.1 kg General appearance: PRESENT: no acute distress Gentrourinary exam: PRESENT: other Extremities exam: PRESENT: other - Dressing changes this morning by staff. No foul smell; slightly less yellow exudate Results Laboratory Results: 06/14/20 14:03 06/13/20 23:15 06/14/20 06/15/20 14:03 05:45 WBC 7.2 RBC 3.57 L Hgb 9.0 L Hct 27.6 L MCV 77 L MCH 25.2 L MCHC 32.6 RDW 16.6 H Plt Count 394 Urine Color YELLOW Urine Appearance SLIGHTLY-CLOUDY Urine pH 5.0 Ur Specific [place] 1.021 Urine Protein NEGATIVE Urine Glucose (UA) NEGATIVE Urine Ketones NEGATIVE Urine Blood NEGATIVE Urine Nitrite NEGATIVE Ur Leukocyte Esterase NEGATIVE Urine WBC (Auto) 1 Urine RBC (Auto) 0 05/25/20 05/26/20 14:53 18:57 Creatine Kinase 36 L 23 L Impressions: Knee X-Ray 05/25/20 14:34 IMPRESSION: Small knee joint effusion. No acute fracture or destructive bone lesion. Lower Extremity CT 05/25/20 14:39 IMPRESSION: 1. Subcutaneous edema and skin thickening involving the distal upper leg and knee, consistent with cellulitis and subcutaneous edema. No focal drainable abscess. 2. Inflammatory change involving the medial compartment muscles suggestive of myositis. 3. Small knee joint effusion. 4. Focal DVT in the proximal common femoral vein extending into the greater saphenous vein and in the distal femoral vein. 5. Subcutaneous gas overlying the left hip region with no surrounding inflammatory change or foreign body. This may represent an injection site. PICC Line Insertion 05/27/20 00:00 IMPRESSION: SUCCESSFUL PLACEMENT OF A 5 FR DUAL LUMEN 47 CM PICC IN THE LEFT BASILIC VEIN. Chest X-Ray 06/01/20 00:00 IMPRESSION: Bilateral pneumonia. Chest/Abdomen CTA 06/01/20 00:00 IMPRESSION: Extensive bilateral pneumonia with coalescing nodules and solitary cavitary lesion in the right upper lobe suspicious for septic emboli. No intravascular pulmonary emboli. Assessment & Plan - Diagnosis (1) Abscess of left thigh Is this a current diagnosis for this admission?: Yes Plan: Impression: Chronic wound left leg, undergoing dressing changes, granulation tissue expanding Plan: 1. Continue with local wound care 2. We will get physical therapy involved, attempt to increase flexion of the left knee. Challenging case because of girlfriends enabling patient to remain dependent. 3. Discussed the above with staff. (2) DVT (deep venous thrombosis) Qualifiers: DVT location: lower extremity Affected thrombotic vein of extremity: femoral Chronicity: chronic Laterality: left Qualified Code(s): I82.512 - Chronic embolism and thrombosis of left femoral vein Is this a current diagnosis for this admission?: Yes (3) IV drug abuse Is this a current diagnosis for this admission?: Yes (4) Necrotizing soft tissue infection Is this a current diagnosis for this admission?: Yes (5) Pulmonary emboli Is this a current diagnosis for this admission?: Yes - Time Anticipated Discharge Disposition: Home, Self Care Anticipated Discharge Timeframe: within 24 hours
[2020-06-15] MEDS: FERROUS SULFATE 325 MG TABLET PO SCH ×2 (10:14→18:45)
[2020-06-15] MEDS: DOCUSATE SODIUM 100 MG CAPSULE PO SCH ×2 (10:14→18:45)
[2020-06-15] MEDS: GUAIFENESIN 600 MG TABLET.SA PO SCH ×2 (10:15→23:30)
[2020-06-15] MEDS: FAMOTIDINE 20 MG TABLET PO SCH ×2 (10:15→23:30)
[2020-06-15] MEDS: ASCORBIC ACID 500 MG TABLET PO SCH ×2 (10:15→18:45)
[2020-06-15] MEDS: CHOLECALCIFEROL (D3) 1,000 UNIT (25 MCG) TABLET PO SCH (10:16)
[2020-06-15] MEDS: ZINC SULFATE 220 MG CAPSULE PO SCH (10:16)
[2020-06-15] MEDS: NORMAL SALINE 10 ML SDV (SCHEDULED) IV SCH ×2 (10:17→23:26)
--- NOTE | 2020-06-15 10:47 | PDOC PROGRESS REPORT ---
Subjective Date:: 06/15/20 Subjective:: 39-year-old male admitted for necrotizing fasciitis. Surgery is following the p atient. Comfortably in the bed communicating well. Complains of occasional pains in the left leg. 06/13/2020-no acute events the last 24 hours. Comfortably in the bed communicating well. Denies any pains. 06/14/2020 comfortably in the bed communicating well. Surgical team is following the patient. Continue IV Dilaudid, vancomycin is discontinued yesterday because of the high trough. Patient is afebrile. Blood pressure stable. 06/15/20-patient is comfortably in the bed sleeping. Does not want to wake up and communicate with me. Plan is to continue the present management at time. Pharmacy spoke to me as per the pharmacy patient needed total of 6 weeks of IV vancomycin as recommended by ID. Reason For Visit: NECROTIZING FASCIITIS Physical Exam Vital Signs: Temp Pulse Resp BP Pulse Ox 97.6 F 71 12 91/60 L 95 06/15/20 07:37 06/15/20 07:37 06/15/20 07:37 06/15/20 07:37 06/15/20 07:37 Intake & Output 06/14/20 06/15/20 06/16/20 06:59 06:59 06:59 Intake Total 1490 1580 Output Total 1425 900 Balance 65 680 Weight 81.8 kg 82.1 kg General appearance: PRESENT: no acute distress, cooperative, well-developed Head exam: PRESENT: atraumatic Eye exam: PRESENT: PERRLA Neck exam: ABSENT: carotid bruit, JVD, lymphadenopathy, thyromegaly Respiratory exam: PRESENT: decreased breath sounds Cardiovascular exam: PRESENT: RRR. ABSENT: diastolic murmur, rubs, systolic murmur Pulses: PRESENT: normal dorsalis pedis pul GI/Abdominal exam: PRESENT: normal bowel sounds, soft. ABSENT: distended, guarding, mass, organolmegaly, rebound, tenderness Rectal exam: PRESENT: deferred Extremities exam: PRESENT: full ROM. ABSENT: calf tenderness, clubbing, pedal edema Neurological exam: PRESENT: alert, awake, oriented to person, oriented to place, oriented to time, oriented to situation, CN II-XII grossly intact. ABSENT: motor sensory deficit Psychiatric exam: PRESENT: appropriate affect, normal mood. ABSENT: homicidal ideation, suicidal ideation Results Laboratory Results: 06/14/20 14:03 06/13/20 23:15 06/14/20 06/15/20 14:03 05:45 WBC 7.2 RBC 3.57 L Hgb 9.0 L Hct 27.6 L MCV 77 L MCH 25.2 L MCHC 32.6 RDW 16.6 H Plt Count 394 Urine Color YELLOW Urine Appearance SLIGHTLY-CLOUDY Urine pH 5.0 Ur Specific [place] 1.021 Urine Protein NEGATIVE Urine Glucose (UA) NEGATIVE Urine Ketones NEGATIVE Urine Blood NEGATIVE Urine Nitrite NEGATIVE Ur Leukocyte Esterase NEGATIVE Urine WBC (Auto) 1 Urine RBC (Auto) 0 05/25/20 05/26/20 14:53 18:57 Creatine Kinase 36 L 23 L Impressions: Knee X-Ray 05/25/20 14:34 IMPRESSION: Small knee joint effusion. No acute fracture or destructive bone lesion. Lower Extremity CT 05/25/20 14:39 IMPRESSION: 1. Subcutaneous edema and skin thickening involving the distal upper leg and knee, consistent with cellulitis and subcutaneous edema. No focal drainable abscess. 2. Inflammatory change involving the medial compartment muscles suggestive of myositis. 3. Small knee joint effusion. 4. Focal DVT in the proximal common femoral vein extending into the greater saphenous vein and in the distal femoral vein. 5. Subcutaneous gas overlying the left hip region with no surrounding inflammato ry change or foreign body. This may represent an injection site. PICC Line Insertion 05/27/20 00:00 IMPRESSION: SUCCESSFUL PLACEMENT OF A 5 FR DUAL LUMEN 47 CM PICC IN THE LEFT BASILIC VEIN. Chest X-Ray 06/01/20 00:00 IMPRESSION: Bilateral pneumonia. Chest/Abdomen CTA 06/01/20 00:00 IMPRESSION: Extensive bilateral pneumonia with coalescing nodules and solitary cavitary lesion in the right upper lobe suspicious for septic emboli. No intravascular pulmonary emboli. Assessment and Plan - Diagnosis (1) Cellulitis of left thigh Is this a current diagnosis for this admission?: Yes Plan: As above. 06/12/2020-patient admitted with cellulitis of the left thigh surgical team is following the patient and patient is on IV vancomycin at this time. Transesophageal echocardiogram was done which was negative for endocarditis... Comfortably in the bed communicating well. Afebrile. Blood cultures are negative. 06/13/20-to continue IV vancomycin at this time. 06/14/20-vancomycin is discontinued because of the high trough. Afebrile. Blood cultures are negative. Plan is to continue to closely monitor the left leg wound. As per the surgery wound is with scattered exudate but otherwise very clean with no evidence of residual infection or necrotic tissue. 06/15/2020-patient admitted with cellulitis of the left thigh status post debridement was done. Surgery is following the patient. As per pharmacy ID recommended total of 6 weeks of IV vancomycin. Plan is to treat as if the patient has endocarditis. (2) Heroin addiction Is this a current diagnosis for this admission?: Yes Plan: Patient reportedly uses 1.5 g heroin daily x3 years. Patient again states his intent to go to the [facility] following discharge. Continue scheduled methadone TID Clonidine as needed. Remaining management as above. - Discussed with the [facility]; they typically start at 10 mg daily and increase by 5 mg every other day, even for patients with high dose usage such as Mr. Hebert. Review of literature states that 40 mg is the max initial dosing and that there should be an observation period for 3 to 4 days prior to increase to ensure once steady state is reached patient does not experience respiratory depression. (3) Bacteremia Is this a current diagnosis for this admission?: Yes Plan: Blood culture (05/25/2020; both sets) MRSA Blood culture (05/26/2020; both sets) MRSA Blood culture (05/27/2020) MRSA; obtained 48 hours following start of vancomycin. Blood culture (05/29/2020) negative at days; obtained 4 days following start of vancomycin Blood culture (06/01/2020) pending Wound cultures positive for MRSA. Echocardiogram is negative for vegetation MITZI pending. Continue Vancomycin; minimum 4 weeks from clear blood cultures. May need 6 weeks pending MITZI results. Continue Cefepime and start Levaquin due to development of pneumonia; HAP vs Septic emboli. CTA chest pending. Infectious disease; have reviewed recommendations. 06/13/20-to continue IV vancomycin at this time. Afebrile. Vital signs are stable. Vanco trough is 22 today to hold vancomycin at this time. 06/14/2020-latest blood cultures are negative to hold off on antibiotics at this time. 06/15/2020-plan is to continue IV vancomycin for at total of 6 weeks. (4) Necrotizing fasciitis Is this a current diagnosis for this admission?: Yes Plan: He has MRSA bacteremia sensitive to vancomycin, has completed 2 weeks of antibiotics. MITZI was negative for valvular vegetation. We discontinued his Lovenox and he continues on Coumadin. He will likely need a split-thickness skin graft at some point, in several weeks according to surgery. One of his blood cultures turned positive with a strain of Enterococcus. I am a little suspicious that perhaps he is obtaining drugs to inject whenever his girlfriend comes to see him in, this is possibly how he got this organism show up in his blood. It is pansensitive and should respond to vancomycin. We are waiting for repeat blood cultures to see how long he is going to need antibiotics for the Enterococcus that showed up in his blood. I think it is impressive that he had been on antibiotics for so long for his MRSA bacteremia and then he turned positive for this Enterococcus. Possibly a contaminant, but we cannot treat Enterococcus as such. We should be able to switch him to ampicillin. He is completed 2 weeks of vancomycin for MRSA bacteremia. We cannot really treat his Enterococcus with oral antibiotics. So is going to need IV antibiotics for at least another week from this point. We should be able to continue to de-escalate his pain medication. He should be able to come off of IV pain medication altogether at this point. He is unable to get home health or residential placement, or LTAC placement for this large wound on his leg. Therefore, I think he is going to be here for quite some time until he gets his split-thickness skin graft. 06/12/2020-patient denies any complaints of pain this morning. Left upper leg is covered with IV bandage. Receiving IV vancomycin. Surgical team also following the patient. 06/14/20-patient has a large left leg wound which is clean and no evidence of infection or necrotic tissue. (5) IV drug abuse Is this a current diagnosis for this admission?: Yes Plan: As above. (6) Multifocal pneumonia Is this a current diagnosis for this admission?: Yes Plan: Pneumonia with septic emboli; high suspicion for endocarditis. CXR shows multifocal pneumonia. CTA revealed bilateral pneumonia with a RUL cavitary lesion with evidence of septic emboli. COVID negative x2. Repeat blood culture pending. Sputum culture ordered. Nursing reminded please collect a sputum sample as soon as possible. Patient is provided supplemental oxygen as needed maintain saturations greater than 89%. Patient continues on Vancomycin and Cefepime. Start Levaquin. Deescalate most recent blood and sputum culture results. Scheduled and as needed nebulizer treatments. He is placed on Robitussin as needed. Pulmonary toilet is encouraged with incentive spirometer, flutter valve, early ambulation. - Plan Summary Summary: He has MRSA bacteremia sensitive to vancomycin, has completed 2 weeks of antibiotics. MITZI was negative for valvular vegetation. We discontinued his Lovenox and he continues on Coumadin. He will likely need a split-thickness skin graft at some point, in several weeks according to surgery. One of his blood cultures turned positive with a strain of Enterococcus. I am a little suspicious that perhaps he is obtaining drugs to inject whenever his girlfriend comes to see him in, this is possibly how he got this organism show up in his blood. It is pansensitive and should respond to vancomycin. We are waiting for repeat blood cultures to see how long he is going to need antibiotics for the Enterococcus that showed up in his blood. I think it is impressive that he had been on antibiotics for so long for his MRSA bacteremia and then he turned positive for this Enterococcus. Possibly a contaminant, but we cannot treat Enterococcus as such. We should be able to switch him to ampicillin. He is completed 2 weeks of vancomycin for MRSA bacteremia. We cannot really treat his Enterococcus with oral antibiotics. So is going to need IV antibiotics for at least another week from this point. We should be able to continue to de-escalate his pain medication. He should be able to come off of IV pain medication altogether at this point. He is unable to get home health or residential placement, or LTAC placement for this large wound on his leg. Therefore, I think he is going to be here for quite some time until he gets his split-thickness skin graft. - Time Anticipated Discharge Disposition: Home, Self Care Anticipated Discharge Timeframe: within 72 hours - 3 weeks
[2020-06-16] MEDS: VANCOMYCIN HCL 1,000 MG in DEXTROSE 5%-WATER 250 ML IV SCH (05:33)
[2020-06-16] MEDS: METHADONE HCL 10 MG TABLET PO SCH ×3 (05:34→22:48)
[2020-06-16] MEDS: HYDROMORPHONE HCL INJ/PF 2 MG/ML AMPULE IV PRN ×3 (05:35→22:48)
[2020-06-16 07:01] LABS: INTERNATIONAL RATION (INR) 2.88
[2020-06-16 07:26] LABS: VANCOMYCIN,TROUGH 20.4 ug/mL (5.0-20.0)
--- NOTE | 2020-06-16 09:31 | PDOC PROGRESS REPORT ---
Subjective Date:: 06/16/20 Subjective:: 39-year-old male admitted for necrotizing fasciitis. Surgery is following the p atient. Comfortably in the bed communicating well. Complains of occasional pains in the left leg. 06/13/2020-no acute events the last 24 hours. Comfortably in the bed communicating well. Denies any pains. 06/14/2020 comfortably in the bed communicating well. Surgical team is following the patient. Continue IV Dilaudid, vancomycin is discontinued yesterday because of the high trough. Patient is afebrile. Blood pressure stable. 06/15/20-patient is comfortably in the bed sleeping. Does not want to wake up and communicate with me. Plan is to continue the present management at time. Pharmacy spoke to me as per the pharmacy patient needed total of 6 weeks of IV vancomycin as recommended by ID. 06/16/2020-patient is comfortably in the bed communicating well. Requesting for more pain medications. Presently on Dilaudid 0.5 mg IV every 6 as needed, methadone 30 mg every 8 hours. Plan is to continue the present management. He is receiving IV vancomycin as per ID recommendations. Patient is going to receive at least 4 weeks of IV antibiotic therapy for the day of blood cultures negative. Reason For Visit: NECROTIZING FASCIITIS Physical Exam Vital Signs: Temp Pulse Resp BP Pulse Ox 99.4 F 98 19 100/50 L 95 06/16/20 08:00 06/16/20 08:00 06/16/20 08:00 06/16/20 08:00 06/16/20 08:00 Intake & Output 06/15/20 06/16/20 06/17/20 06:59 06:59 06:59 Intake Total 1580 1550 Output Total 900 625 Balance 680 925 Weight 82.1 kg 78.8 kg General appearance: PRESENT: no acute distress, well-developed Head exam: PRESENT: atraumatic Eye exam: PRESENT: PERRLA Mouth exam: PRESENT: moist, tongue midline Teeth exam: PRESENT: poor dentation Neck exam: ABSENT: carotid bruit, JVD, lymphadenopathy, thyromegaly Respiratory exam: PRESENT: decreased breath sounds Cardiovascular exam: PRESENT: RRR. ABSENT: diastolic murmur, rubs, systolic murmur Pulses: PRESENT: normal dorsalis pedis pul GI/Abdominal exam: PRESENT: normal bowel sounds, soft. ABSENT: distended, guarding, mass, organolmegaly, rebound, tenderness Rectal exam: PRESENT: deferred Extremities exam: PRESENT: full ROM. ABSENT: calf tenderness, clubbing, pedal edema Neurological exam: PRESENT: alert, awake, oriented to person, oriented to place, oriented to time, oriented to situation, CN II-XII grossly intact. ABSENT: motor sensory deficit Psychiatric exam: PRESENT: appropriate affect, normal mood. ABSENT: homicidal ideation, suicidal ideation Results Laboratory Results: 06/14/20 14:03 06/16/20 05:30 06/16/20 05:30 Creatinine 0.82 Est GFR ( Amer) > 60 05/25/20 05/26/20 14:53 18:57 Creatine Kinase 36 L 23 L Impressions: Knee X-Ray 05/25/20 14:34 IMPRESSION: Small knee joint effusion. No acute fracture or destructive bone lesion. Lower Extremity CT 05/25/20 14:39 IMPRESSION: 1. Subcutaneous edema and skin thickening involving the distal upper leg and knee, consistent with cellulitis and subcutaneous edema. No focal drainable abscess. 2. Inflammatory change involving the medial compartment muscles suggestive of myositis. 3. Small knee joint effusion. 4. Focal DVT in the proximal common femoral vein extending into the greater saphenous vein and in the distal femoral vein. 5. Subcutaneous gas overlying the left hip region with no surrounding inflammatory change or foreign body. This may represent an injection site. PICC Line Insertion 05/27/20 00:00 IMPRESSION: SUCCESSFUL PLACEMENT OF A 5 FR DUAL LUMEN 47 CM PICC IN THE LEFT BASILIC VEIN. Chest X-Ray 06/01/20 00:00 IMPRESSION: Bilateral pneumonia. Chest/Abdomen CTA 06/01/20 00:00 IMPRESSION: Extensive bilateral pneumonia with coalescing nodules and solitary cavitary lesion in the right upper lobe suspicious for septic emboli. No intravascular pulmonary emboli. Assessment and Plan - Diagnosis (1) Cellulitis of left thigh Is this a current diagnosis for this admission?: Yes Plan: As above. 06/12/2020-patient admitted with cellulitis of the left thigh surgical team is following the patient and patient is on IV vancomycin at this time. Transesophageal echocardiogram was done which was negative for endocarditis... Comfortably in the bed communicating well. Afebrile. Blood cultures are negative. 06/13/20-to continue IV vancomycin at this time. 06/14/20-vancomycin is discontinued because of the high trough. Afebrile. Blood cultures are negative. Plan is to continue to closely monitor the left leg wound. As per the surgery wound is with scattered exudate but otherwise very clean with no evidence of residual infection or necrotic tissue. 06/15/2020-patient admitted with cellulitis of the left thigh status post debridement was done. Surgery is following the patient. As per pharmacy ID recommended total of 6 weeks of IV vancomycin. Plan is to treat as if the p atient has endocarditis. 06/16/2020-patient admitted with cellulitis of the left thigh covered with heavy bandage. Surgical team is following the patient. He is on IV vancomycin need at least 4 weeks of IV antibiotic therapy from the day of blood cultures are negative as per ID recommendations. Pharmacy is following the vancomycin trough and adjusting the vancomycin doses at this time. (2) Heroin addiction Is this a current diagnosis for this admission?: Yes Plan: Patient reportedly uses 1.5 g heroin daily x3 years. Patient again states his intent to go to the [facility] following discharge. Continue scheduled methadone TID Clonidine as needed. Remaining management as above. - Discussed with the [facility]; they typically start at 10 mg daily and increase by 5 mg every other day, even for patients with high dose usage such as Mr. Hebert. Review of literature states that 40 mg is the max initial dosing and that there should be an observation period for 3 to 4 days prior to increase to ensure once steady state is reached patient does not experience respiratory depression. (3) Bacteremia Is this a current diagnosis for this admission?: Yes Plan: Blood culture (05/25/2020; both sets) MRSA Blood culture (05/26/2020; both sets) MRSA Blood culture (05/27/2020) MRSA; obtained 48 hours following start of v ancomycin. Blood culture (05/29/2020) negative at days; obtained 4 days following start of vancomycin Blood culture (06/01/2020) pending Wound cultures positive for MRSA. Echocardiogram is negative for vegetation MITZI pending. Continue Vancomycin; minimum 4 weeks from clear blood cultures. May need 6 weeks pending MITZI results. Continue Cefepime and start Levaquin due to development of pneumonia; HAP vs Septic emboli. CTA chest pending. Infectious disease; have reviewed recommendations. 06/13/20-to continue IV vancomycin at this time. Afebrile. Vital signs are stable. Vanco trough is 22 today to hold vancomycin at this time. 06/14/2020-latest blood cultures are negative to hold off on antibiotics at this time. 06/15/2020-plan is to continue IV vancomycin for at total of 6 weeks. (4) Necrotizing fasciitis Is this a current diagnosis for this admission?: Yes Plan: He has MRSA bacteremia sensitive to vancomycin, has completed 2 weeks of antibiotics. MITZI was negative for valvular vegetation. We discontinued his Lovenox and he continues on Coumadin. He will likely need a split-thickness skin graft at some point, in several weeks according to surgery. One of his blood cultures turned positive with a strain of Enterococcus. I am a little suspicious that perhaps he is obtaining drugs to inject whenever his girlfriend comes to see him in, this is possibly how he got this organism show up in his blood. It is pansensitive and should respond to vancomycin. We are waiting for repeat blood cultures to see how long he is going to need antibiotics for the Enterococcus that showed up in his blood. I think it is impressive that he had been on antibiotics for so long for his MRSA bacteremia and then he turned positive for this Enterococcus. Possibly a contaminant, but we cannot treat Enterococcus as such. We should be able to switch him to ampicillin. He is completed 2 weeks of vancomycin for MRSA bacteremia. We cannot really treat his Enterococcus with oral antibiotics. So is going to need IV antibiotics for at least another week from this point. We should be able to continue to de-escalate his pain medication. He should be able to come off of IV pain medication altogether at this point. He is unable to get home health or fdc placement, or LTAC placement for this large wound on his leg. Therefore, I think he is going to be here for quite some time until he gets his split-thickness skin graft. 06/12/2020-patient denies any complaints of pain this morning. Left upper leg is covered with IV bandage. Receiving IV vancomycin. Surgical team also following the patient. 06/14/20-patient has a large left leg wound which is clean and no evidence of infection or necrotic tissue. (5) IV drug abuse Is this a current diagnosis for this admission?: Yes Plan: As above. (6) Multifocal pneumonia Is this a current diagnosis for this admission?: Yes Plan: Pneumonia with septic emboli; high suspicion for endocarditis. CXR shows multifocal pneumonia. CTA revealed bilateral pneumonia with a RUL cavitary lesion with evidence of se ptic emboli. COVID negative x2. Repeat blood culture pending. Sputum culture ordered. Nursing reminded please collect a sputum sample as soon as possible. Patient is provided supplemental oxygen as needed maintain saturations greater than 89%. Patient continues on Vancomycin and Cefepime. Start Levaquin. Deescalate most recent blood and sputum culture results. Scheduled and as needed nebulizer treatments. He is placed on Robitussin as needed. Pulmonary toilet is encouraged with incentive spirometer, flutter valve, early ambulation. 06/16/2020-patient is presently on IV vancomycin. As per the ID recommendations he will be treated as if he has infective endocarditis. He is on IV vancomycin continue IV vancomycin for at least 4 weeks after the blood cultures are negative. - Plan Summary Summary: He has MRSA bacteremia sensitive to vancomycin, has completed 2 weeks of antibiotics. MITZI was negative for valvular vegetation. We discontinued his Lovenox and he continues on Coumadin. He will likely need a split-thickness skin graft at some point, in several weeks according to surgery. One of his blood cultures turned positive with a strain of Enterococcus. I am a little suspicious that perhaps he is obtaining drugs to inject whenever his girlfriend comes to see him in, this is possibly how he got this organism show up in his blood. It is pansensitive and should respond to vancomycin. We are waiting for repeat blood cultures to see how long he is going to need antibiotics for the Enterococcus that showed up in his blood. I think it is impressive that he had been on antibiotics for so long for his MRSA bacteremia and then he turned positive for this Enterococcus. Possibly a contaminant, but we cannot treat Enterococcus as such. We should be able to switch him to ampicillin. He is completed 2 weeks of vancomycin for MRSA bacteremia. We cannot really treat his Enterococcus with oral antibiotics. So is going to need IV antibiotics for at least another week from this point. We should be able to continue to de-escalate his pain medication. He should be able to come off of IV pain medication altogether at this point. He is unable to get home health or fdc placement, or LTAC placement for this large wound on his leg. Therefore, I think he is going to be here for quite some time until he gets his split-thickness skin graft. - Time Anticipated Discharge Disposition: Home, Self Care Anticipated Discharge Timeframe: 4 weeks
[2020-06-16] MEDS: NORMAL SALINE 10 ML SDV (SCHEDULED) IV SCH ×2 (10:38→22:45)
[2020-06-16] MEDS: GUAIFENESIN 600 MG TABLET.SA PO SCH ×2 (10:39→22:48)
[2020-06-16] MEDS: ASCORBIC ACID 500 MG TABLET PO SCH ×2 (10:39→17:55)
[2020-06-16] MEDS: CHOLECALCIFEROL (D3) 1,000 UNIT (25 MCG) TABLET PO SCH (10:39)
[2020-06-16] MEDS: FAMOTIDINE 20 MG TABLET PO SCH ×2 (10:39→22:48)
[2020-06-16] MEDS: FERROUS SULFATE 325 MG TABLET PO SCH ×2 (10:39→17:55)
[2020-06-16] MEDS: DOCUSATE SODIUM 100 MG CAPSULE PO SCH ×2 (10:40→18:05)
[2020-06-16] MEDS: ZINC SULFATE 220 MG CAPSULE PO SCH (10:48)
--- NOTE | 2020-06-16 16:19 | PDOC PROGRESS REPORT ---
Subjective Date:: 06/16/20 Reason For Visit: NECROTIZING FASCIITIS Patient eating, having bowel movements. Wants his Percocet restarted. Not showering as requested and not ambulating and not exercising as instructed Physical Exam Vital Signs: Temp Pulse Resp BP Pulse Ox 99.3 F 96 25 H 86/44 L 96 06/16/20 12:00 06/16/20 12:00 06/16/20 12:00 06/16/20 12:00 06/16/20 12:00 Intake & Output 06/15/20 06/16/20 06/17/20 06:59 06:59 06:59 Intake Total 1580 1550 250 Output Total 900 625 400 Balance 680 925 -150 Weight 82.1 kg 78.8 kg General appearance: PRESENT: no acute distress Extremities exam: PRESENT: other - Left leg examined. No significant change compared to yesterday. Granulation tissue continues to fill in the wound; some fibrinous debris and yellow exudate which is mild. Results Laboratory Results: 06/14/20 14:03 06/16/20 05:30 06/16/20 05:30 Creatinine 0.82 Est GFR ( Amer) > 60 05/25/20 05/26/20 14:53 18:57 Creatine Kinase 36 L 23 L Impressions: Knee X-Ray 05/25/20 14:34 IMPRESSION: Small knee joint effusion. No acute fracture or destructive bone lesion. Lower Extremity CT 05/25/20 14:39 IMPRESSION: 1. Subcutaneous edema and skin thickening involving the distal upper leg and kne e, consistent with cellulitis and subcutaneous edema. No focal drainable abscess. 2. Inflammatory change involving the medial compartment muscles suggestive of myositis. 3. Small knee joint effusion. 4. Focal DVT in the proximal common femoral vein extending into the greater saphenous vein and in the distal femoral vein. 5. Subcutaneous gas overlying the left hip region with no surrounding inflam matory change or foreign body. This may represent an injection site. PICC Line Insertion 05/27/20 00:00 IMPRESSION: SUCCESSFUL PLACEMENT OF A 5 FR DUAL LUMEN 47 CM PICC IN THE LEFT BASILIC VEIN. Chest X-Ray 06/01/20 00:00 IMPRESSION: Bilateral pneumonia. Chest/Abdomen CTA 06/01/20 00:00 IMPRESSION: Extensive bilateral pneumonia with coalescing nodules and solitary cavitary lesion in the right upper lobe suspicious for septic emboli. No intravascular pulmonary emboli. Assessment & Plan - Diagnosis (1) Abscess of left thigh Is this a current diagnosis for this admission?: Yes Plan: Impression: Extensive wound left lower extremity continues to fill in with granulation tissue; noncompliance with leg washing, ovulation showering and exercising will impair his recovery. Plan 1. Continue local wound care 2. We will explore skin substitute options if any; split thickness skin graft ing available, however will create donor site wounds increasing patient's pain and risk for additional soft tissue infection. Will explore skin substitute options this week. (2) DVT (deep venous thrombosis) Qualifiers: DVT location: lower extremity Affected thrombotic vein of extremity: femoral Chronicity: chronic Laterality: left Qualified Code(s): I82.512 - Chronic embolism and thrombosis of left femoral vein Is this a current diagnosis for this admission?: Yes (3) IV drug abuse Is this a current diagnosis for this admission?: Yes (4) Necrotizing soft tissue infection Is this a current diagnosis for this admission?: Yes (5) Pulmonary emboli Is this a current diagnosis for this admission?: Yes - Time Anticipated Discharge Disposition: Home, Self Care Anticipated Discharge Timeframe: To be dete
[2020-06-16] MEDS: OXYCODONE-ACETAMINOPHEN 5-325 MG TABLET PO PRN (17:55)
[2020-06-16] MEDS: VANCOMYCIN HCL 1,250 MG in DEXTROSE 5%-WATER 250 ML IV SCH (18:04)
[2020-06-16] MEDS: WARFARIN SODIUM 4 MG TABLET PO SCH (22:50)
[2020-06-17] MEDS: HYDROMORPHONE HCL INJ/PF 2 MG/ML AMPULE IV PRN ×3 (06:19→18:29)
[2020-06-17] MEDS: METHADONE HCL 10 MG TABLET PO SCH ×3 (06:19→21:20)
[2020-06-17] MEDS: VANCOMYCIN HCL 1,250 MG in DEXTROSE 5%-WATER 250 ML IV SCH ×2 (06:21→17:18)
[2020-06-17 06:51] LABS: APPEARANCE,URINE SLIGHTLY-CLOUDY; BILIRUBIN,URINE NEGATIVE (NEGATIVE); COLOR,URINE YELLOW; GLUCOSE, URINE NEGATIVE (NEGATIVE); KETONES,URINE NEGATIVE (NEGATIVE); LEUKOCYTE ESTERASE,URINE NEGATIVE (NEGATIVE); NITRITE,URINE NEGATIVE (NEGATIVE); PROTEIN,URINE NEGATIVE (NEGATIVE); URINE SPECIFIC GRAVITY 1.015; UROBILINOGEN,URINE NEGATIVE mg/dL (<2.0)
[2020-06-17 06:58] LABS: HEMATOCRIT 27.5 % (37.9-51.0); HEMOGLOBIN 9.2 g/dL (13.5-17.0); MEAN CORPUSCULAR HEMOGLOBIN 25.8 pg (27.0-33.4); MEAN CORPUSCULAR HGB CONC 33.6 g/dL (32.0-36.0); MEAN CORPUSCULAR VOLUME 77 fl (80-97); PLATELET COUNT 307 10^3/uL (150-450); RED BLOOD COUNT 3.58 10^6/uL (4.35-5.55); RED CELL DISTRIBUTION WIDTH 17.1 % (11.5-14.0); WHITE BLOOD COUNT 6.8 10^3/uL (4.0-10.5)
[2020-06-17 07:15] LABS: INTERNATIONAL RATION (INR) 2.59; PROTHROMBIN TIME 27.7 SEC (11.4-15.4)
--- NOTE | 2020-06-17 09:28 | PDOC PROGRESS REPORT ---
Subjective Date:: 06/17/20 Subjective:: 39-year-old male admitted for necrotizing fasciitis. Surgery is following the p atient. Comfortably in the bed communicating well. Complains of occasional pains in the left leg. 06/13/2020-no acute events the last 24 hours. Comfortably in the bed communicating well. Denies any pains. 06/14/2020 comfortably in the bed communicating well. Surgical team is following the patient. Continue IV Dilaudid, vancomycin is discontinued yesterday because of the high trough. Patient is afebrile. Blood pressure stable. 06/15/20-patient is comfortably in the bed sleeping. Does not want to wake up and communicate with me. Plan is to continue the present management at time. Pharmacy spoke to me as per the pharmacy patient needed total of 6 weeks of IV vancomycin as recommended by ID. 06/16/2020-patient is comfortably in the bed communicating well. Requesting for more pain medications. Presently on Dilaudid 0.5 mg IV every 6 as needed, methadone 30 mg every 8 hours. Plan is to continue the present management. He is receiving IV vancomycin as per ID recommendations. Patient is going to receive at least 4 weeks of IV antibiotic therapy for the day of blood cultures negative. 06/17/20-comfortably in the bed communicating well. Not in distress. As per the patient pain is well controlled. Reason For Visit: NECROTIZING FASCIITIS Physical Exam Vital Signs: Temp Pulse Resp BP Pulse Ox 98.2 F 81 18 103/60 95 06/17/20 07:18 06/17/20 07:18 06/16/20 22:58 06/17/20 07:18 06/17/20 07:18 Intake & Output 06/16/20 06/17/20 06/18/20 06:59 06:59 06:59 Intake Total 1550 736 250 Output Total 625 1500 Balance 925 -764 250 Weight 78.8 kg 78.2 kg General appearance: PRESENT: no acute distress Head exam: PRESENT: atraumatic Eye exam: PRESENT: PERRLA Mouth exam: PRESENT: moist, tongue midline Teeth exam: PRESENT: poor dentation Neck exam: ABSENT: carotid bruit, JVD, lymphadenopathy, thyromegaly Respiratory exam: PRESENT: decreased breath sounds Cardiovascular exam: PRESENT: RRR. ABSENT: diastolic murmur, rubs, systolic mur mur Pulses: PRESENT: normal dorsalis pedis pul GI/Abdominal exam: PRESENT: normal bowel sounds, soft. ABSENT: distended, guarding, mass, organolmegaly, rebound, tenderness Rectal exam: PRESENT: deferred Extremities exam: PRESENT: other - Left leg was covered with heavy bandage. Neurological exam: PRESENT: alert, awake, oriented to person, oriented to place, oriented to time, oriented to situation, CN II-XII grossly intact. ABSENT: motor sensory deficit Psychiatric exam: PRESENT: appropriate affect, normal mood. ABSENT: homicidal ideation, suicidal ideation Results Laboratory Results: 06/17/20 06:45 06/16/20 05:30 06/17/20 06/17/20 06:10 06:45 WBC 6.8 RBC 3.58 L Hgb 9.2 L Hct 27.5 L MCV 77 L MCH 25.8 L MCHC 33.6 RDW 17.1 H Plt Count 307 Urine Color YELLOW Urine Appearance SLIGHTLY-CLOUDY Urine pH 5.0 Ur Specific [place] 1.015 Urine Protein NEGATIVE Urine Glucose (UA) NEGATIVE Urine Ketones NEGATIVE Urine Blood NEGATIVE Urine Nitrite NEGATIVE Ur Leukocyte Esterase NEGATIVE Urine WBC (Auto) 1 Urine RBC (Auto) 1 05/25/20 05/26/20 14:53 18:57 Creatine Kinase 36 L 23 L Impressions: Knee X-Ray 05/25/20 14:34 IMPRESSION: Small knee joint effusion. No acute fracture or destructive bone lesion. Lower Extremity CT 05/25/20 14:39 IMPRESSION: 1. Subcutaneous edema and skin thickening involving the distal upper leg and knee, consistent with cellulitis and subcutaneous edema. No focal drainable abscess. 2. Inflammatory change involving the medial compartment muscles suggestive of myositis. 3. Small knee joint effusion. 4. Focal DVT in the proximal common femoral vein extending into the greater saphenous vein and in the distal femoral vein. 5. Subcutaneous gas overlying the left hip region with no surrounding inflammatory change or foreign body. This may represent an injection site. PICC Line Insertion 05/27/20 00:00 IMPRESSION: SUCCESSFUL PLACEMENT OF A 5 FR DUAL LUMEN 47 CM PICC IN THE LEFT BASILIC VEIN. Chest X-Ray 06/01/20 00:00 IMPRESSION: Bilateral pneumonia. Chest/Abdomen CTA 06/01/20 00:00 IMPRESSION: Extensive bilateral pneumonia with coalescing nodules and solitary cavitary lesion in the right upper lobe suspicious for septic emboli. No intravascular pulmonary emboli. Assessment and Plan - Diagnosis (1) Cellulitis of left thigh Is this a current diagnosis for this admission?: Yes Plan: As above. 06/12/2020-patient admitted with cellulitis of the left thigh surgical team is following the patient and patient is on IV vancomycin at this time. Transesophageal echocardiogram was done which was negative for endocarditis... Comfortably in the bed communicating well. Afebrile. Blood cultures are negative. 06/13/20-to continue IV vancomycin at this time. 06/14/20-vancomycin is discontinued because of the high trough. Afebrile. Blood cultures are negative. Plan is to continue to closely monitor the left leg wound. As per the surgery wound is with scattered exudate but otherwise very clean with no evidence of residual infection or necrotic tissue. 06/15/2020-patient admitted with cellulitis of the left thigh status post debridement was done. Surgery is following the patient. As per pharmacy ID recommended total of 6 weeks of IV vancomycin. Plan is to treat as if the patient has endocarditis. 06/16/2020-patient admitted with cellulitis of the left thigh covered with heavy bandage. Surgical team is following the patient. He is on IV vancomycin need at least 4 weeks of IV antibiotic therapy from the day of blood cultures are negative as per ID recommendations. Pharmacy is following the vancomycin trough and adjusting the vancomycin doses at this time. 06/17/2020-to continue IV vancomycin at this time. Plan is to give at least 4 weeks of IV antibiotic therapy from the day of blood cultures negative. (2) Heroin addiction Is this a current diagnosis for this admission?: Yes Plan: Patient reportedly uses 1.5 g heroin daily x3 years. Patient again states his intent to go to the [facility] following discharge. Continue scheduled methadone TID Clonidine as needed. Remaining management as above. - Discussed with the [facility]; they typically start at 10 mg daily and increase by 5 mg every other day, even for patients with high dose usage such as Mr. Hebert. Review of literature states that 40 mg is the max initial dosing and that there should be an observation period for 3 to 4 days prior to increase to ensure once steady state is reached patient does not experience respiratory depression. (3) Bacteremia Is this a current diagnosis for this admission?: Yes Plan: Blood culture (05/25/2020; both sets) MRSA Blood culture (05/26/2020; both sets) MRSA Blood culture (05/27/2020) MRSA; obtained 48 hours following start of vancomycin. Blood culture (05/29/2020) negative at days; obtained 4 days following start of vancomycin Blood culture (06/01/2020) pending Wound cultures positive for MRSA. Echocardiogram is negative for vegetation MITZI pending. Continue Vancomycin; minimum 4 weeks from clear blood cultures. May need 6 weeks pending MITZI results. Continue Cefepime and start Levaquin due to development of pneumonia; HAP vs Septic emboli. CTA chest pending. Infectious disease; have reviewed recommendations. 06/13/20-to continue IV vancomycin at this time. Afebrile. Vital signs are stable. Vanco trough is 22 today to hold vancomycin at this time. 06/14/2020-latest blood cultures are negative to hold off on antibiotics at this time. 06/15/2020-plan is to continue IV vancomycin for at total of 6 weeks. 06/17/2020-patient is on IV vancomycin. Pharmacy adjusting the doses. As per the pharmacy ID recommendation is to give antibiotics for at least 4 to 6 weeks after the day of blood cultures negative. (4) Necrotizing fasciitis Is this a current diagnosis for this admission?: Yes Plan: He has MRSA bacteremia sensitive to vancomycin, has completed 2 weeks of an tibiotics. MITZI was negative for valvular vegetation. We discontinued his Lovenox and he continues on Coumadin. He will likely need a split-thickness skin graft at some point, in several weeks according to surgery. One of his blood cultures turned positive with a strain of Enterococcus. I am a little suspicious that perhaps he is obtaining drugs to inject whenever his girlfriend comes to see him in, this is possibly how he got this organism show up in his blood. It is pansensitive and should respond to vancomycin. We are waiting for repeat blood cultures to see how long he is going to need antibiotics for the Enterococcus that showed up in his blood. I think it is impressive that he had been on antibiotics for so long for his MRSA bacteremia and then he turned positive for this Enterococcus. Possibly a contaminant, but we cannot treat Enterococcus as such. We should be able to switch him to ampicillin. He is completed 2 weeks of vancomycin for MRSA bacteremia. We cannot really treat his Enterococcus with oral antibiotics. So is going to need IV antibiotics for at least another week from this point. We should be able to continue to de-escalate his pain medication. He should be able to come off of IV pain medication altogether at this point. He is unable to get home health or assisted placement, or LTAC placement for this large wound on his leg. Therefore, I think he is going to be here for quite some time until he gets his split-thickness skin graft. 06/12/2020-patient denies any complaints of pain this morning. Left upper leg is covered with IV bandage. Receiving IV vancomycin. Surgical team also following the patient. 06/14/20-patient has a large left leg wound which is clean and no evidence of infection or necrotic tissue. (5) IV drug abuse Is this a current diagnosis for this admission?: Yes Plan: As above. (6) Multifocal pneumonia Is this a current diagnosis for this admission?: Yes Plan: Pneumonia with septic emboli; high suspicion for endocarditis. CXR shows multifocal pneumonia. CTA revealed bilateral pneumonia with a RUL cavitary lesion with evidence of septic emboli. COVID negative x2. Repeat blood culture pending. Sputum culture ordered. Nursing reminded please collect a sputum sample as soon as possible. Patient is provided supplemental oxygen as needed maintain saturations greater than 89%. Patient continues on Vancomycin and Cefepime. Start Levaquin. Deescalate most recent blood and sputum culture results. Scheduled and as needed nebulizer treatments. He is placed on Robitussin as needed. Pulmonary toilet is encouraged with incentive spirometer, flutter valve, early ambulation. 06/16/2020-patient is presently on IV vancomycin. As per the ID recommendations he will be treated as if he has infective endocarditis. He is on IV vancomycin continue IV vancomycin for at least 4 weeks after the blood cultures are negative. - Plan Summary Summary: He has MRSA bacteremia sensitive to vancomycin, has completed 2 weeks of antibiotics. MITZI was negative for valvular vegetation. We discontinued his Lovenox and he continues on Coumadin. He will likely need a split-thickness skin graft at some point, in several weeks according to surgery. One of his blood cultures turned positive with a strain of Enterococcus. I am a little suspicious that perhaps he is obtaining drugs to inject whenever his girlfriend comes to see him in, this is possibly how he got this organism show up in his blood. It is pansensitive and should respond to vancomycin. We are waiting for repeat blood cultures to see how long he is going to need antibiotics for the Enterococcus that showed up in his blood. I think it is impressive that he had been on antibiotics for so long for his MRSA bacteremia and then he turned positive for this Enterococcus. Possibly a contaminant, but we cannot treat Enterococcus as such. We should be able to switch him to ampicillin. He is completed 2 weeks of vancomycin for MRSA bacteremia. We ca nnot really treat his Enterococcus with oral antibiotics. So is going to need IV antibiotics for at least another week from this point. We should be able to continue to de-escalate his pain medication. He should be able to come off of IV pain medication altogether at this point. He is unable to get home health or assisted placement, or LTAC placement for this large wound on his leg. Therefore, I think he is going to be here for quite some time until he gets his split-thickness skin graft. - Time Anticipated Discharge Disposition: Home, Self Care Anticipated Discharge Timeframe: 4 weeks
--- NOTE | 2020-06-17 09:54 | PDOC PROGRESS REPORT ---
Subjective Date:: 06/17/20 Reason For Visit: NECROTIZING FASCIITIS No changes overnight, no fever. Patient's refusing to get in shower Physical Exam Vital Signs: Temp Pulse Resp BP Pulse Ox 98.2 F 81 18 103/60 95 06/17/20 07:18 06/17/20 07:18 06/16/20 22:58 06/17/20 07:18 06/17/20 07:18 Intake & Output 06/16/20 06/17/20 06/18/20 06:59 06:59 06:59 Intake Total 1550 736 250 Output Total 625 1500 Balance 925 -764 250 Weight 78.8 kg 78.2 kg General appearance: PRESENT: no acute distress Extremities exam: PRESENT: other - Dressing change being performed by nursing staff. No significant change compared to June 16 Results Laboratory Results: 06/17/20 06:45 06/16/20 05:30 06/17/20 06/17/20 06:10 06:45 WBC 6.8 RBC 3.58 L Hgb 9.2 L Hct 27.5 L MCV 77 L MCH 25.8 L MCHC 33.6 RDW 17.1 H Plt Count 307 Urine Color YELLOW Urine Appearance SLIGHTLY-CLOUDY Urine pH 5.0 Ur Specific [place] 1.015 Urine Protein NEGATIVE Urine Glucose (UA) NEGATIVE Urine Ketones NEGATIVE Urine Blood NEGATIVE Urine Nitrite NEGATIVE Ur Leukocyte Esterase NEGATIVE Urine WBC (Auto) 1 Urine RBC (Auto) 1 05/25/20 05/26/20 14:53 18:57 Creatine Kinase 36 L 23 L Impressions: Knee X-Ray 05/25/20 14:34 IMPRESSION: Small knee joint effusion. No acute fracture or destructive bone lesion. Lower Extremity CT 05/25/20 14:39 IMPRESSION: 1. Subcutaneous edema and skin thickening involving the distal upper leg and knee, consistent with cellulitis and subcutaneous edema. No focal drainable abscess. 2. Inflammatory change involving the medial compartment muscles suggestive of myositis. 3. Small knee joint effusion. 4. Focal DVT in the proximal common femoral vein extending into the greater saphenous vein and in the distal femoral vein. 5. Subcutaneous gas overlying the left hip region with no surrounding inflammatory change or foreign body. This may represent an injection site. PICC Line Insertion 05/27/20 00:00 IMPRESSION: SUCCESSFUL PLACEMENT OF A 5 FR DUAL LUMEN 47 CM PICC IN THE LEFT BASILIC VEIN. Chest X-Ray 06/01/20 00:00 IMPRESSION: Bilateral pneumonia. Chest/Abdomen CTA 06/01/20 00:00 IMPRESSION: Extensive bilateral pneumonia with coalescing nodules and solitary cavitary lesion in the right upper lobe suspicious for septic emboli. No intra vascular pulmonary emboli. Assessment & Plan - Diagnosis (1) Abscess of left thigh Is this a current diagnosis for this admission?: Yes Plan: Impression: Large open wound, granulating, with minimal residual debris, drainage.; Appropriately anticoagulated for DVT Plan: 1. We will continue to work with patient, attempt to get him in the shower and wash this leg 2. I have spoken with Ms. Summer Murillo, [place] [facility] who will evaluate patient. 3. In the interim we will base multiple wound vacs. (2) DVT (deep venous thrombosis) Qualifiers: DVT location: lower extremity Affected thrombotic vein of extremity: femoral Chronicity: chronic Laterality: left Qualified Code(s): I82.512 - Chronic embolism and thrombosis of left femoral vein Is this a current diagnosis for this admission?: Yes (3) IV drug abuse Is this a current diagnosis for this admission?: Yes (4) Necrotizing soft tissue infection Is this a current diagnosis for this admission?: Yes (5) Pulmonary emboli Is this a current diagnosis for this admission?: Yes - Time Anticipated Discharge Disposition: Home, Self Care Anticipated Discharge Timeframe: tbd
[2020-06-17] MEDS: OXYCODONE-ACETAMINOPHEN 5-325 MG TABLET PO PRN ×3 (10:27→22:45)
[2020-06-17] MEDS: CHOLECALCIFEROL (D3) 1,000 UNIT (25 MCG) TABLET PO SCH (10:30)
[2020-06-17] MEDS: FERROUS SULFATE 325 MG TABLET PO SCH ×2 (10:30→17:18)
[2020-06-17] MEDS: ASCORBIC ACID 500 MG TABLET PO SCH ×2 (10:30→17:18)
[2020-06-17] MEDS: GUAIFENESIN 600 MG TABLET.SA PO SCH ×2 (10:30→21:20)
[2020-06-17] MEDS: FAMOTIDINE 20 MG TABLET PO SCH ×2 (10:30→21:20)
[2020-06-17] MEDS: NORMAL SALINE 10 ML SDV (SCHEDULED) IV SCH ×2 (10:31→21:21)
[2020-06-17] MEDS: ZINC SULFATE 220 MG CAPSULE PO SCH (10:41)
[2020-06-17] MEDS: DOCUSATE SODIUM 100 MG CAPSULE PO SCH ×2 (10:47→17:17)
[2020-06-17] MEDS: WARFARIN SODIUM 4 MG TABLET PO SCH (21:20)
[2020-06-17] MEDS ORDERED: WARFARIN SODIUM 4 MG TABLET PO SCH (22:00)
[2020-06-17] MEDS ORDERED: WARFARIN SODIUM 2 MG TABLET PO SCH (22:00)
[2020-06-18] MEDS: HYDROMORPHONE HCL INJ/PF 2 MG/ML AMPULE IV PRN ×4 (01:43→22:04)
[2020-06-18] MEDS: OXYCODONE-ACETAMINOPHEN 5-325 MG TABLET PO PRN ×3 (04:56→17:14)
[2020-06-18] MEDS: METHADONE HCL 10 MG TABLET PO SCH ×3 (05:01→22:05)
[2020-06-18] MEDS: VANCOMYCIN HCL 1,250 MG in DEXTROSE 5%-WATER 250 ML IV SCH ×2 (05:24→17:14)
[2020-06-18 08:06] LABS: INTERNATIONAL RATION (INR) 3.28; PROTHROMBIN TIME 33.2 SEC (11.4-15.4)
[2020-06-18] MEDS: FERROUS SULFATE 325 MG TABLET PO SCH ×2 (08:25→17:14)
[2020-06-18] MEDS: DOCUSATE SODIUM 100 MG CAPSULE PO SCH ×2 (09:21→17:15)
[2020-06-18] MEDS: ZINC SULFATE 220 MG CAPSULE PO SCH (09:26)
[2020-06-18] MEDS: FAMOTIDINE 20 MG TABLET PO SCH ×2 (09:26→22:06)
[2020-06-18] MEDS: GUAIFENESIN 600 MG TABLET.SA PO SCH ×2 (09:27→22:06)
[2020-06-18] MEDS: CHOLECALCIFEROL (D3) 1,000 UNIT (25 MCG) TABLET PO SCH (09:27)
[2020-06-18] MEDS: ASCORBIC ACID 500 MG TABLET PO SCH ×2 (09:27→17:14)
[2020-06-18] MEDS: NORMAL SALINE 10 ML SDV (SCHEDULED) IV SCH ×2 (09:28→22:06)
--- NOTE | 2020-06-18 11:22 | PDOC PROGRESS REPORT ---
Subjective Date:: 06/18/20 Reason For Visit: NECROTIZING FASCIITIS Physical Exam Vital Signs: Temp Pulse Resp BP Pulse Ox 97.8 F 78 16 95/57 L 93 06/18/20 09:58 06/18/20 07:16 06/18/20 07:16 06/18/20 07:16 06/18/20 07:16 Intake & Output 06/17/20 06/18/20 06/19/20 06:59 06:59 06:59 Intake Total 736 1650 Output Total 1500 450 Balance -764 1200 Weight 78.2 kg 81.9 kg Results Laboratory Results: 06/17/20 06:45 06/16/20 05:30 05/25/20 05/26/20 14:53 18:57 Creatine Kinase 36 L 23 L Impressions: Knee X-Ray 05/25/20 14:34 IMPRESSION: Small knee joint effusion. No acute fracture or destructive bone lesion. Lower Extremity CT 05/25/20 14:39 IMPRESSION: 1. Subcutaneous edema and skin thickening involving the distal upper leg and knee, consistent with cellulitis and subcutaneous edema. No focal drainable abscess. 2. Inflammatory change involving the medial compartment muscles suggestive of myositis. 3. Small knee joint effusion. 4. Focal DVT in the proximal common femoral vein extending into the greater saphenous vein and in the distal femoral vein. 5. Subcutaneous gas overlying the left hip region with no surrounding inflammatory change or foreign body. This may represent an injection site. PICC Line Insertion 05/27/20 00:00 IMPRESSION: SUCCESSFUL PLACEMENT OF A 5 FR DUAL LUMEN 47 CM PICC IN THE LEFT BASILIC VEIN. Chest X-Ray 06/01/20 00:00 IMPRESSION: Bilateral pneumonia. Chest/Abdomen CTA 06/01/20 00:00 IMPRESSION: Extensive bilateral pneumonia with coalescing nodules and solitary cavitary lesion in the right upper lobe suspicious for septic emboli. No intravascular pulmonary emboli. Assessment & Plan - Diagnosis (1) Necrotizing soft tissue infection Is this a current diagnosis for this admission?: Yes (2) IV drug abuse Is this a current diagnosis for this admission?: Yes - Time Anticipated Discharge Disposition: unknown Anticipated Discharge Timeframe: unknown - Plan Summary Plan Summary: 39-year-old male status post extensive debridement of the left lower extremity for necrotizing fasciitis due to intravenous drug abuse. The wound was in spected today. It is healing very well. There is good granulation tissue starting. There is no significant purulence or erythema. The patient is currently being treated for endocarditis and bacteremia by the medical service. Continue with antibiotics and treatment per their recommendation. In terms of the patient's lower extremity infection, it is stable at this time. The patient is fit for discharge home with damp to dry dressing changes from a surgical perspective. His wound can be managed with dressing changes, until a healthy bed of granulation is established. After he has healthy granulation, a split- thickness skin graft can be performed. Plan for skin graft in 4 to 6 weeks.
[2020-06-18] MEDS ORDERED: LORAZEPAM 1 MG TABLET ONE (15:23)
[2020-06-18] MEDS: LORAZEPAM 1 MG TABLET PO PRN (15:23)
--- NOTE | 2020-06-18 17:27 | PDOC PROGRESS REPORT ---
Subjective Date:: 06/18/20 Subjective:: 39-year-old male admitted by surgical team for narcotizing fasciitis on 05/25. Course complicated by bacteremia. Currently on vancomycin. Patient is seen on morning rounds. Patient is resting in bed. He states that he is in a rather significant amount of pain. His dressing was changed by surgery this morning. Per nursing patient has been refusing to shower, patient states that he is willing to shower but is concerned about pain. Patient tells me the pain is so severe he is considered hospital and going to a different hospital for what he would consider appropriate pain management. Otherwise denies fever, chills, chest pain, on his breath, cough, abdominal pain, nausea vomiting diarrhea. Discussed with nursing she tells me that the patient has been complaining of pain. Patient has become anxious due to severity of pain. No further complaints or concerns. Reason For Visit: NECROTIZING FASCIITIS Physical Exam Vital Signs: Temp Pulse Resp BP Pulse Ox 98.1 F 90 16 98/56 L 94 06/18/20 15:44 06/18/20 15:44 06/18/20 15:44 06/18/20 15:44 06/18/20 15:44 Intake & Output 06/17/20 06/18/20 06/19/20 06:59 06:59 06:59 Intake Total 736 1650 Output Total 1500 450 Balance -764 1200 Weight 78.2 kg 81.9 kg General appearance: PRESENT: cooperative, mild distress Head exam: PRESENT: atraumatic, normocephalic Eye exam: PRESENT: EOMI Mouth exam: PRESENT: moist, tongue midline Teeth exam: PRESENT: poor dentation Neck exam: PRESENT: full ROM. ABSENT: lymphadenopathy Respiratory exam: PRESENT: clear to auscultation selam Cardiovascular exam: PRESENT: RRR. ABSENT: diastolic murmur, gallop, rubs, systolic murmur Pulses: PRESENT: normal radial pulses GI/Abdominal exam: PRESENT: soft. ABSENT: distended, firm, guarding, tenderness Extremities exam: PRESENT: other - Lower extremity covered with heavy bandage. Neurological exam: PRESENT: alert, awake, oriented to person, oriented to place, oriented to time, oriented to situation. ABSENT: CN II-XII grossly intact Psychiatric exam: PRESENT: anxious, unusual affect Skin exam: PRESENT: other - With bandage on left lower extremity. Results Laboratory Results: 12/21/20 06:45 06/16/20 05:30 05/25/20 05/26/20 14:53 18:57 Creatine Kinase 36 L 23 L Impressions: Knee X-Ray 05/25/20 14:34 IMPRESSION: Small knee joint effusion. No acute fracture or destructive bone lesion. Lower Extremity CT 05/25/20 14:39 IMPRESSION: 1. Subcutaneous edema and skin thickening involving the distal upper leg and knee, consistent with cellulitis and subcutaneous edema. No focal drainable abscess. 2. Inflammatory change involving the medial compartment muscles suggestive of myositis. 3. Small knee joint effusion. 4. Focal DVT in the proximal common femoral vein extending into the greater saphenous vein and in the distal femoral vein. 5. Subcutaneous gas overlying the left hip region with no surrounding inflammatory change or foreign body. This may represent an injection site. PICC Line Insertion 05/27/20 00:00 IMPRESSION: SUCCESSFUL PLACEMENT OF A 5 FR DUAL LUMEN 47 CM PICC IN THE LEFT BASILIC VEIN. Chest X-Ray 06/01/20 00:00 IMPRESSION: Bilateral pneumonia. Chest/Abdomen CTA 06/01/20 00:00 IMPRESSION: Extensive bilateral pneumonia with coalescing nodules and solitary cavitary lesion in the right upper lobe suspicious for septic emboli. No intravascular pulmonary emboli. Assessment and Plan - Diagnosis (1) Cellulitis of left thigh Is this a current diagnosis for this admission?: Yes Plan: Hx narcotizing fascitis; treatment as per #4. Hx bacteremia, evaluation and treatment thus far as discussed in #3. (2) Heroin addiction Is this a current diagnosis for this admission?: Yes Plan: Patient reportedly uses 1.5 g heroin daily x3 years. Patient again states his intent to [facility] following discharge. Continue methadone 30 mg p.o. every 8 Clonidine as needed. Remaining management as above. - Discussed with the [facility]; they typically start at 10 mg daily and increase by 5 mg every other day, even for patients with high dose usage such as Mr. Hebert. Review of literature states that 40 mg is the max initial dosing and that there should be an observation period for 3 to 4 days prior to increase to ensure once steady state is reached patient does not experience respiratory depression. (3) Bacteremia Is this a current diagnosis for this admission?: Yes Plan: Blood culture (05/25/2020; both sets) MRSA Blood culture (05/26/2020; both sets) MRSA Blood culture (05/27/2020) MRSA; obtained 48 hours following start of vancomycin. Blood culture (05/29/2020) negative at 5 days; obtained 4 days following start of vancomycin. Blood culture (06/01/2020) no growth 5 days, single bottle Enterococcus avium. Blood culture (06/08/2020) no growth in 5 days Wound cultures positive for MRSA. Echocardiogram is negative for vegetation MITZI without evidence of vegetation Infectious disease consulted; have reviewed recommendations. - Plan to continue IV vancomycin for total of 6 weeks. - EOT should be July 10, 2020. - Vanc dosing as per pharm, monitor GFR and vanc trough weekly. (4) Necrotizing fasciitis Is this a current diagnosis for this admission?: Yes Plan: s/p fragment of left lower extremity for necrotizing fasciitis due to IV drug use. Patient is followed and managed by surgical team notes reviewed in detail. - Stable for dc from surgical perspective - Cnt wet to dry dressing changes - Plan for [id number] skin graft in 4-6 weeks Complaints of pain regardless of pain management. - Increase dilaudid 1mg q6 hrs prn - Cnt Methadone 30mg q8 - Cnt Percocet 1 tab Po q6 prn (5) IV drug abuse Is this a current diagnosis for this admission?: Yes Plan: As above. (6) Multifocal pneumonia Is this a current diagnosis for this admission?: Yes Plan: Pneumonia with septic emboli; high suspicion for endocarditis. CXR shows multifocal pneumonia. CTA revealed bilateral pneumonia with a RUL cavitary lesion with evidence of septic emboli. COVID negative x2. Blood cultures as above. No long requiring supplemental O2. Previous treatment included: Vancomycin, Cefepime, and Levaquin Currently on vanc, as above. - As per the ID recommendations he will be treated as if he has infective endocarditis. - EOT 07/10/2019. - Vanc as dosed by pharmacy. Vanc trough and gfr to be monitored weekly. - Plan Summary Summary: His MRSA bacteremia sensitive to vancomycin has cleared. 06/01 + Enterococcus Avium Blood culture. 06/08/2020 blood culture without growth 5 days. Continue vancomycin as dosed per pharmacy with EOT 07/10/2019, as per ID. He is cleared from a surgical standpoint, continue with wet-to-dry dressings, with plan for split-thickness skin graft in 4 to 6 weeks. He is unable to get home health or residential placement, or LTAC placement for this large wound on his leg. - Time Time Spent with patient: 35 or more minutes Smoking Cessation Education: 3 to 10 minutes Medications reviewed and adjusted accordingly: Yes Anticipated Discharge Disposition: Home, Self Care Anticipated Discharge Timeframe: 4 weeks
[2020-06-18] MEDS: WARFARIN SODIUM 4 MG TABLET PO SCH (22:06)
[2020-06-19] MEDS: OXYCODONE-ACETAMINOPHEN 5-325 MG TABLET PO PRN (03:26)
[2020-06-19] MEDS: LORAZEPAM 1 MG TABLET PO PRN (03:27)
[2020-06-19] MEDS: HYDROMORPHONE HCL INJ/PF 2 MG/ML AMPULE IV PRN (04:32)
[2020-06-19] MEDS: VANCOMYCIN HCL 1,250 MG in DEXTROSE 5%-WATER 250 ML IV SCH (06:13)
[2020-06-19] MEDS: METHADONE HCL 10 MG TABLET PO SCH ×3 (06:13→21:54)
[2020-06-19 07:08] LABS: HEMOGLOBIN 9.1 g/dL (13.5-17.0); MEAN CORPUSCULAR HGB CONC 32.6 g/dL (32.0-36.0); MEAN CORPUSCULAR VOLUME 77 fl (80-97); PLATELET COUNT 230 10^3/uL (150-450); RED BLOOD COUNT 3.64 10^6/uL (4.35-5.55); RED CELL DISTRIBUTION WIDTH 17.2 % (11.5-14.0)
[2020-06-19 07:15] LABS: INTERNATIONAL RATION (INR) 3.86; PROTHROMBIN TIME 37.6 SEC (11.4-15.4)
[2020-06-19 07:30] LABS: ANION GAP 10 (5-19); BLOOD UREA NITROGEN 9 mg/dL (7-20); CALCIUM 9.2 mg/dL (8.4-10.2); CARBON DIOXIDE 29 mmol/L (22-30); CHLORIDE 95 mmol/L (98-107); GLUCOSE 133 mg/dL (75-110); POTASSIUM 3.3 mmol/L (3.6-5.0)
[2020-06-19 07:31] LABS: VANCOMYCIN,TROUGH 11.4 ug/mL (5.0-20.0)
--- NOTE | 2020-06-19 08:30 | PDOC PROGRESS REPORT ---
Subjective Date:: 06/19/20 Reason For Visit: NECROTIZING FASCIITIS Physical Exam Vital Signs: Temp Pulse Resp BP Pulse Ox 98.2 F 70 18 107/67 95 06/19/20 07:22 06/19/20 07:22 06/19/20 07:22 06/19/20 07:22 06/19/20 07:22 Intake & Output 06/18/20 06/19/20 06/20/20 06:59 06:59 06:59 Intake Total 1650 890 Output Total 450 950 Balance 1200 -60 Weight 81.9 kg 80.6 kg Results Laboratory Results: 06/19/20 06:15 06/19/20 06:15 06/19/20 06/19/20 06/19/20 06:15 06:15 06:15 WBC 6.0 RBC 3.64 L Hgb 9.1 L Hct 28.0 L MCV 77 L MCH 25.0 L MCHC 32.6 RDW 17.2 H Plt Count 230 Sodium 134.4 L Potassium 3.3 L Chloride 95 L Carbon Dioxide 29 Anion Gap 10 BUN 9 Creatinine Cancelled 0.79 Est GFR ( Amer) Cancelled > 60 Est GFR (Non-Af Amer) Cancelled Glucose 133 H Calcium 9.2 05/25/20 05/26/20 14:53 18:57 Creatine Kinase 36 L 23 L Impressions: Knee X-Ray 05/25/20 14:34 IMPRESSION: Small knee joint effusion. No acute fracture or destructive bone lesion. Lower Extremity CT 05/25/20 14:39 IMPRESSION: 1. Subcutaneous edema and skin thickening involving the distal upper leg and knee, consistent with cellulitis and subcutaneous edema. No focal drainable abscess. 2. Inflammatory change involving the medial compartment muscles suggestive of myositis. 3. Small knee joint effusion. 4. Focal DVT in the proximal common femoral vein extending into the greater saphenous vein and in the distal femoral vein. 5. Subcutaneous gas overlying the left hip region with no surrounding inflammatory change or foreign body. This may represent an injection site. PICC Line Insertion 05/27/20 00:00 IMPRESSION: SUCCESSFUL PLACEMENT OF A 5 FR DUAL LUMEN 47 CM PICC IN THE LEFT BASILIC VEIN. Chest X-Ray 06/01/20 00:00 IMPRESSION: Bilateral pneumonia. Chest/Abdomen CTA 06/01/20 00:00 IMPRESSION: Extensive bilateral pneumonia with coalescing nodules and solitary cavitary lesion in the right upper lobe suspicious for septic emboli. No intravascular pulmonary emboli. Assessment & Plan - Diagnosis (1) Necrotizing soft tissue infection Is this a current diagnosis for this admission?: Yes (2) IV drug abuse Is this a current diagnosis for this admission?: Yes - Time Anticipated Discharge Disposition: see below Anticipated Discharge Timeframe: see below Disposition: per hospitalist - Plan Summary Plan Summary: 39-year-old male status post extensive debridement of the left lower extremity for necrotizing fasciitis due to intravenous drug abuse. The wound is healing very well. There is good granulation tissue starting. The patient is currently being treated for endocarditis and bacteremia by the medical service. Continue with antibiotics and treatment per their recommendation. In terms of the patient's lower extremity infection, it is stable at this time. The patient is fit for discharge home with damp to dry dressing changes from a surgical perspective. His wound can be managed with dressing changes, until a healthy bed of granulation is established. After he has healthy granulation, a split-thickness skin graft can be performed. Plan for skin graft in 4 to 6 weeks.
[2020-06-19] MEDS: FERROUS SULFATE 325 MG TABLET PO SCH ×2 (08:48→17:16)
[2020-06-19] MEDS ORDERED: POTASSIUM CHLORIDE 10 MEQ TABLET.ER PO ONE (09:00)
[2020-06-19] MEDS ORDERED: OXYCODONE HCL IR 5 MG TABLET PO PRN (09:11)
[2020-06-19] MEDS: DOCUSATE SODIUM 100 MG CAPSULE PO SCH ×2 (09:21→17:15)
[2020-06-19] MEDS: ACETAMINOPHEN 325 MG TABLET PO SCH ×3 (09:28→17:16)
[2020-06-19] MEDS: ASCORBIC ACID 500 MG TABLET PO SCH ×2 (09:29→17:16)
[2020-06-19] MEDS: FAMOTIDINE 20 MG TABLET PO SCH ×2 (09:29→21:54)
[2020-06-19] MEDS: ZINC SULFATE 220 MG CAPSULE PO SCH (09:29)
[2020-06-19] MEDS: GUAIFENESIN 600 MG TABLET.SA PO SCH ×2 (09:29→21:53)
[2020-06-19] MEDS: CHOLECALCIFEROL (D3) 1,000 UNIT (25 MCG) TABLET PO SCH (09:29)
[2020-06-19] MEDS: NORMAL SALINE 10 ML SDV (SCHEDULED) IV SCH ×2 (09:30→21:55)
[2020-06-19] MEDS: POLYETHYLENE GLYCOL 3350 POWDER 17 GM/1 PACKET PO SCH ×2 (09:31→16:38)
[2020-06-19] MEDS: MORPHINE SULFATE IR 15 MG TABLET PO PRN (13:56)
[2020-06-19] MEDS: VANCOMYCIN HCL 1,500 MG in DEXTROSE 5%-WATER 250 ML IV SCH (17:15)
--- NOTE | 2020-06-19 17:36 | PDOC PROGRESS REPORT ---
Subjective Date:: 06/19/20 Subjective:: 39-year-old male admitted by surgical team for narcotizing fasciitis on 05/25. Course complicated by bacteremia. Currently on vancomycin. Patient is seen on morning rounds. Resting in bed. Overall doing well though pain is persistent. I have made some changes to his pain medications, he is made aware of this and is agreeable to changes. Patient showered yesterday and experienced significant wound pain, nursing plans to complete bed baths moving forward. Otherwise he provides me with no complaints. Nurse provides me no concerns today. Reason For Visit: NECROTIZING FASCIITIS Physical Exam Vital Signs: Temp Pulse Resp BP Pulse Ox 98.5 F 77 17 104/56 L 100 06/19/20 11:02 06/19/20 11:02 06/19/20 11:02 06/19/20 11:02 06/19/20 11:02 Intake & Output 06/18/20 06/19/20 06/20/20 06:59 06:59 06:59 Intake Total 1650 890 750 Output Total 450 950 800 Balance 1200 -60 -50 Weight 81.9 kg 80.6 kg 80.6 kg Additional comments: General appearance: PRESENT: cooperative, mild distress Neck exam: PRESENT: full ROM. ABSENT: lymphadenopathy Respiratory exam: PRESENT: clear to auscultation selam Cardiovascular exam: PRESENT: RRR. ABSENT: diastolic murmur, gallop, rubs, systolic murmur Pulses: PRESENT: normal radial pulses GI/Abdominal exam: PRESENT: soft. ABSENT: distended, firm, guarding, tenderness Extremities exam: PRESENT: other - Left lower extremity covered with heavy bandage. Neurological exam: PRESENT: alert, awake, oriented to person, oriented to place, oriented to time, oriented to situation. ABSENT: CN II-XII grossly intact Psychiatric exam: PRESENT: anxious, unusual affect Skin exam: PRESENT: other - With bandage on left lower extremity. Results Laboratory Results: 06/19/20 06:15 06/19/20 06:15 06/19/20 06/19/20 06/19/20 06:15 06:15 06:15 WBC 6.0 RBC 3.64 L Hgb 9.1 L Hct 28.0 L MCV 77 L MCH 25.0 L MCHC 32.6 RDW 17.2 H Plt Count 230 Sodium 134.4 L Potassium 3.3 L Chloride 95 L Carbon Dioxide 29 Anion Gap 10 BUN 9 Creatinine Cancelled 0.79 Est GFR ( Amer) Cancelled > 60 Est GFR (Non-Af Amer) Cancelled Glucose 133 H Calcium 9.2 05/25/20 05/26/20 14:53 18:57 Creatine Kinase 36 L 23 L Impressions: Knee X-Ray 05/25/20 14:34 IMPRESSION: Small knee joint effusion. No acute fracture or destructive bone lesion. Lower Extremity CT 05/25/20 14:39 IMPRESSION: 1. Subcutaneous edema and skin thickening involving the distal upper leg and knee, consistent with cellulitis and subcutaneous edema. No focal drainable abscess. 2. Inflammatory change involving the medial compartment muscles suggestive of myositis. 3. Small knee joint effusion. 4. Focal DVT in the proximal common femoral vein extending into the greater sap henous vein and in the distal femoral vein. 5. Subcutaneous gas overlying the left hip region with no surrounding inflammatory change or foreign body. This may represent an injection site. PICC Line Insertion 05/27/20 00:00 IMPRESSION: SUCCESSFUL PLACEMENT OF A 5 FR DUAL LUMEN 47 CM PICC IN THE LEFT BASILIC VEIN. Chest X-Ray 06/01/20 00:00 IMPRESSION: Bilateral pneumonia. Chest/Abdomen CTA 06/01/20 00:00 IMPRESSION: Extensive bilateral pneumonia with coalescing nodules and solitary cavitary lesion in the right upper lobe suspicious for septic emboli. No intravascular pulmonary emboli. Assessment and Plan - Diagnosis (1) Cellulitis of left thigh Is this a current diagnosis for this admission?: Yes Plan: Hx narcotizing fascitis; treatment as per #4. Hx bacteremia, evaluation and treatment thus far as discussed in #3. (2) Heroin addiction Is this a current diagnosis for this admission?: Yes Plan: Patient reportedly uses 1.5 g heroin daily x3 years. Patient again states his intent to go to the [facility] following discharge. Continue methadone 30 mg p.o. every 8 Clonidine as needed. Remaining management as above. - Discussed with the [facility]; they typically start at 10 mg daily and increase by 5 mg every other day, even for patients with high dose usage such as Mr. Hebert. Review of literature states that 40 mg is the max initial dosing and that there should be an observation period for 3 to 4 days prior to increase to ensure once steady state is reached patient does not experience respiratory depression. (3) Bacteremia Is this a current diagnosis for this admission?: Yes Plan: Blood culture (05/25/2020; both sets) MRSA Blood culture (05/26/2020; both sets) MRSA Blood culture (05/27/2020) MRSA; obtained 48 hours following start of vancomycin. Blood culture (05/29/2020) negative at 5 days; obtained 4 days following start of vancomycin. Blood culture (06/01/2020) no growth 5 days, single bottle Enterococcus avium. Blood culture (06/08/2020) no growth in 5 days Wound cultures positive for MRSA. Echocardiogram is negative for vegetation MITZI without evidence of vegetation Infectious disease consulted; have reviewed recommendations. - Plan to continue IV vancomycin for total of 6 weeks. - EOT should be July 10, 2020. - Vanc dosing as per pharm, monitor GFR and vanc trough weekly. (4) Necrotizing fasciitis Is this a current diagnosis for this admission?: Yes Plan: s/p fragment of left lower extremity for necrotizing fasciitis due to IV drug use. Patient is followed and managed by surgical team notes reviewed in detail. - Stable for dc from surgical perspective - Cnt wet to dry dressing changes - Plan for [id number] skin graft in 4-6 weeks Complaints of pain regardless of pain management. Off IV medications. - Morphine 15mg p.o. q12 hr prn - Cnt Methadone 30mg q8 - Oxycodone 20mg q4HR prn - Tylenol 975mg TID scheduled (5) IV drug abuse Is this a current diagnosis for this admission?: Yes Plan: As above. (6) Multifocal pneumonia Is this a current diagnosis for this admission?: Yes Plan: Pneumonia with septic emboli; high suspicion for endocarditis. CXR shows multifocal pneumonia. CTA revealed bilateral pneumonia with a RUL cavitary lesion with evidence of septic emboli. COVID negative x2. Blood cultures as above. No long requiring supplemental O2. Previous treatment included: Vancomycin, Cefepime, and Levaquin Currently on vanc, as above. - As per the ID recommendations he will be treated as if he has infective endocarditis. - EOT 07/10/2019. - Vanc as dosed by pharmacy. Vanc trough and gfr to be monitored weekly. - Plan Summary Summary: His MRSA bacteremia sensitive to vancomycin has cleared. 06/01 + Enterococcus Avium Blood culture. 06/08/2020 blood culture without growth 5 days. Continue vancomycin as dosed per pharmacy with EOT 07/10/2019, as per ID. He is cleared from a surgical standpoint, continue with wet-to-dry dressings, with plan for split-thickness skin graft in 4 to 6 weeks. He is unable to get home health or retirement placement, or LTAC placement for this large wound on his leg. - Time Time Spent with patient: 15-24 minutes Smoking Cessation Education: 3 to 10 minutes Medications reviewed and adjusted accordingly: Yes Anticipated Discharge Disposition: Home, Self Care Anticipated Discharge Timeframe: 07/10
[2020-06-19] MEDS: OXYCODONE HCL IR 5 MG TABLET PO PRN ×2 (17:40→21:53)
[2020-06-19] MEDS: WARFARIN SODIUM 3 MG TABLET PO SCH (21:54)
[2020-06-20] MEDS: VANCOMYCIN HCL 1,500 MG in DEXTROSE 5%-WATER 250 ML IV SCH ×2 (05:52→18:28)
[2020-06-20] MEDS: METHADONE HCL 10 MG TABLET PO SCH ×3 (05:52→21:33)
[2020-06-20 08:21] LABS: ANION GAP 13 (5-19); BLOOD UREA NITROGEN 9 mg/dL (7-20); CALCIUM 9.3 mg/dL (8.4-10.2); CARBON DIOXIDE 26 mmol/L (22-30); CHLORIDE 96 mmol/L (98-107); GLUCOSE 110 mg/dL (75-110); POTASSIUM 3.7 mmol/L (3.6-5.0)
[2020-06-20 08:26] LABS: INTERNATIONAL RATION (INR) 4.62; PROTHROMBIN TIME 43.1 SEC (11.4-15.4)
[2020-06-20] MEDS: OXYCODONE HCL IR 5 MG TABLET PO PRN (10:16)
[2020-06-20] MEDS: DOCUSATE SODIUM 100 MG CAPSULE PO SCH ×2 (10:16→18:29)
[2020-06-20] MEDS: ZINC SULFATE 220 MG CAPSULE PO SCH (10:17)
[2020-06-20] MEDS: GUAIFENESIN 600 MG TABLET.SA PO SCH ×2 (10:17→21:33)
[2020-06-20] MEDS: FAMOTIDINE 20 MG TABLET PO SCH ×2 (10:17→21:33)
[2020-06-20] MEDS: NORMAL SALINE 10 ML SDV (SCHEDULED) IV SCH ×2 (10:17→21:35)
[2020-06-20] MEDS: FERROUS SULFATE 325 MG TABLET PO SCH ×2 (10:17→18:29)
[2020-06-20] MEDS: ACETAMINOPHEN 325 MG TABLET PO SCH ×3 (10:17→18:29)
[2020-06-20] MEDS: ASCORBIC ACID 500 MG TABLET PO SCH ×2 (10:17→18:29)
[2020-06-20] MEDS: CHOLECALCIFEROL (D3) 1,000 UNIT (25 MCG) TABLET PO SCH (10:17)
[2020-06-20] MEDS: POLYETHYLENE GLYCOL 3350 POWDER 17 GM/1 PACKET PO SCH (10:18)
[2020-06-20 10:57] LABS: HEMATOCRIT 27.2 % (37.9-51.0); HEMOGLOBIN 9.2 g/dL (13.5-17.0); MEAN CORPUSCULAR HEMOGLOBIN 25.5 pg (27.0-33.4); MEAN CORPUSCULAR HGB CONC 33.9 g/dL (32.0-36.0); MEAN CORPUSCULAR VOLUME 75 fl (80-97); PLATELET COUNT 205 10^3/uL (150-450); RED BLOOD COUNT 3.62 10^6/uL (4.35-5.55); RED CELL DISTRIBUTION WIDTH 17.2 % (11.5-14.0); WHITE BLOOD COUNT 11.7 10^3/uL (4.0-10.5)
[2020-06-20] MEDS: MORPHINE SULFATE IR 15 MG TABLET PO PRN (14:23)
[2020-06-20] MEDS ORDERED: MORPHINE SULFATE IR 15 MG TABLET PO PRN (15:48)
--- NOTE | 2020-06-20 16:11 | PDOC PROGRESS REPORT ---
Subjective Date:: 06/20/20 Subjective:: 39-year-old male admitted by surgical team for narcotizing fasciitis on 05/25. Course complicated by bacteremia. Currently on vancomycin. Patient is seen on morning rounds. Resting in bed. Overall doing well though pain is persistent. Patient reports occasions where pain is so severe results in him vomiting. Continue to make subtle adjustments to pain medication for proper pain management. Unfortunately we do not have pain management available at the hospital, investigate for outside resources. He is having routine regular bowel movements given that he takes his stool softeners. Most recent BM this morning. Interestingly his white blood cell count was elevated on morning labs. He denies fever, chills, chest pain, cough, abdominal pain, diarrhea. Wound is covered on exam. Surgical team and wound care notes reviewed. Per wound care wound assessment patient with serosanguineous drainage with mild odor. Without mention of associated edema erythema or warmth. He is afebrile and vital signs are stable. Repeat / follow up BC pending. Nurse provides me no concerns today. Reason For Visit: NECROTIZING FASCIITIS Physical Exam Vital Signs: Temp Pulse Resp BP Pulse Ox 98.5 F 143 H 18 102/64 97 06/20/20 11:49 06/20/20 11:49 06/20/20 11:49 06/20/20 11:49 06/20/20 11:49 Intake & Output 06/19/20 06/20/20 06/21/20 06:59 06:59 06:59 Intake Total 890 1660 368 Output Total 950 800 Balance -60 860 368 Weight 80.6 kg 79.4 kg Additional comments: General appearance: PRESENT: cooperative, mild distress Neck exam: PRESENT: full ROM. ABSENT: lymphadenopathy Respiratory exam: PRESENT: clear to auscultation selam Cardiovascular exam: PRESENT: RRR. ABSENT: diastolic murmur, gallop, rubs, systolic murmur Pulses: PRESENT: normal radial pulses GI/Abdominal exam: PRESENT: soft. ABSENT: distended, firm, guarding, tenderness Extremities exam: PRESENT: other - Left lower extremity covered with heavy bandage. Neurological exam: PRESENT: alert, awake, oriented to person, oriented to place, oriented to time, oriented to situation. ABSENT: CN II-XII grossly intact Psychiatric exam: PRESENT: anxious, unusual affect Skin exam: PRESENT: other - With bandage on left lower extremity. Results Laboratory Results: 06/20/20 10:25 06/20/20 07:17 06/20/20 06/20/20 06/20/20 07:17 07:17 10:25 WBC Cancelled 11.7 H RBC Cancelled 3.62 L Hgb Cancelled 9.2 L Hct Cancelled 27.2 L MCV Cancelled 75 L MCH Cancelled 25.5 L MCHC Cancelled 33.9 RDW Cancelled 17.2 H Plt Count Cancelled 205 Sodium 134.8 L Potassium 3.7 Chloride 96 L Carbon Dioxide 26 Anion Gap 13 BUN 9 Creatinine 0.73 Est GFR ( Amer) > 60 Glucose 110 Calcium 9.3 05/25/20 05/26/20 14:53 18:57 Creatine Kinase 36 L 23 L Impressions: Knee X-Ray 05/25/20 14:34 IMPRESSION: Small knee joint effusion. No acute fracture or destructive bone lesion. Lower Extremity CT 05/25/20 14:39 IMPRESSION: 1. Subcutaneous edema and skin thickening involving the distal upper leg and knee, consistent with cellulitis and subcutaneous edema. No focal drainable abscess. 2. Inflammatory change involving the medial compartment muscles suggestive of myositis. 3. Small knee joint effusion. 4. Focal DVT in the proximal common femoral vein extending into the greater saphenous vein and in the distal femoral vein. 5. Subcutaneous gas overlying the left hip region with no surrounding inflammatory change or foreign body. This may represent an injection site. PICC Line Insertion 05/27/20 00:00 IMPRESSION: SUCCESSFUL PLACEMENT OF A 5 FR DUAL LUMEN 47 CM PICC IN THE LEFT BASILIC VEIN. Chest X-Ray 06/01/20 00:00 IMPRESSION: Bilateral pneumonia. Chest/Abdomen CTA 06/01/20 00:00 IMPRESSION: Extensive bilateral pneumonia with coalescing nodules and solitary cavitary lesion in the right upper lobe suspicious for septic emboli. No intravascular pulmonary emboli. Assessment and Plan - Diagnosis (1) Cellulitis of left thigh Is this a current diagnosis for this admission?: Yes Plan: Hx narcotizing fascitis; treatment as per #4. Hx bacteremia, evaluation and treatment thus far as discussed in #3. (2) Heroin addiction Is this a current diagnosis for this admission?: Yes Plan: Patient reportedly uses 1.5 g heroin daily x3 years. Patient again states his intent to go to the [facility] following discharge. Continue methadone 30 mg p.o. every 8 Clonidine as needed. Remaining management discussed #3 Per previous provider "discussed with the [facility]; they typically start at 10 mg daily and increase by 5 mg every other day, even for patients with high dose usage such as Mr. Hebert. Review of literature states that 40 mg is the max initial dosing and that there should be an observation period for 3 to 4 days prior to increase to ensure once steady state is reached patient does not experience respiratory depression." (3) Bacteremia Is this a current diagnosis for this admission?: Yes Plan: Blood culture (05/25/2020; both sets) MRSA Blood culture (05/26/2020; both sets) MRSA Blood culture (05/27/2020) MRSA; obtained 48 hours following start of vancomycin. Blood culture (05/29/2020) negative at 5 days; obtained 4 days following start of vancomycin. Blood culture (06/01/2020) no growth 5 days, single bottle Enterococcus avium. Blood culture (06/08/2020) no growth in 5 days Thomas blood cultures ordered today. Wound cultures positive for MRSA. Echocardiogram is negative for vegetation MITZI without evidence of vegetation Infectious disease consulted; have reviewed recommendations. - Plan to continue IV vancomycin for total of 6 weeks. - EOT should be July 10, 2020. - Vanc dosing as per pharm, monitor GFR and vanc trough weekly. (4) Necrotizing fasciitis Is this a current diagnosis for this admission?: Yes Plan: s/p fragment of left lower extremity for necrotizing fasciitis due to IV drug use. Patient is followed and managed by surgical team notes reviewed in detail. - Stable for dc from surgical perspective - Cnt wet to dry dressing changes - Plan for split-thickness skin graft in 4-6 weeks Complaints of pain regardless of pain management. Off IV medications. - Morphine 15mg p.o. q12 hr prn - Cnt Methadone 30mg q8 - Oxycodone 20mg q4HR prn - Tylenol 975mg TID scheduled Making attempts to get in contact with out side of resources for pain management. (5) IV drug abuse Is this a current diagnosis for this admission?: Yes Plan: As above. (6) Multifocal pneumonia Is this a current diagnosis for this admission?: Yes Plan: Pneumonia with septic emboli; high suspicion for endocarditis. CXR shows multifocal pneumonia. CTA revealed bilateral pneumonia with a RUL cavitary lesion with evidence of septic emboli. COVID negative x2. Blood cultures as above. No long requiring supplemental O2. Previous treatment included: Vancomycin, Cefepime, and Levaquin Currently on vanc, as above. - As per the ID recommendations he will be treated as if he has infective endocarditis. - EOT 07/10/2019. - Vanc as dosed by pharmacy. Vanc trough and gfr to be monitored weekly. (7) Leukocytosis Qualifiers: Leukocytosis type: unspecified Qualified Code(s): D72.829 - Elevated white blood cell count, unspecified Is this a current diagnosis for this admission?: Yes Plan: Elevated white blood cell count 11.4 today. VSS, afebrile. Wound is dressed at time of evaluation, wound care and assessment as noted above. Currently on Vanco as above. Repeat blood cultures pending. Repeat CBC in the morning. -If persistently elevated consider chest x-ray given history of pneumonia, though today without complaints of cough or shortness of breath, clear lung sounds on exam, and not requiring O2 supplementation. - Plan Summary Summary: His MRSA bacteremia sensitive to vancomycin has cleared. 06/01 + Enterococcus Avium Blood culture. 06/08/2020 blood culture without growth 5 days. Repeat blood cultures ordered today. Continue vancomycin as dosed per pharmacy with EOT 07/10/2019, as per ID. Per surgery the plan is for split-thickness skin graft in 4 to 6 weeks. He is unable to get home health or fpc placement, or LTAC placement for this large wound on his leg given that he is self-pay thus likely patient will remain here for continued vancomycin therapy. - Time Time Spent with patient: 25-34 minutes Medications reviewed and adjusted accordingly: Yes Anticipated Discharge Disposition: Home, Self Care Anticipated Discharge Timeframe: 07/10
--- NOTE | 2020-06-20 17:38 | PDOC PROGRESS REPORT ---
Subjective Date:: 06/20/20 Reason For Visit: NECROTIZING FASCIITIS Physical Exam Vital Signs: Temp Pulse Resp BP Pulse Ox 98.8 F 91 16 108/63 96 06/20/20 16:09 06/20/20 16:09 06/20/20 16:09 06/20/20 16:09 06/20/20 16:09 Intake & Output 06/19/20 06/20/20 06/21/20 06:59 06:59 06:59 Intake Total 890 1660 368 Output Total 950 800 Balance -60 860 368 Weight 80.6 kg 79.4 kg General appearance: PRESENT: no acute distress Head exam: PRESENT: normocephalic Eye exam: PRESENT: EOMI Ear exam: PRESENT: normal external ear exam Mouth exam: PRESENT: moist Neck exam: PRESENT: full ROM Respiratory exam: PRESENT: clear to auscultation selam Cardiovascular exam: PRESENT: RRR Pulses: PRESENT: +1 pedal pulses bilateral Vascular exam: PRESENT: normal capillary refill Breast: PRESENT: Normal GI/Abdominal exam: PRESENT: soft Rectal exam: PRESENT: deferred Extremities exam: PRESENT: other - left leg wound with some serous drainage and min exudate, no celluitis reported by nursing Neurological exam: PRESENT: alert, altered, awake, oriented to person Psychiatric exam: PRESENT: appropriate affect Skin exam: PRESENT: dry Results Laboratory Results: 06/20/20 10:25 06/20/20 07:17 06/20/20 06/20/20 06/20/20 07:17 07:17 10:25 WBC Cancelled 11.7 H RBC Cancelled 3.62 L Hgb Cancelled 9.2 L Hct Cancelled 27.2 L MCV Cancelled 75 L MCH Cancelled 25.5 L MCHC Cancelled 33.9 RDW Cancelled 17.2 H Plt Count Cancelled 205 Sodium 134.8 L Potassium 3.7 Chloride 96 L Carbon Dioxide 26 Anion Gap 13 BUN 9 Creatinine 0.73 Est GFR ( Amer) > 60 Glucose 110 Calcium 9.3 05/25/20 05/26/20 14:53 18:57 Creatine Kinase 36 L 23 L Impressions: Knee X-Ray 05/25/20 14:34 IMPRESSION: Small knee joint effusion. No acute fracture or destructive bone lesion. Lower Extremity CT 05/25/20 14:39 IMPRESSION: 1. Subcutaneous edema and skin thickening involving the distal upper leg and knee, consistent with cellulitis and subcutaneous edema. No focal drainable abscess. 2. Inflammatory change involving the medial compartment muscles suggestive of myositis. 3. Small knee joint effusion. 4. Focal DVT in the proximal common femoral vein extending into the greater saphenous vein and in the distal femoral vein. 5. Subcutaneous gas overlying the left hip region with no surrounding inflammatory change or foreign body. This may represent an injection site. PICC Line Insertion 05/27/20 00:00 IMPRESSION: SUCCESSFUL PLACEMENT OF A 5 FR DUAL LUMEN 47 CM PICC IN THE LEFT BASILIC VEIN. Chest X-Ray 06/01/20 00:00 IMPRESSION: Bilateral pneumonia. Chest/Abdomen CTA 06/01/20 00:00 IMPRESSION: Extensive bilateral pneumonia with coalescing nodules and solitary cavitary lesion in the right upper lobe suspicious for septic emboli. No intravascular pulmonary emboli. Assessment & Plan - Diagnosis (1) Abscess of left thigh Is this a current diagnosis for this admission?: Yes (2) Necrotizing fasciitis Is this a current diagnosis for this admission?: Yes - Time Anticipated Discharge Disposition: unk Anticipated Discharge Timeframe: unk - Plan Summary Plan Summary: cont wet to dry dressing changes wlll need stsg in future 4-6 weeks after granulation bed has developed
[2020-06-21] MEDS ORDERED: CEFTRIAXONE 1 GM/D5W RTU 1 GM/50 ML RTUPB IV SCH (01:30)
[2020-06-21] MEDS: MORPHINE SULFATE IR 15 MG TABLET PO PRN (04:56)
[2020-06-21] MEDS: METHADONE HCL 10 MG TABLET PO SCH ×3 (05:31→22:18)
[2020-06-21] MEDS: VANCOMYCIN HCL 1,500 MG in DEXTROSE 5%-WATER 250 ML IV SCH ×2 (05:31→18:50)
[2020-06-21 05:55] LABS: HEMATOCRIT 25.9 % (37.9-51.0); HEMOGLOBIN 8.9 g/dL (13.5-17.0); MEAN CORPUSCULAR HEMOGLOBIN 25.5 pg (27.0-33.4); MEAN CORPUSCULAR HGB CONC 34.4 g/dL (32.0-36.0); MEAN CORPUSCULAR VOLUME 74 fl (80-97); PLATELET COUNT 177 10^3/uL (150-450); RED BLOOD COUNT 3.49 10^6/uL (4.35-5.55); RED CELL DISTRIBUTION WIDTH 16.8 % (11.5-14.0); WHITE BLOOD COUNT 6.7 10^3/uL (4.0-10.5)
[2020-06-21 06:13] LABS: VANCOMYCIN,TROUGH 16.2 ug/mL (5.0-20.0)
[2020-06-21 07:07] LABS: INTERNATIONAL RATION (INR) 5.25; PROTHROMBIN TIME 47.5 SEC (11.4-15.4)
[2020-06-21] MEDS: FAMOTIDINE 20 MG TABLET PO SCH ×2 (09:54→22:18)
[2020-06-21] MEDS: ACETAMINOPHEN 325 MG TABLET PO SCH ×3 (09:55→18:49)
[2020-06-21] MEDS: FERROUS SULFATE 325 MG TABLET PO SCH ×2 (09:55→18:49)
[2020-06-21] MEDS: CHOLECALCIFEROL (D3) 1,000 UNIT (25 MCG) TABLET PO SCH (09:58)
[2020-06-21] MEDS: GUAIFENESIN 600 MG TABLET.SA PO SCH (09:58)
[2020-06-21] MEDS: POLYETHYLENE GLYCOL 3350 POWDER 17 GM/1 PACKET PO SCH (09:59)
[2020-06-21] MEDS: NORMAL SALINE 10 ML SDV (SCHEDULED) IV SCH ×2 (09:59→22:18)
[2020-06-21] MEDS: ASCORBIC ACID 500 MG TABLET PO SCH ×2 (09:59→18:50)
--- NOTE | 2020-06-21 12:21 | PDOC PROGRESS REPORT ---
Subjective Date:: 06/21/20 Reason For Visit: NECROTIZING FASCIITIS Physical Exam Vital Signs: Temp Pulse Resp BP Pulse Ox 99.7 F 107 H 12 94/36 L 90 L 06/21/20 08:11 06/21/20 07:18 06/21/20 07:18 06/21/20 07:18 06/21/20 07:18 Intake & Output 06/20/20 06/21/20 06/22/20 06:59 06:59 06:59 Intake Total 1660 1062 300 Output Total 800 700 Balance 860 362 300 Weight 79.4 kg 79 kg Results Laboratory Results: 06/21/20 05:09 06/21/20 05:09 06/21/20 06/21/20 05:09 05:09 WBC 6.7 RBC 3.49 L Hgb 8.9 L Hct 25.9 L MCV 74 L MCH 25.5 L MCHC 34.4 RDW 16.8 H Plt Count 177 Creatinine 0.75 Est GFR ( Amer) > 60 06/20/20 18:40 Blood Blood Culture (PCR) - Final Serratia Marcescens 05/25/20 05/26/20 14:53 18:57 Creatine Kinase 36 L 23 L Impressions: Knee X-Ray 05/25/20 14:34 IMPRESSION: Small knee joint effusion. No acute fracture or destructive bone lesion. Lower Extremity CT 05/25/20 14:39 IMPRESSION: 1. Subcutaneous edema and skin thickening involving the distal upper leg and knee, consistent with cellulitis and subcutaneous edema. No focal drainable abscess. 2. Inflammatory change involving the medial compartment muscles suggestive of myositis. 3. Small knee joint effusion. 4. Focal DVT in the proximal common femoral vein extending into the greater saphenous vein and in the distal femoral vein. 5. Subcutaneous gas overlying the left hip region with no surrounding inflammatory change or foreign body. This may represent an injection site. PICC Line Insertion 05/27/20 00:00 IMPRESSION: SUCCESSFUL PLACEMENT OF A 5 FR DUAL LUMEN 47 CM PICC IN THE LEFT BASILIC VEIN. Chest X-Ray 06/01/20 00:00 IMPRESSION: Bilateral pneumonia. Chest/Abdomen CTA 06/01/20 00:00 IMPRESSION: Extensive bilateral pneumonia with coalescing nodules and solitary cavitary lesion in the right upper lobe suspicious for septic emboli. No intravascular pulmonary emboli. Assessment & Plan - Diagnosis (1) Necrotizing soft tissue infection Is this a current diagnosis for this admission?: Yes (2) IV drug abuse Is this a current diagnosis for this admission?: Yes - Time Anticipated Discharge Disposition: unknown Anticipated Discharge Timeframe: unknown - Plan Summary Plan Summary: 39-year-old male status post extensive debridement of the left lower extremity for necrotizing fasciitis due to intravenous drug abuse. The wound is healing very well. There is good granulation tissue starting. The patient is currently being treated for endocarditis and bacteremia by the medical service. Continue with antibiotics and treatment per their recommendation. In terms of the patient's lower extremity infection, it is stable at this time. The patient is fit for discharge home with damp to dry dressing changes from a surgical perspective. His wound can be managed with dressing changes, until a healthy bed of granulation is established. After he has healthy granulation, a split-thickness skin graft can be performed. Plan for skin graft in ~ 4 weeks.
[2020-06-21] MEDS ORDERED: NORMAL SALINE 1000 ML 1,000 ML IV ONE (13:15)
[2020-06-21] MEDS: ZINC SULFATE 220 MG CAPSULE PO SCH (13:17)
[2020-06-21] MEDS: DOCUSATE SODIUM 100 MG CAPSULE PO SCH ×2 (13:21→18:49)
[2020-06-21] MEDS ORDERED: MEROPENEM 500 MG in NORMAL SALINE 50 ML IV SCH (14:00)
--- NOTE | 2020-06-21 14:32 | PDOC PROGRESS REPORT ---
Subjective Date:: 06/21/20 Subjective:: 39-year-old male admitted by surgical team for narcotizing fasciitis on 05/25. Course complicated by bacteremia. Currently on vancomycin. Patient seen on morning rounds. He is resting in bed comfortably. States that current pain management plan has been sufficient to manage his pain. He denies any active bleeding. He again denies fever, chills, chest pain, cough, abdominal pain, or diarrhea. Discussed with nursing patient's blood pressure noted to drop into the low 90s /50s. I evaluated patient immediately following. Patient states blood pressure typically runs low 100s, chart reviewed consistent with double blood pressure low 100s/60s. Repeat manual blood pressure remained low, 1 bolus IV fluid administered with improvement in BP and return to his baseline. Reason For Visit: NECROTIZING FASCIITIS Physical Exam Vital Signs: Temp Pulse Resp BP Pulse Ox 98.4 F 74 16 82/44 L 100 06/21/20 11:13 06/21/20 11:13 06/21/20 11:13 06/21/20 11:13 06/21/20 11:13 Intake & Output 06/20/20 06/21/20 06/22/20 06:59 06:59 06:59 Intake Total 1660 1062 780 Output Total 800 700 Balance 860 362 780 Weight 79.4 kg 79 kg Additional comments: General appearance: PRESENT: cooperative, today appears to be in no acute distress. Respiratory exam: PRESENT: clear to auscultation selam Cardiovascular exam: PRESENT: RRR. Pulses: PRESENT: normal radial pulses GI/Abdominal exam: PRESENT: soft. ABSENT: distended, firm, guarding, tenderness Extremities exam: PRESENT: other - Left lower extremity covered with heavy bandage. Neurological exam: PRESENT: alert, awake, oriented to person, oriented to place, oriented to time, oriented to situation. ABSENT: CN II-XII grossly intact Psychiatric exam: ABSENT: Anxious, depressed Skin exam: PRESENT: other - With bandage on left lower extremity. Results Laboratory Results: 06/21/20 05:09 06/21/20 05:09 06/21/20 06/21/20 05:09 05:09 WBC 6.7 RBC 3.49 L Hgb 8.9 L Hct 25.9 L MCV 74 L MCH 25.5 L MCHC 34.4 RDW 16.8 H Plt Count 177 Creatinine 0.75 Est GFR ( Amer) > 60 06/20/20 18:40 Blood Blood Culture (PCR) - Final Serratia Marcescens 05/25/20 05/26/20 14:53 18:57 Creatine Kinase 36 L 23 L Impressions: Knee X-Ray 05/25/20 14:34 IMPRESSION: Small knee joint effusion. No acute fracture or destructive bone lesion. Lower Extremity CT 05/25/20 14:39 IMPRESSION: 1. Subcutaneous edema and skin thickening involving the distal upper leg and k nee, consistent with cellulitis and subcutaneous edema. No focal drainable abscess. 2. Inflammatory change involving the medial compartment muscles suggestive of myositis. 3. Small knee joint effusion. 4. Focal DVT in the proximal common femoral vein extending into the greater saphenous vein and in the distal femoral vein. 5. Subcutaneous gas overlying the left hip region with no surrounding infl ammatory change or foreign body. This may represent an injection site. PICC Line Insertion 05/27/20 00:00 IMPRESSION: SUCCESSFUL PLACEMENT OF A 5 FR DUAL LUMEN 47 CM PICC IN THE LEFT BASILIC VEIN. Chest X-Ray 06/01/20 00:00 IMPRESSION: Bilateral pneumonia. Chest/Abdomen CTA 06/01/20 00:00 IMPRESSION: Extensive bilateral pneumonia with coalescing nodules and solitary cavitary lesion in the right upper lobe suspicious for septic emboli. No intravascular pulmonary emboli. Assessment and Plan - Diagnosis (1) Cellulitis of left thigh Is this a current diagnosis for this admission?: Yes Plan: Hx narcotizing fascitis; treatment as per #4. Hx bacteremia, evaluation and treatment thus far as discussed in #3. (2) Heroin addiction Is this a current diagnosis for this admission?: Yes Plan: Patient reportedly uses 1.5 g heroin daily x3 years. Patient again states his intent to go to the [facility] following discharge. Continue methadone 30 mg p.o. every 8 Clonidine as needed. Remaining management discussed #3 Per previous provider "discussed with the [facility]; they typically start at 10 mg daily and increase by 5 mg every other day, even for patients with high dose usage such as Mr. Hebert. Review of literature states that 40 mg is the max initial dosing and that there should be an observation period for 3 to 4 days prior to increase to ensure once steady state is reached patient does not experience respiratory depression." (3) Bacteremia Is this a current diagnosis for this admission?: Yes Plan: Blood culture (05/25/2020; both sets) MRSA Blood culture (05/26/2020; both sets) MRSA Blood culture (05/27/2020) MRSA; obtained 48 hours following start of vancomycin. Blood culture (05/29/2020) negative at 5 days; obtained 4 days following start of vancomycin. Blood culture (06/01/2020) no growth 5 days, single bottle Enterococcus avium. Blood culture (06/08/2020) no growth in 5 days Thomas blood cultures ordered today. Wound cultures positive for MRSA. Echocardiogram is negative for vegetation MITZI without evidence of vegetation Infectious disease consulted; have reviewed recommendations. - Plan to continue IV vancomycin for total of 6 weeks. - EOT should be July 10, 2020. - Vanc dosing as per pharm, monitor GFR and vanc trough weekly. Leukocytosis 11.7 on 06/10 prompted repeat BC Blood culture (06/20/2020) positive for Serratia Marescens. - Meropnenem initiated day #1/7 days - Repeat cultures pending - Literature reviewed, given bacteria often associated with hospital break- outs, less often associated with indivitual positive cultures. May be a contaminant. (4) Necrotizing fasciitis Is this a current diagnosis for this admission?: Yes Plan: s/p fragment of left lower extremity for necrotizing fasciitis due to IV drug use. Patient is followed and managed by surgical team notes reviewed in detail. - Stable for dc from surgical perspective - Cnt wet to dry dressing changes - Plan for split-thickness skin graft in 4-6 weeks Off IV medications. So far we have been successful with the following pain management regimen: - Morphine 15mg p.o. q12 hr prn - Cnt Methadone 30mg q8 - Oxycodone 20mg q4HR prn - Tylenol 975mg TID scheduled (5) IV drug abuse Is this a current diagnosis for this admission?: Yes Plan: As above. (6) Multifocal pneumonia Is this a current diagnosis for this admission?: Yes Plan: Pneumonia with septic emboli; high suspicion for endocarditis. CXR shows multifocal pneumonia. CTA revealed bilateral pneumonia with a RUL cavitary lesion with evidence of septic emboli. COVID negative x2. Blood cultures as above. No longer requiring supplemental O2. Previous treatment included: Vancomycin, Cefepime, and Levaquin Currently on vanc, as above. - As per the ID recommendations he will be treated as if he has infective endocarditis. - EOT 07/10/2019. - Vanc as dosed by pharmacy. Vanc trough and gfr to be monitored weekly. (7) Leukocytosis Qualifiers: Leukocytosis type: unspecified Qualified Code(s): D72.829 - Elevated white blood cell count, unspecified Is this a current diagnosis for this admission?: Yes Plan: Resolved WBC 6.7 today. Of note this resolved prior to administering antibiotics for gram negative blood culture. Remains VSS, afebrile. (8) DVT (deep venous thrombosis) Qualifiers: DVT location: lower extremity Affected thrombotic vein of extremity: femoral Chronicity: chronic Laterality: left Qualified Code(s): I82.512 - Chronic embolism and thrombosis of left femoral vein Is this a current diagnosis for this admission?: Yes Plan: 05/25/2020: CT lower extremity shows focal DVT to the proximal common femoral vein extending into the greater saphenous vein and in the distal femoral vein. -Initially treated with heparin drip given need for ongoing surgeries. -Transitioned to Lovenox warfarin bridge on 06/05/2020. -At therapeutic range on 06/09/2020 -Warfarin dosing per pharmacy. INR today 5.25. MAR reviewed, it appears last warfarin dose was 3 mg on 06/19/2020, INR at that time was 3.86. Patient current medications and possible interactions with warfarin reviewed in detail. It appears acetaminophen and vancomycin have highest risk of increased bleeding when used in combination with warfarin. Patient initially started on ceftriaxone and lieu of gram negative bacteremia on most recent blood culture, have suggested meropenem given this is not increased bleeding risk. If INR continues to increase investigate switching vancomycin to daptomycin as this is associated with decreased risk of bleeding. Patient without active bleeding. He is hemodynamically stable. Of note, his blood pressure is in the low 100s/60s for patient that is his baseline. Hemoglobin stable. Continue to hold warfarin. Given patient's history of thromboembolism, and lack of current bleed, I will hold on administering vitamin-k at this time. Plan to closely monitor INR, if this continues to increase I will give vitamin K. Case was reviewed with Dr. Brooks, agrees to plan of management. - Plan Summary Summary: His MRSA bacteremia sensitive to vancomycin has cleared. 06/01 + Enterococcus Avium Blood culture. 06/08/2020 blood culture without growth 5 days. Repeat blood cultures ordered today. Continue vancomycin as dosed per pharmacy with EOT 07/10/2019, as per ID. Per surgery the plan is for split-thickness skin graft in 4 to 6 weeks. He is unable to get home health or group home placement, or LTAC placement for this large wound on his leg given that he is self-pay thus likely patient will remain here for continued vancomycin therapy. - Time Time Spent with patient: 35 or more minutes Medications reviewed and adjusted accordingly: Yes Anticipated Discharge Disposition: Home, Self Care Anticipated Discharge Timeframe: 07/10
[2020-06-21 16:04] LABS: AMORPHOUS SEDIMENT,URINE TRACE /HPF; APPEARANCE,URINE CLOUDY; BILIRUBIN,URINE NEGATIVE (NEGATIVE); COLOR,URINE AMBER; GLUCOSE, URINE NEGATIVE (NEGATIVE); KETONES,URINE NEGATIVE (NEGATIVE); LEUKOCYTE ESTERASE,URINE NEGATIVE (NEGATIVE); NITRITE,URINE NEGATIVE (NEGATIVE); PROTEIN,URINE NEGATIVE (NEGATIVE); URINE SPECIFIC GRAVITY 1.018; UROBILINOGEN,URINE NEGATIVE mg/dL (<2.0)
[2020-06-21] MEDS: MEROPENEM 1 GM in NORMAL SALINE 50 ML IV SCH ×2 (16:09→22:17)
[2020-06-21] MEDS: OXYCODONE HCL IR 5 MG TABLET PO PRN (19:01)
[2020-06-22] MEDS: OXYCODONE HCL IR 5 MG TABLET PO PRN ×3 (02:42→17:06)
[2020-06-22] MEDS: METHADONE HCL 10 MG TABLET PO SCH ×3 (05:10→21:06)
[2020-06-22] MEDS: VANCOMYCIN HCL 1,500 MG in DEXTROSE 5%-WATER 250 ML IV SCH ×2 (05:11→18:50)
[2020-06-22] MEDS: MEROPENEM 1 GM in NORMAL SALINE 50 ML IV SCH ×3 (05:11→23:42)
[2020-06-22 07:49] LABS: INTERNATIONAL RATION (INR) 2.84; PROTHROMBIN TIME 29.7 SEC (11.4-15.4)
--- NOTE | 2020-06-22 09:10 | PDOC PROGRESS REPORT ---
Subjective Date:: 06/22/20 Reason For Visit: NECROTIZING FASCIITIS Physical Exam Vital Signs: Temp Pulse Resp BP Pulse Ox 98 F 80 20 116/63 97 06/22/20 07:29 06/22/20 07:14 06/22/20 07:14 06/22/20 07:14 06/22/20 07:14 Intake & Output 06/21/20 06/22/20 06/23/20 06:59 06:59 06:59 Intake Total 1062 2910 Output Total 700 2100 Balance 362 810 Weight 79 kg 79 kg Results Laboratory Results: 06/21/20 05:09 06/21/20 05:09 06/21/20 15:05 Urine Color IRASEMA Urine Appearance CLOUDY Urine pH 5.0 Ur Specific [place]ang 1.018 Urine Protein NEGATIVE Urine Glucose (UA) NEGATIVE Urine Ketones NEGATIVE Urine Blood NEGATIVE Urine Nitrite NEGATIVE Ur Leukocyte Esterase NEGATIVE Urine WBC (Auto) 1 Urine RBC (Auto) 2 06/20/20 18:40 Blood Blood Culture (PCR) - Final Serratia Marcescens 05/25/20 05/26/20 14:53 18:57 Creatine Kinase 36 L 23 L Impressions: Knee X-Ray 05/25/20 14:34 IMPRESSION: Small knee joint effusion. No acute fracture or destructive bone lesion. Lower Extremity CT 05/25/20 14:39 IMPRESSION: 1. Subcutaneous edema and skin thickening involving the distal upper leg and knee, consistent with cellulitis and subcutaneous edema. No focal drainable abscess. 2. Inflammatory change involving the medial compartment muscles suggestive of myositis. 3. Small knee joint effusion. 4. Focal DVT in the proximal common femoral vein extending into the greater saphenous vein and in the distal femoral vein. 5. Subcutaneous gas overlying the left hip region with no surrounding inflammatory change or foreign body. This may represent an injection site. PICC Line Insertion 05/27/20 00:00 IMPRESSION: SUCCESSFUL PLACEMENT OF A 5 FR DUAL LUMEN 47 CM PICC IN THE LEFT BASILIC VEIN. Chest X-Ray 06/01/20 00:00 IMPRESSION: Bilateral pneumonia. Chest/Abdomen CTA 06/01/20 00:00 IMPRESSION: Extensive bilateral pneumonia with coalescing nodules and solitary cavitary lesion in the right upper lobe suspicious for septic emboli. No intravascular pulmonary emboli. Assessment & Plan - Diagnosis (1) Necrotizing soft tissue infection Is this a current diagnosis for this admission?: Yes (2) IV drug abuse Is this a current diagnosis for this admission?: Yes - Time Anticipated Discharge Disposition: unknown Anticipated Discharge Timeframe: unknown - Plan Summary Plan Summary: 39-year-old male status post extensive debridement of the left lower extremity for necrotizing fasciitis due to intravenous drug abuse. The wound is healing very well. The patient is currently being treated for endocarditis and bacteremia by the medical service. Continue with antibiotics and treatment per their recommendation. In terms of the patient's lower extremity infection, it is stable at this time. The patient is fit for discharge home with damp to dry dressing changes from a surgical perspective. His wound can be managed with dressing changes, until a healthy bed of granulation is established. After he has healthy granulation, a split-thickness skin graft can be performed. Plan for skin graft in ~ 4 weeks.
[2020-06-22] MEDS: ACETAMINOPHEN 325 MG TABLET PO SCH ×3 (10:30→17:05)
[2020-06-22] MEDS: CHOLECALCIFEROL (D3) 1,000 UNIT (25 MCG) TABLET PO SCH (10:31)
[2020-06-22] MEDS: FERROUS SULFATE 325 MG TABLET PO SCH ×2 (10:31→17:04)
[2020-06-22] MEDS: FAMOTIDINE 20 MG TABLET PO SCH ×2 (10:32→21:06)
[2020-06-22] MEDS: DOCUSATE SODIUM 100 MG CAPSULE PO SCH ×2 (10:32→17:05)
[2020-06-22] MEDS: ZINC SULFATE 220 MG CAPSULE PO SCH (10:32)
[2020-06-22] MEDS: ASCORBIC ACID 500 MG TABLET PO SCH ×2 (10:32→17:05)
[2020-06-22] MEDS: NORMAL SALINE 10 ML SDV (SCHEDULED) IV SCH ×2 (10:33→21:07)
[2020-06-22] MEDS: POLYETHYLENE GLYCOL 3350 POWDER 17 GM/1 PACKET PO SCH (10:33)
--- NOTE | 2020-06-22 10:42 | PDOC PROGRESS REPORT ---
Subjective Date:: 06/22/20 Subjective:: 39-year-old male admitted by surgical team for narcotizing fasciitis on 05/25. Course complicated by bacteremia. Currently on vancomycin. Patient seen on morning rounds. He is resting in bed comfortably. Reports sufficient pain management. He has cleaned up and states that overall he is doing well. Denies active bleeding (blood in urine or bowel movement), fever, chills, chest pain, shortness of breath, cough, abdominal pain, nausea, vomiting or diarrhea. Discussed with nursing. No acute events overnight. No concerns today. Reason For Visit: NECROTIZING FASCIITIS Physical Exam Vital Signs: Temp Pulse Resp BP Pulse Ox 98 F 80 20 116/63 97 06/22/20 07:29 06/22/20 07:14 06/22/20 07:14 06/22/20 07:14 06/22/20 07:14 Intake & Output 06/21/20 06/22/20 06/23/20 06:59 06:59 06:59 Intake Total 1062 2910 Output Total 700 2100 Balance 362 810 Weight 79 kg 79 kg Additional comments: General appearance: PRESENT: cooperative, today appears to be in no acute distress. Respiratory exam: PRESENT: clear to auscultation selam Cardiovascular exam: PRESENT: RRR. Pulses: PRESENT: normal radial pulses GI/Abdominal exam: PRESENT: soft. ABSENT: distended, firm, guarding, tenderness Extremities exam: PRESENT: other - Left lower extremity covered with heavy bandage. Neurological exam: PRESENT: alert, awake, oriented to person, oriented to place, oriented to time, oriented to situation. ABSENT: CN II-XII grossly intact Psychiatric exam: ABSENT: Anxious, depressed Skin exam: PRESENT: other - With bandage on left lower extremity. Results Laboratory Results: 06/21/20 05:09 06/21/20 05:09 06/21/20 15:05 Urine Color IRASEMA Urine Appearance CLOUDY Urine pH 5.0 Ur Specific [place] 1.018 Urine Protein NEGATIVE Urine Glucose (UA) NEGATIVE Urine Ketones NEGATIVE Urine Blood NEGATIVE Urine Nitrite NEGATIVE Ur Leukocyte Esterase NEGATIVE Urine WBC (Auto) 1 Urine RBC (Auto) 2 06/20/20 18:40 Blood Blood Culture (PCR) - Final Serratia Marcescens 05/25/20 05/26/20 14:53 18:57 Creatine Kinase 36 L 23 L Impressions: Knee X-Ray 05/25/20 14:34 IMPRESSION: Small knee joint effusion. No acute fracture or destructive bone lesion. Lower Extremity CT 05/25/20 14:39 IMPRESSION: 1. Subcutaneous edema and skin thickening involving the distal upper leg and knee, consistent with cellulitis and subcutaneous edema. No focal drainable abscess. 2. Inflammatory change involving the medial compartment muscles suggestive of myositis. 3. Small knee joint effusion. 4. Focal DVT in the proximal common femoral vein extending into the greater saphenous vein and in the distal femoral vein. 5. Subcutaneous gas overlying the left hip region with no surrounding inflammatory change or foreign body. This may represent an injection site. PICC Line Insertion 05/27/20 00:00 IMPRESSION: SUCCESSFUL PLACEMENT OF A 5 FR DUAL LUMEN 47 CM PICC IN THE LEFT BASILIC VEIN. Chest X-Ray 06/01/20 00:00 IMPRESSION: Bilateral pneumonia. Chest/Abdomen CTA 06/01/20 00:00 IMPRESSION: Extensive bilateral pneumonia with coalescing nodules and solitary cavitary lesion in the right upper lobe suspicious for septic emboli. No intravascular pulmonary emboli. Assessment and Plan - Diagnosis (1) Cellulitis of left thigh Is this a current diagnosis for this admission?: Yes Plan: Hx narcotizing fascitis; treatment as per #4. Hx bacteremia, evaluation and treatment thus far as discussed in #3. (2) Heroin addiction Is this a current diagnosis for this admission?: Yes Plan: Patient reportedly uses 1.5 g heroin daily x3 years. Patient again states his intent to go to the [facility] following discharge. Continue methadone 30 mg p.o. every 8 Clonidine as needed. Remaining management discussed #3 Per previous provider "discussed with the [facility]; they typically start at 10 mg daily and increase by 5 mg every other day, even for patients with high dose usage such as Mr. Hebert. Review of literature states that 40 mg is the max initial dosing and that there should be an observation period for 3 to 4 days prior to increase to ensure once steady state is reached patient does not experience respiratory depression." (3) Bacteremia Is this a current diagnosis for this admission?: Yes Plan: Blood culture (05/25/2020; both sets) MRSA Blood culture (05/26/2020; both sets) MRSA Blood culture (05/27/2020) MRSA; obtained 48 hours following start of vancomycin. Blood culture (05/29/2020) negative at 5 days; obtained 4 days following start of vancomycin. Blood culture (06/01/2020) no growth 5 days, single bottle Enterococcus avium. Blood culture (06/08/2020) no growth in 5 days Blood culture (06/20/2020) MRSA non-detected. Blood culture (06/21/2020) pending. Wound cultures positive for MRSA. Echocardiogram is negative for vegetation MITZI without evidence of vegetation Infectious disease consulted; have reviewed recommendations. - Plan to continue IV vancomycin for total of 6 weeks. - EOT should be July 10, 2020. - Vanc dosing as per pharm, monitor GFR and vanc trough weekly. Leukocytosis 11.7 on 06/10 prompted repeat BC. Leukocytosis since resolved Blood culture (06/20/2020) positive for Serratia Marescens. - Meropnenem initiated day #2/7 days - Repeat cultures pending - Literature reviewed, given bacteria often associated with hospital break- outs, less often associated with individual positive cultures. Additionally this is only found in 1 of 2 bottles. This is likely a contaminant. (4) Necrotizing fasciitis Is this a current diagnosis for this admission?: Yes Plan: s/p fragment of left lower extremity for necrotizing fasciitis due to IV drug use. Patient is followed and managed by surgical team notes reviewed in detail. -Stable from surgical standpoint. - Cnt wet to dry dressing changes - Plan for split-thickness skin graft in 4-6 weeks Off IV pain medications. So far we have been successful with the following pain management regimen: - Morphine 15mg p.o. q12 hr prn - Cnt Methadone 30mg q8 - Oxycodone 20mg q4HR prn - Tylenol 975mg TID scheduled (5) IV drug abuse Is this a current diagnosis for this admission?: Yes Plan: As above. (6) Multifocal pneumonia Is this a current diagnosis for this admission?: Yes Plan: Pneumonia with septic emboli; high suspicion for endocarditis. CXR shows multifocal pneumonia. CTA revealed bilateral pneumonia with a RUL cavitary lesion with evidence of septic emboli. COVID negative x2. Blood cultures as above. No longer requiring supplemental O2. Previous treatment included: Vancomycin, Cefepime, and Levaquin Currently on vanc, as above. - As per the ID recommendations he will be treated as if he has infective e ndocarditis. - EOT 07/10/2019. - Vanc as dosed by pharmacy. Vanc trough and gfr to be monitored weekly. (7) Leukocytosis Qualifiers: Leukocytosis type: unspecified Qualified Code(s): D72.829 - Elevated white blood cell count, unspecified Is this a current diagnosis for this admission?: Yes Plan: Resolved. Of note this resolved prior to administering antibiotics for gram negative blood culture. Remains VSS, afebrile. Blood cultures as above. (8) DVT (deep venous thrombosis) Qualifiers: DVT location: lower extremity Affected thrombotic vein of extremity: femoral Chronicity: chronic Laterality: left Qualified Code(s): I82.512 - Chronic embolism and thrombosis of left femoral vein Is this a current diagnosis for this admission?: Yes Plan: 05/25/2020: CT lower extremity shows focal DVT to the proximal common femoral vein extending into the greater saphenous vein and in the distal femoral vein. -Initially treated with heparin drip given need for ongoing surgeries. -Transitioned to Lovenox warfarin bridge on 06/05/2020. -At therapeutic range on 06/09/2020 -Warfarin dosing per pharmacy. Last warfarin dose was 3 mg on 06/19/2020, has been on hold due to supratherapeutic INR. INR today 2.8. Hemoglobin remains stable. Without signs of active bleeding. - Plan Summary Summary: Continue vancomycin as dosed per pharmacy with EOT 07/10/2019 - Time Time Spent with patient: 25-34 minutes Medications reviewed and adjusted accordingly: Yes Anticipated Discharge Disposition: Home, Self Care Anticipated Discharge Timeframe: 07/10
[2020-06-22 11:24] LABS: HEMATOCRIT 23.5 % (37.9-51.0); MEAN CORPUSCULAR HEMOGLOBIN 25.5 pg (27.0-33.4); MEAN CORPUSCULAR HGB CONC 33.5 g/dL (32.0-36.0); MEAN CORPUSCULAR VOLUME 76 fl (80-97); PLATELET COUNT 156 10^3/uL (150-450); RED BLOOD COUNT 3.09 10^6/uL (4.35-5.55); RED CELL DISTRIBUTION WIDTH 16.7 % (11.5-14.0); WHITE BLOOD COUNT 5.6 10^3/uL (4.0-10.5)
[2020-06-22 11:29] LABS: HEMOGLOBIN 7.9 g/dL (13.5-17.0)
[2020-06-22 16:22] LABS: HEMATOCRIT 23.4 % (37.9-51.0); MEAN CORPUSCULAR HEMOGLOBIN 25.3 pg (27.0-33.4); MEAN CORPUSCULAR HGB CONC 33.7 g/dL (32.0-36.0); MEAN CORPUSCULAR VOLUME 75 fl (80-97); PLATELET COUNT 174 10^3/uL (150-450); RED BLOOD COUNT 3.12 10^6/uL (4.35-5.55); WHITE BLOOD COUNT 5.9 10^3/uL (4.0-10.5)
[2020-06-22 16:28] LABS: HEMOGLOBIN 7.9 g/dL (13.5-17.0)
[2020-06-22] MEDS: MORPHINE SULFATE IR 15 MG TABLET PO PRN (21:06)
[2020-06-22] MEDS: WARFARIN SODIUM 3 MG TABLET PO SCH (23:44)
[2020-06-23] MEDS: METHADONE HCL 10 MG TABLET PO SCH ×3 (05:19→21:11)
[2020-06-23] MEDS: MEROPENEM 1 GM in NORMAL SALINE 50 ML IV SCH ×3 (05:20→21:11)
[2020-06-23 05:44] LABS: HEMATOCRIT 22.7 % (37.9-51.0); MEAN CORPUSCULAR HEMOGLOBIN 25.4 pg (27.0-33.4); MEAN CORPUSCULAR HGB CONC 33.8 g/dL (32.0-36.0); MEAN CORPUSCULAR VOLUME 75 fl (80-97); PLATELET COUNT 169 10^3/uL (150-450); RED BLOOD COUNT 3.03 10^6/uL (4.35-5.55); RED CELL DISTRIBUTION WIDTH 17.1 % (11.5-14.0)
[2020-06-23 05:52] LABS: INTERNATIONAL RATION (INR) 2.71; PROTHROMBIN TIME 28.7 SEC (11.4-15.4)
[2020-06-23 05:55] LABS: HEMOGLOBIN 7.7 g/dL (13.5-17.0)
[2020-06-23 05:59] LABS: ANION GAP 6 (5-19); BLOOD UREA NITROGEN 7 mg/dL (7-20); CALCIUM 8.1 mg/dL (8.4-10.2); CARBON DIOXIDE 28 mmol/L (22-30); CHLORIDE 102 mmol/L (98-107); GLUCOSE 91 mg/dL (75-110); POTASSIUM 3.4 mmol/L (3.6-5.0)
[2020-06-23] MEDS: VANCOMYCIN HCL 1,500 MG in DEXTROSE 5%-WATER 250 ML IV SCH ×2 (06:35→19:02)
[2020-06-23] MEDS: OXYCODONE HCL IR 5 MG TABLET PO PRN ×2 (06:36→17:43)
--- NOTE | 2020-06-23 08:11 | PDOC PROGRESS REPORT ---
Subjective Date:: 06/23/20 Subjective:: Patient sleeping after he received dose of painkiller prior to morning dressing changes Reason For Visit: NECROTIZING FASCIITIS Physical Exam Vital Signs: Temp Pulse Resp BP Pulse Ox 98.8 F 88 18 118/70 98 06/23/20 04:00 06/23/20 04:00 06/23/20 04:00 06/23/20 04:00 06/23/20 04:00 Intake & Output 06/22/20 06/23/20 06/24/20 06:59 06:59 06:59 Intake Total 2910 1126 50 Output Total 2100 800 Balance 810 326 50 Weight 79 kg 79.2 kg General appearance: PRESENT: no acute distress Musculoskeletal exam: PRESENT: other - Left thigh = dressings in place clean, dry, and intact Results Laboratory Results: 06/23/20 05:25 06/23/20 05:25 06/22/20 06/22/20 06/23/20 10:55 16:13 05:25 WBC 5.6 5.9 5.0 RBC 3.09 L 3.12 L 3.03 L Hgb 7.9 L 7.9 L 7.7 L Hct 23.5 L 23.4 L 22.7 L MCV 76 L 75 L 75 L MCH 25.5 L 25.3 L 25.4 L MCHC 33.5 33.7 33.8 RDW 16.7 H 17.0 H 17.1 H Plt Count 156 174 169 Sodium Potassium Chloride Carbon Dioxide Anion Gap BUN Creatinine Est GFR ( Amer) Glucose Calcium 06/23/20 05:25 WBC RBC Hgb Hct MCV MCH MCHC RDW Plt Count Sodium 136.4 L Potassium 3.4 L Chloride 102 Carbon Dioxide 28 Anion Gap 6 BUN 7 Creatinine 0.59 Est GFR ( Amer) > 60 Glucose 91 Calcium 8.1 L 06/21/20 19:00 Blood Blood Culture (PCR) - Final Staphylococcus Species 06/21/20 12:03 Blood Blood Culture (PCR) - Final Staphylococcus Species 06/20/20 18:40 Blood Blood Culture (PCR) - Final Serratia Marcescens 06/20/20 18:40 Blood Blood Culture - Final Serratia Marcescens 05/25/20 05/26/20 14:53 18:57 Creatine Kinase 36 L 23 L Impressions: Knee X-Ray 05/25/20 14:34 IMPRESSION: Small knee joint effusion. No acute fracture or destructive bone lesion. Lower Extremity CT 05/25/20 14:39 IMPRESSION: 1. Subcutaneous edema and skin thickening involving the distal upper leg and knee, consistent with cellulitis and subcutaneous edema. No focal drainable abscess. 2. Inflammatory change involving the medial compartment muscles suggestive of myositis. 3. Small knee joint effusion. 4. Focal DVT in the proximal common femoral vein extending into the greater saphenous vein and in the distal femoral vein. 5. Subcutaneous gas overlying the left hip region with no surrounding inflammatory change or foreign body. This may represent an injection site. PICC Line Insertion 05/27/20 00:00 IMPRESSION: SUCCESSFUL PLACEMENT OF A 5 FR DUAL LUMEN 47 CM PICC IN THE LEFT BASILIC VEIN. Chest X-Ray 06/01/20 00:00 IMPRESSION: Bilateral pneumonia. Chest/Abdomen CTA 06/01/20 00:00 IMPRESSION: Extensive bilateral pneumonia with coalescing nodules and solitary cavitary lesion in the right upper lobe suspicious for septic emboli. No intravascular pulmonary emboli. Assessment & Plan - Diagnosis (1) IV drug abuse Is this a current diagnosis for this admission?: Yes (2) DVT (deep venous thrombosis) Qualifiers: DVT location: lower extremity Affected thrombotic vein of extremity: femoral Chronicity: chronic Laterality: left Qualified Code(s): I82.512 - Chronic embolism and thrombosis of left femoral vein Is this a current diagnosis for this admission?: Yes (3) Necrotizing fasciitis Is this a current diagnosis for this admission?: Yes - Time Anticipated Discharge Disposition: Home with Home Health Anticipated Discharge Timeframe: when bed available - Plan Summary Plan Summary: 39-year-old male status post extensive debridement of the left lower extremity for necrotizing fasciitis due to intravenous drug abuse. The wound is healing very well. The patient is currently being treated for endocarditis and bacteremia by the medical service. Continue with antibiotics and treatment per their recommendation. In terms of the patient's lower extremity infection, it is stable at this time. The patient is fit for discharge home with damp to dry dressing changes from a surgical perspective. His wound can be managed with dressing changes, until a healthy bed of granulation is established. After he has healthy granulation, a split-thickness skin graft can be performed. Plan for skin graft in ~ 4 weeks.
[2020-06-23] MEDS ORDERED: POTASSIUM CHLORIDE 10 MEQ TABLET.ER PO ONE (08:15)
[2020-06-23] MEDS ORDERED: NORMAL SALINE 250 ML IV PRN ×2 (08:16)
[2020-06-23] MEDS: DOCUSATE SODIUM 100 MG CAPSULE PO SCH ×2 (09:51→17:41)
[2020-06-23] MEDS: ASCORBIC ACID 500 MG TABLET PO SCH ×2 (09:51→17:40)
[2020-06-23] MEDS: FERROUS SULFATE 325 MG TABLET PO SCH ×2 (09:51→17:40)
[2020-06-23] MEDS: ACETAMINOPHEN 325 MG TABLET PO SCH ×3 (09:52→17:40)
[2020-06-23] MEDS: CHOLECALCIFEROL (D3) 1,000 UNIT (25 MCG) TABLET PO SCH (09:52)
[2020-06-23] MEDS: FAMOTIDINE 20 MG TABLET PO SCH ×2 (09:52→21:11)
[2020-06-23] MEDS: NORMAL SALINE 10 ML SDV (SCHEDULED) IV SCH ×2 (09:53→21:12)
[2020-06-23] MEDS: POLYETHYLENE GLYCOL 3350 POWDER 17 GM/1 PACKET PO SCH (09:53)
[2020-06-23] MEDS: ZINC SULFATE 220 MG CAPSULE PO SCH (14:37)
[2020-06-23] MEDS ORDERED: MORPHINE SULFATE IR 15 MG TABLET PO PRN (18:22)
--- NOTE | 2020-06-23 18:32 | PDOC PROGRESS REPORT ---
Subjective Date:: 06/23/20 Subjective:: 39-year-old male admitted by surgical team for narcotizing fasciitis on 05/25. Course complicated by bacteremia. Currently on vancomycin. Patient seen on morning rounds. He is resting in bed comfortably. Reports sufficient pain management. Denies lightheadedness, active bleeding (blood in urine or bowel movement), fever, chills, chest pain, shortness of breath, cough, abdominal pain, nausea, vomiting or diarrhea. Discussed with nursing. DIYA. No concerns today. Reason For Visit: NECROTIZING FASCIITIS Physical Exam Vital Signs: Temp Pulse Resp BP Pulse Ox 98.8 F 83 19 112/72 96 06/23/20 18:05 06/23/20 18:05 06/23/20 18:05 06/23/20 18:05 06/23/20 18:05 Intake & Output 06/22/20 06/23/20 06/24/20 06:59 06:59 06:59 Intake Total 2910 1126 1178 Output Total 2100 800 1400 Balance 810 326 -222 Weight 79 kg 79.2 kg Additional comments: General appearance: PRESENT: cooperative, today appears to be in no acute distress. Respiratory exam: PRESENT: clear to auscultation selam Cardiovascular exam: PRESENT: RRR. Pulses: PRESENT: normal radial pulses GI/Abdominal exam: PRESENT: soft. ABSENT: distended, firm, guarding, tenderness Extremities exam: PRESENT: other - Left lower extremity covered with heavy bandage. Neurological exam: PRESENT: alert, awake, oriented to person, oriented to place, oriented to time, oriented to situation. ABSENT: CN II-XII grossly intact Psychiatric exam: ABSENT: Anxious, depressed Skin exam: PRESENT: other - With bandage on left lower extremity. Results Laboratory Results: 06/23/20 05:25 06/23/20 05:25 06/23/20 06/23/20 06/23/20 05:25 05:25 09:58 WBC 5.0 RBC 3.03 L Hgb 7.7 L Hct 22.7 L MCV 75 L MCH 25.4 L MCHC 33.8 RDW 17.1 H Plt Count 169 Sodium 136.4 L Potassium 3.4 L Chloride 102 Carbon Dioxide 28 Anion Gap 6 BUN 7 Creatinine 0.59 Est GFR ( Amer) > 60 Glucose 91 Calcium 8.1 L Blood Type O POSITIVE Antibody Screen NEGATIVE 06/21/20 19:00 Blood Blood Culture (PCR) - Final Staphylococcus Species 06/21/20 12:03 Blood Blood Culture (PCR) - Final Staphylococcus Species 06/20/20 18:40 Blood Blood Culture (PCR) - Final Serratia Marcescens 06/20/20 18:40 Blood Blood Culture - Final Serratia Marcescens 05/25/20 05/26/20 14:53 18:57 Creatine Kinase 36 L 23 L Impressions: Knee X-Ray 05/25/20 14:34 IMPRESSION: Small knee joint effusion. No acute fracture or destructive bone lesion. Lower Extremity CT 05/25/20 14:39 IMPRESSION: 1. Subcutaneous edema and skin thickening involving the distal upper leg and knee, consistent with cellulitis and subcutaneous edema. No focal drainable abscess. 2. Inflammatory change involving the medial compartment muscles suggestive of myositis. 3. Small knee joint effusion. 4. Focal DVT in the proximal common femoral vein extending into the greater saphenous vein and in the distal femoral vein. 5. Subcutaneous gas overlying the left hip region with no surrounding inflammatory change or foreign body. This may represent an injection site. PICC Line Insertion 05/27/20 00:00 IMPRESSION: SUCCESSFUL PLACEMENT OF A 5 FR DUAL LUMEN 47 CM PICC IN THE LEFT BASILIC VEIN. Chest X-Ray 06/01/20 00:00 IMPRESSION: Bilateral pneumonia. Chest/Abdomen CTA 06/01/20 00:00 IMPRESSION: Extensive bilateral pneumonia with coalescing nodules and solitary cavitary lesion in the right upper lobe suspicious for septic emboli. No intravascular pulmonary emboli. Assessment and Plan - Diagnosis (1) Cellulitis of left thigh Is this a current diagnosis for this admission?: Yes Plan: Hx narcotizing fascitis; treatment as per #4. Hx bacteremia, evaluation and treatment thus far as discussed in #3. (2) Heroin addiction Is this a current diagnosis for this admission?: Yes Plan: Patient reportedly uses 1.5 g heroin daily x3 years. Patient again states his intent to go to the [facility] following discharge. Continue methadone 30 mg p.o. every 8 Clonidine as needed. Remaining management discussed #3 Per previous provider "discussed with the [facility]; they typically start at 10 mg daily and increase by 5 mg every other day, even for pa tients with high dose usage such as Mr. Hebert. Review of literature states that 40 mg is the max initial dosing and that there should be an observation period for 3 to 4 days prior to increase to ensure once steady state is reached patient does not experience respiratory depression." (3) Bacteremia Is this a current diagnosis for this admission?: Yes Plan: Blood culture (05/25/2020; both sets) MRSA Blood culture (05/26/2020; both sets) MRSA Blood culture (05/27/2020) MRSA; obtained 48 hours following start of vancomycin. Blood culture (05/29/2020) negative at 5 days; obtained 4 days following start of vancomycin. Blood culture (06/01/2020) no growth 5 days, single bottle Enterococcus avium. Blood culture (06/08/2020) no growth in 5 days Blood culture (06/20/2020) MRSA non-detected. Blood culture (06/21/2020) 2/4 Gram + cocci clusters. Blood culture (06/23/2020) Pending. Wound cultures positive for MRSA. Echocardiogram is negative for vegetation MITZI without evidence of vegetation Infectious disease consulted; have reviewed recommendations. - Plan to continue IV vancomycin for total of 6 weeks. - EOT should be July 10, 2020. - Vanc dosing as per pharm, monitor GFR and vanc trough weekly. Blood culture (06/20/2020) positive for Serratia Marescens. - Meropnenem initiated day #3/7 days - Repeat cultures without growth. Infectious disease consulted. Appreciated their recommendations. In time being continue current tx regimen. (4) Necrotizing fasciitis Is this a current diagnosis for this admission?: Yes Plan: s/p fragment of left lower extremity for necrotizing fasciitis due to IV drug use. Patient is followed and managed by surgical team notes reviewed in detail. -Stable from surgical standpoint. - Cnt wet to dry dressing changes - Plan for split-thickness skin graft in 4-6 weeks Off IV pain medications. So far we have been successful with current pain management. (5) IV drug abuse Is this a current diagnosis for this admission?: Yes Plan: As above. (6) Multifocal pneumonia Is this a current diagnosis for this admission?: Yes Plan: No longer requiring supplemental O2. Previous treatment included: Vancomycin, Cefepime, and Levaquin Currently on vanc, as above. (7) Leukocytosis Qualifiers: Leukocytosis type: unspecified Qualified Code(s): D72.829 - Elevated white blood cell count, unspecified Is this a current diagnosis for this admission?: Yes Plan: Resolved. Of note this resolved prior to administering antibiotics for gram negative blood culture. Remains VSS, afebrile. Blood cultures as above. (8) DVT (deep venous thrombosis) Qualifiers: DVT location: lower extremity Affected thrombotic vein of extremity: femoral Chronicity: chronic Laterality: left Qualified Code(s): I82.512 - Chronic embolism and thrombosis of left femoral vein Is this a current diagnosis for this admission?: Yes Plan: 05/25/2020: CT lower extremity shows focal DVT to the proximal common femoral vein extending into the greater saphenous vein and in the distal femoral vein. -Initially treated with heparin drip given need for ongoing surgeries. -Transitioned to Lovenox warfarin bridge on 06/05/2020. -At therapeutic range on 06/09/2020 -Warfarin dosing per pharmacy. Last warfarin dose was 3 mg on 06/19/2020, has been on hold due to supratherapeutic INR. INR today 2.71. Hemoglobin remains stable. Without signs of active bleeding. (9) Anemia requiring transfusions Is this a current diagnosis for this admission?: Yes Plan: Hgb 7.7. Without signs active bleeding. Transfused 1u PRBC today. Has required transfusion in the past. Monitor WBC for improvement. - Plan Summary Summary: Continue vancomycin as dosed per pharmacy with EOT 07/10/2019 - Time Time Spent with patient: 25-34 minutes Anticipated Discharge Disposition: Home, Self Care Anticipated Discharge Timeframe: 07/10
[2020-06-23] MEDS: WARFARIN SODIUM 3 MG TABLET PO SCH (21:11)
[2020-06-23 21:32] LABS: ABSOLUTE EOSINOPHILS # (AUTO) 0.5 10^3/uL (0.0-0.6); ABSOLUTE LYMPHOCYTES (AUTO) 1.1 10^3/uL (0.5-4.7); ABSOLUTE MONOCYTES (AUTO) 0.6 10^3/uL (0.1-1.4); BASOPHILS % (AUTO) 0.8 % (0-2); EOSINOPHILS % (AUTO) 9.6 % (0-6); HEMATOCRIT 28.3 % (37.9-51.0); HEMOGLOBIN 9.7 g/dL (13.5-17.0); LYMPHOCYTES % (AUTO) 21.6 % (13-45); MEAN CORPUSCULAR HEMOGLOBIN 25.9 pg (27.0-33.4); MEAN CORPUSCULAR HGB CONC 34.3 g/dL (32.0-36.0); MEAN CORPUSCULAR VOLUME 76 fl (80-97); MONOCYTES % (AUTO) 11.7 % (3-13); PLATELET COUNT 194 10^3/uL (150-450); RED BLOOD COUNT 3.73 10^6/uL (4.35-5.55); SEGMENTED NEUTROPHILS % (AUTO) 56.3 % (42-78); TOTAL CELLS COUNTED % (AUTO) 100 %; WHITE BLOOD COUNT 5.2 10^3/uL (4.0-10.5)
[2020-06-23] MEDS ORDERED: MEROPENEM 1 GM in NORMAL SALINE 50 ML IV ONE (23:59)
[2020-06-24] MEDS: OXYCODONE HCL IR 5 MG TABLET PO PRN ×3 (01:44→14:06)
[2020-06-24 05:49] LABS: HEMATOCRIT 26.9 % (37.9-51.0); HEMOGLOBIN 9.1 g/dL (13.5-17.0); MEAN CORPUSCULAR HEMOGLOBIN 25.5 pg (27.0-33.4); MEAN CORPUSCULAR HGB CONC 33.9 g/dL (32.0-36.0); MEAN CORPUSCULAR VOLUME 75 fl (80-97); PLATELET COUNT 174 10^3/uL (150-450); RED BLOOD COUNT 3.58 10^6/uL (4.35-5.55); RED CELL DISTRIBUTION WIDTH 17.1 % (11.5-14.0); WHITE BLOOD COUNT 5.9 10^3/uL (4.0-10.5)
[2020-06-24 06:08] LABS: INTERNATIONAL RATION (INR) 2.56; PROTHROMBIN TIME 27.5 SEC (11.4-15.4)
[2020-06-24] MEDS: METHADONE HCL 10 MG TABLET PO SCH ×3 (06:19→22:22)
[2020-06-24] MEDS: MEROPENEM 1 GM in NORMAL SALINE 50 ML IV SCH ×2 (06:21→14:05)
[2020-06-24] MEDS: VANCOMYCIN HCL 1,500 MG in DEXTROSE 5%-WATER 250 ML IV SCH ×2 (06:21→18:00)
[2020-06-24 06:24] LABS: ANION GAP 8 (5-19); BLOOD UREA NITROGEN 8 mg/dL (7-20); CALCIUM 8.6 mg/dL (8.4-10.2); CARBON DIOXIDE 28 mmol/L (22-30); CHLORIDE 100 mmol/L (98-107); GLUCOSE 108 mg/dL (75-110); POTASSIUM 3.8 mmol/L (3.6-5.0)
--- NOTE | 2020-06-24 07:46 | PDOC PROGRESS REPORT ---
Subjective Date:: 06/24/20 Subjective:: No complaints Reason For Visit: NECROTIZING FASCIITIS Physical Exam Vital Signs: Temp Pulse Resp BP Pulse Ox 98.2 F 88 20 114/70 99 06/24/20 04:37 06/24/20 04:37 06/24/20 04:37 06/24/20 04:37 06/24/20 04:37 Intake & Output 06/23/20 06/24/20 06/25/20 06:59 06:59 06:59 Intake Total 1126 2228 Output Total 800 1400 Balance 326 828 Weight 79.2 kg 79 kg General appearance: PRESENT: no acute distress, thin Extremities exam: PRESENT: other - Left thigh = large medial anterior aspect skin deficit with underlying granulation tissue extending from just below the knee joint up to the groin Results Laboratory Results: 06/24/20 05:06 06/24/20 05:06 06/23/20 06/23/20 06/24/20 09:58 21:15 05:06 WBC 5.2 5.9 RBC 3.73 L 3.58 L Hgb 9.7 L 9.1 L Hct 28.3 L 26.9 L MCV 76 L 75 L MCH 25.9 L 25.5 L MCHC 34.3 33.9 RDW 17.0 H 17.1 H Plt Count 194 174 Seg Neutrophils % 56.3 Sodium Potassium Chloride Carbon Dioxide Anion Gap BUN Creatinine Est GFR ( Amer) Glucose Calcium Blood Type O POSITIVE Antibody Screen NEGATIVE 06/24/20 05:06 WBC RBC Hgb Hct MCV MCH MCHC RDW Plt Count Seg Neutrophils % Sodium 135.8 L Potassium 3.8 Chloride 100 Carbon Dioxide 28 Anion Gap 8 BUN 8 Creatinine 0.66 Est GFR ( Amer) > 60 Glucose 108 Calcium 8.6 Blood Type Antibody Screen 06/21/20 19:00 Blood Blood Culture (PCR) - Final Staphylococcus Species 06/21/20 12:03 Blood Blood Culture (PCR) - Final Staphylococcus Species 05/25/20 05/26/20 14:53 18:57 Creatine Kinase 36 L 23 L Impressions: Knee X-Ray 05/25/20 14:34 IMPRESSION: Small knee joint effusion. No acute fracture or destructive bone lesion. Lower Extremity CT 05/25/20 14:39 IMPRESSION: 1. Subcutaneous edema and skin thickening involving the distal upper leg and knee, consistent with cellulitis and subcutaneous edema. No focal drainable abscess. 2. Inflammatory change involving the medial compartment muscles suggestive of myositis. 3. Small knee joint effusion. 4. Focal DVT in the proximal common femoral vein extending into the greater sap henous vein and in the distal femoral vein. 5. Subcutaneous gas overlying the left hip region with no surrounding inflammatory change or foreign body. This may represent an injection site. PICC Line Insertion 05/27/20 00:00 IMPRESSION: SUCCESSFUL PLACEMENT OF A 5 FR DUAL LUMEN 47 CM PICC IN THE LEFT BASILIC VEIN. Chest X-Ray 06/01/20 00:00 IMPRESSION: Bilateral pneumonia. Chest/Abdomen CTA 06/01/20 00:00 IMPRESSION: Extensive bilateral pneumonia with coalescing nodules and solitary cavitary lesion in the right upper lobe suspicious for septic emboli. No intravascular pulmonary emboli. Assessment & Plan - Diagnosis (1) IV drug abuse Is this a current diagnosis for this admission?: Yes (2) DVT (deep venous thrombosis) Qualifiers: DVT location: lower extremity Affected thrombotic vein of extremity: femoral Chronicity: chronic Laterality: left Qualified Code(s): I82.512 - Chronic embolism and thrombosis of left femoral vein Is this a current diagnosis for this admission?: Yes (3) Necrotizing fasciitis Is this a current diagnosis for this admission?: Yes - Time Anticipated Discharge Disposition: Home with Home Health Anticipated Discharge Timeframe: when ready - Plan Summary Plan Summary: Assessment: History IV drug abuse with injection of drugs in the left lower extremity S/p wide wide debridement left stoney-medial aspect of the thigh extending from just below the knee up to the groin Left thigh wound beefy red, granulating Patient currently treated with IV antibiotics for suspected endocarditis and septic emboli Patient placed on warfarin for left lower extremity DVT with therapeutic INR of 2.5 Plan: Please let surgery service now when the patient can undergo split-thickness skin graft to the left thigh wound I would recommend to consult with the ID service currently managing the endocarditis tx for such a recommendation The warfarin will need to be discontinued and the patient started on heparin prior to the surgery and resumed after surgery The patient will need to remain in bed for 10 to 14 days in and no LLE weightbearing status after the procedure with a left lower extremity splinted to allow the skin graft to heal
[2020-06-24] MEDS ORDERED: MORPHINE SULFATE 10 MG/5 ML ORAL SOLUTION UDCUP PO PRN (09:14)
[2020-06-24] MEDS: DOCUSATE SODIUM 100 MG CAPSULE PO SCH ×2 (10:18→17:59)
[2020-06-24] MEDS: ACETAMINOPHEN 325 MG TABLET PO SCH ×3 (10:19→17:59)
[2020-06-24] MEDS: FERROUS SULFATE 325 MG TABLET PO SCH ×2 (10:19→17:59)
[2020-06-24] MEDS: FAMOTIDINE 20 MG TABLET PO SCH ×2 (10:19→22:22)
[2020-06-24] MEDS: ASCORBIC ACID 500 MG TABLET PO SCH ×2 (10:19→17:59)
[2020-06-24] MEDS: CHOLECALCIFEROL (D3) 1,000 UNIT (25 MCG) TABLET PO SCH (10:19)
[2020-06-24] MEDS: POLYETHYLENE GLYCOL 3350 POWDER 17 GM/1 PACKET PO SCH (10:20)
[2020-06-24] MEDS: NORMAL SALINE 10 ML SDV (SCHEDULED) IV SCH ×2 (10:20→22:24)
[2020-06-24] MEDS: ZINC SULFATE 220 MG CAPSULE PO SCH (10:23)
--- NOTE | 2020-06-24 14:42 | Progress Note ---
Provider Note Provider Note: [facility] Telephone Advice Follow Chart reviewed, patient not seen. Update: Patient has been in the hospital since late April due to MRSA bacteremia with septic pulmonary emboli and necrotizing fasciitis in the setting of active IVDU. He was on vancomycin and cleared blood cultures on 05/29. A repeat blood cul ture on 06/01 from the PICC line grew Enterococcus avium which represents line colonization as peripheral blood (right antecubital) culture was negative on the same day and patient was on vancomycin. At some point during the admission vancomycin was stopped and there were plans to transition to ampicillin for Enterococcus. He has received only 2 weeks of vancomycin from negative blood cultures. TTE and MITZI were negative, but CT scan of the chest positive for septic pulmonary emboli. Vancomycin was restarted. On 06/08 blood cultures cleared. Again on 06/20 blood culture from the line grew Serratia spp and on 06/21 Staphylococcus lugdunensis. Patient's leg wound seems to be improving. Per surgery notes no signs of infection or exudates. No cellulitis. ID consulted for clearance before skin graft. HPI This is a 39-year-old man with active IVDU who was admitted due to left leg p ain, swelling, decreased ROM after trying to inject heroin. He was evaluated in the ED due to suspicion of left septic knee. He had leukocytosis of 18k. X ray showed a small knee effusion. He had a CT scan of the leg that demonstrated cellulitis, myositis, DVT of proximal common femoral, greater saphenous and distal femoral veins. There was subcutaneous gas in the left hip. Patient was evaluated by surgery on 05/25 and taken to the OR. He was found with necrotizing fasciitis, he had I&D. The extent of the wound was 33 x 13 cm. Blood cultures on 05/25 and 05/27 positive for MRSA. Cultures on 05/29 in process. Wound culture isolated MRSA as well on 05/25 and 05/26. TTE on 05/27 was negative for endocarditis. He has been on vancomycin, currently receiving 3740 mg. Vancomycin trough 15.5. ID consulted for recommendations. Allergies: No Known Allergies (Unverified 05/03/19 22:03) Medications: No Home Medications 05/25/20 Vital Signs: Temp Pulse Resp BP Pulse Ox 98.6 F 78 16 106/66 98 06/24/20 10:50 06/24/20 10:50 06/24/20 10:50 06/24/20 10:50 06/24/20 10:50 Intake & Output 06/23/20 06/24/20 06/25/20 06:59 06:59 06:59 Intake Total 1126 2278 500 Output Total 800 1400 Balance 326 878 500 Weight 79.2 kg 79 kg Weight/Height Weight 79 kg Height 5 ft 11 in Laboratories: 06/24/20 05:06 06/24/20 05:06 MCV 75 fl (80-97) L 06/24/20 05:06 MCH 25.5 pg (27.0-33.4) L 06/24/20 05:06 MCHC 33.9 g/dL (32.0-36.0) 06/24/20 05:06 RDW 17.1 % (11.5-14.0) H 06/24/20 05:06 Seg Neutrophils % 56.3 % (42-78) 06/23/20 21:15 Retic Count (auto) 1.93 % (0.66-2.85) 06/07/20 05:50 VBG pH 7.38 (7.30-7.42) 05/25/20 15:03 VBG pCO2 56.7 mmHg (35-63) 05/25/20 15:03 VBG HCO3 32.4 mmol/L (20-32) H 05/25/20 15:03 VBG Base Excess 5.6 mmol/L 05/25/20 15:03 Chloride 100 mmol/L (98-107) 06/24/20 05:06 Carbon Dioxide 28 mmol/L (22-30) 06/24/20 05:06 Anion Gap 8 (5-19) 06/24/20 05:06 Est GFR ( Amer) > 60 (>60) 06/24/20 05:06 Est GFR (Non-Af Amer) Cancelled 06/19/20 06:15 Glucose 108 mg/dL (75-110) 06/24/20 05:06 Lactic Acid 0.8 mmol/L (0.7-2.1) 06/01/20 12:41 Calcium 8.6 mg/dL (8.4-10.2) 06/24/20 05:06 Magnesium 1.8 mg/dL (1.6-2.3) 06/12/20 08:33 Iron 14.1 ug/dL (49-181) L 06/07/20 05:50 TIBC 253 ug/dL (250-450) 06/07/20 05:50 % Saturation 6 % 06/07/20 05:50 Ferritin 153.00 ng/mL (17.9-464.0) 06/07/20 05:50 Total Bilirubin 0.5 mg/dL (0.2-1.3) 06/12/20 08:33 AST 27 U/L (17-59) 06/12/20 08:33 Alkaline Phosphatase 251 U/L (38-126) H 06/12/20 08:33 Total Protein 7.9 g/dL (6.3-8.2) 06/12/20 08:33 Albumin 2.8 g/dL (3.5-5.0) L 06/12/20 08:33 Vitamin B12 553.0 pg/mL (239-931) 06/07/20 05:50 Folate 6.76 ng/mL (>2.76) 06/07/20 05:50 Urine Color IRASEMA 06/21/20 15:05 Urine Appearance CLOUDY 06/21/20 15:05 Urine pH 5.0 (5.0-9.0) 06/21/20 15:05 Ur Specific [place] 1.018 06/21/20 15:05 Urine Protein NEGATIVE mg/dL (NEGATIVE) 06/21/20 15:05 Urine Glucose (UA) NEGATIVE mg/dL (NEGATIVE) 06/21/20 15:05 Urine Ketones NEGATIVE mg/dL (NEGATIVE) 06/21/20 15:05 Urine Blood NEGATIVE (NEGATIVE) 06/21/20 15:05 Urine Nitrite NEGATIVE (NEGATIVE) 06/21/20 15:05 Ur Leukocyte Esterase NEGATIVE (NEGATIVE) 06/21/20 15:05 Urine WBC (Auto) 1 /HPF 06/21/20 15:05 Urine RBC (Auto) 2 /HPF 06/21/20 15:05 Ur Squamous Epith Cells FEW /HPF 06/05/20 09:28 Blood Type O POSITIVE 06/23/20 09:58 Antibody Screen NEGATIVE 06/23/20 09:58 05/25/20 05/26/20 14:53 18:57 Creatine Kinase 36 L 23 L Microbiology: Blood cultures: 05/25 MRSA 05/27 MRSA 05/29 Negative 06/01 Enterococcus avium (line 1/2 sets) 06/08 Negative 06/20 Serratia marsescens (line) 06/21 Staphylococcus lugdunensis (line), Staphylococcus spp Wound Culture: 05/25 MRSA 05/26 MRSA Radiology: Knee X-Ray 05/25/20 14:34 IMPRESSION: Small knee joint effusion. No acute fracture or destructive bone lesion. Lower Extremity CT 05/25/20 14:39 IMPRESSION: 1. Subcutaneous edema and skin thickening involving the distal upper leg and knee, consistent with cellulitis and subcutaneous edema. No focal drainable abscess. 2. Inflammatory change involving the medial compartment muscles suggestive of myositis. 3. Small knee joint effusion. 4. Focal DVT in the proximal common femoral vein extending into the greater sap henous vein and in the distal femoral vein. 5. Subcutaneous gas overlying the left hip region with no surrounding inflammatory change or foreign body. This may represent an injection site. PICC Line Insertion 05/27/20 00:00 IMPRESSION: SUCCESSFUL PLACEMENT OF A 5 FR DUAL LUMEN 47 CM PICC IN THE LEFT BASILIC VEIN. Chest X-Ray 06/01/20 00:00 IMPRESSION: Bilateral pneumonia. Chest/Abdomen CTA 06/01/20 00:00 IMPRESSION: Extensive bilateral pneumonia with coalescing nodules and solitary cavitary lesion in the right upper lobe suspicious for septic emboli. No intravascular pulmonary emboli. Assessment and Recommendations: Patient evaluated for MRSA bacteremia with septic emboli in the setting of left leg necrotizing fasciitis and active IVDU. He has been taken to surgery for debridement for source control. Wound is healing well per notes. This is all MRSA. Blood cultures cleared from MRSA on 05/29. Positive blood culture for Enterococcus avium likely PICC line colonization as peripheral culture was negative. He was on vancomycin. TTE and MITZI were negative for vegetations. He did have septic thrombosis of the proximal common femoral vein, this increases the risk for septic emboli as well. Due to the severity of this infection and complicated MRSA bacteremia with septic thrombosis and emboli, should complete 6 weeks of vancomycin from negative blood cultures. EOT should be July 10. Patient needs a skin graft due to the large wound defect after debridement for necrotizing fasciitis. He has been receiving systemic antibiotics and local wound care. Surgery is ready to perform the graft if cleared by ID. Patient does have bloodstream infection with Serratia and CoNS associated with the line. How this will affect healing, it is not clear but will recommend to treat this before performing the skin graft. Ideally would remove the line and treat for 10 days with ertapenem 1g daily (EOT 06/30/20) and to continue vancomycin for endocarditis and septic emboli (07/10/20). A new line can be placed 48 hr after line removal with repeat blood cultures and skin graft after 06/30/20 if wound looks good. While on vancomycin, he will need weekly labs to monitor GFR and vanc trough. If he requires >4g of vancomycin a day to keep a trough >15, then daptomycin 8mg/kg daily (monitoring CK) would be indicated. Please call back if any questions. Fanny Roque MD [facility] ID [id number]
--- NOTE | 2020-06-24 18:56 | PDOC PROGRESS REPORT ---
Subjective Date:: 06/24/20 Subjective:: 39-year-old male admitted by surgical team for narcotizing fasciitis on 05/25. Course complicated by bacteremia. Currently on vancomycin. Patient seen on morning rounds. He is resting in bed comfortably. Reports sufficient pain management. Provides me with no complaints or concerns today. Discussed with nursing. DIYA. No concerns today. Reason For Visit: NECROTIZING FASCIITIS Physical Exam Vital Signs: Temp Pulse Resp BP Pulse Ox 98.6 F 78 16 106/66 98 06/24/20 10:50 06/24/20 10:50 06/24/20 10:50 06/24/20 10:50 06/24/20 10:50 Intake & Output 06/23/20 06/24/20 06/25/20 06:59 06:59 06:59 Intake Total 1126 2278 1220 Output Total 800 1400 600 Balance 326 878 620 Weight 79.2 kg 79 kg Additional comments: General appearance: PRESENT: cooperative, today appears to be in no acute distress. Respiratory exam: PRESENT: clear to auscultation selam Cardiovascular exam: PRESENT: RRR. Pulses: PRESENT: normal radial pulses GI/Abdominal exam: PRESENT: soft. ABSENT: distended, firm, guarding, tenderness Extremities exam: PRESENT: other - Left lower extremity covered with heavy bandage. Neurological exam: PRESENT: alert, awake, oriented to person, oriented to place, oriented to time, oriented to situation. ABSENT: CN II-XII grossly intact Psychiatric exam: ABSENT: Anxious, depressed Skin exam: PRESENT: other - With bandage on left lower extremity. Results Laboratory Results: 06/24/20 05:06 06/24/20 05:06 06/23/20 06/24/20 06/24/20 21:15 05:06 05:06 WBC 5.2 5.9 RBC 3.73 L 3.58 L Hgb 9.7 L 9.1 L Hct 28.3 L 26.9 L MCV 76 L 75 L MCH 25.9 L 25.5 L MCHC 34.3 33.9 RDW 17.0 H 17.1 H Plt Count 194 174 Seg Neutrophils % 56.3 Sodium 135.8 L Potassium 3.8 Chloride 100 Carbon Dioxide 28 Anion Gap 8 BUN 8 Creatinine 0.66 Est GFR ( Amer) > 60 Glucose 108 Calcium 8.6 06/21/20 19:00 Blood Blood Culture (PCR) - Final Staphylococcus Species 06/21/20 19:00 Blood Blood Culture - Final Staphylococcus Lugdunensis 05/25/20 05/26/20 14:53 18:57 Creatine Kinase 36 L 23 L Impressions: Knee X-Ray 05/25/20 14:34 IMPRESSION: Small knee joint effusion. No acute fracture or destructive bone lesion. Lower Extremity CT 05/25/20 14:39 IMPRESSION: 1. Subcutaneous edema and skin thickening involving the distal upper leg and knee, consistent with cellulitis and subcutaneous edema. No focal drainable ab scess. 2. Inflammatory change involving the medial compartment muscles suggestive of myositis. 3. Small knee joint effusion. 4. Focal DVT in the proximal common femoral vein extending into the greater saphenous vein and in the distal femoral vein. 5. Subcutaneous gas overlying the left hip region with no surrounding inflammatory change or foreign body. This may represent an injection site. PICC Line Insertion 05/27/20 00:00 IMPRESSION: SUCCESSFUL PLACEMENT OF A 5 FR DUAL LUMEN 47 CM PICC IN THE LEFT BASILIC VEIN. Chest X-Ray 06/01/20 00:00 IMPRESSION: Bilateral pneumonia. Chest/Abdomen CTA 06/01/20 00:00 IMPRESSION: Extensive bilateral pneumonia with coalescing nodules and solitary cavitary lesion in the right upper lobe suspicious for septic emboli. No intravascular pulmonary emboli. Assessment and Plan - Diagnosis (1) Cellulitis of left thigh Is this a current diagnosis for this admission?: Yes Plan: Hx narcotizing fascitis; treatment as per #4. Hx bacteremia, evaluation and treatment thus far as discussed in #3. (2) Heroin addiction Is this a current diagnosis for this admission?: Yes Plan: Patient reportedly uses 1.5 g heroin daily x3 years. Patient again states his intent to go to the [facility] following discharge. Continue methadone 30 mg p.o. every 8 Clonidine as needed. Remaining management discussed #3 Per previous provider "discussed with the [facility]; they typically start at 10 mg daily and increase by 5 mg every other day, even for patients with high dose usage such as Mr. Hebert. Review of literature states that 40 mg is the max initial dosing and that there should be an observation period for 3 to 4 days prior to increase to ensure once steady state is reached patient does not experience respiratory depression." (3) Bacteremia Is this a current diagnosis for this admission?: Yes Plan: Blood culture (05/25/2020; both sets) MRSA Blood culture (05/26/2020; both sets) MRSA Blood culture (05/27/2020) MRSA; obtained 48 hours following start of vancomycin. Blood culture (05/29/2020) negative at 5 days; obtained 4 days following start of vancomycin. Blood culture (06/01/2020) no growth 5 days, single bottle Enterococcus avium. Blood culture (06/08/2020) no growth in 5 days Blood culture (06/20/2020) MRSA non-detected. Blood culture (06/21/2020) 2/4 Gram + cocci clusters. Blood culture (06/23/2020) NGTD. Wound cultures positive for MRSA. Echocardiogram is negative for vegetation MITZI without evidence of vegetation Infectious disease consulted; have reviewed recommendations. - Plan to continue IV vancomycin for total of 6 weeks. - EOT should be July 10, 2020. - Vanc dosing as per pharm, monitor GFR and vanc trough weekly. Blood culture (06/20/2020) positive for Serratia Marescens; associated with line. Infectious disease consulted 06/24/2020. - Remove line with plan to replace 48 hours after removal - Tip of line sent for culture. - Ertapenem 1g daily, EOT 06/30/2019 - Pt cleared for skin graft after 06/30/2019. (4) Necrotizing fasciitis Is this a current diagnosis for this admission?: Yes Plan: Patient cleared for skin graft from ID standpoint after 06/30/2020 s/p fragment of left lower extremity for necrotizing fasciitis due to IV drug use. Patient is followed and managed by surgical team notes reviewed in detail. -Stable from surgical standpoint. - Cnt wet to dry dressing changes - Plan for split-thickness skin graft in 4-6 weeks Off IV pain medications. So far we have been successful with current pain management. (5) IV drug abuse Is this a current diagnosis for this admission?: Yes Plan: As above. (6) Multifocal pneumonia Is this a current diagnosis for this admission?: Yes Plan: No longer requiring supplemental O2. Previous treatment included: Vancomycin, Cefepime, and Levaquin Currently on vanc, as above. (7) Leukocytosis Qualifiers: Leukocytosis type: unspecified Qualified Code(s): D72.829 - Elevated white blood cell count, unspecified Is this a current diagnosis for this admission?: Yes Plan: Resolved. Of note this resolved prior to administering antibiotics for gram negative blood culture. Remains VSS, afebrile. Blood cultures as above. (8) DVT (deep venous thrombosis) Qualifiers: DVT location: lower extremity Affected thrombotic vein of extremity: femoral Chronicity: chronic Laterality: left Qualified Code(s): I82.512 - Chronic embolism and thrombosis of left femoral vein Is this a current diagnosis for this admission?: Yes Plan: 05/25/2020: CT lower extremity shows focal DVT to the proximal common femoral vein extending into the greater saphenous vein and in the distal femoral vein. -Initially treated with heparin drip given need for ongoing surgeries. -Transitioned to Lovenox warfarin bridge on 06/05/2020. -At therapeutic range on 06/09/2020 -Warfarin dosing per pharmacy. Last warfarin dose was 3 mg on 06/19/2020, has been on hold due to supratherapeutic INR. INR today 2.71. Hemoglobin remains stable. Without signs of active bleeding. (9) Anemia requiring transfusions Is this a current diagnosis for this admission?: Yes Plan: Hgb 9.1. Without signs active bleeding. s/p 2 u pRBCs. Monitor WBC for improvement. - Plan Summary Summary: Continue vancomycin as dosed per pharmacy with EOT 07/10/2019 - Time Time Spent with patient: 15-24 minutes Anticipated Discharge Disposition: Home, Self Care Anticipated Discharge Timeframe: 07/10
[2020-06-24] MEDS: WARFARIN SODIUM 3 MG TABLET PO SCH (22:23)
[2020-06-25] MEDS: OXYCODONE HCL IR 5 MG TABLET PO PRN ×2 (04:17→13:05)
[2020-06-25] MEDS: METHADONE HCL 10 MG TABLET PO SCH ×2 (05:31→13:04)
[2020-06-25] MEDS: VANCOMYCIN HCL 1,500 MG in DEXTROSE 5%-WATER 250 ML IV SCH (05:32)
[2020-06-25 06:16] LABS: INTERNATIONAL RATION (INR) 2.87
[2020-06-25 08:46] VITALS: BP 100/66
[2020-06-25] MEDS ORDERED: ERTAPENEM SODIUM 1 GM in NORMAL SALINE 50 ML IV SCH (10:00)
[2020-06-25] MEDS: ACETAMINOPHEN 325 MG TABLET PO SCH ×2 (10:23→13:04)
[2020-06-25] MEDS: FERROUS SULFATE 325 MG TABLET PO SCH (10:24)
[2020-06-25] MEDS: CHOLECALCIFEROL (D3) 1,000 UNIT (25 MCG) TABLET PO SCH (10:24)
[2020-06-25] MEDS: FAMOTIDINE 20 MG TABLET PO SCH (10:24)
[2020-06-25] MEDS: ASCORBIC ACID 500 MG TABLET PO SCH (10:24)
[2020-06-25] MEDS: NORMAL SALINE 10 ML SDV (SCHEDULED) IV SCH (10:25)
[2020-06-25] MEDS: POLYETHYLENE GLYCOL 3350 POWDER 17 GM/1 PACKET PO SCH (10:25)
[2020-06-25] MEDS: ZINC SULFATE 220 MG CAPSULE PO SCH (10:30)
[2020-06-25] MEDS: DOCUSATE SODIUM 100 MG CAPSULE PO SCH (10:30)
[2020-06-25 12:13] LABS: APPEARANCE,URINE SLIGHTLY-CLOUDY; BILIRUBIN,URINE NEGATIVE (NEGATIVE); COLOR,URINE YELLOW; GLUCOSE, URINE NEGATIVE (NEGATIVE); KETONES,URINE NEGATIVE (NEGATIVE); LEUKOCYTE ESTERASE,URINE TRACE (NEGATIVE); NITRITE,URINE NEGATIVE (NEGATIVE); PROTEIN,URINE NEGATIVE (NEGATIVE); URINE SPECIFIC GRAVITY 1.012; UROBILINOGEN,URINE NEGATIVE mg/dL (<2.0)
--- NOTE | 2020-06-25 14:10 | PDOC PROGRESS REPORT ---
Subjective Date:: 06/25/20 Subjective:: 39-year-old male admitted by surgical team for narcotizing fasciitis on 05/25. Course complicated by bacteremia. Currently on vancomycin. Patient seen on morning rounds. He is resting in bed comfortably. Reports sufficient pain management. Denies any complaints. Given recent blood cultures from PICC line positive for contamination and ordered for his current PICC line to be removed with the tip cultured. Multiple nurses have attempted to place peripheral lines and have been unable to, thus will have to have a new PICC placed. Given the number of contaminant blood cul tures from PICC line suspicious patient may be tampering with his line. Discussed with patient he denies. I will obtain a drug screen. At this time I I do believe it is necessary for me to place visitor restrictions on patient for patient safety. Reason For Visit: NECROTIZING FASCIITIS Physical Exam Vital Signs: Temp Pulse Resp BP Pulse Ox 98.6 F 80 16 100/66 98 06/25/20 08:00 06/25/20 08:00 06/25/20 08:00 06/25/20 08:00 06/25/20 08:00 Intake & Output 06/24/20 06/25/20 06/26/20 06:59 06:59 06:59 Intake Total 2278 1990 670 Output Total 1400 1500 500 Balance 878 490 170 Weight 79 kg 80.2 kg 80.2 kg Additional comments: General appearance: PRESENT: cooperative, today appears to be in no acute distress. Respiratory exam: PRESENT: clear to auscultation selam Cardiovascular exam: PRESENT: RRR. Pulses: PRESENT: normal radial pulses GI/Abdominal exam: PRESENT: soft. ABSENT: distended, firm, guarding, tenderness Extremities exam: PRESENT: other - Left lower extremity covered with heavy bandage. Neurological exam: PRESENT: alert, awake, oriented to person, oriented to place, oriented to time, oriented to situation. ABSENT: CN II-XII grossly intact Skin exam: PRESENT: other - With bandage on left lower extremity. Results Laboratory Results: 06/24/20 05:06 06/24/20 05:06 06/25/20 11:30 Urine Color YELLOW Urine Appearance SLIGHTLY-CLOUDY Urine pH 5.0 Ur Specific [place] 1.012 Urine Protein NEGATIVE Urine Glucose (UA) NEGATIVE Urine Ketones NEGATIVE Urine Blood NEGATIVE Urine Nitrite NEGATIVE Ur Leukocyte Esterase TRACE H Urine WBC (Auto) 2 Urine RBC (Auto) 0 06/21/20 12:03 Blood Blood Culture (PCR) - Final Staphylococcus Species 06/21/20 12:03 Blood Blood Culture - Final Staphylococcus Capitis 06/21/20 19:00 Blood Blood Culture (PCR) - Final Staphylococcus Species 06/21/20 19:00 Blood Blood Culture - Final Staphylococcus Lugdunensis 05/25/20 05/26/20 14:53 18:57 Creatine Kinase 36 L 23 L Impressions: Knee X-Ray 05/25/20 14:34 IMPRESSION: Small knee joint effusion. No acute fracture or destructive bone lesion. Lower Extremity CT 05/25/20 14:39 IMPRESSION: 1. Subcutaneous edema and skin thickening involving the distal upper leg and knee, consistent with cellulitis and subcutaneous edema. No focal drainable abscess. 2. Inflammatory change involving the medial compartment muscles suggestive of myositis. 3. Small knee joint effusion. 4. Focal DVT in the proximal common femoral vein extending into the greater saphenous vein and in the distal femoral vein. 5. Subcutaneous gas overlying the left hip region with no surrounding inflammatory change or foreign body. This may represent an injection site. PICC Line Insertion 05/27/20 00:00 IMPRESSION: SUCCESSFUL PLACEMENT OF A 5 FR DUAL LUMEN 47 CM PICC IN THE LEFT BASILIC VEIN. Chest X-Ray 06/01/20 00:00 IMPRESSION: Bilateral pneumonia. Chest/Abdomen CTA 06/01/20 00:00 IMPRESSION: Extensive bilateral pneumonia with coalescing nodules and solitary cavitary lesion in the right upper lobe suspicious for septic emboli. No intravascular pulmonary emboli. Assessment and Plan - Diagnosis (1) Cellulitis of left thigh Is this a current diagnosis for this admission?: Yes Plan: Hx narcotizing fascitis; treatment as per #4. Hx bacteremia, evaluation and treatment thus far as discussed in #3. (2) Heroin addiction Is this a current diagnosis for this admission?: Yes Plan: Patient reportedly uses 1.5 g heroin daily x3 years. Patient again states his intent to go to the [facility] following discharge. Continue methadone 30 mg p.o. every 8 Clonidine as needed. Remaining management discussed #3 Per previous provider "discussed with the [facility]; they typically start at 10 mg daily and increase by 5 mg every other day, even for patients with high dose usage such as Mr. Hebert. Review of literature states that 40 mg is the max initial dosing and that there should be an observation period for 3 to 4 days prior to increase to ensure once steady state is reached patient does not experience respiratory depression." (3) Bacteremia Is this a current diagnosis for this admission?: Yes Plan: Blood culture (05/25/2020; both sets) MRSA Blood culture (05/26/2020; both sets) MRSA Blood culture (05/27/2020) MRSA; obtained 48 hours following start of vancomycin. Blood culture (05/29/2020) negative at 5 days; obtained 4 days following start of vancomycin. Blood culture (06/01/2020) no growth 5 days, single bottle Enterococcus avium. Blood culture (06/08/2020) no growth in 5 days Blood culture (06/20/2020) MRSA non-detected. Blood culture (06/21/2020) 2/4 Gram + cocci clusters. Blood culture (06/23/2020) NGTD. Wound cultures positive for MRSA. Echocardiogram is negative for vegetation MITZI without evidence of vegetation Infectious disease consulted; have reviewed recommendations. - Plan to continue IV vancomycin for total of 6 weeks. - EOT should be July 10, 2020. - Vanc dosing as per pharm, monitor GFR and vanc trough weekly. Blood culture (06/20/2020) positive for Serratia Marescens; associated with line. Infectious disease consulted 06/24/2020. - Ertapenem 1g daily, EOT 06/30/2019 - Pt cleared for skin graft after 06/30/2019. PICC removed 06/25, tip sent for culture. Unable to get peripheral IV, new PICC placed. (4) Necrotizing fasciitis Is this a current diagnosis for this admission?: Yes Plan: Patient cleared for skin graft from ID standpoint after 06/30/2020 s/p fragment of left lower extremity for necrotizing fasciitis due to IV drug use. Patient is followed and managed by surgical team notes reviewed in detail. -Stable from surgical standpoint. - Cnt wet to dry dressing changes - Plan for split-thickness skin graft in 4-6 weeks Off IV pain medications. So far we have been successful with current pain management. (5) IV drug abuse Is this a current diagnosis for this admission?: Yes Plan: As above. (6) Multifocal pneumonia Is this a current diagnosis for this admission?: Yes Plan: No longer requiring supplemental O2. Previous treatment included: Vancomycin, Cefepime, and Levaquin Currently on vanc, as above. (7) Leukocytosis Qualifiers: Leukocytosis type: unspecified Qualified Code(s): D72.829 - Elevated white blood cell count, unspecified Is this a current diagnosis for this admission?: Yes Plan: Resolved. (8) DVT (deep venous thrombosis) Qualifiers: DVT location: lower extremity Affected thrombotic vein of extremity: femoral Chronicity: chronic Laterality: left Qualified Code(s): I82.512 - Chronic embolism and thrombosis of left femoral vein Is this a current diagnosis for this admission?: Yes Plan: 05/25/2020: CT lower extremity shows focal DVT to the proximal common femoral vein extending into the greater saphenous vein and in the distal femoral vein. -Initially treated with heparin drip given need for ongoing surgeries. -Transitioned to Lovenox warfarin bridge on 06/05/2020. -At therapeutic range on 06/09/2020 -Warfarin dosing per pharmacy. Last warfarin dose was 3 mg on 06/19/2020, has been on hold due to supratherapeutic INR. INR today 2.71. Hemoglobin remains stable. Without signs of active bleeding. (9) Anemia requiring transfusions Is this a current diagnosis for this admission?: Yes Plan: Hgb 9.1. Without signs active bleeding. s/p 2 u pRBCs. Monitor WBC for improvement. - Plan Summary Summary: Continue vancomycin as dosed per pharmacy with EOT 07/10/2019 - Time Time Spent with patient: 35 or more minutes Medications reviewed and adjusted accordingly: Yes Anticipated Discharge Disposition: Home, Self Care Anticipated Discharge Timeframe: 07/10
[2020-06-25 16:42] LABS: URINE BARBITURATES SCREEN NEGATIVE; URINE BENZODIAZEPINES SCREEN NEGATIVE; URINE COCAINE SCREEN NEGATIVE; URINE MARIJUANA (THC) SCREEN NEGATIVE; URINE PHENCYCLIDINE SCREEN NEGATIVE
[2020-06-25 17:24] LABS: URINE METHADONE SCREEN UNCONFIRMED POSITIVE
--- NOTE | 2020-06-25 19:52 | Progress Note ---
Provider Note Provider Note: Patient left the hospital against medical advice.
--- NOTE | 2020-07-12 20:53 | Left Against Medical Advice ---
Against Medical Advice Admission Date/Time: 05/25/20 15:25 Primary Care Provider: Date of Patient Emigration: 07/26/20 - Diagnosis: (1) Abscess of left thigh Is this a current diagnosis for this admission?: Yes (2) Acute blood loss anemia Is this a current diagnosis for this admission?: Yes (3) Acute pain of extremity Is this a current diagnosis for this admission?: Yes (4) Anemia requiring transfusions Is this a current diagnosis for this admission?: Yes (5) Bacteremia Is this a current diagnosis for this admission?: Yes (6) Cellulitis of left thigh Is this a current diagnosis for this admission?: Yes (7) IV drug abuse Is this a current diagnosis for this admission?: Yes (8) Necrotizing fasciitis Is this a current diagnosis for this admission?: Yes (9) Necrotizing soft tissue infection Is this a current diagnosis for this admission?: Yes - Summary: Summary: Please see Admission and Progress Notes as well. AIDE KHAN is a 39 M, who LEFT AGAINST MEDICAL ADVICE. The Patient was admitted on 05/25/20 15:25.
--- NOTE | 2020-07-12 20:54 | Left Against Medical Advice ---
Against Medical Advice Admission Date/Time: 05/25/20 15:25 Primary Care Provider: Date of Patient Emigration: 06/25/20 - Diagnosis: (1) Abscess of left thigh Is this a current diagnosis for this admission?: Yes (2) Acute blood loss anemia Is this a current diagnosis for this admission?: Yes (3) Acute pain of extremity Is this a current diagnosis for this admission?: Yes (4) Anemia requiring transfusions Is this a current diagnosis for this admission?: Yes (5) Bacteremia Is this a current diagnosis for this admission?: Yes (6) Cellulitis of left thigh Is this a current diagnosis for this admission?: Yes (7) IV drug abuse Is this a current diagnosis for this admission?: Yes (8) Necrotizing fasciitis Is this a current diagnosis for this admission?: Yes (9) Necrotizing soft tissue infection Is this a current diagnosis for this admission?: Yes - Summary: Summary: Please see Admission and Progress Notes as well. AIDE KHAN is a 39 M, who LEFT AGAINST MEDICAL ADVICE. The Patient was admitted on 05/25/20 15:25.
== END 2020-06-25 17:37 | disposition left against medical advice (07) | DRG 463 ==
LOC: EDBD → ER 14:28 → EH 15:25 → 4S 20:00 → 3S 06-01 17:11 → 4S 06-07 10:15
PROVIDERS: ADMIT Surgery; ATTEND Hospitalist
PROC: 0J9P0ZX Drainage of Left Lower Leg Subcutaneous Tissue and Fascia, Open Approach, Diagnostic (ICD-10-PCS; 2020-05-25)
PROC: 0J9M0ZX Drainage of Left Upper Leg Subcutaneous Tissue and Fascia, Open Approach, Diagnostic (ICD-10-PCS; 2020-05-25)
PROC: 3E0234Z Introduction of Serum, Toxoid and Vaccine into Muscle, Percutaneous Approach (ICD-10-PCS; 2020-05-25)
PROC: 0JBM0ZZ Excision of Left Upper Leg Subcutaneous Tissue and Fascia, Open Approach (ICD-10-PCS; 2020-05-26)
PROC: 02HV33Z Insertion of Infusion Device into Superior Vena Cava, Percutaneous Approach (ICD-10-PCS; 2020-05-27)
PROC: B24BZZ4 Ultrasonography of Heart with Aorta, Transesophageal (ICD-10-PCS; 2020-05-27)
PROC: B548ZZA Ultrasonography of Superior Vena Cava, Guidance (ICD-10-PCS; 2020-05-27)
PROC: B518ZZA Fluoroscopy of Superior Vena Cava, Guidance (ICD-10-PCS; 2020-05-27)
PROC: 0JBM0ZZ Excision of Left Upper Leg Subcutaneous Tissue and Fascia, Open Approach (ICD-10-PCS; principal; 2020-05-30 07:30)
PROC: B24BZZ4 Ultrasonography of Heart with Aorta, Transesophageal (ICD-10-PCS; 2020-06-04)
DX: M72.6 Necrotizing fasciitis (principal); J18.9 Pneumonia, unspecified organism; I26.90 Septic pulmonary embolism without acute cor pulmonale; L03.116 Cellulitis of left lower limb; F11.20 Opioid dependence, uncomplicated; I82.512 Chronic embolism and thrombosis of left femoral vein; R78.81 Bacteremia; L02.416 Cutaneous abscess of left lower limb; D62 Acute posthemorrhagic anemia; Z20.828 Contact with and (suspected) exposure to other viral communicable diseases; F17.210 Nicotine dependence, cigarettes, uncomplicated; I87.2 Venous insufficiency (chronic) (peripheral); I10 Essential (primary) hypertension; A49.02 Methicillin resistant Staphylococcus aureus infection, unspecified site; E87.6 Hypokalemia; B95.2 Enterococcus as the cause of diseases classified elsewhere; Z23 Encounter for immunization
CPT/HCPCS: 00400; 01250; 01320; 01922; 36415; 36430; 36573; 71045; 71275; 80048; 80053; 80202; 80307; 81001; 82550; 82565; 82607; 82728; 82746; 82803; 83036; 83540; 83550; 83605; 83735; 85025; 85027; 85045; 85610; 85730; 86850; 86900; 86901; 86920; 87040; 87070; 87075; 87077; 87150; 87186; 87205; 90715; 93005; 93010; 93306; 93312; 93325; 94667; 94668; 94799; 96361; 96365; 96375; 99140; 99285; 0241U; C9803; J0692; J0696; J1170; J1335; J1642; J1644; J1650; J1885; J1940; J1956; J2185; J2250; J2270; J2405; J2704; J3010; J3360; J3370; J3480; J3490; J7030; J7060; J7120; P9016; S0028